=== PATIENT | male | born 1955 | race Caucasian/White ===

== ENCOUNTER 2025-04-03 13:41 | Inpatient (IN) | payer MEDICAID, SELFPAY ==
[2025-04-03] VITALS (60 sets, daily range): BP systolic 70–167; BP diastolic 45–121; PULSE 74–109; RESP 13–25; TEMP 34.4–36.5; O2SAT 88–100; BMI 35.4
--- NOTE | 2025-04-03 13:54 | XR_ITS ---
Examination: CT brain head without contrast. 2-D sagittal coronal reconstructions Date and time of exam:April 03, 2025 7001 hours Comparison April 07, 2022 INDICATIONS: Cardiopulmonary arrest followed by altered mental status today CTDI: vol (mGy):56.5 DLP: (mGycm):1170 Technique: Multiple CT axial sections of the brain have been obtained, 5 mm slice thickness. Contrast has not been administered. 2-D sagittal, coronal reconstructions have been obtained Low dose protocols were performed. One or more of the following dose reduction techniques were used; automated exposure control, adjustment of the mA and/or KV according to patient size, use of iterative reconstruction technique. Findings: No significant ventricular enlargement. Intra-axial or extra-axial hemorrhage density is not seen. No mass effect or midline shift Basal cisterns are not remarkable. Fourth ventricle is midline. Cranial vault intact. 8 mm bony exostosis off the right frontal bone Impression: Negative for acute hemorrhage, mass effect or midline shift No acute infarct No generalized cerebral edema As clinically warranted, brain MRI follow-up would best assess for acute ischemic change/anoxia
--- NOTE | 2025-04-03 13:54 | PD.EDCPR ---
ED CPR RME/HPI General Chief Complaint: Cardiac Arrest/CPR Stated Complaint: CARDIAC ARREST Arrival date/time: 04/03/25 13:41 RME / HPI RME / HPI narrative: 70 year old male [facility] the ED [facility] as a code [facility]. Per medics, the initial call was for choking incident. When they arrived, staff stated patient began choking after eating an apple and fire department was able to remove some of the food. When they arrived noted patient to have agonal respirations, with a domingo pulse, placed an NPA in the right nostril, and bagged via BVM. Medics reported en route to ED patient lost pulses and CPR was initiated. Patient was given 1 epinephrine at 13:36. On arrival to ED at 13:37 CPR is in progress. Related Data Home Medications ?Medication ?Instructions ?Recorded ?Confirmed amlodipine 10 mg tablet 10 mg PO QDAY 10/02/20 01/24/24 lorazepam 0.5 mg tablet 0.5 mg PO TID PRN Anxiety 10/02/20 01/24/24 lurasidone 40 mg tablet 40 mg PO QDAY 10/02/20 01/24/24 melatonin 5 mg tablet 5 mg PO HS 10/02/20 01/24/24 paroxetine HCl 20 mg tablet 20 mg PO QDAY 10/02/20 01/24/24 quetiapine 100 mg tablet 200 mg PO HS 10/02/20 01/24/24 cyanocobalamin (vitamin B-12) 1,000 mcg PO QDAY 10/03/20 01/24/24 1,000 mcg tablet (Vitamin B-12) docusate sodium 50 mg/5 mL oral 25 ml PO BID 10/03/20 01/24/24 liquid folic acid 1 mg tablet 1 mg PO QDAY 10/03/20 01/24/24 insulin glargine 100 unit/mL (3 26 unit subcut HS 10/03/20 01/24/24 mL) subcutaneous pen (Basaglar KwikPen U-100 Insulin) polyethylene glycol 3350 17 gram 17 g PO QDAY 10/03/20 01/24/24 oral powder packet (Miralax) omeprazole 20 mg tablet,delayed 20 mg PO BID 05/16/21 01/24/24 release quetiapine 100 mg tablet 100 mg PO QDAY 05/16/21 01/24/24 trazodone 50 mg tablet 200 mg PO QDAY 05/16/21 01/24/24 insulin lispro 100 unit/mL See Protocol subcut USEASDIRECTD 03/08/22 01/24/24 subcutaneous solution (Humalog PRN Hyperglycemia U-100 Insulin) finasteride 5 mg tablet 5 mg PO QDAY 07/19/22 01/24/24 tamsulosin 0.4 mg capsule 0.8 mg PO QHS 07/19/22 01/24/24 Previous Rx's ?Medication ?Instructions ?Recorded allopurinol 100 mg tablet 100 mg PO BID #1 tab 10/05/20 carvedilol 3.125 mg tablet 3.125 mg PO BID #1 tab 10/05/20 Allergies Allergy/AdvReac Type Severity Reaction Status Date / Time No Known Allergies Allergy Verified 04/03/25 13:52 Review of Systems Review of Systems ROS Unobtainable: other (Unobtainable due to acuity ) Past Medical History Past Medical History CARDIAC: Positive Cardiac Disorders, Congestive Heart Failure and Hypertension MUSCULOSKELETAL: Positive Musculoskeletal Disorders and Gout ENDOCRINE: Positive Endocrine Disorders and Diabetes Mellitus Type 2 PSYCHO/SOCIAL: Positive Psychiatric Problems, Bipolar Disorder, Anxiety and Behavior Problems Surgical History SURGICAL: Positive Amputation Social History SMOKING STATUS: Smoker, status unknown SUBSTANCE USE: unknown ED Exam Narrative Physical exam: GEN. APPEARANCE: Patient arrived with CPR in progress, bagged via BVM with NPA in right nostril. VITALS: Unobtainable. HEENT: Normocephalic, atraumatic, equal pupils, patient had food material in airway NECK: Supple, no JVD, no mass, no lymphadenopathy. RESPIRATORY: Agonal respirations CARDIOVASCULAR: No spontaneous cardiac activity, CPR in progress. ABDOMEN: Soft, mildly distended, obese EXTREMITIES: Left AKA, abnormally dark skin of the right lower extremity. No edema. No signs of trauma. SKIN: Cool and dry, no rashes noted. No signs of trauma. NEURO: GCS is 3. Unable to evaluate secondary to unresponsive. Course Quality Measures none Orders Category Date Time Status Cadd Operator NOW Care 04/03/25 13:55 Active Continuous Pulse Oximetry NOW Care 04/03/25 13:54 Completed EKG (ED ONLY) *Do not use* NOW Care 04/03/25 13:53 Completed Nunez [Urinary Catheter] X1 Care 04/03/25 14:10 Completed Insert IV NOW Care 04/03/25 13:55 Active Insert NG / OG tube NOW Care 04/03/25 14:42 Active NPO NOW Care 04/03/25 13:55 Active Urinary Catheter NOW Care 04/03/25 13:[address] head/brain wo con Stat Exams 04/03/25 13:54 Completed EKG (ED Only) Stat Exams 04/03/25 13:53 Ordered XR chest 1V portable Stat Exams 04/03/25 13:54 Completed Acetaminophen Stat Lab 04/03/25 13:47 Completed Alcohol, Blood Medical Stat Lab 04/03/25 13:47 Completed Arterial Blood Gas Stat Lab 04/03/25 16:35 Ordered CBC Stat Lab 04/03/25 13:47 Completed Comprehensive Metabolic Panel Stat Lab 04/03/25 13:47 Completed Drug Screen,Urine Stat Lab 04/03/25 13:55 Completed Prothrombin Time with INR Stat Lab 04/03/25 13:47 Completed Sputum Culture and Gram Stain Stat Lab 04/03/25 15:27 Received Midazolam/Ns 100 mg Ivpb [Versed Pf Inj in Ns Premix] Med 04/03/25 14:18 Discontinued 100 mg in 100 ml IV 2 mg/hr Piper/Tazo 3.375 gm Premix [Zosyn] Med 04/03/25 13:57 Discontinued 3.375 gm in 50 ml IV X1 Rocuronium Inj [Zemuron Inj] Med 04/03/25 14:17 Discontinued 100 mg .ROUTE .STK-MED ONE Rocuronium Inj [Zemuron Inj] Med 04/03/25 14:18 Discontinued 100 mg IVP X1 ONE Sodium Chloride 0.9% 1000 ml [Ns] 1,000 ml Med 04/03/25 13:54 Discontinued IV 1,000 mls/hr Sodium Chloride Rt Jessica 10% [NS Rt Jessica 10%] Med 04/03/25 14:04 Discontinued 5 ml INH X1 ONE Vancomycin Pharmacy to Dose Med 04/03/25 14:00 Active 1 each IV QDAY PRN Vancomycin/Ns 1 gm Ivpb 200 ml Med 04/03/25 14:00 Discontinued IV X1 Mechanical [Volume Ventilator] Stat RT 04/03/25 Active Sputum Induction PRN RT 04/03/25 14:15 Ordered Vital Signs Vital signs: Vital Signs Pulse Rate 85 04/03/25 13:49 Respiratory Rate 16 04/03/25 13:49 Blood Pressure 140/97 H 04/03/25 13:49 Pulse Oximetry (%) 100 04/03/25 13:49 Procedures -ED Intubation Time out performed: No (Performed emergently ) sedative: none Laryngoscope: fiber optic video scope Assist Device Used: fiber optic device ET Tube Size: 7.5 ET Tube Uncuffed: No Tube Secured Depth (cm): 23 Tube Secured Location: other (gum) Tube Placement Confirmation: visualized tube passing through cords, equal breath sounds bilaterally, no breath sounds over epigastrium and confirmation by capnometry Patient Tolerated Procedure: well and no complications Intubation Complications: none Cardiac Arrest / CPR MDM Narrative MDM Narrative:: Patria Tabares am scribing for and in the presence of Dr. Angel. Patient data External records reviewed:: [facility] previous records (I reviewed ED visit on 06/18/2022 for urinary retention ) and EMS form Clinical information provided by:: EMS Social determinants that could affect healthcare access:: housing (care home resident ) Patient has the following chronic illnesses:: insulin-dependant diabetes, right big toe amputation, left AKA How is presenting disease/condition affected by chronic disease/condition?: exacerbated by Evaluation data The following diagnostics were reviewed and interpreted by me:: lab results, radiology exam(s) and EKG tracing(s) Lab and/or radiology exams considered but not ordered:: None Interpretation Summary: Ordering Physician: Davion Angel MD Date of Service: 04/03/25 Procedure(s): XR chest 1V portable Accession Number(s): [id number] cc: Davion Angel MD; Drake Brown MD; NO PRIMARY/FAMILY,PHYSICIAN~ Examination: AP chest single view TECHNIQUE: AP portable upright chest single view Exam date and time: April 03, 2025, 1419 hours Comparison March 08, 2022. INDICATIONS: Acute respiratory failure, postintubation FINDINGS: Mild enlargement cardiac contour Bibasilar pneumonia, significant right base consider aspiration pneumonia Endotracheal tube tip 6.8 cm above Andree Orogastric tube tip projects in the upper esophagus Moderate vascular congestion IMPRESSION: Significant bibasilar pneumonia, consider aspiration pneumonia Advance the orogastric tube 15 cm Dictated By: Drake Brown MD Signed By: <Electronically signed by Drake Brown MD in OV> 04/03/25 5418 Medications / Prescriptions Medications or Prescriptions considered but not ordered:: None Medication administrations:: Medication Administration History Acetaminophen (Acetaminophen 325 Mg Tablet) 650 mg PO Q6H PRN PRN Reason: Fever >100.4 Stop: 05/03/25 16:21 Dextrose (Dextrose 50%-Water Inj 50 Ml Syringe) 25 ml IV Q15MIN PRN PRN Reason: BG 50-70 responsive npo pt Stop: 05/03/25 16:32 Dextrose (Dextrose 50%-Water Inj 50 Ml Syringe) 50 ml IV Q15MIN PRN PRN Reason: BG <50 OR BG <70 & pt unresponsive Stop: 05/03/25 16:32 Famotidine (Famotidine Inj 10 Mg/Ml Vial 2 Ml) 20 mg IVP Q12HR MANUEL Stop: 05/03/25 20:59 Glucagon (Glucagon Inj 1 Mg Vial) 1 mg IM Q15MIN PRN PRN Reason: BG <70, and no IV access Heparin Sodium (Porcine) (Heparin Sod Inj 5000 Unit/Ml Vial) 5,000 unit SC Q8HR MANUEL Stop: 04/17/25 21:59 Norepinephrine/Dextrose (Levophed In D5w 8mg/250ml) 8 mg in 250 mls @ 10.206 mls/hr IV .Q24H PRN; Protocol PRN Reason: PER PROTOCOL Stop: 05/03/25 16:30 Last Titration: 04/03/25 17:20 Dose: 0 mcg/kg/min, 0 mls/hr Documented By: Admin: 04/03/25 16:42 Dose: 0.05 mcg/kg/min, 10.206 mls/hr Documented By: JESUS Piperacillin/Tazobactam/Dextrose (Zosyn) 3.375 gm in 50 mls @ 12.5 mls/hr IV Q8HR MANUEL Stop: 04/10/25 21:59 Vancomycin/Sodium Chloride (Vancomycin/Ns 1 Gm Ivpb) 200 mls @ 120 mls/hr IV X1 ONE Stop: 04/03/25 19:09 Propofol (Diprivan Ivpb) 1,000 mg in 100 mls @ 3.266 mls/hr IV .Q24H PRN; Protocol PRN Reason: PER PROTOCOL Stop: 05/03/25 17:22 Last Admin: 04/03/25 17:46 Dose: 5 mcg/kg/min, 3.266 mls/hr Documented By: LETY Co-signed By: BENITA Fentanyl Citrate (Sublimaze Inj 2,500 Mcg/250 Ml Bag) 2,500 mcg in 250 mls @ 2.5 mls/hr IV .Q24H PRN; Protocol PRN Reason: PER PROTOCOL Stop: 04/08/25 17:22 Last Admin: 04/03/25 17:46 Dose: 25 mcg/hr, 2.5 mls/hr Documented By: LETY Co-signed By: BENITA Insulin Human Regular (Insulin Hum Regular 1 Unit/0.01 Ml (Per Unit)) 0 unit SC Q6HR MANUEL; Protocol Stop: 05/03/25 17:59 Pharmacy Consult (Vancomycin Pharmacy To Dose 1 Each Each) 1 each IV QDAY PRN PRN Reason: CONSULT Stop: 05/03/25 13:59 Discontinued Medications Sodium Chloride (Ns) 1,000 mls @ 1,000 mls/hr IV .Q1H ONE Stop: 04/03/25 14:53 Last Infusion: 04/03/25 17:47 Dose: Infused Documented By: Admin: 04/03/25 14:52 Dose: 1,000 mls/hr Documented By: SHERWIN Piperacillin/Tazobactam/Dextrose (Zosyn) 3.375 gm in 50 mls @ 100 mls/hr IV X1 ONE Stop: 04/03/25 14:26 Last Infusion: 04/03/25 17:46 Dose: Infused Documented By: Admin: 04/03/25 15:57 Dose: 100 mls/hr Documented By: JESUS Vancomycin/Sodium Chloride (Vancomycin/Ns 1 Gm Ivpb) 200 mls @ 120 mls/hr IV X1 ONE Stop: 04/03/25 15:39 Last Admin: 04/03/25 15:57 Dose: 120 mls/hr Documented By: JESUS Midazolam HCl (Versed Pf Inj In Ns Premix) 100 mg in 100 mls @ 2 mls/hr IV .Q24H PRN; Protocol PRN Reason: PER PROTOCOL Stop: 04/08/25 14:17 Last Titration: 04/03/25 17:42 Dose: 0 mg/hr, 0 mls/hr Documented By: Titration: 04/03/25 17:14 Dose: 3 mg/hr, 3 mls/hr Documented By: Admin: 04/03/25 14:30 Dose: 2 mg/hr, 2 mls/hr Documented By: SHERWIN Co-signed By: PETAR Norepinephrine Bitartrate (Levophed In Ns 16mg/250ml) 16 mg in 250 mls @ 5.103 mls/hr IV .Q24H PRN; Protocol PRN Reason: PER protocol Stop: 05/03/25 16:25 Norepinephrine/Dextrose (Levophed In D5w 8mg/250ml) Confirm Administered Dose 8 mg in 250 mls @ ud IV .STK-MED ONE Stop: 04/03/25 16:26 Last Admin: 04/03/25 16:43 Dose: Not Given Documented By: JESUS Non-Admin Reason: Duplicate Medication on eMAR Calcium Gluconate/Sodium Chloride (Calcium Gluc/Ns 1000mg Ivpb) 1,000 mg in 50 mls @ 50 mls/hr IV X1 ONE Stop: 04/03/25 17:32 Rocuronium [place] (Rocuronium Inj 10 Mg/Ml Vial 10 Ml) 100 mg IVP X1 ONE Stop: 04/03/25 14:19 Last Admin: 04/03/25 14:22 Dose: 100 mg Documented By: SHERWIN Co-signed By: MARINA Rocuronium [place] (Rocuronium Inj 10 Mg/Ml Vial 10 Ml) Confirm Administered Dose 100 mg .ROUTE .STK-MED ONE Stop: 04/03/25 14:18 Last Admin: 04/03/25 14:25 Dose: Not Given Documented By: SHERWIN Non-Admin Reason: Duplicate Medication on eMAR Sodium Chloride (Sodium Chloride Rt 10% 15 Ml Nebu) 5 ml INH X1 ONE Stop: 04/03/25 14:05 See above Consultations Consultation(s) initiated? (list below): Yes Consultation #1 (Physician, Specialty, Details): I spoke with supervisor powder and primer canning Dr. Mathews. Discussed patients PMHx, HPI, ED course, exam findings, labs, and radiology results. Aircraft Engine Specialist accepts the patient for admission. Diagnosis Cardiac arrest differential diagnosis: acute respiratory failure, cardiac arrest and other (Complete airway obstruction, aspiration pneumonia, acute respiratory failure) Most likely diagnosis given after review of the tests above:: Aspiration pneumonia Acute respiratory arrest Hypernatremia Admission Indicated Admission indicated?: indicated Admission Request Was there a request for admission?: Yes Admission Attestation Admission request attestation: Discussed case with [] from Hospitalist service regarding admission. Discussed patients ED course, exam findings, labs, and radiology results. The Hospitalist [agrees,declines] to accept the patient for admission. Disposition Plan Disposition Plan: Admit Critical Care Time Critical Care Time Critical Care Time: Yes Total Critical Care Time (min.): 35 Attestation: The high probability of sudden, clinically significant deterioration in the patient's condition required the highest level of my preparedness to intervene urgently. The services I provided to this patient were to treat and/or prevent clinically significant deterioration. Services included the following: chart data review, reviewing nursing notes and/or old charts, documentation time, executive talent acquisition consultant collaboration regarding findings and treatment options, medication orders and management, direct patient care, vital sign assessments and ordering, interpreting and reviewing diagnostic studies and lab tests. Aggregate critical care time includes only time during which I was engaged in work directly related to the patient's care, as described above, whether at bedside or elsewhere in the Emergency Department. It did not include time spent performing other reported procedures or the services of residents, students, nurses or physician assistants. Discharge Plan Plan Patient Disposition: Admit Acute Care w/in Hospital Problem List Clinical Impression: Aspiration pneumonia, Acute respiratory failure, Hypernatremia
--- NOTE | 2025-04-03 14:01 | PC.CC ---
Carton Counter Feeder contacted [facility] longtermhome economist consumer service- Shruthi Brooks [phone] in efforts to receive family/next of kin information. Shruthi informed check writer salesperson Pt is conserve and does not have family/next of kin but has rifle case repairer through [facility] Marilia Lee [phone]. Carton Counter Feeder attempted to call rifle case repairer and was not able to reach her. Carton Counter Feeder contacted construction operations manager after hours [facility] hotline and was able to reach Tito [facility] facility maintenance supervisor [phone] and informed her of Pt status. Carton Counter Feeder informed attending doctor of [facility] status and shared contact information.
[2025-04-03 14:15] LABS: Basophils # (Auto) 0.1 Thou/mm3 (0.0-0.2); Basophils % (Auto) 1 % (0-2.5); Eosinophils # (Auto) 0.5 Thou/mm3 (0.0-0.5); Eosinophils % (Auto) 5 % (0-10); Hematocrit 26.6 % (41.0-53.0); Immature Granulocytes % (Auto) 3 % (0-0); Immature Granulocytes Auto 0.28 Thou/mm3 (0.00-0.00); Lymphocytes # (Auto) 3.7 Thou/mm3 (1.0-4.8); Lymphocytes % (Auto) 41 % (10-50); Mean Corpuscular HGB Conc 33.8 g/dl (31.0-37.0); Mean Corpuscular Volume 92 fL (80-100); Monocytes # (Auto) 0.5 Thou/mm3 (0.0-0.8); Monocytes % (Auto) 6 % (0-12); Neutrophils % (Auto) 45 % (37-80); Nucleated Red Blood Cell # 0.11 Thou/mm3 (0.00-0.00); Nucleated Red Blood Cell % 1 /100 WBC (0); Platelet Count 105 Thou/mm3 (140-440); RDW Standard Deviation 49.8 fL (35.1-43.9)
[2025-04-03 14:19] LABS: INR 1.3 (0.9-1.3); Prothrombin Time 13.8 Seconds (9.0-12.2)
[2025-04-03] MEDS: ROCURONIUM INJ 10 MG/ML VIAL 10 ML 100 MG IVP (14:22)
[2025-04-03 14:25] LABS: Acetaminophen < 2.0 mcg/mL (10.0-20.0); Alanine Aminotransferase 18 U/L (10-49); Albumin, Serum 2.2 gm/dL (3.4-4.8); Albumin/Globulin Ratio 0.8 (1.2-2.2); Alcohol, Blood Medical < 3.0 mg/dL (0-10.0); Alkaline Phosphatase 64 U/L (46-116); Anion Gap 34 (7-16); Aspartate Amino Transferase 36 U/L (0-34); BUN/Creatinine Ratio 31 Ratio (12-20); Bilirubin,Total < 0.2 mg/dL (0.3-1.2); Blood Urea Nitrogen 37 mg/dL (9-23); Calcium (Corrected) 7.9 mg/dL (8.5-10.1); Carbon Dioxide > 40.0 mMol/L (20.0-31.0); Chloride 105 mMol/L (98-107); Creatinine (Component) 1.2 mg/dL (0.6-1.3); Estimated Creatinine Clearance 69.6 mL/min (>60); Globulin 2.8 gm/dL (2.3-3.5); Glucose 163 mg/dL (74-106); Osmolality,Calculated 364 (275-295); Potassium 4.7 mMol/L (3.4-5.1); eGFR > 60 See Note
[2025-04-03 14:26] LABS: Calcium 6.5 mg/dL (8.3-10.6); Sodium 179 mMol/L (136-145)
[2025-04-03 14:27] LABS: Amphetamine/Methamp Scrn,U Negative (Negative); Barbiturate Screen,Urine Negative (Negative); Benzodiazepines Screen,Urine Negative (Negative); Benzoylecgonine Screen, Ur Negative (Negative); Fentanyl Screen,Urine Negative (Negative); Opiate Screen,Urine Negative (Negative); THC Screen,Urine Negative (Negative)
[2025-04-03] MEDS: MIDAZOLAM/NS 100 MG IVPB 100 MG/100 ML BAG IV (14:30)
[2025-04-03] MEDS: SODIUM CHLORIDE 0.9% 1000 ML 1,000 ML IV (14:52)
[2025-04-03] MEDS: PIPER/TAZO 3.375 GM PREMIX 3.375 GM/50 ML BAG IV ×2 (15:57→21:20)
[2025-04-03] MEDS: VANCOMYCIN/NS 1 GM IVPB 200 ML IV ×2 (15:57→18:22)
--- NOTE | 2025-04-03 16:35 | PD.RESHP ---
Documentation for date of: 04/03/25 [facility] History of Present Illness Chief complaint: respiratory arrest History of present illness: Patient is a 70 year old male with PMH of developmental delay, bipolar disorder, DM2, L AKA admitted to the ICU for choking-induced pulmonary arrest s/p ROSC. Per caregivers and EMS report, patient was eating an apple when he choked and became unresponsive. When EMS arrived, patient was noted to be agonal, hypoxic at 55% and bradycardic. They were able to clear some food from his mouth. Patient was bagged via NPA. En route, patient lost pulses and CPR was initiated. He was given 1 of epinephrine. ROSC was achieved. Patient was intubated. Per caregivers, patient is wheelchair bound. He is verbal at baseline. He has been itchy and multiple excoriations were noted on physical exam. In the ER, labs significant for severe hypernatremia at 179 with an anion gap acidosis. He was given 1L of NS and empiric antibiotics. He was started on versed and became hypotensive, so levophed was started. CXR shows significant bibasilar pneumonia. EKG showed sinus tachycardia. UTOX negative. Head CT pending. UA, lactic acid, troponin pending. Patient admitted to the ICU for respiratory arrest s/p ROSC and severe hypernatremia. Patient is is conserved with CRVC. Exam Vital Signs Temp Pulse Resp BP Pulse Ox O2 Del Method FiO2 97.7 F 77 18 90/56 L 97 Mechanical Ventilation 100 04/03/25 16:13 04/03/25 16:13 04/03/25 16:13 04/03/25 16:13 04/03/25 16:13 04/03/25 16:13 04/03/25 16:13 Narrative Exam Constitutional: Elderly male, intubated/sedated; obese HEENT: NCAT. Mucous membranes dry. Pupils sluggish Respiratory: Bilateral ronchi. Intubated Cardiac: RRR. Abdomen: Soft, non-distended. : Nunez draining concentrated urine MSK: L BKA. No peripheral edema Skin: Multiple excoriations throughout body. Stasis dermatitis discoloration R schrader. Results: Labs 04/05/25 05:08 04/05/25 05:08 Labs: Short CBC 04/03/25 Range/Units 13:47 WBC 9.0 (3.8-10.6) Thou/mm3 Hgb 9.0 L (13.5-16.0) g/dL Hct 26.6 L (41.0-53.0) % Plt Count 105 L (140-440) Thou/mm3 BMP 04/03/25 13:47 Sodium 179 H* Potassium 4.7 Chloride 105 Carbon Dioxide > 40.0 H BUN 37 H Creatinine 1.2 Glucose 163 H Calcium 6.5 L* Liver Function 04/03/25 Range/Units 13:47 Total Bilirubin < 0.2 L (0.3-1.2) mg/dL AST 36 H (0-34) U/L ALT 18 (10-49) U/L Alkaline Phosphatase 64 (46-116) U/L Albumin 2.2 L (3.4-4.8) gm/dL Quality Measures Quality Measures none Advance care planning discussed with:: other (conserved; attempted to reach CRVC. Spoke with caregivers.) Medications Home Medications and Allergies Home Medications ?Medication ?Instructions ?Recorded ?Confirmed ?Type amlodipine 10 mg tablet 10 mg PO QDAY 10/02/20 01/24/24 History lorazepam 0.5 mg tablet 0.5 mg PO TID PRN Anxiety 10/02/20 01/24/24 History lurasidone 40 mg tablet 40 mg PO QDAY 10/02/20 01/24/24 History melatonin 5 mg tablet 5 mg PO HS 10/02/20 01/24/24 History paroxetine HCl 20 mg tablet 20 mg PO QDAY 10/02/20 01/24/24 History quetiapine 100 mg tablet 200 mg PO HS 10/02/20 01/24/24 History cyanocobalamin (vitamin B-12) 1,000 mcg PO QDAY 10/03/20 01/24/24 History 1,000 mcg tablet (Vitamin B-12) docusate sodium 50 mg/5 mL oral 25 ml PO BID 10/03/20 01/24/24 History liquid folic acid 1 mg tablet 1 mg PO QDAY 10/03/20 01/24/24 History insulin glargine 100 unit/mL (3 26 unit subcut HS 10/03/20 01/24/24 History mL) subcutaneous pen (Basaglar ShantalPen U-100 Insulin) polyethylene glycol 3350 17 gram 17 g PO QDAY 10/03/20 01/24/24 History oral powder packet (Miralax) omeprazole 20 mg tablet,delayed 20 mg PO BID 05/16/21 01/24/24 History release quetiapine 100 mg tablet 100 mg PO QDAY 05/16/21 01/24/24 History trazodone 50 mg tablet 200 mg PO QDAY 05/16/21 01/24/24 History insulin lispro 100 unit/mL See Protocol subcut USEASDIRECTD 03/08/22 01/24/24 History subcutaneous solution (Humalog PRN Hyperglycemia U-100 Insulin) finasteride 5 mg tablet 5 mg PO QDAY 07/19/22 01/24/24 History tamsulosin 0.4 mg capsule 0.8 mg PO QHS 07/19/22 01/24/24 History Allergies Allergy/AdvReac Type Severity Reaction Status Date / Time No Known Allergies Allergy Verified 04/03/25 13:52 Visit Medications Acetaminophen (Acetaminophen 325 Mg Tablet) 650 mg PO Q6H PRN PRN Reason: Fever >100.4 Stop: 05/03/25 16:21 Dextrose (Dextrose 50%-Water Inj 50 Ml Syringe) 25 ml IV Q15MIN PRN PRN Reason: BG 50-70 responsive npo pt Stop: 05/03/25 16:32 Dextrose (Dextrose 50%-Water Inj 50 Ml Syringe) 50 ml IV Q15MIN PRN PRN Reason: BG <50 OR BG <70 & pt unresponsive Stop: 05/03/25 16:32 Famotidine (Famotidine Inj 10 Mg/Ml Vial 2 Ml) 20 mg IVP Q12HR MANUEL Stop: 05/03/25 20:59 Glucagon (Glucagon Inj 1 Mg Vial) 1 mg IM Q15MIN PRN PRN Reason: BG <70, and no IV access Heparin Sodium (Porcine) (Heparin Sod Inj 5000 Unit/Ml Vial) 5,000 unit SC Q8HR MANUEL Stop: 04/17/25 21:59 Midazolam HCl (Versed Pf Inj In Ns Premix) 100 mg in 100 mls @ 2 mls/hr IV .Q24H PRN; Protocol PRN Reason: PER PROTOCOL Stop: 04/08/25 14:17 Last Admin: 04/03/25 14:30 Dose: 2 mg/hr, 2 mls/hr Norepinephrine/Dextrose (Levophed In D5w 8mg/250ml) 8 mg in 250 mls @ 10.206 mls/hr IV .Q24H PRN; Protocol PRN Reason: PER PROTOCOL Stop: 05/03/25 16:30 Piperacillin/Tazobactam/Dextrose (Zosyn) 3.375 gm in 50 mls @ 12.5 mls/hr IV Q8HR MANUEL Stop: 04/10/25 21:59 Calcium Gluconate/Sodium Chloride (Calcium Gluc/Ns 1000mg Ivpb) 1,000 mg in 50 mls @ 50 mls/hr IV X1 ONE Stop: 04/03/25 17:32 Insulin Human Regular (Insulin Hum Regular 1 Unit/0.01 Ml (Per Unit)) 0 unit SC Q6HR MANUEL; Protocol Stop: 05/03/25 17:59 Pharmacy Consult (Vancomycin Pharmacy To Dose 1 Each Each) 1 each IV QDAY PRN PRN Reason: CONSULT Stop: 05/03/25 13:59 Discontinued Medications Sodium Chloride (Ns) 1,000 mls @ 1,000 mls/hr IV .Q1H ONE Stop: 04/03/25 14:53 Last Admin: 04/03/25 14:52 Dose: 1,000 mls/hr Piperacillin/Tazobactam/Dextrose (Zosyn) 3.375 gm in 50 mls @ 100 mls/hr IV X1 ONE Stop: 04/03/25 14:26 Last Admin: 04/03/25 15:57 Dose: 100 mls/hr Vancomycin/Sodium Chloride (Vancomycin/Ns 1 Gm Ivpb) 200 mls @ 120 mls/hr IV X1 ONE Stop: 04/03/25 15:39 Last Admin: 04/03/25 15:57 Dose: 120 mls/hr Norepinephrine Bitartrate (Levophed In Ns 16mg/250ml) 16 mg in 250 mls @ 5.103 mls/hr IV .Q24H PRN; Protocol PRN Reason: PER protocol Stop: 05/03/25 16:25 Rocuronium [place] (Rocuronium Inj 10 Mg/Ml Vial 10 Ml) 100 mg IVP X1 ONE Stop: 04/03/25 14:19 Last Admin: 04/03/25 14:22 Dose: 100 mg Sodium Chloride (Sodium Chloride Rt 10% 15 Ml Nebu) 5 ml INH X1 ONE Stop: 04/03/25 14:05 Assessment & Plan Plan Patient is a 70 year old male with PMH of developmental delay, bipolar disorder, DM2, L AKA admitted to the ICU for choking-induced pulmonary arrest 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 Intubated 04/02 - Follow up ABG - Continue ventilator to maintain lung-protective volumes - SBT in AM if tolerates - Daily CXR RENAL #Hyperosmolar Hypernatremia Sodium on admission 179. Goal sodium 169 Free water deficit 3.7L - Free water flushes 200cc/hr - Sodium checks Q2H - Nephrology Dr. Cantrell following - Strict I&O - Urine Osm, UA pending - IVF #Hypocalcemia - Repleted GI No acute problems ENDO #History of DM2 - ISS Q6H HEME #Thrombocytopenia ID #Aspiration pneumonia versus pneumonitis - Empiric antibiotics - UA pending Health Maintenance Disposition: Admit to ICU for cardiac arrest s/p ROSC, hypernatremia Diet and fluids: NPO, free water flushses DVT prophylaxis: heparin GI prophylaxis: pepcid Lines: OG, ET, 2 PIV, Nunez CODE STATUS: FULL - patient is conserved with CRVC I have reviewed and discussed the patient's care with my attending, Dr. Bisi Su MD PGY-3 Attending Provider Attestation/Addendum Patient not seen on this date of service. Above resident did contact me to review the case. Agree with the plan of care as documented. No role in therapeutic hypothermia. Recheck serial sodiums given severe hypernatremia. Respiratory arrest likely secondary to aspiration as preceding event. I remain available overnight for any issues. I will see the patient formally tomorrow during rounds.
[2025-04-03] MEDS: Norepinephrine/D5W 8mg/250ml 8 MG/250 ML BAG 10.206 MG IV (16:42)
[2025-04-03] MEDS: PROPOFOL 1,000 MG IVPB 1,000 MG/100 ML VIAL 3.266 MG IV (17:46)
[2025-04-03] MEDS: fentaNYL 2,500 MCG/250 ML BAG 2,500 MCG/250 ML BAG IV (17:46)
--- NOTE | 2025-04-03 18:00 | XR_ITS ---
Examination: AP chest single view TECHNIQUE: AP portable supine chest single view Exam date and time: April 03, 2025, 181 hours Comparison April 03, 2025 1419 hours INDICATIONS: Post orogastric tube placement FINDINGS: Orogastric tube tip remains in the upper esophagus Endotracheal tube tip 4.3 cm above Andree Enlarged cardiac contour with significant lung opacity remains consistent with pneumonia and layered pleural fluid IMPRESSION: The orogastric tube tip again projects at the level of the upper esophagus
[2025-04-03 18:08] LABS: Lactate (Lactic Acid) 5.2 mMol/L (0.4-2.0)
[2025-04-03] MEDS: CALCIUM GLUC/NS 1000MG IVPB 1,000 MG/50 ML BAG 50 MG IV (18:22)
[2025-04-03 18:36] LABS: Sodium 135 mMol/L (136-145)
[2025-04-03 18:40] LABS: Troponin I 0.068 ng/mL (0.0-0.045)
[2025-04-03 19:55] LABS: Sodium 136 mMol/L (136-145)
--- NOTE | 2025-04-03 20:02 | XR_ITS ---
Examination: AP chest single view. TECHNIQUE: AP portable supine chest single view. Examination time: April 03, 2025, 2017 hours Comparison April 03, 2025 1813 hours INDICATIONS: Post orogastric tube reposition. FINDINGS: Orogastric tube tip remains proximal to mid esophagus The chest film is otherwise unchanged IMPRESSION: Orogastric tube tip remains proximal to mid esophagus, consider endoscopy follow-up to assess for esophageal obstruction
[2025-04-03] MEDS: SODIUM CHLORIDE 0.9% 1000 ML 1,000 ML 150 ML IV (20:53)
[2025-04-03 20:55] LABS: Base Excess 2 (-3-3); HCO3 26 mEq/L (20-26); Inspired Oxygen, FIO2 85 %; O2 Saturation 99 % (91-98); PCO2 37 mmHg (32.0-48.0); PO2 181 mmHg (83-108); pH, Arterial 7.46 (7.35-7.45)
[2025-04-03 20:58] LABS: Allen Test Performed/OK; Puncture Site Right Radial
[2025-04-03 21:03] LABS: Reflex Lactate? Y
[2025-04-03] MEDS: FAMOTIDINE INJ 10 MG/ML VIAL 2 ML 20 MG IVP (21:20)
[2025-04-03] MEDS: HEPARIN SOD INJ 5000 UNIT/ML VIAL SC (21:21)
[2025-04-03 21:45] LABS: Lactic Acid, 3 HR 4.6 mMol/L (0.4-2.0)
[2025-04-03] MEDS: PROPOFOL 1,000 MG IVPB 1,000 MG/100 ML VIAL 22.861 MG IV (21:53)
[2025-04-04] VITALS (117 sets, daily range): BP systolic 70–145; BP diastolic 47–92; PULSE 50–88; RESP 7–20; TEMP 36–36.8; O2SAT 76–100; BMI 35.2
[2025-04-04 01:21] LABS: Lactate (Lactic Acid) 2.4 mMol/L (0.4-2.0)
[2025-04-04] MEDS: PROPOFOL 1,000 MG IVPB 1,000 MG/100 ML VIAL 22.861 MG IV (02:50)
[2025-04-04] MEDS: SODIUM CHLORIDE 0.9% 1000 ML 1,000 ML 150 ML IV ×3 (03:34→17:14)
[2025-04-04 04:15] LABS: Reflex Lactate? Y
[2025-04-04 05:08] LABS: Base Excess 3 (-3-3); HCO3 27 mEq/L (20-26); Inspired Oxygen, FIO2 60 %; O2 Saturation 98 % (91-98); PCO2 42 mmHg (32.0-48.0); PO2 111 mmHg (83-108); pH, Arterial 7.42 (7.35-7.45)
[2025-04-04 05:12] LABS: Allen Test Performed/OK; Puncture Site Right Radial
[2025-04-04] MEDS: PIPER/TAZO 3.375 GM PREMIX 3.375 GM/50 ML BAG IV ×3 (05:34→21:00)
[2025-04-04] MEDS: HEPARIN SOD INJ 5000 UNIT/ML VIAL SC ×3 (05:34→21:00)
--- NOTE | 2025-04-04 06:00 | XR_ITS ---
Examination: AP chest single view Technique one AP portable semiupright chest single view Exam date and time: April 04, 2025, 0640 hours Comparison April 03, 2025 INDICATIONS: Acute hypoxic respiratory failure postintubation this history, extensive pneumonia ARDS pattern FINDINGS: Mild enlargement cardiac contour The orogastric tube has been removed Prominent vascular congestion. Extensive bilateral lung opacity primarily bibasilar Endotracheal tube tip 5.87 cm above Andree IMPRESSION: The orogastric tube has been removed Extensive bilateral pneumonia and/or pulmonary edema Endotracheal tube tip 5.7 cm above Andree
[2025-04-04 06:32] LABS: Basophils % (Auto) 0 % (0-2.5); Eosinophils % (Auto) 0 % (0-10); Hematocrit 30.8 % (41.0-53.0); Hemoglobin 9.9 g/dL (13.5-16.0); Immature Granulocytes % (Auto) 0 % (0-0); Immature Granulocytes Auto 0.03 Thou/mm3 (0.00-0.00); Lymphocytes # (Auto) 0.5 Thou/mm3 (1.0-4.8); Lymphocytes % (Auto) 5 % (10-50); Mean Corpuscular HGB Conc 32.1 g/dl (31.0-37.0); Mean Corpuscular Volume 97 fL (80-100); Monocytes # (Auto) 0.4 Thou/mm3 (0.0-0.8); Monocytes % (Auto) 4 % (0-12); Neutrophils # (Auto) 8.9 Thou/mm3 (1.8-7.7); Neutrophils % (Auto) 91 % (37-80); Nucleated Red Blood Cell % 0 /100 WBC (0); Platelet Count 96 Thou/mm3 (140-440); RDW Standard Deviation 53.7 fL (35.1-43.9); Red Blood Count 3.19 Miln/mm3 (4.50-5.90); White Blood Count 9.7 Thou/mm3 (3.8-10.6)
[2025-04-04 06:54] LABS: Alanine Aminotransferase 30 U/L (10-49); Albumin, Serum 2.9 gm/dL (3.4-4.8); Albumin/Globulin Ratio 0.8 (1.2-2.2); Alkaline Phosphatase 77 U/L (46-116); Anion Gap 10 (7-16); Aspartate Amino Transferase 35 U/L (0-34); BUN/Creatinine Ratio 26 Ratio (12-20); Bilirubin,Total 0.4 mg/dL (0.3-1.2); Blood Urea Nitrogen 42 mg/dL (9-23); Calcium 7.8 mg/dL (8.3-10.6); Calcium (Corrected) 8.7 mg/dL (8.5-10.1); Chloride 106 mMol/L (98-107); Creatinine (Component) 1.6 mg/dL (0.6-1.3); Estimated Creatinine Clearance 52.1 mL/min (>60); Globulin 3.7 gm/dL (2.3-3.5); Glucose 147 mg/dL (74-106); Magnesium 1.8 mg/dL (1.6-2.6); Osmolality,Calculated 298 (275-295); Potassium 4.1 mMol/L (3.4-5.1); Sodium 143 mMol/L (136-145); Total Protein 6.6 gm/dL (5.7-8.2); eGFR 46 See Note
[2025-04-04] MEDS: PROPOFOL 1,000 MG IVPB 1,000 MG/100 ML VIAL 16.329 MG IV (08:30)
[2025-04-04] MEDS: FAMOTIDINE INJ 10 MG/ML VIAL 2 ML 20 MG IVP ×2 (08:33→20:57)
--- NOTE | 2025-04-04 09:04 | PD.RESPRO ---
Documentation for date of: 04/04/25 Subjective Subjective Interval history: Patient is a 70 year old male with PMH of developmental delay, bipolar disorder, DM2, L AKA admitted to the ICU for choking-induced pulmonary arrest s/p ROSC. Per caregivers and EMS report, patient was eating an apple when he choked and became unresponsive. When EMS arrived, patient was noted to be agonal, hypoxic at 55% and bradycardic. They were able to clear some food from his mouth. Patient was bagged via NPA. En route, patient lost pulses and CPR was initiated. He was given 1 of epinephrine. ROSC was achieved. Patient was intubated. He was found to be severely hypernatremic at 179. 04/04/2025: Overnight, staff was unable to pass an OG tube. Everytime the patient was turned, food chunks would come out of his mouth. He recieved a total of 2L NS and the following sodium was 135, and recheck was 136. Suspect that initial sodium at 179 may have been a lab error. Patient had SAT and SBT today, then was re-sedated and put on ventilator support for bronchoscopy. During bronchoscopy, there was large food material and mucous that were removed from the right intermdiate and lower lung bronchi, and inflammation in the right upper lobe entry. Plan for endoscopy later today to remove suspected food obstructing the esophagus. Exam Vital Signs Temp Pulse Resp BP Pulse Ox O2 Del Method FiO2 96.8 F 74 13 86/62 L 100 Mechanical Ventilation 60 04/04/25 08:00 04/04/25 08:45 04/03/25 18:31 04/04/25 08:45 04/04/25 08:45 04/04/25 04:00 04/04/25 08:00 Narrative Exam Constitutional: Elderly male, intubated/sedated; obese HEENT: NCAT. Mucous membranes dry. Respiratory: Bilateral ronchi. Intubated Cardiac: RRR. Abdomen: Soft, non-distended. : Nunez draining concentrated urine MSK: L BKA. No peripheral edema Skin: Multiple excoriations throughout body. Stasis dermatitis discoloration R schrader. Objective Labs 04/05/25 05:08 04/05/25 05:08 Labs: Laboratory Results - last 24 hr 04/03/25 04/03/25 04/03/25 13:47 13:55 17:58 WBC 9.0 RBC 2.90 L Hgb 9.0 L Hct 26.6 L MCV 92 MCH 31.0 MCHC 33.8 RDW Std Deviation 49.8 H Plt Count 105 L Neut % (Auto) 45 Lymph % (Auto) 41 Island % (Auto) 6 Eos % (Auto) 5 Baso % (Auto) 1 Neut # (Auto) 4.0 Lymph # (Auto) 3.7 Island # (Auto) 0.5 Eos # (Auto) 0.5 Baso # (Auto) 0.1 Immature Gran # (Auto) 0.28 H Absolute Nucleated RBC 0.11 H Immature Gran % 3 H Nucleated RBC % 1 H PT 13.8 H INR 1.3 Puncture Site ABG pH ABG pCO2 ABG pO2 ABG HCO3 ABG O2 Saturation ABG Base Excess FiO2 Sodium 179 H* 135 L D Potassium 4.7 Chloride 105 Carbon Dioxide > 40.0 H Anion Gap 34 H BUN 37 H Creatinine 1.2 Estim Creat Clear Calc 69.6 eGFR > 60 BUN/Creatinine Ratio 31 H Glucose 163 H Calculated Osmolality 364 H Lactic Acid 5.2 H* Calcium 6.5 L* Corrected Calcium 7.9 L Phosphorus Magnesium Total Bilirubin < 0.2 L AST 36 H ALT 18 Alkaline Phosphatase 64 Troponin I 0.068 H* Total Protein 5.0 L Albumin 2.2 L Globulin 2.8 Albumin/Globulin Ratio 0.8 L Urine Opiates Screen Negative Urine Fentanyl Screen Negative Acetaminophen < 2.0 L Ur Barbiturates Screen Negative U Amphetamin/Meth Scrn Negative U Benzodiazepines Scrn Negative U Cocaine Metab Screen Negative U Marijuana (THC) Screen Negative Ethyl Alcohol < 3.0 04/03/25 04/03/25 04/03/25 19:30 20:45 21:20 WBC RBC Hgb Hct MCV MCH MCHC RDW Std Deviation Plt Count Neut % (Auto) Lymph % (Auto) Island % (Auto) Eos % (Auto) Baso % (Auto) Neut # (Auto) Lymph # (Auto) Island # (Auto) Eos # (Auto) Baso # (Auto) Immature Gran # (Auto) Absolute Nucleated RBC Immature Gran % Nucleated RBC % PT INR Puncture Site Right Radial ABG pH 7.46 H ABG pCO2 37 ABG pO2 181 H ABG HCO3 26 ABG O2 Saturation 99 H ABG Base Excess 2 FiO2 85 Sodium 136 Potassium Chloride Carbon Dioxide Anion Gap BUN Creatinine Estim Creat Clear Calc eGFR BUN/Creatinine Ratio Glucose Calculated Osmolality Lactic Acid 4.6 H* Calcium Corrected Calcium Phosphorus Magnesium Total Bilirubin AST ALT Alkaline Phosphatase Troponin I Total Protein Albumin Globulin Albumin/Globulin Ratio Urine Opiates Screen Urine Fentanyl Screen Acetaminophen Ur Barbiturates Screen U Amphetamin/Meth Scrn U Benzodiazepines Scrn U Cocaine Metab Screen U Marijuana (THC) Screen Ethyl Alcohol 04/04/25 04/04/25 04/04/25 00:58 04:55 05:55 WBC 9.7 RBC 3.19 L Hgb 9.9 L Hct 30.8 L MCV 97 MCH 31.0 MCHC 32.1 RDW Std Deviation 53.7 H Plt Count 96 L Neut % (Auto) 91 H Lymph % (Auto) 5 L Island % (Auto) 4 Eos % (Auto) 0 Baso % (Auto) 0 Neut # (Auto) 8.9 H Lymph # (Auto) 0.5 L Island # (Auto) 0.4 Eos # (Auto) 0.0 Baso # (Auto) 0.0 Immature Gran # (Auto) 0.03 H Absolute Nucleated RBC 0.00 Immature Gran % 0 Nucleated RBC % 0 PT INR Puncture Site Right Radial ABG pH 7.42 ABG pCO2 42 ABG pO2 111 H D ABG HCO3 27 H ABG O2 Saturation 98 ABG Base Excess 3 FiO2 60 Sodium 143 Potassium 4.1 D Chloride 106 Carbon Dioxide 27.0 Anion Gap 10 BUN 42 H Creatinine 1.6 H Estim Creat Clear Calc 52.1 L eGFR 46 L BUN/Creatinine Ratio 26 H Glucose 147 H Calculated Osmolality 298 H Lactic Acid 2.4 H 2.0 Calcium 7.8 L Corrected Calcium 8.7 Phosphorus 4.0 Magnesium 1.8 Total Bilirubin 0.4 AST 35 H ALT 30 Alkaline Phosphatase 77 D Troponin I 0.100 H* Total Protein 6.6 Albumin 2.9 L D Globulin 3.7 H Albumin/Globulin Ratio 0.8 L Urine Opiates Screen Urine Fentanyl Screen Acetaminophen Ur Barbiturates Screen U Amphetamin/Meth Scrn U Benzodiazepines Scrn U Cocaine Metab Screen U Marijuana (THC) Screen Ethyl Alcohol ABG Interpretation ABG results: 04/03/25 04/04/25 20:45 04:55 ABG pH 7.46 H 7.42 ABG pCO2 37 42 ABG pO2 181 H 111 H D ABG HCO3 26 27 H ABG O2 Saturation 99 H 98 ABG Base Excess 2 3 Quality Measures Quality Measures none Advance care planning discussed with:: legal surragate Assessment & Plan Assessment Current Active Medications: Generic Name Dose Route Start Last Admin Trade Name Freq PRN Reason Stop Dose Admin Acetaminophen 650 mg 04/03/25 16:22 Acetaminophen 325 Mg Tablet PO 05/03/25 16:21 Q6H PRN Fever >100.4 Dextrose 25 ml 04/03/25 16:33 Dextrose 50%-Water Inj 50 Ml Syringe IV 05/03/25 16:32 Q15MIN PRN BG 50-70 responsive npo pt Dextrose 50 ml 04/03/25 16:33 Dextrose 50%-Water Inj 50 Ml Syringe IV 05/03/25 16:32 Q15MIN PRN BG <50 OR BG <70 & pt unresponsive Famotidine 20 mg 04/03/25 21:00 04/04/25 08:33 Famotidine Inj 10 Mg/Ml Vial 2 Ml IVP 05/03/25 20:59 20 mg Q12HR MANUEL Administration Glucagon 1 mg 04/03/25 16:33 Glucagon Inj 1 Mg Vial IM Q15MIN PRN BG <70, and no IV access Heparin Sodium (Porcine) 5,000 unit 04/03/25 22:00 04/04/25 05:34 Heparin Sod Inj 5000 Unit/Ml Vial SC 04/17/25 21:59 5,000 unit Q8HR MANUEL Administration Norepinephrine/Dextrose 8 mg in 250 mls @ 10.206 mls/hr 04/03/25 16:31 04/04/25 08:47 Levophed In D5w 8mg/250ml IV 05/03/25 16:30 0.03 mcg/kg/min .Q24H PRN 6.123 mls/hr PER PROTOCOL Titration Protocol 0.05 MCG/KG/MIN Piperacillin/Tazobactam/Dextrose 3.375 gm in 50 mls @ 12.5 mls/hr 04/03/25 22:00 04/04/25 05:34 Zosyn IV 04/10/25 21:59 12.5 mls/hr Q8HR MANUEL Administration Propofol 1,000 mg in 100 mls @ 3.266 mls/hr 04/03/25 17:23 04/04/25 08:30 Diprivan Ivpb IV 05/03/25 17:22 25 mcg/kg/min .Q24H PRN 16.329 mls/hr PER PROTOCOL Administration Protocol 5 MCG/KG/MIN Fentanyl Citrate 2,500 mcg in 250 mls @ 2.5 mls/hr 04/03/25 17:23 04/04/25 08:00 Sublimaze Inj 2,500 Mcg/250 Ml Bag IV 04/08/25 17:22 75 mcg/hr .Q24H PRN 7.5 mls/hr PER PROTOCOL Titration Protocol 25 MCG/HR Sodium Chloride 1,000 mls @ 150 mls/hr 04/03/25 20:34 04/04/25 03:34 Ns IV 05/03/25 20:33 150 mls/hr .Q6H40M MANUEL Administration Vancomycin HCl 1,500 mg/ 500 mls @ 120 mls/hr 04/04/25 14:00 Sodium Chloride IV 04/11/25 13:59 QDAY@1400 MANUEL Insulin Human Regular 0 unit 04/03/25 18:00 04/04/25 07:08 Insulin Hum Regular 1 Unit/0.01 Ml (Per Unit) SC 05/03/25 17:59 Not Given Q6HR MANUEL Protocol Pharmacy Consult 1 each 04/03/25 14:00 Vancomycin Pharmacy To Dose 1 Each Each IV 05/03/25 13:59 QDAY PRN CONSULT Plan Patient is a 70 year old male with PMH of developmental delay, bipolar disorder, DM2, L AKA admitted to the ICU for choking-induced pulmonary arrest s/p ROSC. 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 #Acute on chronic encephalopathy #History of bipolar disorder, developmental delay Due to hypoxia, cardiac arrest Sedated for ventilator synchrony - Propofol and fentanyl, RAAS -2 - SAT in AM #History of bipolar disorder, developmental delay - Hold home meds CARDIOVASCULAR #Cardiopulmonary arrest s/p resuscitation Choking-induced respiratory and cardiac arrest Troponinemia likely Type II in the setting of cardiopulmonary arrest - Echo ordered #Hypotension Likely secondary to sedation - Levophed for goal MAP > 65 RESPIRATORY #Acute hypoxic respiratory failure #Foreign body aspiration pneumonitis versus pneumonia Due to choking-induced cardiac arrest. Intubated 04/02 Bronchoscopy 04/04 revealed food and mucous obstructing the right lower and intermediate lung, removed. - Continue ventilator to maintain lung-protective volumes - SBT in AM - Daily CXR RENAL #Hyperosmolar Hypernatremia, resolved Likely lab error. - Nephrology Dr. Cantrell following #Hypocalcemia - Repleted #Lactic acidosis, resolved GI #Esophageal obstruction OG tube unable to pass mid-esophagus. - GI Consult for endoscopy later tonight ENDO #History of DM2 - ISS Q6H HEME #Thrombocytopenia ID #Aspiration pneumonia versus pneumonitis - MRSA pending - Sputum culture pending - Empiric antibiotics with vanc, zosyn - UA pending Health Maintenance Disposition: Admit to ICU for cardiac arrest s/p ROSC, endoscopy tonight Diet and fluids: NPO DVT prophylaxis: heparin GI prophylaxis: pepcid Lines: ET, PIV, Nunez CODE STATUS: FULL - patient is conserved with CRVC I have reviewed and discussed the patient's care with my attending, Dr. Bisi Su MD PGY-3 Attending Provider Attestation/Addendum Patient seen and examined with above resident, Jane Su MD. I agree with the findings, assessment, and plan of care as documented except for any differences below. Patient intubated in the emergency department after [id number] respiratory arrest. Patient likely had PEA arrest as per description by resident staff though there is not a recorded rhythm on EMS worksheet. Patient underwent spontaneous awake trial with intact mentation he was able to track and follow some basic commands. He does have cognitive impairment at baseline from a developmental delay though remains independent with ADLs per report. Patient underwent bronchoscopy with extensive removal of foreign object likely pieces of chicken that he had aspirated and involved the right upper lobe right mainstem and right bronchus intermedius. The underlying mucosa is very erythematous and cobblestoning in appearance secondary to high inflammatory state. Mucosa very friable leading to bleeding. Will continue on albuterol and Pulmicort nebs to help with airway inflammation and bronchospastic effect of blood. Patient also with significant inability for placing OG tube likely due to esophageal obstruction from food bolus. EGD to be done by gastroenterology later this evening. Total critical care time: I personally spent 40 minutes for review of physiologic parameters, directing plan of care throughout the day, and coordination of care with other subspecialists. This is exclusive of time spent teaching housestaff performing any separate billable procedures. Patient continues to require critical care services for acute encephalopathy secondary to [id number] respiratory arrest and aspiration pneumonitis/pneumonia secondary to food/vomit. Patient remains at significant risk for further morbidity and mortality warranting close monitoring and care only available in the ICU.
[2025-04-04] MEDS: fentaNYL 2,500 MCG/250 ML BAG 2,500 MCG/250 ML BAG 7.5 MCG IV (09:38)
[2025-04-04 10:56] LABS: Vancomycin,Trough 15.1 mcg/mL (5.0-10.0)
[2025-04-04 10:59] LABS: Troponin I 0.062 ng/mL (0.0-0.045)
--- NOTE | 2025-04-04 11:23 | XR_ITS ---
Examination: AP chest single view Technique one AP supine portable chest single view Exam date and time: April 04, 2025 1206 hrs. Comparison April 04, 2025 0640 hrs. Indications: Acute hypoxic respiratory failure, pneumonia TR DS underneath chest imaging Findings: Enlarged cardiac contour again noted with extensive bilateral lung opacity, edema and/or pneumonia Tracheal tube tip 4.7 cm above kaur Suspicious for significant right pleural fluid Prominent osteopenia Impression: Extensive bilateral pneumonia and/or pulmonary edema, clinical correlation advised Suspicious for significant right pleural fluid Endotracheal tube tip 4.7 cm above kaur No orogastric tube is visualized
--- NOTE | 2025-04-04 12:11 | PD.NEPHCONS ---
Documented by User: Long Cantrell MD 04/05/25 17:09 History of Present Illness Data of Consult Requesting Physician: Kumar Mathews MD Primary Care Provider: Physician No Primary/Family Consult Narrative cc:: cc: Kumar Mathews MD Meds Home Medications and Allergies Home Medications ?Medication ?Instructions ?Recorded ?Confirmed ?Type amlodipine 10 mg tablet 10 mg PO QDAY 10/02/20 01/24/24 History lorazepam 0.5 mg tablet 0.5 mg PO TID PRN Anxiety 10/02/20 01/24/24 History lurasidone 40 mg tablet 40 mg PO QDAY 10/02/20 01/24/24 History melatonin 5 mg tablet 5 mg PO HS 10/02/20 01/24/24 History paroxetine HCl 20 mg tablet 20 mg PO QDAY 10/02/20 01/24/24 History quetiapine 100 mg tablet 200 mg PO HS 10/02/20 01/24/24 History cyanocobalamin (vitamin B-12) 1,000 mcg PO QDAY 10/03/20 01/24/24 History 1,000 mcg tablet (Vitamin B-12) docusate sodium 50 mg/5 mL oral 25 ml PO BID 10/03/20 01/24/24 History liquid folic acid 1 mg tablet 1 mg PO QDAY 10/03/20 01/24/24 History insulin glargine 100 unit/mL (3 26 unit subcut HS 10/03/20 01/24/24 History mL) subcutaneous pen (Basaglar KwikPen U-100 Insulin) polyethylene glycol 3350 17 gram 17 g PO QDAY 10/03/20 01/24/24 History oral powder packet (Miralax) omeprazole 20 mg tablet,delayed 20 mg PO BID 05/16/21 01/24/24 History release quetiapine 100 mg tablet 100 mg PO QDAY 05/16/21 01/24/24 History trazodone 50 mg tablet 200 mg PO QDAY 05/16/21 01/24/24 History insulin lispro 100 unit/mL See Protocol subcut USEASDIRECTD 03/08/22 01/24/24 History subcutaneous solution (Humalog PRN Hyperglycemia U-100 Insulin) finasteride 5 mg tablet 5 mg PO QDAY 07/19/22 01/24/24 History tamsulosin 0.4 mg capsule 0.8 mg PO QHS 07/19/22 01/24/24 History Allergies Allergy/AdvReac Type Severity Reaction Status Date / Time No Known Allergies Allergy Verified 04/03/25 13:52 Exam Vital Signs Temp Pulse Resp BP Pulse Ox O2 Del Method FiO2 36.0 C 65 13 103/84 100 Mechanical Ventilation 60 04/04/25 08:00 04/04/25 10:41 04/03/25 18:31 04/04/25 10:41 04/04/25 10:41 04/04/25 04:00 04/04/25 10:41 Results Labs 04/05/25 05:08 04/05/25 05:08 Labs: Short CBC 04/03/25 04/04/25 Range/Units 13:47 05:55 WBC 9.0 9.7 (3.8-10.6) Thou/mm3 Hgb 9.0 L 9.9 L (13.5-16.0) g/dL Hct 26.6 L 30.8 L (41.0-53.0) % Plt Count 105 L 96 L (140-440) Thou/mm3 BMP 04/03/25 04/03/25 04/03/25 13:47 17:58 19:30 Sodium 179 H* 135 L D 136 Potassium 4.7 Chloride 105 Carbon Dioxide > 40.0 H BUN 37 H Creatinine 1.2 Glucose 163 H Calcium 6.5 L* 04/04/25 05:55 Sodium 143 Potassium 4.1 D Chloride 106 Carbon Dioxide 27.0 BUN 42 H Creatinine 1.6 H Glucose 147 H Calcium 7.8 L Cardiac Enzymes 04/03/25 04/04/25 04/04/25 Range/Units 17:58 00:58 09:22 Troponin I 0.068 H* 0.100 H* 0.062 H* (0.0-0.045) ng/mL Liver Function 04/03/25 04/04/25 Range/Units 13:47 05:55 Total Bilirubin < 0.2 L 0.4 (0.3-1.2) mg/dL AST 36 H 35 H (0-34) U/L ALT 18 30 (10-49) U/L Alkaline Phosphatase 64 77 D (46-116) U/L Albumin 2.2 L 2.9 L D (3.4-4.8) gm/dL ABG Interpretation ABG results: 04/03/25 04/04/25 20:45 04:55 ABG pH 7.46 H 7.42 ABG pCO2 37 42 ABG pO2 181 H 111 H D ABG HCO3 26 27 H ABG O2 Saturation 99 H 98 ABG Base Excess 2 3 Assessment & Plan Assessment and plan (1) Hypernatremia: Status: Acute (2) Acute renal failure: Status: Acute (3) Metabolic acidosis: Status: Acute Assessment and plan: Patient presented with significant metabolic acidosis, bicarb greater than 40, lactic acid 5.2, anion gap 34. Improved significantly with IV fluids, 2 L normal saline. Likely due to global hypoperfusion in the setting of cardiovascular arrest. normal after - Maintain MAP goal greater than 65 - Monitor daily labs Additional Assessment & Plan Additional Plan: Thank you for allowing us to participate in the care of this patient. Plan of care discussed with attending Dr. Cantrell. Elías Albert MD PGY?1 Patient seen and examined with resident physician Dr. Pacheco. Note reviewed, agree with findings and recommendations. Patient was consulted with a sodium of 179. Within 2 hours of repeat labs showed normal sodium consistent with a lab error. Subsequent labs showed normal serum sodium. Spoke to ICU team. That renal will standby and continue with free water flushes. Thank you Bisi for allowing me to participate in the care of Mr. Douglass (2) Acute renal failure Qualifiers: Acute renal failure type: unspecified Qualified Code(s): N17.9 - Acute kidney failure, unspecified Documented by User: Elías Albert MD 04/05/25 15:39 History of Present Illness Data of Consult Consult date: 04/04/25 Consult Narrative Reason for consult: Hypernatremia History of present illness: 70 y/o M with PMHx significant for developmental delay, bipolar disorder, DM2, L AKA admitted to the ICU for choking-induced pulmonary arrest s/p ROSC. Per caregivers and EMS report, patient was eating an apple when he choked and became unresponsive. When EMS arrived, patient was noted to be agonal, hypoxic at 55% and bradycardic. They were able to clear some food from his mouth. Patient was bagged via NPA. En route, patient lost pulses and CPR was initiated. He was given 1 of epinephrine. ROSC was achieved. Patient was intubated. Per caregivers, patient is wheelchair bound. He is verbal at baseline. He has been itchy and multiple excoriations were noted on physical exam. Patient is is conserved with CRVC. In the ER, labs significant for severe hypernatremia at 179 with an anion gap acidosis. He was given 1L of NS and empiric antibiotics. He was started on versed and became hypotensive, so levophed was started. CXR shows significant bibasilar pneumonia. EKG showed sinus tachycardia. UTOX negative. Nephrology consulted for management of severe hyponatremia. Patient received 2 L of normal saline, repeat hemoglobin 135, confirmed with recheck. Patient seen and examined at bedside, intubated. Hemoglobin 9.9. Sodium 143, potassium 41, BUN 42, creatinine 1.6, EGFR 46. Suspect initial sodium reading was lab error based on subsequent results. Continue to monitor for now. Review of Systems Review of Systems ROS Unobtainable: due to endotracheal tube Meds Home Medications and Allergies Home Medications ?Medication ?Instructions ?Recorded ?Confirmed ?Type amlodipine 10 mg tablet 10 mg PO QDAY 10/02/20 01/24/24 History lorazepam 0.5 mg tablet 0.5 mg PO TID PRN Anxiety 10/02/20 01/24/24 History lurasidone 40 mg tablet 40 mg PO QDAY 10/02/20 01/24/24 History melatonin 5 mg tablet 5 mg PO HS 10/02/20 01/24/24 History paroxetine HCl 20 mg tablet 20 mg PO QDAY 10/02/20 01/24/24 History quetiapine 100 mg tablet 200 mg PO HS 10/02/20 01/24/24 History cyanocobalamin (vitamin B-12) 1,000 mcg PO QDAY 10/03/20 01/24/24 History 1,000 mcg tablet (Vitamin B-12) docusate sodium 50 mg/5 mL oral 25 ml PO BID 10/03/20 01/24/24 History liquid folic acid 1 mg tablet 1 mg PO QDAY 10/03/20 01/24/24 History insulin glargine 100 unit/mL (3 26 unit subcut HS 10/03/20 01/24/24 History mL) subcutaneous pen (Basaglar KwikPen U-100 Insulin) polyethylene glycol 3350 17 gram 17 g PO QDAY 10/03/20 01/24/24 History oral powder packet (Miralax) omeprazole 20 mg tablet,delayed 20 mg PO BID 05/16/21 01/24/24 History release quetiapine 100 mg tablet 100 mg PO QDAY 05/16/21 01/24/24 History trazodone 50 mg tablet 200 mg PO QDAY 05/16/21 01/24/24 History insulin lispro 100 unit/mL See Protocol subcut USEASDIRECTD 03/08/22 01/24/24 History subcutaneous solution (Humalog PRN Hyperglycemia U-100 Insulin) finasteride 5 mg tablet 5 mg PO QDAY 07/19/22 01/24/24 History tamsulosin 0.4 mg capsule 0.8 mg PO QHS 07/19/22 01/24/24 History Allergies Allergy/AdvReac Type Severity Reaction Status Date / Time No Known Allergies Allergy Verified 04/03/25 13:52 Exam Narrative Exam Constitutional: Elderly male, intubated/sedated; obese HEENT: NCAT. Mucous membranes dry. Respiratory: Bilateral ronchi. Intubated Cardiac: RRR. Abdomen: Soft, non-distended. : Nunez draining concentrated urine MSK: L BKA. No peripheral edema Skin: Multiple excoriations throughout body. Stasis dermatitis discoloration R schrader. Results Labs 04/05/25 05:08 04/05/25 05:08 Assessment & Plan Assessment and plan (1) Hypernatremia: Status: Acute Assessment and plan: Initial lab draw showed hyponatremia 179 with an anion gap acidosis. Patient received 2 L normal saline, nephrology consulted for further management. Repeat check showed sodium level within normal limits, initial results likely lab error. - Strict I's and O's - Urinalysis including osmolarity - Monitor daily sodium (2) Acute renal failure: Status: Acute Assessment and plan: Patient kidney function worsened from yesterday. BUN 42, creatinine 1.6, EGFR 46. Possible due to renal ischemia in the setting of cardiovascular arrest. Patient on pressors for hypotension. - Maintain MAP goal greater than 65 - Avoid nephrotoxins - Monitor daily labs - Strict I's and O's - Renally dose meds (3) Metabolic acidosis: Status: Acute Assessment and plan: Patient presented with significant metabolic acidosis, bicarb greater than 40, lactic acid 5.2, anion gap 34. Improved significantly with IV fluids, 2 L normal saline. Likely due to global hypoperfusion in the setting of cardiovascular arrest. - Maintain MAP goal greater than 65 - Monitor daily labs Additional Assessment & Plan Additional Plan: Thank you for allowing us to participate in the care of this patient. Plan of care discussed with attending Dr. Cantrell. Elías Albert MD PGY?1 (2) Acute renal failure Qualifiers: Acute renal failure type: unspecified Qualified Code(s): N17.9 - Acute kidney failure, unspecified(2) Acute renal failure Qualifiers: Acute renal failure type: unspecified Qualified Code(s): N17.9 - Acute kidney failure, unspecified
[2025-04-04] MEDS: MIDAZOLAM INJ 1 MG/ML VIAL 2 ML 4 MG IV (13:47)
--- NOTE | 2025-04-04 13:52 | PD.IMCONS ---
HPI Data of Consult Requesting Physician: Kumar Mathews MD Primary Care Provider: Physician No Primary/Family Consult Narrative Reason for consult: Foreign body esophagus History of present illness: 70 years old male evaluated in the ICU mechanically ventilated via endotracheal intubation EMS saw him at home on the 0.911 call choking on his own food with the apple pieces removed by the EMS then back to the emergency room With subsequent cardiopulmonary arrest and ROSC No history obtainable from the patient. History from chart review Patient has a history of developmentally delayed condition with bipolar disorder diabetes mellitus type 2 and left AKA cc:: cc: Kumar Mathews MD Review of Systems Review of Systems ROS Unobtainable: unobtainable due to medical condition Past Medical History Surgical History OTHER SURGICAL HX: As in the history of present illness Meds Home Medications and Allergies Home Medications ?Medication ?Instructions ?Recorded ?Confirmed ?Type amlodipine 10 mg tablet 10 mg PO QDAY 10/02/20 01/24/24 History lorazepam 0.5 mg tablet 0.5 mg PO TID PRN Anxiety 10/02/20 01/24/24 History lurasidone 40 mg tablet 40 mg PO QDAY 10/02/20 01/24/24 History melatonin 5 mg tablet 5 mg PO HS 10/02/20 01/24/24 History paroxetine HCl 20 mg tablet 20 mg PO QDAY 10/02/20 01/24/24 History quetiapine 100 mg tablet 200 mg PO HS 10/02/20 01/24/24 History cyanocobalamin (vitamin B-12) 1,000 mcg PO QDAY 10/03/20 01/24/24 History 1,000 mcg tablet (Vitamin B-12) docusate sodium 50 mg/5 mL oral 25 ml PO BID 10/03/20 01/24/24 History liquid folic acid 1 mg tablet 1 mg PO QDAY 10/03/20 01/24/24 History insulin glargine 100 unit/mL (3 26 unit subcut HS 10/03/20 01/24/24 History mL) subcutaneous pen (Basaglar KwikPen U-100 Insulin) polyethylene glycol 3350 17 gram 17 g PO QDAY 10/03/20 01/24/24 History oral powder packet (Miralax) omeprazole 20 mg tablet,delayed 20 mg PO BID 05/16/21 01/24/24 History release quetiapine 100 mg tablet 100 mg PO QDAY 05/16/21 01/24/24 History trazodone 50 mg tablet 200 mg PO QDAY 05/16/21 01/24/24 History insulin lispro 100 unit/mL See Protocol subcut USEASDIRECTD 03/08/22 01/24/24 History subcutaneous solution (Humalog PRN Hyperglycemia U-100 Insulin) finasteride 5 mg tablet 5 mg PO QDAY 07/19/22 01/24/24 History tamsulosin 0.4 mg capsule 0.8 mg PO QHS 07/19/22 01/24/24 History Allergies Allergy/AdvReac Type Severity Reaction Status Date / Time No Known Allergies Allergy Verified 04/03/25 13:52 Exam Vital Signs Temp Pulse Resp BP Pulse Ox O2 Del Method FiO2 96.9 F 87 13 129/84 99 Mechanical Ventilation 60 04/04/25 12:00 04/04/25 12:45 04/03/25 18:31 04/04/25 12:45 04/04/25 12:45 04/04/25 04:00 04/04/25 12:00 Routine Respiratory Exam Comments: Mechanically ventilated Results Labs 04/04/25 05:55 04/04/25 05:55 Labs: Short CBC 04/03/25 04/04/25 Range/Units 13:47 05:55 WBC 9.0 9.7 (3.8-10.6) Thou/mm3 Hgb 9.0 L 9.9 L (13.5-16.0) g/dL Hct 26.6 L 30.8 L (41.0-53.0) % Plt Count 105 L 96 L (140-440) Thou/mm3 BMP 04/03/25 04/03/25 04/03/25 13:47 17:58 19:30 Sodium 179 H* 135 L D 136 Potassium 4.7 Chloride 105 Carbon Dioxide > 40.0 H BUN 37 H Creatinine 1.2 Glucose 163 H Calcium 6.5 L* 04/04/25 05:55 Sodium 143 Potassium 4.1 D Chloride 106 Carbon Dioxide 27.0 BUN 42 H Creatinine 1.6 H Glucose 147 H Calcium 7.8 L Cardiac Enzymes 04/03/25 04/04/25 04/04/25 Range/Units 17:58 00:58 09:22 Troponin I 0.068 H* 0.100 H* 0.062 H* (0.0-0.045) ng/mL Liver Function 04/03/25 04/04/25 Range/Units 13:47 05:55 Total Bilirubin < 0.2 L 0.4 (0.3-1.2) mg/dL AST 36 H 35 H (0-34) U/L ALT 18 30 (10-49) U/L Alkaline Phosphatase 64 77 D (46-116) U/L Albumin 2.2 L 2.9 L D (3.4-4.8) gm/dL ABG Interpretation ABG results: 04/03/25 04/04/25 20:45 04:55 ABG pH 7.46 H 7.42 ABG pCO2 37 42 ABG pO2 181 H 111 H D ABG HCO3 26 27 H ABG O2 Saturation 99 H 98 ABG Base Excess 2 3 Assessment and Plan Additional Assessment & Plan Additional Plan: # Foreign body obstruction esophagus # Status post cardiopulmonary arrest ROSC # Developmentally delayed # Diabetes mellitus type 2 # Status post AKA left Plan Consent obtained for fiberoptic esophagogastro duodenoscopy with therapeutic intervention under intravenous moderate sedation we will proceed with the procedure thank you very much for the opportunity to participate in care of this patient
[2025-04-04] MEDS: fentaNYL CIT INJ 50 mCg/ML AMP 2ML 100 MCG IVP (13:59)
[2025-04-04] MEDS: MIDAZOLAM INJ 1 MG/ML VIAL 2 ML 2 MG IV ×2 (13:59→14:19)
[2025-04-04] MEDS: fentaNYL CIT INJ 50 mCg/ML AMP 2ML IVP (14:27)
--- NOTE | 2025-04-04 14:55 | PD.RESPROC ---
Procedures Procedure Date / Time 04/04/25 6525 Procedure Narrative Procedure Narrative: Attending attestation: I was present for the entire procedure. All airways adequately cleared to for generation of airway. Underlying mucosa was extremely friable with noted bleeding with minimal suction. Continue on albuterol and Pulmicort nebs for optimization along with empiric antibiotics for aspiration. Patient will be left on mechanical ventilation today despite passing SAT/SBT in anticipation for endoscopy later this evening. Bronchoscopy Bronscopy indication(s): removal of secretions Informed consent obtained from: surrogate (conservator Dr. Salmeron ) Time out done and the following verified: correct patient, side and site, procedure, patient position and implants and/or equipment Oxygen delivery: via mechanical vent. Vocal cords: other (patient intubated.) RUL & subsegmental branches: inflammation RML & subsegmental branches: mucus plugging RLL & subsegmental branches: mucus plugging ORTEGA & subsegmental branches: mucosa appears normal LLL & subsegmental branches: mucosa appears normal EBL: 0 Patient tolerated procedure: well Complications: No Procedure comment: Patient was sedated with a total of 8mg of versed and 150mg of fentanyl in addition to being on propofol and fentanyl drip. Obstruction of the right mainstem bronchus and entry at the right intermediate lung with food material and mucous plugging, and inflammation at the upper lobe takeoff. Food material removed. Procedure done under the direct supervision of my attending, Dr. Bisi Su MD PGY-3
[2025-04-04] MEDS: Vancomycin Inj 1,500 MG in SODIUM CHLORIDE 0.9% 500 ML 500 ML 120 MG IV (15:19)
[2025-04-04] MEDS: PROPOFOL 1,000 MG IVPB 1,000 MG/100 ML VIAL 19.595 MG IV ×2 (15:34→21:53)
[2025-04-04] MEDS: BUDESONIDE RT 0.5 MG/2 ML NEBU INH (18:21)
[2025-04-04] MEDS: ALBUTEROL/IPRATROPIUM (Duoneb) RT SOL 3 ML NEBU INH (18:21)
[2025-04-05] VITALS (127 sets, daily range): BP systolic 48–142; BP diastolic 36–104; PULSE 52–117; RESP 9–99; TEMP 35.8–36.2; O2SAT 49–100; BMI 35.2
[2025-04-05] MEDS: ALBUTEROL/IPRATROPIUM (Duoneb) RT SOL 3 ML NEBU INH ×4 (00:39→19:19)
[2025-04-05] MEDS: SODIUM CHLORIDE 0.9% 1000 ML 1,000 ML 150 ML IV (01:00)
[2025-04-05] MEDS: fentaNYL 2,500 MCG/250 ML BAG 2,500 MCG/250 ML BAG 17.5 MCG IV (03:29)
[2025-04-05] MEDS: PROPOFOL 1,000 MG IVPB 1,000 MG/100 ML VIAL 13.063 MG IV (03:31)
[2025-04-05 04:35] LABS: Base Excess 0 (-3-3); HCO3 26 mEq/L (20-26); Inspired Oxygen, FIO2 60 %; O2 Saturation 66 % (91-98); PCO2 47 mmHg (32.0-48.0); pH, Arterial 7.35 (7.35-7.45)
[2025-04-05 04:40] LABS: Allen Test Performed/OK; PO2 37 mmHg (83-108); Puncture Site Right Radial
--- NOTE | 2025-04-05 05:00 | XR_ITS ---
Examination: AP chest single view Technique one AP portable semiupright chest single view Exam date and time: April 05, 2025 at 0519 hours Comparison April 04, 2025 INDICATIONS: Acute hypoxic respiratory failure, postintubation, pneumonia or heart failure on earlier chest imaging this week. FINDINGS: Mild enlargement cardiac contour Prominent vascular congestion including central vascular engorgement Extensive bilateral lung opacity with layering right pleural fluid Orogastric tube coiled in the stomach. Endotracheal tube tip 6.2 cm above Andree IMPRESSION: Extensive bilateral pneumonia/ARDS pattern with associated heart failure
[2025-04-05 05:04] LABS: Base Excess 0 (-3-3); HCO3 25 mEq/L (20-26); Inspired Oxygen, FIO2 60 %; O2 Saturation 99 % (91-98); PCO2 40 mmHg (32.0-48.0); PO2 136 mmHg (83-108)
[2025-04-05 05:08] LABS: Allen Test Performed/OK; Puncture Site Left Radial
[2025-04-05] MEDS: HEPARIN SOD INJ 5000 UNIT/ML VIAL SC ×3 (05:38→21:09)
[2025-04-05] MEDS: PIPER/TAZO 3.375 GM PREMIX 3.375 GM/50 ML BAG IV ×3 (05:38→21:09)
[2025-04-05 06:08] LABS: Basophils % (Auto) 0 % (0-2.5); Eosinophils # (Auto) 0.2 Thou/mm3 (0.0-0.5); Eosinophils % (Auto) 5 % (0-10); Hematocrit 25.1 % (41.0-53.0); Immature Granulocytes % (Auto) 0 % (0-0); Immature Granulocytes Auto 0.01 Thou/mm3 (0.00-0.00); Lymphocytes # (Auto) 0.4 Thou/mm3 (1.0-4.8); Lymphocytes % (Auto) 8 % (10-50); Mean Corpuscular HGB Conc 32.7 g/dl (31.0-37.0); Mean Corpuscular Hemoglobin 31.1 pg (25.0-35.0); Mean Corpuscular Volume 95 fL (80-100); Monocytes # (Auto) 0.2 Thou/mm3 (0.0-0.8); Monocytes % (Auto) 5 % (0-12); Neutrophils # (Auto) 3.6 Thou/mm3 (1.8-7.7); Neutrophils % (Auto) 81 % (37-80); Nucleated Red Blood Cell % 0 /100 WBC (0); RDW Standard Deviation 53.8 fL (35.1-43.9); Red Blood Count 2.64 Miln/mm3 (4.50-5.90); White Blood Count 4.5 Thou/mm3 (3.8-10.6)
[2025-04-05 06:11] LABS: Hemoglobin 8.2 g/dL (13.5-16.0); Platelet Count 74 Thou/mm3 (140-440)
[2025-04-05] MEDS: BUDESONIDE RT 0.5 MG/2 ML NEBU INH ×2 (06:28→19:19)
[2025-04-05 06:30] LABS: Alanine Aminotransferase 20 U/L (10-49); Albumin, Serum 2.6 gm/dL (3.4-4.8); Albumin/Globulin Ratio 0.8 (1.2-2.2); Alkaline Phosphatase 62 U/L (46-116); Anion Gap 9 (7-16); Aspartate Amino Transferase 21 U/L (0-34); BUN/Creatinine Ratio 24 Ratio (12-20); Bilirubin,Total 0.4 mg/dL (0.3-1.2); Blood Urea Nitrogen 34 mg/dL (9-23); Calcium 7.4 mg/dL (8.3-10.6); Calcium (Corrected) 8.5 mg/dL (8.5-10.1); Carbon Dioxide 24.4 mMol/L (20.0-31.0); Chloride 113 mMol/L (98-107); Creatinine (Component) 1.4 mg/dL (0.6-1.3); Estimated Creatinine Clearance 59.5 mL/min (>60); Globulin 3.4 gm/dL (2.3-3.5); Glucose 121 mg/dL (74-106); Magnesium 1.7 mg/dL (1.6-2.6); Osmolality,Calculated 299 (275-295); Phosphorous 2.8 mg/dL (2.4-5.1); Potassium 3.5 mMol/L (3.4-5.1); Sodium 146 mMol/L (136-145); eGFR 54 See Note
[2025-04-05 07:01] LABS: Slide Review Platelets confirmed
[2025-04-05] MEDS: FAMOTIDINE INJ 10 MG/ML VIAL 2 ML 20 MG IVP ×2 (08:00→21:08)
--- NOTE | 2025-04-05 09:16 | ESPR_ITS ---
Documentation for date of: 04/05/25 Subjective Subjective Interval history: Patient is a 70 year old male with PMH of developmental delay, bipolar disorder, DM2, L AKA admitted to the ICU for choking-induced pulmonary arrest s/p ROSC. Per caregivers and EMS report, patient was eating an apple when he choked and became unresponsive. When EMS arrived, patient was noted to be agonal, hypoxic at 55% and bradycardic. They were able to clear some food from his mouth. Patient was bagged via NPA. En route, patient lost pulses and CPR was initiated. He was given 1 of epinephrine. ROSC was achieved. Patient was intubated. He was found to be severely hypernatremic at 179. 04/04/2025: Overnight, staff was unable to pass an OG tube. Everytime the patient was turned, food chunks would come out of his mouth. He recieved a total of 2L NS and the following sodium was 135, and recheck was 136. Suspect that initial sodium at 179 may have been a lab error. Patient had SAT and SBT today, then was re-sedated and put on ventilator support for bronchoscopy. During bronchoscopy, there was large food material and mucous that were removed from the right intermdiate and lower lung bronchi, and inflammation in the right upper lobe entry. Plan for endoscopy later today to remove suspected food obstructing the esophagus. 04/05/2025: Endoscopy yesterday showed food material throughout the entire esophagus. An NG tube was placed for decompression with 200cc output overnight. No acute problems overnight. This morning, patient passed SBT and SAT and was extubated. He is awake, agitated but redirectable. He is developmentally delayed and can talk at baseline. Antibiotics discontinued. Remains on low dose levophed, will wean off. CXR shows significant bilateral infiltrate and patient is net positive fluid balance so will give Lasix. After extubation, patient did pull out his NG tube. His abdomen is quite distended and tympanic. KUB shows air throughout the colon. NG tube as reinserted with continuous suction for decompressions. Exam Vital Signs Temp Pulse Resp BP Pulse Ox O2 Del Method FiO2 96.5 F L 60 18 131/76 H 100 Mechanical Ventilation 40 04/05/25 07:00 04/05/25 07:00 04/05/25 06:35 04/05/25 07:00 04/05/25 07:00 04/05/25 04:00 04/05/25 06:35 Narrative Exam Constitutional: Elderly male, obese. HEENT: NCAT. Hard small cyst on right temporal. Mucous membranes dry. NG tube Respiratory: Bilateral ronchi. Cardiac: RRR. Abdomen: Soft, distended, tympanic. MSK: L BKA. No peripheral edema. 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 Stasis dermatitis discoloration R schrader. Objective Labs 04/07/25 05:03 04/07/25 05:03 Labs: Laboratory Results - last 24 hr 04/04/25 04/05/25 04/05/25 09:22 04:00 04:55 WBC RBC Hgb Hct MCV MCH MCHC RDW Std Deviation Plt Count Neut % (Auto) Lymph % (Auto) [place] % (Auto) Eos % (Auto) Baso % (Auto) Neut # (Auto) Lymph # (Auto) [place] # (Auto) Eos # (Auto) Baso # (Auto) Immature Gran # (Auto) Absolute Nucleated RBC Immature Gran % Nucleated RBC % Puncture Site Right Radial Left Radial ABG pH 7.35 7.40 ABG pCO2 47 40 ABG pO2 37 L* D 136 H D ABG HCO3 26 25 ABG O2 Saturation 66 L 99 H ABG Base Excess 0 0 FiO2 60 60 Sodium Potassium Chloride Carbon Dioxide Anion Gap BUN Creatinine Estim Creat Clear Calc eGFR BUN/Creatinine Ratio Glucose Calculated Osmolality Calcium Corrected Calcium Phosphorus Magnesium Total Bilirubin AST ALT Alkaline Phosphatase Troponin I 0.062 H* Total Protein Albumin Globulin Albumin/Globulin Ratio Vancomycin Trough 15.1 H Misc Test Result 04/05/25 05:08 WBC 4.5 D RBC 2.64 L Hgb 8.2 L Hct 25.1 L MCV 95 MCH 31.1 MCHC 32.7 RDW Std Deviation 53.8 H Plt Count 74 L D Neut % (Auto) 81 H Lymph % (Auto) 8 L [place] % (Auto) 5 Eos % (Auto) 5 Baso % (Auto) 0 Neut # (Auto) 3.6 Lymph # (Auto) 0.4 L [place] # (Auto) 0.2 Eos # (Auto) 0.2 Baso # (Auto) 0.0 Immature Gran # (Auto) 0.01 H Absolute Nucleated RBC 0.00 Immature Gran % 0 Nucleated RBC % 0 Puncture Site ABG pH ABG pCO2 ABG pO2 ABG HCO3 ABG O2 Saturation ABG Base Excess FiO2 Sodium 146 H Potassium 3.5 D Chloride 113 H Carbon Dioxide 24.4 Anion Gap 9 BUN 34 H Creatinine 1.4 H Estim Creat Clear Calc 59.5 L eGFR 54 L BUN/Creatinine Ratio 24 H Glucose 121 H Calculated Osmolality 299 H Calcium 7.4 L Corrected Calcium 8.5 Phosphorus 2.8 Magnesium 1.7 Total Bilirubin 0.4 AST 21 ALT 20 Alkaline Phosphatase 62 Troponin I Total Protein 6.0 Albumin 2.6 L Globulin 3.4 Albumin/Globulin Ratio 0.8 L Vancomycin Trough Misc Test Result Platelets confirmed ABG Interpretation ABG results: 04/03/25 04/04/25 04/05/25 20:45 04:55 04:00 ABG pH 7.46 H 7.42 7.35 ABG pCO2 37 42 47 ABG pO2 181 H 111 H D 37 L* D ABG HCO3 26 27 H 26 ABG O2 Saturation 99 H 98 66 L ABG Base Excess 2 3 0 04/05/25 04:55 ABG pH 7.40 ABG pCO2 40 ABG pO2 136 H D ABG HCO3 25 ABG O2 Saturation 99 H ABG Base Excess 0 Quality Measures Quality Measures none Advance care planning discussed with:: legal surragate Assessment & Plan Assessment Current Active Medications: Generic Name Dose Route Start Last Admin Trade Name Freq PRN Reason Stop Dose Admin Acetaminophen 650 mg 04/03/25 16:22 Acetaminophen 325 Mg Tablet PO 05/03/25 16:21 Q6H PRN Fever >100.4 Albuterol/Ipratropium 3 ml 04/04/25 19:00 04/05/25 06:28 Albuterol/Ipratropium (Duoneb) Rt Jessica 3 Ml Nebu INH 05/04/25 18:59 3 ml Q6HRRT MANUEL Administration Budesonide 0.5 mg 04/04/25 19:00 04/05/25 06:28 Budesonide Rt 0.5 Mg/2 Ml Nebu INH 05/04/25 18:59 0.5 mg BIDRT MANUEL Administration Dextrose 25 ml 04/03/25 16:33 Dextrose 50%-Water Inj 50 Ml Syringe IV 05/03/25 16:32 Q15MIN PRN BG 50-70 responsive npo pt Dextrose 50 ml 04/03/25 16:33 Dextrose 50%-Water Inj 50 Ml Syringe IV 05/03/25 16:32 Q15MIN PRN BG <50 OR BG <70 & pt unresponsive Famotidine 20 mg 04/03/25 21:00 04/05/25 08:00 Famotidine Inj 10 Mg/Ml Vial 2 Ml IVP 05/03/25 20:59 20 mg Q12HR MANUEL Administration Glucagon 1 mg 04/03/25 16:33 Glucagon Inj 1 Mg Vial IM Q15MIN PRN BG <70, and no IV access Heparin Sodium (Porcine) 5,000 unit 04/03/25 22:00 04/05/25 05:38 Heparin Sod Inj 5000 Unit/Ml Vial SC 04/17/25 21:59 5,000 unit Q8HR MANUEL Administration Norepinephrine/Dextrose 8 mg in 250 mls @ 10.206 mls/hr 04/03/25 16:31 04/05/25 06:00 Levophed In D5w 8mg/250ml IV 05/03/25 16:30 0.01 mcg/kg/min .Q24H PRN 2.041 mls/hr PER PROTOCOL Titration Protocol 0.05 MCG/KG/MIN Piperacillin/Tazobactam/Dextrose 3.375 gm in 50 mls @ 12.5 mls/hr 04/03/25 22:00 04/05/25 05:38 Zosyn IV 04/10/25 21:59 12.5 mls/hr Q8HR MANUEL Administration Propofol 1,000 mg in 100 mls @ 3.266 mls/hr 04/03/25 17:23 04/05/25 06:00 Diprivan Ivpb IV 05/03/25 17:22 20 mcg/kg/min .Q24H PRN 13.063 mls/hr PER PROTOCOL Titration Protocol 5 MCG/KG/MIN Fentanyl Citrate 2,500 mcg in 250 mls @ 2.5 mls/hr 04/03/25 17:23 04/05/25 06:32 Sublimaze Inj 2,500 Mcg/250 Ml Bag IV 04/08/25 17:22 125 mcg/hr .Q24H PRN 12.5 mls/hr PER PROTOCOL Titration Protocol 25 MCG/HR Vancomycin HCl 1,500 mg/ 500 mls @ 120 mls/hr 04/04/25 14:00 04/04/25 15:19 Sodium Chloride IV 04/11/25 13:59 120 mls/hr QDAY@1400 MANUEL Administration Insulin Human Regular 0 unit 04/03/25 18:00 04/05/25 06:05 Insulin Hum Regular 1 Unit/0.01 Ml (Per Unit) SC 05/03/25 17:59 Not Given Q6HR MANUEL Protocol Pharmacy Consult 1 each 04/03/25 14:00 Vancomycin Pharmacy To Dose 1 Each Each IV 05/03/25 13:59 QDAY PRN CONSULT Sodium Chloride 3 ml 04/04/25 15:24 Sodium Chloride Rt Jessica 0.9% 3 Ml Nebu INH 05/04/25 15:23 PRN PRN SOLN Plan Patient is a 70 year old male with PMH of developmental delay, bipolar disorder, DM2, L AKA admitted to the ICU for choking-induced pulmonary arrest s/p ROSC. [employer] #Acute on chronic encephalopathy, improving #History of bipolar disorder, developmental delay At baseline, patient able to talk #History of bipolar disorder, developmental delay - Restart home meds pending med recc and swallow screen CARDIOVASCULAR #Cardiopulmonary arrest s/p resuscitation Choking-induced respiratory and cardiac arrest Troponinemia likely Type II in the setting of cardiopulmonary arrest #Hypotension Likely secondary to sedation - Levophed for goal MAP > 65, wean as tolerated RESPIRATORY #Acute hypoxic respiratory failure #Foreign body aspiration pneumonitis Due to choking-induced cardiac arrest. Intubated 04/02 Bronchoscopy 04/04 revealed food and mucous obstructing the right lower and intermediate lung, removed. Extubated 04/05. - Wean O2 as tolerated - If patient becomes hypoxic, avoid CPAP or BIPAP. Use HFNC - Duoneb, pulmicort RENAL #Hypocalcemia, resolved #Lactic acidosis, resolved GI #Abdominal distention #Esophageal obstruction, resolved EGD 04/05 showed food throughout esophagus, flushed KUB 04/06 showed air throughout colon - NPO - NG tube for decompression ENDO #History of DM2 - ISS Q6H HEME #Thrombocytopenia ID #Aspiration pneumonia versus pneumonitis Sputum culture mixed rafita. MRSA positive. - Empiric antibiotics with vanc, zosyn - UA pending Health Maintenance Disposition: Admit to ICU for cardiac arrest s/p ROSC Diet and fluids: NPO DVT prophylaxis: heparin GI prophylaxis: pepcid Lines: PIV, NG tube CODE STATUS: FULL - patient is conserved with CRVC I have reviewed and discussed the patient's care with my attending, Dr. Bisi Su MD PGY-3 Attending Provider Attestation/Addendum Patient seen and examined with above resident, Jane Su MD. I agree with the findings, assessment, and plan of care as documented except for any differences below. Patient with large food bolus impaction of the esophagus successfully removed by EGD yesterday evening. Airway was adequately cleared yesterday with significant bronchitis and mucosal edema leading to friable and bleeding mucosa now being treated on Pulmicort and albuterol nebs. Albuterol will be continued and Pulmicort can likely be discontinued now that he has been successfully weaned from mechanical ventilation. Mentation continues to be slow to improve but progressing in the right direction. Does have significant apnea requiring use of a OxyMask to maintain saturations and despite this does desaturate into the low 60s at times intermittently. Will continue to monitor closely as this would likely resolve over the next 24 hours with clearance of sedating medications which were discontinued at the time of extubation. Patient will remain NPO. Abdominal film was done as the patient had significant distention showing distended colon but no perforation. NG tube was successfully placed with use of continuous suction initially with about 200 to 300 cc removed with subsequent low intermittent wall suction to help decompress and prevent any aspiration from repeated vomiting. Patient will need speech and swallow evaluation prior to resumption of diet but will leave NG in place for the next 24 hours to ensure adequate decompression. Total critical care time: I personally spent 40 minutes for review of physiologic parameters, directing plan of care throughout the day, coordination of care with other subspecialists, and counseling patient at bedside. This is exclusive of time spent teaching housestaff or performing any separate billable procedures. Patient remains at significant risk for further morbidity and mortality warranting close monitoring and care only available in the ICU. Patient continues to require critical care services for acute hypoxic respiratory failure secondary to aspiration of fluid/vomit and [id number] respiratory arrest.
[2025-04-05] MEDS: FUROSEMIDE INJ 10 MG/ML 4ML VIAL 20 MG IVP (09:28)
--- NOTE | 2025-04-05 10:22 | XR_ITS ---
Examination: Abdomen AP single view Technique: AP portable supine abdomen, single view Exam date and time: April 05, 2025 1037 hours INDICATIONS: Abdominal distention this week post orogastric tube placement FINDINGS: Orogastric tube in the stomach, however moderately air distended stomach Significantly air distended colon No free air Opacity at the right lung base pleural-parenchymal disease IMPRESSION: Significantly air distended colon
[2025-04-05] MEDS: Vancomycin Inj 1,500 MG in SODIUM CHLORIDE 0.9% 500 ML 500 ML 120 MG IV (14:30)
--- NOTE | 2025-04-05 15:40 | PD.RESPRO ---
Documentation for date of: 04/05/25 Subjective Subjective Interval history: 70 y/o M with PMHx significant for developmental delay, bipolar disorder, DM2, L AKA admitted to the ICU for choking-induced pulmonary arrest s/p ROSC. Per caregivers and EMS report, patient was eating an apple when he choked and became unresponsive. When EMS arrived, patient was noted to be agonal, hypoxic at 55% and bradycardic. They were able to clear some food from his mouth. Patient was bagged via NPA. En route, patient lost pulses and CPR was initiated. He was given 1 of epinephrine. ROSC was achieved. Patient was intubated. Per caregivers, patient is wheelchair bound. He is verbal at baseline. He has been itchy and multiple excoriations were noted on physical exam. Patient is is conserved with CRVC. In the ER, labs significant for severe hypernatremia at 179 with an anion gap acidosis. He was given 1L of NS and empiric antibiotics. He was started on versed and became hypotensive, so levophed was started. CXR shows significant bibasilar pneumonia. EKG showed sinus tachycardia. UTOX negative. Nephrology consulted for management of severe hyponatremia. Patient received 2 L of normal saline, repeat hemoglobin 135, confirmed with recheck. Patient seen and examined at bedside, intubated. Hemoglobin 9.9. Sodium 143, potassium 41, BUN 42, creatinine 1.6, EGFR 46. Suspect initial sodium reading was lab error based on subsequent results. Continue to monitor for now. 04/05/2025: Patient seen and examined at bedside, remains intubated. Hemoglobin 8.2, sodium 146, potassium 3.5, bicarb 24.4, BUN 34, creatinine 1.4, EGFR 59. Patient is now require further management from ICU team considering initial hypernatremia was most likely lab error, will sign off on this patient. Exam Vital Signs Temp Pulse Resp BP Pulse Ox O2 Del Method O2 Flow Rate 96.5 F L 108 H 21 H 131/92 H 97 Mechanical Ventilation 15 04/05/25 07:00 04/05/25 13:00 04/05/25 13:00 04/05/25 13:00 04/05/25 13:00 04/05/25 04:00 04/05/25 09:54 FiO2 60 04/05/25 08:00 Narrative Exam Constitutional: Elderly male, intubated/sedated; obese HEENT: NCAT. Mucous membranes dry. Respiratory: Bilateral ronchi. Intubated Cardiac: RRR. Abdomen: Soft, non-distended. : Nunez draining concentrated urine MSK: L BKA. 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 No peripheral edema Skin: Multiple excoriations throughout body. Stasis dermatitis discoloration R schrader. Objective Labs 04/05/25 05:08 04/05/25 05:08 Labs: Laboratory Results - last 24 hr 04/05/25 04/05/25 04/05/25 04:00 04:55 05:08 WBC 4.5 D RBC 2.64 L Hgb 8.2 L Hct 25.1 L MCV 95 MCH 31.1 MCHC 32.7 RDW Std Deviation 53.8 H Plt Count 74 L D Neut % (Auto) 81 H Lymph % (Auto) 8 L [place] % (Auto) 5 Eos % (Auto) 5 Baso % (Auto) 0 Neut # (Auto) 3.6 Lymph # (Auto) 0.4 L [place] # (Auto) 0.2 Eos # (Auto) 0.2 Baso # (Auto) 0.0 Immature Gran # (Auto) 0.01 H Absolute Nucleated RBC 0.00 Immature Gran % 0 Nucleated RBC % 0 Puncture Site Right Radial Left Radial ABG pH 7.35 7.40 ABG pCO2 47 40 ABG pO2 37 L* D 136 H D ABG HCO3 26 25 ABG O2 Saturation 66 L 99 H ABG Base Excess 0 0 FiO2 60 60 Sodium 146 H Potassium 3.5 D Chloride 113 H Carbon Dioxide 24.4 Anion Gap 9 BUN 34 H Creatinine 1.4 H Estim Creat Clear Calc 59.5 L eGFR 54 L BUN/Creatinine Ratio 24 H Glucose 121 H Calculated Osmolality 299 H Calcium 7.4 L Corrected Calcium 8.5 Phosphorus 2.8 Magnesium 1.7 Total Bilirubin 0.4 AST 21 ALT 20 Alkaline Phosphatase 62 Total Protein 6.0 Albumin 2.6 L Globulin 3.4 Albumin/Globulin Ratio 0.8 L Misc Test Result Platelets confirmed ABG Interpretation ABG results: 04/03/25 04/04/25 04/05/25 20:45 04:55 04:00 ABG pH 7.46 H 7.42 7.35 ABG pCO2 37 42 47 ABG pO2 181 H 111 H D 37 L* D ABG HCO3 26 27 H 26 ABG O2 Saturation 99 H 98 66 L ABG Base Excess 2 3 0 04/05/25 04:55 ABG pH 7.40 ABG pCO2 40 ABG pO2 136 H D ABG HCO3 25 ABG O2 Saturation 99 H ABG Base Excess 0 Quality Measures Quality Measures VTE prophylaxis Advance care planning discussed with:: patient Assessment & Plan Assessment Current Active Medications: Generic Name Dose Route Start Last Admin Trade Name Freq PRN Reason Stop Dose Admin Acetaminophen 650 mg 04/03/25 16:22 Acetaminophen 325 Mg Tablet PO 05/03/25 16:21 Q6H PRN Fever >100.4 Albuterol/Ipratropium 3 ml 04/04/25 19:00 04/05/25 06:28 Albuterol/Ipratropium (Duoneb) Rt Jessica 3 Ml Nebu INH 05/04/25 18:59 3 ml Q6HRRT MANULE Administration Budesonide 0.5 mg 04/04/25 19:00 04/05/25 06:28 Budesonide Rt 0.5 Mg/2 Ml Nebu INH 05/04/25 18:59 0.5 mg BIDRT MANUEL Administration Dextrose 25 ml 04/03/25 16:33 Dextrose 50%-Water Inj 50 Ml Syringe IV 05/03/25 16:32 Q15MIN PRN BG 50-70 responsive npo pt Dextrose 50 ml 04/03/25 16:33 Dextrose 50%-Water Inj 50 Ml Syringe IV 05/03/25 16:32 Q15MIN PRN BG <50 OR BG <70 & pt unresponsive Famotidine 20 mg 04/03/25 21:00 04/05/25 08:00 Famotidine Inj 10 Mg/Ml Vial 2 Ml IVP 05/03/25 20:59 20 mg Q12HR MANUEL Administration Glucagon 1 mg 04/03/25 16:33 Glucagon Inj 1 Mg Vial IM Q15MIN PRN BG <70, and no IV access Heparin Sodium (Porcine) 5,000 unit 04/03/25 22:00 04/05/25 14:30 Heparin Sod Inj 5000 Unit/Ml Vial SC 04/17/25 21:59 5,000 unit Q8HR MANUEL Administration Norepinephrine/Dextrose 8 mg in 250 mls @ 10.206 mls/hr 04/03/25 16:31 04/05/25 15:30 Levophed In D5w 8mg/250ml IV 05/03/25 16:30 0 mcg/kg/min .Q24H PRN 0 mls/hr PER PROTOCOL Titration Protocol 0.05 MCG/KG/MIN Piperacillin/Tazobactam/Dextrose 3.375 gm in 50 mls @ 12.5 mls/hr 04/03/25 22:00 04/05/25 14:30 Zosyn IV 04/10/25 21:59 12.5 mls/hr Q8HR MANUEL Administration Propofol 1,000 mg in 100 mls @ 3.266 mls/hr 04/03/25 17:23 04/05/25 08:00 Diprivan Ivpb IV 05/03/25 17:22 0 mcg/kg/min .Q24H PRN 0 mls/hr PER PROTOCOL Titration Protocol 5 MCG/KG/MIN Fentanyl Citrate 2,500 mcg in 250 mls @ 2.5 mls/hr 04/03/25 17:23 04/05/25 08:00 Sublimaze Inj 2,500 Mcg/250 Ml Bag IV 04/08/25 17:22 0 mcg/hr .Q24H PRN 0 mls/hr PER PROTOCOL Titration Protocol 25 MCG/HR Vancomycin HCl 1,500 mg/ 500 mls @ 120 mls/hr 04/04/25 14:00 04/05/25 14:30 Sodium Chloride IV 04/11/25 13:59 120 mls/hr QDAY@1400 MANUEL Administration Insulin Human Regular 0 unit 04/03/25 18:00 04/05/25 12:35 Insulin Hum Regular 1 Unit/0.01 Ml (Per Unit) SC 05/03/25 17:59 Not Given Q6HR MANUEL Protocol Pharmacy Consult 1 each 04/03/25 14:00 Vancomycin Pharmacy To Dose 1 Each Each IV 05/03/25 13:59 QDAY PRN CONSULT Sodium Chloride 3 ml 04/04/25 15:24 Sodium Chloride Rt Jessica 0.9% 3 Ml Nebu INH 05/04/25 15:23 PRN PRN SOLN Plan Patient is a 70 year old male with PMH of developmental delay, bipolar disorder, DM2, L AKA admitted to the ICU for choking-induced pulmonary arrest s/p ROSC. Nephrology consulted for management of hyponatremia. #Hypernatremia Initial lab draw showed hyponatremia 179 with an anion gap acidosis. Patient received 2 L normal saline, nephrology consulted for further management. Repeat check showed sodium level within normal limits, initial results likely lab error. - Strict I's and O's - Urinalysis including osmolarity - Monitor daily sodium - Nephrology will sign off on this patient #Acute renal failure Patient kidney function worsened from yesterday. BUN 42, creatinine 1.6, EGFR 46. Possible due to renal ischemia in the setting of cardiovascular arrest. Patient on pressors for hypotension. Kidney function showed improvement the following day. - Maintain MAP goal greater than 65 - Avoid nephrotoxins - Monitor daily labs - Strict I's and O's - Renally dose meds #Metabolic acidosis, resolved Patient presented with significant metabolic acidosis, bicarb greater than 40, lactic acid 5.2, anion gap 34. Improved significantly with IV fluids, 2 L normal saline. Likely due to global hypoperfusion in the setting of cardiovascular arrest. - Maintain MAP goal greater than 65 - Monitor daily labs #Acute on chronic encephalopathy #History of bipolar disorder, developmental delay #History of bipolar disorder, developmental delay #Cardiopulmonary arrest s/p resuscitation #Hypotension #Acute hypoxic respiratory failure #Foreign body aspiration pneumonitis #Esophageal obstruction, resolved #History of DM2 #Thrombocytopenia #Aspiration pneumonia versus pneumonitis Management as per primary team Diet and fluids: pending swallow screen, then can remove NG tube and start diet DVT prophylaxis: heparin GI prophylaxis: pepcid Lines: PIV, NG tube CODE STATUS: FULL - patient is conserved with CRVC Thank you for allowing us to participate in the care of this patient. Plan of care discussed with attending Dr. Cantrell. Elías Albert MD PGY?1 Attending Provider Attestation/Addendum Patient seen and examined with resident physician Dr. Pacheco. Note reviewed, agree with findings and recommendations. Patient was consulted with a sodium of 179. Within 2 hours of repeat labs showed normal sodium consistent with a lab error. Subsequent labs showed normal serum sodium. Spoke to ICU team. That renal will standby and continue with free water flushes.
--- NOTE | 2025-04-05 21:05 | PD.IMPROG ---
Documentation for date of: 04/05/25 Subjective Subjective Interval history: Patient extubated Still has a distended stomach NGT for decompression Exam Vital Signs Temp Pulse Resp BP Pulse Ox O2 Del Method O2 Flow Rate 96.9 F 101 H 17 113/73 96 Oxy Mask 6 04/05/25 20:00 04/05/25 20:00 04/05/25 20:00 04/05/25 20:00 04/05/25 20:00 04/05/25 20:00 04/05/25 20:00 FiO2 60 04/05/25 08:00 Objective Labs 04/05/25 05:08 04/05/25 05:08 Labs: Laboratory Results - last 24 hr 04/05/25 04/05/25 04/05/25 04:00 04:55 05:08 WBC 4.5 D RBC 2.64 L Hgb 8.2 L Hct 25.1 L MCV 95 MCH 31.1 MCHC 32.7 RDW Std Deviation 53.8 H Plt Count 74 L D Neut % (Auto) 81 H Lymph % (Auto) 8 L [place] % (Auto) 5 Eos % (Auto) 5 Baso % (Auto) 0 Neut # (Auto) 3.6 Lymph # (Auto) 0.4 L [place] # (Auto) 0.2 Eos # (Auto) 0.2 Baso # (Auto) 0.0 Immature Gran # (Auto) 0.01 H Absolute Nucleated RBC 0.00 Immature Gran % 0 Nucleated RBC % 0 Puncture Site Right Radial Left Radial ABG pH 7.35 7.40 ABG pCO2 47 40 ABG pO2 37 L* D 136 H D ABG HCO3 26 25 ABG O2 Saturation 66 L 99 H ABG Base Excess 0 0 FiO2 60 60 Sodium 146 H Potassium 3.5 D Chloride 113 H Carbon Dioxide 24.4 Anion Gap 9 BUN 34 H Creatinine 1.4 H Estim Creat Clear Calc 59.5 L eGFR 54 L BUN/Creatinine Ratio 24 H Glucose 121 H Calculated Osmolality 299 H Calcium 7.4 L Corrected Calcium 8.5 Phosphorus 2.8 Magnesium 1.7 Total Bilirubin 0.4 AST 21 ALT 20 Alkaline Phosphatase 62 Total Protein 6.0 Albumin 2.6 L Globulin 3.4 Albumin/Globulin Ratio 0.8 L Misc Test Result Platelets confirmed Impressions Impression: Foreign body obstruction esophagus The entire esophagus was full of food Endoscopically cleared NGT was placed in for decompression ABG Interpretation ABG results: 04/03/25 04/04/25 04/05/25 20:45 04:55 04:00 ABG pH 7.46 H 7.42 7.35 ABG pCO2 37 42 47 ABG pO2 181 H 111 H D 37 L* D ABG HCO3 26 27 H 26 ABG O2 Saturation 99 H 98 66 L ABG Base Excess 2 3 0 04/05/25 04:55 ABG pH 7.40 ABG pCO2 40 ABG pO2 136 H D ABG HCO3 25 ABG O2 Saturation 99 H ABG Base Excess 0 Assessment & Plan A&P Narrative # Foreign body obstruction esophagus # Status post cardiopulmonary arrest ROSC # Developmentally delayed # Diabetes mellitus type 2 # Status post AKA left Plan Consent obtained for fiberoptic esophagogastro duodenoscopy with therapeutic intervention under intravenous moderate sedation we will proceed with the procedure thank you very much for the opportunity to participate in care of this patient Time Spent With Patient Time: Total time spent is greater than 50% in coordination of care (as documented) at patient's floor/unit and/or counseling patient:
[2025-04-06] VITALS (22 sets, daily range): BP systolic 103–159; BP diastolic 62–93; PULSE 86–101; RESP 13–32; TEMP 36.1–36.8; O2SAT 91–100; BMI 35.2
[2025-04-06] MEDS: ALBUTEROL/IPRATROPIUM (Duoneb) RT SOL 3 ML NEBU INH ×2 (00:24→06:44)
[2025-04-06] MEDS: PIPER/TAZO 3.375 GM PREMIX 3.375 GM/50 ML BAG IV ×3 (05:47→21:57)
[2025-04-06] MEDS: HEPARIN SOD INJ 5000 UNIT/ML VIAL SC ×2 (05:51→14:20)
[2025-04-06 06:18] LABS: Basophils % (Auto) 0 % (0-2.5); Eosinophils % (Auto) 1 % (0-10); Hematocrit 26.2 % (41.0-53.0); Immature Granulocytes % (Auto) 0 % (0-0); Immature Granulocytes Auto 0.02 Thou/mm3 (0.00-0.00); Lymphocytes # (Auto) 0.3 Thou/mm3 (1.0-4.8); Lymphocytes % (Auto) 6 % (10-50); Mean Corpuscular HGB Conc 31.7 g/dl (31.0-37.0); Mean Corpuscular Hemoglobin 31.4 pg (25.0-35.0); Mean Corpuscular Volume 99 fL (80-100); Monocytes # (Auto) 0.3 Thou/mm3 (0.0-0.8); Monocytes % (Auto) 5 % (0-12); Neutrophils # (Auto) 4.4 Thou/mm3 (1.8-7.7); Neutrophils % (Auto) 88 % (37-80); Nucleated Red Blood Cell % 0 /100 WBC (0); Platelet Count 82 Thou/mm3 (140-440); RDW Standard Deviation 56.4 fL (35.1-43.9); Red Blood Count 2.64 Miln/mm3 (4.50-5.90)
[2025-04-06 06:21] LABS: Hemoglobin 8.3 g/dL (13.5-16.0)
[2025-04-06 06:44] LABS: Alanine Aminotransferase 18 U/L (10-49); Albumin/Globulin Ratio 0.8 (1.2-2.2); Alkaline Phosphatase 68 U/L (46-116); Anion Gap 9 (7-16); Aspartate Amino Transferase 21 U/L (0-34); BUN/Creatinine Ratio 20 Ratio (12-20); Bilirubin,Total 0.7 mg/dL (0.3-1.2); Blood Urea Nitrogen 30 mg/dL (9-23); Calcium 7.8 mg/dL (8.3-10.6); Calcium (Corrected) 8.6 mg/dL (8.5-10.1); Carbon Dioxide 22.4 mMol/L (20.0-31.0); Chloride 115 mMol/L (98-107); Creatinine (Component) 1.5 mg/dL (0.6-1.3); Estimated Creatinine Clearance 55.5 mL/min (>60); Globulin 3.9 gm/dL (2.3-3.5); Glucose 116 mg/dL (74-106); Magnesium 1.7 mg/dL (1.6-2.6); Osmolality,Calculated 297 (275-295); Potassium 3.8 mMol/L (3.4-5.1); Sodium 146 mMol/L (136-145); Total Protein 6.9 gm/dL (5.7-8.2); eGFR 50 See Note
[2025-04-06] MEDS: BUDESONIDE RT 0.5 MG/2 ML NEBU INH (06:44)
--- NOTE | 2025-04-06 08:41 | XR_ITS ---
Examination: Abdomen AP single view Technique: AP portable supine abdomen, single view Exam date and time: April 06, 2025 0852 hours INDICATIONS: Abdominal distention today. FINDINGS: Prominent colonic ileus Orogastric tube tip in the stomach No free air IMPRESSION: Prominent colonic ileus
--- NOTE | 2025-04-06 09:39 | PD.RESPRO ---
Documentation for date of: 04/06/25 Subjective Subjective Interval history: Patient is a 70 year old male with PMH of developmental delay, bipolar disorder, DM2, L AKA admitted to the ICU for choking-induced pulmonary arrest s/p ROSC. Per caregivers and EMS report, patient was eating an apple when he choked and became unresponsive. When EMS arrived, patient was noted to be agonal, hypoxic at 55% and bradycardic. They were able to clear some food from his mouth. Patient was bagged via NPA. En route, patient lost pulses and CPR was initiated. He was given 1 of epinephrine. ROSC was achieved. Patient was intubated. He was found to be severely hypernatremic at 179. 04/04/2025: Overnight, staff was unable to pass an OG tube. Everytime the patient was turned, food chunks would come out of his mouth. He recieved a total of 2L NS and the following sodium was 135, and recheck was 136. Suspect that initial sodium at 179 may have been a lab error. Patient had SAT and SBT today, then was re-sedated and put on ventilator support for bronchoscopy. During bronchoscopy, there was large food material and mucous that were removed from the right intermdiate and lower lung bronchi, and inflammation in the right upper lobe entry. Plan for endoscopy later today to remove suspected food obstructing the esophagus. 04/05/2025: Endoscopy yesterday showed food material throughout the entire esophagus. An NG tube was placed for decompression with 200cc output overnight. No acute problems overnight. This morning, patient passed SBT and SAT and was extubated. He is awake, agitated but redirectable. He is developmentally delayed and can talk at baseline. Antibiotics discontinued. Remains on low dose levophed, will wean off. CXR shows significant bilateral infiltrate and patient is net positive fluid balance so will give Lasix. After intubation, patient did pull out his NG tube. His abdomen is quite distended and tympanic. KUB shows air throughout the colon. NG tube as reinserted with continuous suction for decompressions. 04/06/2025: Patient remains on 3L NC saturating well without respiratory distress. Will continue antibiotics to complete course for aspiration pneumonia. Patient stomach remains distended, improved. NG tube 200. Had 1 BM. Repeat KUB this morning still shows colonic ileus. Will continue NG tube. Patient to be downgraded today. Exam Vital Signs Temp Pulse Resp BP Pulse Ox O2 Del Method O2 Flow Rate 96.9 F 93 19 132/73 H 100 Oxy Mask 3 04/06/25 08:00 04/06/25 08:00 04/06/25 08:00 04/06/25 08:00 04/06/25 08:00 04/06/25 04:00 04/06/25 06:46 FiO2 60 04/05/25 08:00 Narrative Exam Constitutional: Elderly male, intubated/sedated; obese HEENT: NCAT. Mucous membranes dry. Respiratory: Bilateral ronchi, improved Cardiac: RRR. Abdomen: Soft, distended and tympanic but improved. MSK: L BKA. 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 No peripheral edema Skin: Multiple excoriations throughout body. Stasis dermatitis discoloration R schrader. Objective Labs 04/07/25 05:03 04/07/25 05:03 Labs: Laboratory Results - last 24 hr 04/06/25 05:21 WBC 5.0 RBC 2.64 L Hgb 8.3 L Hct 26.2 L MCV 99 MCH 31.4 MCHC 31.7 RDW Std Deviation 56.4 H Plt Count 82 L Neut % (Auto) 88 H Lymph % (Auto) 6 L [place] % (Auto) 5 Eos % (Auto) 1 Baso % (Auto) 0 Neut # (Auto) 4.4 Lymph # (Auto) 0.3 L [place] # (Auto) 0.3 Eos # (Auto) 0.0 Baso # (Auto) 0.0 Immature Gran # (Auto) 0.02 H Absolute Nucleated RBC 0.00 Immature Gran % 0 Nucleated RBC % 0 Sodium 146 H Potassium 3.8 Chloride 115 H Carbon Dioxide 22.4 Anion Gap 9 BUN 30 H Creatinine 1.5 H Estim Creat Clear Calc 55.5 L eGFR 50 L BUN/Creatinine Ratio 20 Glucose 116 H Calculated Osmolality 297 H Calcium 7.8 L Corrected Calcium 8.6 Phosphorus 3.0 Magnesium 1.7 Total Bilirubin 0.7 AST 21 ALT 18 Alkaline Phosphatase 68 Total Protein 6.9 Albumin 3.0 L Globulin 3.9 H Albumin/Globulin Ratio 0.8 L ABG Interpretation ABG results: 04/03/25 04/04/25 04/05/25 20:45 04:55 04:00 ABG pH 7.46 H 7.42 7.35 ABG pCO2 37 42 47 ABG pO2 181 H 111 H D 37 L* D ABG HCO3 26 27 H 26 ABG O2 Saturation 99 H 98 66 L ABG Base Excess 2 3 0 04/05/25 04:55 ABG pH 7.40 ABG pCO2 40 ABG pO2 136 H D ABG HCO3 25 ABG O2 Saturation 99 H ABG Base Excess 0 Quality Measures Quality Measures VTE prophylaxis Advance care planning discussed with:: legal surragate Assessment & Plan Assessment Current Active Medications: Generic Name Dose Route Start Last Admin Trade Name Freq PRN Reason Stop Dose Admin Acetaminophen 650 mg 04/03/25 16:22 Acetaminophen 325 Mg Tablet PO 05/03/25 16:21 Q6H PRN Fever >100.4 Albuterol/Ipratropium 3 ml 04/06/25 08:45 Albuterol/Ipratropium (Duoneb) Rt Jessica 3 Ml Nebu INH 05/04/25 18:59 Q6HRRT PRN wheezing, sob Dextrose 25 ml 04/03/25 16:33 Dextrose 50%-Water Inj 50 Ml Syringe IV 05/03/25 16:32 Q15MIN PRN BG 50-70 responsive npo pt Dextrose 50 ml 04/03/25 16:33 Dextrose 50%-Water Inj 50 Ml Syringe IV 05/03/25 16:32 Q15MIN PRN BG <50 OR BG <70 & pt unresponsive Glucagon 1 mg 04/03/25 16:33 Glucagon Inj 1 Mg Vial IM Q15MIN PRN BG <70, and no IV access Heparin Sodium (Porcine) 5,000 unit 04/03/25 22:00 04/06/25 05:51 Heparin Sod Inj 5000 Unit/Ml Vial SC 04/17/25 21:59 5,000 unit Q8HR MANUEL Administration Piperacillin/Tazobactam/Dextrose 3.375 gm in 50 mls @ 12.5 mls/hr 04/03/25 22:00 04/06/25 05:47 Zosyn IV 04/10/25 21:59 12.5 mls/hr Q8HR MANUEL Administration Vancomycin HCl 1,500 mg/ 500 mls @ 120 mls/hr 04/04/25 14:00 04/05/25 14:30 Sodium Chloride IV 04/11/25 13:59 120 mls/hr QDAY@1400 [facility] Administration Protocol Insulin Human Regular 0 unit 04/03/25 18:00 04/06/25 05:24 Insulin Hum Regular 1 Unit/0.01 Ml (Per Unit) SC 05/03/25 17:59 Not Given Q6HR [facility] Protocol Pharmacy Consult 1 each 04/03/25 14:00 Vancomycin Pharmacy To Dose 1 Each Each IV 05/03/25 13:59 QDAY PRN CONSULT Simethicone 80 mg 04/06/25 09:37 Simethicone 80 Mg Chew PO 05/06/25 09:36 QID PRN GAS Sodium Chloride 3 ml 04/04/25 15:24 Sodium Chloride Rt Jessica 0.9% 3 Ml Nebu INH 05/04/25 15:23 PRN PRN SOLN Plan Patient is a 70 year old male with PMH of developmental delay, bipolar disorder, DM2, L AKA admitted to the ICU for choking-induced pulmonary arrest s/p ROSC. 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 #History of bipolar disorder, developmental delay - Restart home meds pending med recc and swallow screen CARDIOVASCULAR #Cardiopulmonary arrest s/p resuscitation Choking-induced respiratory and cardiac arrest Troponinemia likely Type II in the setting of cardiopulmonary arrest #Hypotension, resolved RESPIRATORY #Acute hypoxic respiratory failure #Foreign body aspiration pneumonitis Due to choking-induced cardiac arrest. Intubated 04/03. Bronchoscopy 04/04 revealed food and mucous obstructing the right lower and intermediate lung, removed. Extubated 04/05. - If patient becomes hypoxic, avoid CPAP or BIPAP. Use HFNC - Discontinue pulmicort; duonebs prn RENAL #Hypocalcemia, resolved #Lactic acidosis, resolved GI #Abdominal distention #Esophageal obstruction, resolved EGD 04/05 showed food throughout esophagus, flushed KUB 04/06 and 04/06 showed air throughout colon - NPO - NG tube for decompression ENDO #History of DM2 - ISS Q6H HEME #Thrombocytopenia ID #Aspiration pneumonia versus pneumonitis Sputum culture mixed rafita. MRSA positive. - Empiric antibiotics with vanc, zosyn x 5 days Health Maintenance Disposition: Admit to ICU for cardiac arrest s/p ROSC; stable for downgrade Diet and fluids: NPO DVT prophylaxis: heparin GI prophylaxis: pepcid Lines: PIV, NG tube CODE STATUS: FULL - patient is conserved with CRVC I have reviewed and discussed the patient's care with my attending, Dr. Bisi Su MD PGY-3 Attending Provider Attestation/Addendum Patient seen and examined with above resident, Jane Ball MD. I agree with the findings, assessment, and plan of care as documented except for any differences below. Patient continues to show ongoing improvement with adequate coverage for aspiration pneumonia. Foreign object?food/chicken/apples-successfully removed from both this obstructed esophagus as well as right lung. Pneumonitis and bronchitis being adequately controlled with antibiotic and inhaled albuterol, will stop inhaled corticosteroids at this point. Patient successfully weaned from mechanical ventilation yesterday and placed on oxime mask with ability to wean down to less than 5 L. He continues to have normal saturation with normalization of his respiratory variation. Notably having apnea likely from central source. Patient also had significant abdominal distention postextubation yesterday warranting placement of NG tube for decompression. KUB follow-up today continues to show significant distention of the lower GI tract. To avoid risk of vomiting and aspiration, will continue NG tube and withhold feeding at this point. Patient otherwise remained stable for transfer to medicine sapp for ongoing management prior to discharge to his facility. Patient continues to be relatively somnolent though he does awaken and verbalizes appropriately compared to his baseline per report. Total critical care time: I personally spent 35 minutes for review of physiologic parameters, direct the plan of care, coordination of care with other specialist, and counseling patient at bedside. This is exclusive of time spent teaching housestaff performing separate billable procedures. Patient remains at risk for further morbidity and mortality warranting close monitoring. Received in the intensive care unit. Patient received critical care services for acute hypoxic respiratory failure secondary to pneumonitis from aspiration of food/vomit. Along with esophageal obstruction secondary to food impaction.
--- NOTE | 2025-04-06 13:33 | ESPR_ITS ---
Documentation for date of: 04/06/25 Subjective Subjective Interval history: Downgraded by ICU team. 70-year-old male with past medical history of developmental delay, bipolar disorder, diabetes, left [id number] amputation who was admitted to the ICU after choking induced pulmonary arrest status post ROSC. In the ICU patient had bronchoscopy and EGD done to remove fluid from stomach and trachea. Currently with NG tube to low intermittent suction, as patient's abdomen continues to be distended however having bowel movements. Will resume home medications once NG tube is discontinued. Exam Vital Signs Temp Pulse Resp BP Pulse Ox O2 Del Method O2 Flow Rate 96.9 F 93 19 132/73 H 100 Oxy Mask 3 04/06/25 08:00 04/06/25 08:00 04/06/25 08:00 04/06/25 08:00 04/06/25 08:00 04/06/25 04:00 04/06/25 06:46 FiO2 60 04/05/25 08:00 Narrative Exam Physical Exam GENERAL: NAD, on oxymask HEENT: Moist mucosa. Eyes open, symmetrical, & clear CARDIO: Heart RRR, no obvious murmurs PULM: No noted coughing/dyspnea CTA B/L, no R/W/R GI: Abdomen soft, distended, no pain on palpation. BS+ SKIN/MSK/EXT: Lt AKA, no pain on palpation Objective Labs 04/08/25 04:45 04/08/25 04:45 Labs: Laboratory Results - last 24 hr 04/06/25 05:21 WBC 5.0 RBC 2.64 L Hgb 8.3 L Hct 26.2 L MCV 99 MCH 31.4 MCHC 31.7 RDW Std Deviation 56.4 H Plt Count 82 L Neut % (Auto) 88 H Lymph % (Auto) 6 L [place] % (Auto) 5 Eos % (Auto) 1 Baso % (Auto) 0 Neut # (Auto) 4.4 Lymph # (Auto) 0.3 L [place] # (Auto) 0.3 Eos # (Auto) 0.0 Baso # (Auto) 0.0 Immature Gran # (Auto) 0.02 H Absolute Nucleated RBC 0.00 Immature Gran % 0 Nucleated RBC % 0 Sodium 146 H Potassium 3.8 Chloride 115 H Carbon Dioxide 22.4 Anion Gap 9 BUN 30 H Creatinine 1.5 H Estim Creat Clear Calc 55.5 L eGFR 50 L BUN/Creatinine Ratio 20 Glucose 116 H Calculated Osmolality 297 H Calcium 7.8 L Corrected Calcium 8.6 Phosphorus 3.0 Magnesium 1.7 Total Bilirubin 0.7 AST 21 ALT 18 Alkaline Phosphatase 68 Total Protein 6.9 Albumin 3.0 L Globulin 3.9 H Albumin/Globulin Ratio 0.8 L ABG Interpretation ABG results: 04/03/25 04/04/25 04/05/25 20:45 04:55 04:00 ABG pH 7.46 H 7.42 7.35 ABG pCO2 37 42 47 ABG pO2 181 H 111 H D 37 L* D ABG HCO3 26 27 H 26 ABG O2 Saturation 99 H 98 66 L ABG Base Excess 2 3 0 04/05/25 04:55 ABG pH 7.40 ABG pCO2 40 ABG pO2 136 H D ABG HCO3 25 ABG O2 Saturation 99 H ABG Base Excess 0 Quality Measures Quality Measures VTE prophylaxis Advance care planning discussed with:: patient Assessment & Plan Assessment Current Active Medications: Generic Name Dose Route Start Last Admin Trade Name Freq PRN Reason Stop Dose Admin Acetaminophen 650 mg 04/03/25 16:22 Acetaminophen 325 Mg Tablet PO 05/03/25 16:21 Q6H PRN Fever >100.4 Albuterol/Ipratropium 3 ml 04/06/25 08:45 Albuterol/Ipratropium (Duoneb) Rt Jessica 3 Ml Nebu INH 05/04/25 18:59 Q6HRRT PRN wheezing, sob Dextrose 25 ml 04/03/25 16:33 Dextrose 50%-Water Inj 50 Ml Syringe IV 05/03/25 16:32 Q15MIN PRN BG 50-70 responsive npo pt Dextrose 50 ml 04/03/25 16:33 Dextrose 50%-Water Inj 50 Ml Syringe IV 05/03/25 16:32 Q15MIN PRN BG <50 OR BG <70 & pt unresponsive Glucagon 1 mg 04/03/25 16:33 Glucagon Inj 1 Mg Vial IM Q15MIN PRN BG <70, and no IV access Heparin Sodium (Porcine) 5,000 unit 04/03/25 22:00 04/06/25 05:51 Heparin Sod Inj 5000 Unit/Ml Vial SC 04/17/25 21:59 5,000 unit Q8HR MANUEL Administration Piperacillin/Tazobactam/Dextrose 3.375 gm in 50 mls @ 12.5 mls/hr 04/03/25 22:00 04/06/25 05:47 Zosyn IV 04/10/25 21:59 12.5 mls/hr Q8HR MANUEL Administration Vancomycin HCl 1,500 mg/ 500 mls @ 120 mls/hr 04/04/25 14:00 04/05/25 14:30 Sodium Chloride IV 04/11/25 13:59 120 mls/hr QDAY@1400 [facility] Administration Protocol Insulin Human Regular 0 unit 04/03/25 18:00 04/06/25 12:41 Insulin Hum Regular 1 Unit/0.01 Ml (Per Unit) SC 05/03/25 17:59 Not Given Q6HR [facility]UEL Protocol Pharmacy Consult 1 each 04/03/25 14:00 Vancomycin Pharmacy To Dose 1 Each Each IV 05/03/25 13:59 QDAY PRN CONSULT Simethicone 80 mg 04/06/25 09:37 Simethicone 80 Mg Chew PO 05/06/25 09:36 QID PRN GAS Sodium Chloride 3 ml 04/04/25 15:24 Sodium Chloride Rt Jessica 0.9% 3 Ml Nebu INH 05/04/25 15:23 PRN PRN SOLN Plan 70 year old male with PMH of developmental delay, bipolar disorder, DM2, L AKA admitted to the ICU for choking-induced pulmonary arrest s/p ROSC. #Acute hypoxic respiratory failure #Foreign body aspiration pneumonitis #Aspiration pneumonia versus pneumonitis Due to choking-induced cardiac arrest. Intubated 04/03. Bronchoscopy 04/04 revealed food and mucous obstructing the right lower and intermediate lung, removed. Extubated 04/05. Sputum culture mixed rafita. MRSA positive. - on vanc x5 days(04/04-) - on zosyn x 5 days (04/04-) - avoid CPAP/BiPAP - if hypoxia occurs please putpatient on HFNC - on duonebs prn #Abdominal distention #Esophageal obstruction, resolved EGD 04/05 showed food throughout esophagus, flushed KUB 04/06 and 04/06 showed air throughout colon - NPO - NG tube for decompression LIS #Acute on chronic encephalopathy, improving #History of bipolar disorder, developmental delay At baseline, patient able to talk, when seeing patient in ICU patient was able to talk #Cardiopulmonary arrest s/p resuscitation Choking-induced respiratory and cardiac arrest Troponinemia likely Type II in the setting of cardiopulmonary arrest #History of bipolar disorder, developmental delay - Restart home meds pending med recc and swallow screen #History of Diabetes mellitus - SSI - hypoglycemia protocol in place #Thrombocytopenia -monitor at this time #Hypocalcemia, resolved #Lactic acidosis, resolved Health Maintenance Disposition: Admit to ICU for cardiac arrest s/p ROSC; stable for downgrade Diet and fluids: NPO DVT prophylaxis: heparin GI prophylaxis: pepcid Lines: PIV, NG tube CODE STATUS: FULL - patient is conserved with CRVC Case discussed with my senior Dr. Mabry and my attending Dr. Shaina Hughes MD PGY-1 LPatient examined and case discussed with the team including attending physician. Note reviewed, I agree with the care plan as documented by Dr. Victor Hugo Hughes. Patient to be downgraded from ICU to telemetry under hospitalist team care on 04/07/2025. - Aris Mabry MD, PGY 2 Disclaimer: The document may contain phonetic/typographic errors due to voice recognition software. These errors are purely due to imperfections in the software program and should not be misconstrued in any way to compromise the substance of the patient's medical care during this visit. 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 During ICU stay, patient underwent bronchoscopy and EGD to remove aspiration content and subsequently extubated and downgraded to MedSurg. Of note, patient oxygen requirements trending down and continues to be on IV antibiotic therapy. In addition, patient mentation appears to be improving currently holding conversation. Continue to monitor closely.I reviewed above note and agree with findings and plans. I have also personally examined the patient with medicine team and went over assessment and plan with medical team including automotive internet sales manager and resident physician.
[2025-04-06 16:12] LABS: Vancomycin,Trough 24.6 mcg/mL (5.0-10.0)
--- NOTE | 2025-04-06 20:19 | PD.IMPROG ---
Documentation for date of: 04/06/25 Subjective Subjective Interval history: NGT to intermittent suction because of abdominal distention Patient having bowel movements Patient status post clearance of the foreign body in the entire esophagus Exam Vital Signs Temp Pulse Resp BP Pulse Ox O2 Del Method O2 Flow Rate 98.2 F 91 24 H 152/88 H 100 Oxy Mask 3 04/06/25 20:00 04/06/25 20:00 04/06/25 20:00 04/06/25 20:00 04/06/25 20:00 04/06/25 04:00 04/06/25 06:46 FiO2 60 04/05/25 08:00 Objective Labs 04/06/25 05:21 04/06/25 05:21 Labs: Laboratory Results - last 24 hr 04/06/25 04/06/25 05:21 13:04 WBC 5.0 RBC 2.64 L Hgb 8.3 L Hct 26.2 L MCV 99 MCH 31.4 MCHC 31.7 RDW Std Deviation 56.4 H Plt Count 82 L Neut % (Auto) 88 H Lymph % (Auto) 6 L [place] % (Auto) 5 Eos % (Auto) 1 Baso % (Auto) 0 Neut # (Auto) 4.4 Lymph # (Auto) 0.3 L [place] # (Auto) 0.3 Eos # (Auto) 0.0 Baso # (Auto) 0.0 Immature Gran # (Auto) 0.02 H Absolute Nucleated RBC 0.00 Immature Gran % 0 Nucleated RBC % 0 Sodium 146 H Potassium 3.8 Chloride 115 H Carbon Dioxide 22.4 Anion Gap 9 BUN 30 H Creatinine 1.5 H Estim Creat Clear Calc 55.5 L eGFR 50 L BUN/Creatinine Ratio 20 Glucose 116 H Calculated Osmolality 297 H Calcium 7.8 L Corrected Calcium 8.6 Phosphorus 3.0 Magnesium 1.7 Total Bilirubin 0.7 AST 21 ALT 18 Alkaline Phosphatase 68 Total Protein 6.9 Albumin 3.0 L Globulin 3.9 H Albumin/Globulin Ratio 0.8 L Vancomycin Trough 24.6 H* Impressions Impression: # Foreign body obstruction due to food the entire esophagus endoscopically cleared # Abdominal distention NGT to intermittent suction ABG Interpretation ABG results: 04/03/25 04/04/25 04/05/25 20:45 04:55 04:00 ABG pH 7.46 H 7.42 7.35 ABG pCO2 37 42 47 ABG pO2 181 H 111 H D 37 L* D ABG HCO3 26 27 H 26 ABG O2 Saturation 99 H 98 66 L ABG Base Excess 2 3 0 04/05/25 04:55 ABG pH 7.40 ABG pCO2 40 ABG pO2 136 H D ABG HCO3 25 ABG O2 Saturation 99 H ABG Base Excess 0 Assessment & Plan A&P Narrative # Foreign body obstruction esophagus # Status post cardiopulmonary arrest ROSC # Developmentally delayed # Diabetes mellitus type 2 # Status post AKA left Plan Consent obtained for fiberoptic esophagogastro duodenoscopy with therapeutic intervention under intravenous moderate sedation we will proceed with the procedure thank you very much for the opportunity to participate in care of this patient Time Spent With Patient Time: Total time spent is greater than 50% in coordination of care (as documented) at patient's floor/unit and/or counseling patient:
[2025-04-07] VITALS (28 sets, daily range): BP systolic 118–163; BP diastolic 74–106; PULSE 44–125; RESP 16–28; TEMP 36.1–36.8; O2SAT 92–100; BMI 36.5
[2025-04-07] MEDS: PIPER/TAZO 3.375 GM PREMIX 3.375 GM/50 ML BAG IV ×3 (05:14→21:06)
[2025-04-07 05:53] LABS: Basophils % (Auto) 0 % (0-2.5); Eosinophils % (Auto) 0 % (0-10); Hematocrit 28.3 % (41.0-53.0); Hemoglobin 8.9 g/dL (13.5-16.0); Immature Granulocytes % (Auto) 1 % (0-0); Immature Granulocytes Auto 0.03 Thou/mm3 (0.00-0.00); Lymphocytes # (Auto) 0.3 Thou/mm3 (1.0-4.8); Lymphocytes % (Auto) 6 % (10-50); Mean Corpuscular HGB Conc 31.4 g/dl (31.0-37.0); Mean Corpuscular Volume 99 fL (80-100); Monocytes # (Auto) 0.3 Thou/mm3 (0.0-0.8); Monocytes % (Auto) 6 % (0-12); Neutrophils # (Auto) 4.4 Thou/mm3 (1.8-7.7); Neutrophils % (Auto) 87 % (37-80); Nucleated Red Blood Cell % 0 /100 WBC (0); Platelet Count 89 Thou/mm3 (140-440); RDW Standard Deviation 54.7 fL (35.1-43.9); Red Blood Count 2.87 Miln/mm3 (4.50-5.90)
[2025-04-07 06:22] LABS: Alanine Aminotransferase 20 U/L (10-49); Albumin, Serum 3.3 gm/dL (3.4-4.8); Albumin/Globulin Ratio 0.8 (1.2-2.2); Alkaline Phosphatase 74 U/L (46-116); Anion Gap 9 (7-16); Aspartate Amino Transferase 23 U/L (0-34); BUN/Creatinine Ratio 20 Ratio (12-20); Bilirubin,Total 1.2 mg/dL (0.3-1.2); Blood Urea Nitrogen 28 mg/dL (9-23); Calcium 8.7 mg/dL (8.3-10.6); Calcium (Corrected) 9.3 mg/dL (8.5-10.1); Carbon Dioxide 27.5 mMol/L (20.0-31.0); Chloride 114 mMol/L (98-107); Creatinine (Component) 1.4 mg/dL (0.6-1.3); Estimated Creatinine Clearance 58.5 mL/min (>60); Globulin 4.2 gm/dL (2.3-3.5); Glucose 145 mg/dL (74-106); Magnesium 1.8 mg/dL (1.6-2.6); Osmolality,Calculated 306 (275-295); Phosphorous 2.3 mg/dL (2.4-5.1); Potassium 4.3 mMol/L (3.4-5.1); Sodium 150 mMol/L (136-145); Total Protein 7.5 gm/dL (5.7-8.2); eGFR 54 See Note
--- NOTE | 2025-04-07 07:34 | PC.NURSE ---
patient domingo to [address] Dr. Gay made aware.
--- NOTE | 2025-04-07 08:05 | PC.NURSE ---
/Dr. Gay made aware pts BP right upper arm 169/102 HR: 88 MAP 120, left upper arm BP 162/89 HR 90, MAP 113, no new orders given.
--- NOTE | 2025-04-07 08:17 | PC.NURSE ---
reassess vitals at 0810 BP 143/83 HR 91
--- NOTE | 2025-04-07 09:43 | PC.SS ---
Initial assessment: this is 70 year old male who resides at residential skilled nursing: [facility]. Confirmed address on facesheet. Information received by retirement staff, Ambreen. Per Ambreen the patient's alternate medical decision maker is [facility] shelter case manager Navya Vasques . Per Ambreen, the patient is not conserved. Ambreen reports the patient is non-ambulatory. Patient followed by provider: Deja. Pharmacy for medication is [facility]. Patient is also followed by nephrology. The discharge plan is for the patient to return to retirement and will need transportation to be arranged for him to return to retirement. D/c plan: long term Next of kin: [facility]-Navya Vasques
[2025-04-07] MEDS: VANCOMYCIN/NS 1 GM IVPB 200 ML IV (10:24)
--- NOTE | 2025-04-07 11:57 | PC.NURSE ---
soft wrist restrains removed, pt alert to self. Speech therapist at bedside.
--- NOTE | 2025-04-07 12:01 | PCS.ST ---
Swallow Evaluation completed. See report for details. Recommend PO meds only: crushed in puree and/or dissolved in water sips. Hold PO diet for now. ST in AM for po trials for diet readiness.
[2025-04-07] MEDS: NAPH,KPH MBDB 1 PACKET (1.5 GM) PO (12:03)
[2025-04-07] MEDS: DEXTROSE 5%-WATER 1,000 ML 100 ML IV (12:04)
[2025-04-07] MEDS: hydrALAZINE INJ 20 MG/ML VIAL 10 MG IV (12:30)
--- NOTE | 2025-04-07 12:34 | PC.NURSE ---
hold heparin per Dr. Gay, order received, read back, and carried out.
[2025-04-07 13:41] LABS: Albumin, Serum 3.3 gm/dL (3.4-4.8); Anion Gap 11 (7-16); BUN/Creatinine Ratio 19 Ratio (12-20); Blood Urea Nitrogen 25 mg/dL (9-23); Calcium 8.6 mg/dL (8.3-10.6); Calcium (Corrected) 9.2 mg/dL (8.5-10.1); Carbon Dioxide 25.7 mMol/L (20.0-31.0); Chloride 113 mMol/L (98-107); Creatinine (Component) 1.3 mg/dL (0.6-1.3); Estimated Creatinine Clearance 64.1 mL/min (>60); Glucose 169 mg/dL (74-106); Osmolality,Calculated 306 (275-295); Potassium 3.8 mMol/L (3.4-5.1); Sodium 150 mMol/L (136-145); eGFR 59 See Note
--- NOTE | 2025-04-07 14:41 | PC.SS ---
Rounding note: ICU downgrade, pending speech evaluation.
--- NOTE | 2025-04-07 15:10 | ESPR_ITS ---
Documentation for date of: 04/07/25 Subjective Subjective Interval history: Patient seen today at the bedside. Vitals and labs reviewed. NG tube this a.m. with only 50 cc output patient self removed NG tube despite being on physical restraints. Patient with hypernatremia, started patient on D5W for 1 bag and repeated renal panel which showed no improvement in sodium started patient on D5 half NS will repeat renal panel in the evening. Was evaluated by speech therapy patient did not pass swallow eval recommend PO meds only: crushed in puree and/or dissolved in water sips Exam Vital Signs Temp Pulse Resp BP Pulse Ox O2 Del Method O2 Flow Rate 97.4 F 93 22 H 126/74 100 Nasal Cannula 3 04/07/25 12:00 04/07/25 13:00 04/07/25 12:00 04/07/25 13:00 04/07/25 12:00 04/07/25 12:00 04/07/25 12:00 FiO2 60 04/05/25 08:00 Narrative Exam Physical Exam GENERAL: NAD HEENT: Moist mucosa. Eyes open, symmetrical, & clear CARDIO: Heart RRR, no obvious murmurs PULM: No noted coughing/dyspnea CTA B/L, no R/W/R GI: Abdomen soft, distended-improving, no pain on palpation. BS+ SKIN/MSK/EXT: Lt AKA, no pain on palpation Objective Labs 04/08/25 04:45 04/08/25 04:45 Labs: Laboratory Results - last 24 hr 04/06/25 04/07/25 04/07/25 13:04 05:03 13:05 WBC 5.0 RBC 2.87 L Hgb 8.9 L Hct 28.3 L MCV 99 MCH 31.0 MCHC 31.4 RDW Std Deviation 54.7 H Plt Count 89 L Neut % (Auto) 87 H Lymph % (Auto) 6 L Morehouse % (Auto) 6 Eos % (Auto) 0 Baso % (Auto) 0 Neut # (Auto) 4.4 Lymph # (Auto) 0.3 L [place]house # (Auto) 0.3 Eos # (Auto) 0.0 Baso # (Auto) 0.0 Immature Gran # (Auto) 0.03 H Absolute Nucleated RBC 0.00 Immature Gran % 1 H Nucleated RBC % 0 Sodium 150 H 150 H Potassium 4.3 D 3.8 D Chloride 114 H 113 H Carbon Dioxide 27.5 25.7 Anion Gap 9 11 BUN 28 H 25 H Creatinine 1.4 H 1.3 Estim Creat Clear Calc 58.5 L 64.1 eGFR 54 L 59 L BUN/Creatinine Ratio 20 19 Glucose 145 H 169 H Calculated Osmolality 306 H 306 H Calcium 8.7 8.6 Corrected Calcium 9.3 9.2 Phosphorus 2.3 L 2.0 L Magnesium 1.8 Total Bilirubin 1.2 D AST 23 ALT 20 Alkaline Phosphatase 74 Total Protein 7.5 Albumin 3.3 L 3.3 L Globulin 4.2 H Albumin/Globulin Ratio 0.8 L Vancomycin Trough 24.6 H* Random Vancomycin 19.0 ABG Interpretation ABG results: 04/03/25 04/04/25 04/05/25 20:45 04:55 04:00 ABG pH 7.46 H 7.42 7.35 ABG pCO2 37 42 47 ABG pO2 181 H 111 H D 37 L* D ABG HCO3 26 27 H 26 ABG O2 Saturation 99 H 98 66 L ABG Base Excess 2 3 0 04/05/25 04:55 ABG pH 7.40 ABG pCO2 40 ABG pO2 136 H D ABG HCO3 25 ABG O2 Saturation 99 H ABG Base Excess 0 Quality Measures Quality Measures VTE prophylaxis Advance care planning discussed with:: patient Assessment & Plan Assessment Current Active Medications: Generic Name Dose Route Start Last Admin Trade Name Freq PRN Reason Stop Dose Admin Acetaminophen 650 mg 04/03/25 16:22 Acetaminophen 325 Mg Tablet PO 05/03/25 16:21 Q6H PRN Fever >100.4 Albuterol/Ipratropium 3 ml 04/06/25 08:45 Albuterol/Ipratropium (Duoneb) Rt Jessica 3 Ml Nebu INH 05/04/25 18:59 Q6HRRT PRN wheezing, sob Dextrose 25 ml 04/03/25 16:33 Dextrose 50%-Water Inj 50 Ml Syringe IV 05/03/25 16:32 Q15MIN PRN BG 50-70 responsive npo pt Dextrose 50 ml 04/03/25 16:33 Dextrose 50%-Water Inj 50 Ml Syringe IV 05/03/25 16:32 Q15MIN PRN BG <50 OR BG <70 & pt unresponsive Glucagon 1 mg 04/03/25 16:33 Glucagon Inj 1 Mg Vial IM Q15MIN PRN BG <70, and no IV access Heparin Sodium (Porcine) 5,000 unit 04/03/25 22:00 04/07/25 13:41 Heparin Sod Inj 5000 Unit/Ml Vial SC 04/17/25 21:59 Not Given Q8HR MANUEL Piperacillin/Tazobactam/Dextrose 3.375 gm in 50 mls @ 12.5 mls/hr 04/03/25 22:00 04/07/25 14:14 Zosyn IV 04/10/25 21:59 12.5 mls/hr Q8HR MANUEL Administration Vancomycin/Sodium Chloride 200 mls @ 120 mls/hr 04/07/25 10:00 04/07/25 10:24 Vancomycin/Ns 1 Gm Ivpb IV 04/14/25 09:59 120 mls/hr QDAY@1000 MANUEL Administration Protocol Dextrose 1,000 mls @ 100 mls/hr 04/07/25 11:00 04/07/25 12:04 D5w IV 04/07/25 20:59 100 mls/hr .Q10H MANUEL Administration Insulin Human Regular 0 unit 04/03/25 18:00 04/07/25 11:33 Insulin Hum Regular 1 Unit/0.01 Ml (Per Unit) SC 05/03/25 17:59 Not Given Q6HR MANUEL Protocol Ondansetron HCl 4 mg 04/07/25 14:29 Ondansetron Inj 2 Mg/Ml Inj 2 Ml IV 05/07/25 14:28 Q6H PRN NAUSEA OR VOMITING Protocol Pantoprazole Sodium 40 mg 04/07/25 14:30 Pantoprazole Inj 40 Mg Vial IVP 05/07/25 14:29 QDAY MANUEL Pharmacy Consult 1 each 04/03/25 14:00 Vancomycin Pharmacy To Dose 1 Each Each IV 05/03/25 13:59 QDAY PRN CONSULT Simethicone 80 mg 04/06/25 09:37 Simethicone 80 Mg Chew PO 05/06/25 09:36 QID PRN GAS Sodium Chloride 3 ml 04/04/25 15:24 Sodium Chloride Rt Jessica 0.9% 3 Ml Nebu INH 05/04/25 15:23 PRN PRN SOLN Plan 70 year old male with PMH of developmental delay, bipolar disorder, DM2, L AKA admitted to the ICU for choking-induced pulmonary arrest s/p ROSC. #Hypernatremia likely in the setting of acute dehydration as patient has been NPO current Na 150, was given 1xbag D5W and repeat renal panel shows no improvement in Na lvls Free H20 deficit: 4L - started on D5W1/2NS @75 ccs per hour - monitor renal panel #Acute hypoxic respiratory failure #Foreign body aspiration pneumonitis #Aspiration pneumonia versus pneumonitis Due to choking-induced cardiac arrest. Intubated 04/03. Bronchoscopy 04/04 revealed food and mucous obstructing the right lower and intermediate lung, removed. Extubated 04/05. Sputum culture mixed rafita. MRSA positive. - on vanc x5 days(04/04-) - on zosyn x 5 days (04/04-) - avoid CPAP/BiPAP - if hypoxia occurs please putpatient on HFNC - on duonebs prn #Abdominal distention-improving #Esophageal obstruction, resolved EGD 04/05 showed food throughout esophagus, flushed KUB 04/06 and 04/06 showed air throughout colon patient self removed NGT; only 50ccs in last 24 hours - NPO; Recommend PO meds only: crushed in puree and/or dissolved in water sips #Acute on chronic encephalopathy, improving #History of bipolar disorder, developmental delay At baseline, patient able to talk, when seeing patient in ICU patient was able to talk #Cardiopulmonary arrest s/p resuscitation Choking-induced respiratory and cardiac arrest Troponinemia likely Type II in the setting of cardiopulmonary arrest #History of bipolar disorder, developmental delay - Restart home meds pending med recc and swallow screen #History of Diabetes mellitus - SSI - hypoglycemia protocol in place #Thrombocytopenia -monitor at this time #Hypocalcemia, resolved #Lactic acidosis, resolved Health Maintenance Disposition: telemetry Diet and fluids: NPO DVT prophylaxis: heparin GI prophylaxis: pepcid Lines: PIV, NG tube CODE STATUS: FULL - patient is conserved with CRVC Case discussed with my senior Dr. Mabry and my attending Dr. Shaina Hughes MD PGY-1 LPatient examined and case discussed with the team including attending physician Dr Janett Kemp reviewed, I agree with the care plan as documented. Patient was improving on IV Vanc + IV Zosyn (04/04- ). Downgraded from ICU on 04/05 after Bronchoscopy 04/04 revealed food and mucous obstructing the right lower and intermediate lung, removed. Extubated 04/05. 04/07 : RR at 4:40PM --> upgraded to ICU after intubation. Likely aspiration post seizure. Please refer to the note above and separate event note for further details. - Aris Mabry MD, PGY 2 Disclaimer: The document may contain phonetic/typographic errors due to voice recognition software. These errors are purely due to imperfections in the software program and should not be misconstrued in any way to compromise the substance of the patient's medical care during this visit. 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 During ICU stay, patient underwent bronchoscopy and EGD to remove aspiration content and subsequently extubated and downgraded to MedSur. Of note, patient oxygen requirements trending down and continues to be on IV antibiotic therapy. In addition, patient mentation appears to be improving currently holding conversation. Continue to monitor closely. Furthermore, patient continues to have abdominal distention patient removed NG tube however was only draining about 50 cc in the past 24 hours thus will not replace. Patient is currently n.p.o and plan to obtain a swallow eval and monitor for bowel movements. Oxygenation improving..I reviewed above note and agree with findings and plans. I have also personally examined the patient with medicine team and went over assessment and plan with medical team including financial intern and resident physician.
[2025-04-07] MEDS: DEXTROSE 5%-0.45% NS 1,000 ML 75 ML IV ×2 (16:14→21:06)
[2025-04-07] MEDS: ROCURONIUM INJ 10 MG/ML VIAL 10 ML 100 MG IVP (17:53)
[2025-04-07] MEDS: ETOMIDATE INJ 2 MG/ML VIAL 10 ML 40 MG IVP (17:53)
--- NOTE | 2025-04-07 18:15 | EVENTNT_ITS ---
Documentation for date of: 04/07/25 Event Note Event Note: 70 year old male with PMHx of developmental delay, bipolar disorder, DM2, L AKA. Nursing staff noted patient had a seizure and likely aspirated patient subsequently went into cardiorespiratory arrest. Silvana staton was called at 1741. On my arrival, patient was without a pulse with rhythm showing PEA ACLS performed with 2 rounds of CPR, Epinephrine, later rhythm changed to ventricular fibrillation without pulse and patient was shocked with 200J and ROSC was obtained. Patient was intubated and upgraded to ICU for higher level of care. Breakdown of silvana staton as follows: 174: Silvana staton called 1742: Chest compressions were initiated 1745: first dose of Epinephrine given 1746: pulse check, CPR continued 174: sodium bicarbonate 1748: second dose of epinephrine 174: second dose of sodium bicarbonate was given and rhythm check was done which showed Ventricular fibrillation with no pulse 1750: Calcium gluconate was given 175: pulse check and Shock with 200J, after which ROSC was obtained. 175:Patient was intubated and upgraded to ICU for higher level of care Case discussed with my attending Dr. 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 During ICU stay, patient underwent bronchoscopy and EGD to remove aspiration content and subsequently extubated and downgraded to MedSur. Of note, patient oxygen requirements trending down and continues to be on IV antibiotic therapy. In addition, patient mentation appears to be improving currently holding conversation. Continue to monitor closely. Furthermore, patient continues to have abdominal distention patient removed NG tube however was only draining about 50 cc in the past 24 hours thus will not replace. Patient is currently n.p.o and plan to obtain a swallow eval and monitor for bowel movements. At about 1741, per nursing staff patient was noted to have a seizure-like activity and episodes of hypoxia with PEA cardiac arrest. Multiple sessions of CPR and subsequent cardioversion with achievement of ROSC. Patient was subsequently extubated afterwards. As of now, likely patient had seizure activity causing hypoxia with aspiration although patient was kept n.p.o. and has not received any diet in the past couple days. Transferred to ICU.I reviewed above note and agree with findings and plans. I have also personally examined the patient with medicine team and went over assessment and plan with medical team including process engineering intern and resident physician.
--- NOTE | 2025-04-07 18:15 | PD.RESCONSUL ---
HPI Data of Consult Requesting Physician: Tamy Merritt MD Admitting Provider: Kumar Mathews MD Attending Provider: Tamy Merritt MD Primary Care Provider: Physician No Primary/Family Consult Narrative Reason for consult: Cardiopulmonary arrest History of present illness: Patient is a 70 year old male with PMH of developmental delay, bipolar disorder, DM2, L AKA admitted to the ICU for choking-induced pulmonary arrest s/p ROSC. Per caregivers and EMS report, patient was eating an apple when he choked and became unresponsive. When EMS arrived, patient was noted to be agonal, hypoxic at 55% and bradycardic. They were able to clear some food from his mouth. Patient was bagged via NPA. En route, patient lost pulses and CPR was initiated. He was given 1 of epinephrine. ROSC was achieved. Patient was intubated. He was found to be severely hypernatremic at 179. 04/04/2025: Overnight, staff was unable to pass an OG tube. Everytime the patient was turned, food chunks would come out of his mouth. He recieved a total of 2L NS and the following sodium was 135, and recheck was 136. Suspect that initial sodium at 179 may have been a lab error. Patient had SAT and SBT today, then was re-sedated and put on ventilator support for bronchoscopy. During bronchoscopy, there was large food material and mucous that were removed from the right intermdiate and lower lung bronchi, and inflammation in the right upper lobe entry. Plan for endoscopy later today to remove suspected food obstructing the esophagus. 04/05/2025: Endoscopy yesterday showed food material throughout the entire esophagus. An NG tube was placed for decompression with 200cc output overnight. No acute problems overnight. This morning, patient passed SBT and SAT and was extubated. He is awake, agitated but redirectable. He is developmentally delayed and can talk at baseline. Antibiotics discontinued. Remains on low dose levophed, will wean off. CXR shows significant bilateral infiltrate and patient is net positive fluid balance so will give Lasix. After intubation, patient did pull out his NG tube. His abdomen is quite distended and tympanic. KUB shows air throughout the colon. NG tube as reinserted with continuous suction for decompressions. 04/06/2025: Patient remains on 3L NC saturating well without respiratory distress. Will continue antibiotics to complete course for aspiration pneumonia. Patient stomach remains distended, improved. NG tube 200. Had 1 BM. Repeat KUB this morning still shows colonic ileus. Will continue NG tube. Patient to be downgraded today. 04/07/2025: CAN FILLER was called at 17: 43 soon after which a CODE BLUE was initiated as patient was found with his eyes rolled back shaking and without a pulse. ACLS was initiated with chest compressions and patient underwent 2 rounds of epi, a dose of calcium gluconate and 2 doses of bicarb. Patient had 2 rounds of PEA and he was found to be in V-fib for which she received 200 J of unsynchronized cardioversion and ROSC was achieved. Dr. Llanos intubated the patient and he was moved to the unit. Unclear as for the reason for the arrest at this time. Will work up. cc:: cc: Tamy Merritt MD Review of Systems Review of Systems ROS Unobtainable: unobtainable due to mental status Exam Vital Signs Temp Pulse Resp BP Pulse Ox O2 Del Method O2 Flow Rate 97.4 F 93 22 H 126/74 100 Nasal Cannula 3 04/07/25 12:00 04/07/25 13:00 04/07/25 12:00 04/07/25 13:00 04/07/25 12:00 04/07/25 12:00 04/07/25 12:00 FiO2 60 04/05/25 08:00 Narrative Exam Constitutional: Obese male intubated and sedated CVS: RRR, S1 and S2 present, no murmurs, rubs or gallops . RESP: CTAB, no SOB, no rales, rhonchi or wheezing. No respiratory Distress GI: Normal BS, Nontender/Nondistended. MSK: L BKA. 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 Full range of motion, No trauma or deformities or masses. Skin: Warm to touch, Dry. multiple excoriations throughout body. Neuro/psych: Deferred Results Labs 04/08/25 04:45 04/08/25 04:45 Labs: Short CBC 04/07/25 Range/Units 05:03 WBC 5.0 (3.8-10.6) Thou/mm3 Hgb 8.9 L (13.5-16.0) g/dL Hct 28.3 L (41.0-53.0) % Plt Count 89 L (140-440) Thou/mm3 BMP 04/07/25 04/07/25 05:03 13:05 Sodium 150 H 150 H Potassium 4.3 D 3.8 D Chloride 114 H 113 H Carbon Dioxide 27.5 25.7 BUN 28 H 25 H Creatinine 1.4 H 1.3 Glucose 145 H 169 H Calcium 8.7 8.6 Liver Function 04/07/25 04/07/25 Range/Units 05:03 13:05 Total Bilirubin 1.2 D (0.3-1.2) mg/dL AST 23 (0-34) U/L ALT 20 (10-49) U/L Alkaline Phosphatase 74 (46-116) U/L Albumin 3.3 L 3.3 L (3.4-4.8) gm/dL ABG Interpretation ABG results: 04/03/25 04/04/25 04/05/25 20:45 04:55 04:00 ABG pH 7.46 H 7.42 7.35 ABG pCO2 37 42 47 ABG pO2 181 H 111 H D 37 L* D ABG HCO3 26 27 H 26 ABG O2 Saturation 99 H 98 66 L ABG Base Excess 2 3 0 04/05/25 04:55 ABG pH 7.40 ABG pCO2 40 ABG pO2 136 H D ABG HCO3 25 ABG O2 Saturation 99 H ABG Base Excess 0 Quality Measures Quality Measures VTE prophylaxis Advance care planning discussed with:: other Medications Home Medications and Allergies Home Medications ?Medication ?Instructions ?Recorded ?Confirmed ?Type amlodipine 10 mg tablet 10 mg PO QDAY 10/02/20 01/24/24 History lorazepam 0.5 mg tablet 0.5 mg PO TID PRN Anxiety 10/02/20 01/24/24 History lurasidone 40 mg tablet 40 mg PO QDAY 10/02/20 01/24/24 History melatonin 5 mg tablet 5 mg PO HS 10/02/20 01/24/24 History paroxetine HCl 20 mg tablet 20 mg PO QDAY 10/02/20 01/24/24 History quetiapine 100 mg tablet 200 mg PO HS 10/02/20 01/24/24 History cyanocobalamin (vitamin B-12) 1,000 mcg PO QDAY 10/03/20 01/24/24 History 1,000 mcg tablet (Vitamin B-12) docusate sodium 50 mg/5 mL oral 25 ml PO BID 10/03/20 01/24/24 History liquid folic acid 1 mg tablet 1 mg PO QDAY 10/03/20 01/24/24 History insulin glargine 100 unit/mL (3 26 unit subcut HS 10/03/20 01/24/24 History mL) subcutaneous pen (Basaglar KwikPen U-100 Insulin) polyethylene glycol 3350 17 gram 17 g PO QDAY 10/03/20 01/24/24 History oral powder packet (Miralax) omeprazole 20 mg tablet,delayed 20 mg PO BID 05/16/21 01/24/24 History release quetiapine 100 mg tablet 100 mg PO QDAY 05/16/21 01/24/24 History trazodone 50 mg tablet 200 mg PO QDAY 05/16/21 01/24/24 History insulin lispro 100 unit/mL See Protocol subcut USEASDIRECTD 03/08/22 01/24/24 History subcutaneous solution (Humalog PRN Hyperglycemia U-100 Insulin) finasteride 5 mg tablet 5 mg PO QDAY 07/19/22 01/24/24 History tamsulosin 0.4 mg capsule 0.8 mg PO QHS 07/19/22 01/24/24 History Allergies Allergy/AdvReac Type Severity Reaction Status Date / Time No Known Allergies Allergy Verified 04/03/25 13:52 Visit Medications Acetaminophen (Acetaminophen 325 Mg Tablet) 650 mg PO Q6H PRN PRN Reason: Fever >99.5 Stop: 05/03/25 16:21 Albuterol/Ipratropium (Albuterol/Ipratropium (Duoneb) Rt Jessica 3 Ml Nebu) 3 ml INH Q6HRRT PRN PRN Reason: wheezing, sob Stop: 05/04/25 18:59 Dextrose (Dextrose 50%-Water Inj 50 Ml Syringe) 25 ml IV Q15MIN PRN PRN Reason: BG 50-70 responsive npo pt Stop: 05/03/25 16:32 Dextrose (Dextrose 50%-Water Inj 50 Ml Syringe) 50 ml IV Q15MIN PRN PRN Reason: BG <50 OR BG <70 & pt unresponsive Stop: 05/03/25 16:32 Glucagon (Glucagon Inj 1 Mg Vial) 1 mg IM Q15MIN PRN PRN Reason: BG <70, and no IV access Heparin Sodium (Porcine) (Heparin Sod Inj 5000 Unit/Ml Vial) 5,000 unit SC Q8HR [facility] Stop: 04/17/25 21:59 Last Admin: 04/07/25 13:41 Dose: Not Given Piperacillin/Tazobactam/Dextrose (Zosyn) 3.375 gm in 50 mls @ 12.5 mls/hr IV Q8HR [facility] Stop: 04/10/25 21:59 Last Admin: 04/07/25 14:14 Dose: 12.5 mls/hr Vancomycin/Sodium Chloride (Vancomycin/Ns 1 Gm Ivpb) 200 mls @ 120 mls/hr IV QDAY@1000 [facility]; Protocol Stop: 04/14/25 09:59 Last Admin: 04/07/25 10:24 Dose: 120 mls/hr Dextrose/Sodium Chloride (D5-1/2ns) 1,000 mls @ 75 mls/hr IV .[id number] [facility] Stop: 05/07/25 15:14 Last Admin: 04/07/25 16:14 Dose: 75 mls/hr Propofol (Diprivan Ivpb) 1,000 mg in 100 mls @ 3.353 mls/hr IV .Q24H PRN; Protocol PRN Reason: PER PROTOCOL Stop: 05/07/25 18:05 Fentanyl Citrate (Sublimaze Inj 2,500 Mcg/250 Ml Bag) 2,500 mcg in 250 mls @ 2.5 mls/hr IV .Q24H PRN; Protocol PRN Reason: PER PROTOCOL Stop: 04/12/25 18:05 Insulin Human Regular (Insulin Hum Regular 1 Unit/0.01 Ml (Per Unit)) 0 unit SC Q6HR [facility]; Protocol Stop: 05/03/25 17:59 Last Admin: 04/07/25 11:33 Dose: Not Given Ondansetron HCl (Ondansetron Inj 2 Mg/Ml Inj 2 Ml) 4 mg IV Q6H PRN; Protocol PRN Reason: NAUSEA OR VOMITING Stop: 05/07/25 14:28 Pantoprazole Sodium (Pantoprazole Inj 40 Mg Vial) 40 mg IVP QDAY [facility] Stop: 05/07/25 14:29 Pharmacy Consult (Vancomycin Pharmacy To Dose 1 Each Each) 1 each IV QDAY PRN PRN Reason: CONSULT Stop: 05/03/25 13:59 Simethicone (Simethicone 80 Mg Chew) 80 mg PO QID PRN PRN Reason: GAS Stop: 05/06/25 09:36 Sodium Chloride (Sodium Chloride Rt Jessica 0.9% 3 Ml Nebu) 3 ml INH PRN PRN PRN Reason: SOLN Stop: 05/04/25 15:23 Discontinued Medications Acetaminophen (Acetaminophen 325 Mg Tablet) 650 mg PO Q6H PRN PRN Reason: Fever >100.4 Stop: 05/03/25 16:21 Albuterol (Albuterol Rt 2.5 Mg/0.5 Ml Nebu) 2.5 mg INH Q6HRRT [facility] Stop: 05/04/25 18:59 Albuterol/Ipratropium (Albuterol/Ipratropium (Duoneb) Rt Jessica 3 Ml Nebu) 3 ml INH Q6HRRT [facility] Stop: 05/04/25 18:59 Last Admin: 04/06/25 06:44 Dose: 3 ml Budesonide (Budesonide Rt 0.5 Mg/2 Ml Nebu) 0.5 mg INH BIDRT [facility] Stop: 05/04/25 18:59 Last Admin: 04/06/25 06:44 Dose: 0.5 mg Dextrose (Dextrose 50%-Water Inj 50 Ml Syringe) 50 ml IV X1 ONE Stop: 04/06/25 09:44 Famotidine (Famotidine Inj 10 Mg/Ml Vial 2 Ml) 20 mg IVP Q12HR [facility] Stop: 05/03/25 20:59 Last Admin: 04/05/25 21:08 Dose: 20 mg Fentanyl Citrate (Fentanyl Cit Inj 50 Mcg/Ml Amp 2ml) 100 mcg IVP X1 ONE Stop: 04/04/25 14:00 Last Admin: 04/04/25 13:59 Dose: 100 mcg Fentanyl Citrate (Fentanyl Cit Inj 50 Mcg/Ml Amp 2ml) 50 mcg IVP X1 ONE Stop: 04/04/25 14:28 Last Admin: 04/04/25 14:27 Dose: 50 mcg Furosemide (Furosemide Inj 10 Mg/Ml 4ml Vial) 20 mg IVP X1 ONE Stop: 04/05/25 08:29 Last Admin: 04/05/25 09:28 Dose: 20 mg Hydralazine HCl (Hydralazine Inj 20 Mg/Ml Vial) 10 mg IV X1 ONE Stop: 04/07/25 12:18 Last Admin: 04/07/25 12:30 Dose: 10 mg Sodium Chloride (Ns) 1,000 mls @ 1,000 mls/hr IV .Q1H ONE Stop: 04/03/25 14:53 Last Infusion: 04/03/25 17:47 Dose: Infused Piperacillin/Tazobactam/Dextrose (Zosyn) 3.375 gm in 50 mls @ 100 mls/hr IV X1 ONE Stop: 04/03/25 14:26 Last Infusion: 04/03/25 17:46 Dose: Infused Vancomycin/Sodium Chloride (Vancomycin/Ns 1 Gm Ivpb) 200 mls @ 120 mls/hr IV X1 ONE Stop: 04/03/25 15:39 Last Admin: 04/03/25 15:57 Dose: 120 mls/hr Midazolam HCl (Versed Pf Inj In Ns Premix) 100 mg in 100 mls @ 2 mls/hr IV .Q24H PRN; Protocol PRN Reason: PER PROTOCOL Stop: 04/08/25 14:17 Last Titration: 04/03/25 17:42 Dose: 0 mg/hr, 0 mls/hr Norepinephrine Bitartrate (Levophed In Ns 16mg/250ml) 16 mg in 250 mls @ 5.103 mls/hr IV .Q24H PRN; Protocol PRN Reason: PER protocol Stop: 05/03/25 16:25 Norepinephrine/Dextrose (Levophed In D5w 8mg/250ml) 8 mg in 250 mls @ 10.206 mls/hr IV .Q24H PRN; Protocol PRN Reason: PER PROTOCOL Stop: 05/03/25 16:30 Last Titration: 04/05/25 15:30 Dose: 0 mcg/kg/min, 0 mls/hr Calcium Gluconate/Sodium Chloride (Calcium Gluc/Ns 1000mg Ivpb) 1,000 mg in 50 mls @ 50 mls/hr IV X1 ONE Stop: 04/03/25 17:32 Last Admin: 04/03/25 18:22 Dose: 50 mls/hr Vancomycin/Sodium Chloride (Vancomycin/Ns 1 Gm Ivpb) 200 mls @ 120 mls/hr IV X1 ONE Stop: 04/03/25 19:09 Last Admin: 04/03/25 18:22 Dose: 120 mls/hr Propofol (Diprivan Ivpb) 1,000 mg in 100 mls @ 3.266 mls/hr IV .Q24H PRN; Protocol PRN Reason: PER PROTOCOL Stop: 05/03/25 17:22 Last Titration: 04/05/25 08:00 Dose: 0 mcg/kg/min, 0 mls/hr Fentanyl Citrate (Sublimaze Inj 2,500 Mcg/250 Ml Bag) 2,500 mcg in 250 mls @ 2.5 mls/hr IV .Q24H PRN; Protocol PRN Reason: PER PROTOCOL Stop: 04/08/25 17:22 Last Titration: 04/05/25 08:00 Dose: 0 mcg/hr, 0 mls/hr Sodium Chloride (Ns) 1,000 mls @ 999 mls/hr IV .Q1H1M ONE Stop: 04/03/25 19:16 Last Admin: 04/03/25 21:21 Dose: Not Given Dextrose (D5w) 500 mls @ 150 mls/hr IV .Q3H20M [facility] Stop: 05/03/25 18:59 Last Admin: 04/03/25 21:28 Dose: Not Given Sodium Chloride (Ns) 1,000 mls @ 150 mls/hr IV .Q6H40M [facility] Stop: 05/03/25 20:33 Last Admin: 04/05/25 07:55 Dose: Not Given Vancomycin HCl 1,500 mg/ (Sodium Chloride) 500 mls @ 120 mls/hr IV QDAY@1400 [facility]; Protocol Stop: 04/11/25 13:59 Last Admin: 04/05/25 14:30 Dose: 120 mls/hr Sodium Chloride (Ns) 500 mls @ 999 mls/hr IV .Q31M ONE Stop: 04/06/25 10:14 Dextrose (D5w) 1,000 mls @ 100 mls/hr IV .Q10H [facility] Stop: 04/07/25 20:59 Last Admin: 04/07/25 12:04 Dose: 100 mls/hr Insulin Human Regular (Insulin Hum Regular 1 Unit/0.01 Ml (Per Unit)) 10 unit IV X1 ONE Stop: 04/06/25 09:44 Midazolam HCl (Midazolam Inj 1 Mg/Ml Vial 2 Ml) 4 mg IV X1 ONE Stop: 04/04/25 13:44 Last Admin: 04/04/25 13:47 Dose: 4 mg Midazolam HCl (Midazolam Inj 1 Mg/Ml Vial 2 Ml) 2 mg IV X1 ONE Stop: 04/04/25 14:00 Last Admin: 04/04/25 13:59 Dose: 2 mg Midazolam HCl (Midazolam Inj 1 Mg/Ml Vial 2 Ml) 2 mg IV X1 ONE Stop: 04/04/25 14:20 Last Admin: 04/04/25 14:19 Dose: 2 mg Potassium Phos/Sodium Phos ([facility] 1 Packet (1.5 Gm)) 1 packet PO X1 ONE Stop: 04/07/25 10:59 Last Admin: 04/07/25 12:03 Dose: 1 packet Rocuronium [place] (Rocuronium Inj 10 Mg/Ml Vial 10 Ml) 100 mg IVP X1 ONE Stop: 04/03/25 14:19 Last Admin: 04/03/25 14:22 Dose: 100 mg Sodium Chloride (Sodium Chloride Rt 10% 15 Ml Nebu) 5 ml INH X1 ONE Stop: 04/03/25 14:05 Last Admin: 04/03/25 18:09 Dose: Not Given Assessment & Plan Plan Patient is a 70 year old male with PMH of developmental delay, bipolar disorder, DM2, L AKA admitted to the ICU for choking-induced pulmonary arrest s/p ROSC. 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 He was extubated on 04/05/25 04/07/25 he was reintubated, unsure the cause of cardiopulmunary arrest, possible aspiration vs PR - Troponin ordered - Lactic acid - Echo ordered RESPIRATORY #Acute hypoxic respiratory failure Due to choking-induced cardiac arrest. Intubated 04/02 - 04/05/25 04/07/25 he was reintubated, unsure the cause of cardiopulmunary arrest, possible aspiration vs PR - Follow up ABG - Continue ventilator to maintain lung-protective volumes - SBT in AM if tolerates - Daily CXR RENAL #Hyperosmolar Hypernatremia Sodium 150 - Will give fluid bolus - Will follow daily CMP GI No acute problems ENDO #History of DM2 - ISS Q6H HEME #Thrombocytopenia ID #Aspiration pneumonia versus pneumonitis - Empiric antibiotics Health Maintenance Disposition: Admit to ICU for cardiac arrest s/p ROSC, hypernatremia Diet and fluids: NPO, free water flushses DVT prophylaxis: heparin GI prophylaxis: pepcid Lines: OG, ET, 2 PIV, Nunez CODE STATUS: FULL - patient is conserved with CRVC I have reviewed and discussed the patient's care with my attending, Dr. Bisi Bender MD PGY-3 Attending Provider Attestation/Addendum Patient not seen on this stated date of service. I was contacted by the resident in regards to the patient having cardiac arrest secondary to likely aspiration and respiratory arrest. Patient will be monitored off of sedation with potential seizure activity reported. Loaded with Keppra and continue on twice daily dosing for now. Presents will try to obtain continuous EEG monitoring overnight. Will hold off on sedation to serially assess neurologic recovery from arrest phase. Duration of downtime seems to be very limited with initial rhythm reported to be PEA. Patient had been n.p.o. with no recent intake reported by housestaff. Patient was to be further evaluated for this after recent extubation over last 48 hours. Patient remains on NG tube for decompression making vomiting and aspiration also likely though chest film suggest significant atelectasis likely due to mucous plugging versus new aspiration event. I remain available overnight for any needs and will reassess the patient formally tomorrow during rounds.
--- NOTE | 2025-04-07 18:47 | XR_ITS ---
Examination: AP chest single view TECHNIQUE: AP portable supine chest single view Exam date and time: April 07, 2025 1859 hours Comparison April 05, 2025 INDICATIONS: Hypoxic respiratory failure postintubation FINDINGS: Interval total opacification right hemithorax with volume loss and shift of the trachea to the right Prominent vascular congestion edema and or pneumonia in the left lung Orogastric tube in the stomach Endotracheal tube 4.9 cm above kaur IMPRESSION: Interval prominent right lung atelectasis, consider mucous plug in the right mainstem bronchus
--- NOTE | 2025-04-07 19:05 | PC.NURSE ---
SET UP OPERATOR called at 1743, Silvana Floyd called at 1743. Upon arrival in the room chest compressions are started, RN stated patient looked like they had a seizure during medication administration of protonix and insuin that his eyes rolled back and she felt for a pulse. No pulse so she started chest compressions. Patient was intubated and transferred to ICU room 257. See code sheet for further information
--- NOTE | 2025-04-07 19:07 | PC.NURSE ---
@ 1320 x1 emesis, mucus like, on right side of shoulder, Dr. Gay aware.
--- NOTE | 2025-04-07 19:09 | PC.NURSE ---
1740: patient received 1 unit of regular insulin for BS 180 and protonix IV. Juan HANNA verified.
--- NOTE | 2025-04-07 19:13 | PD.EDADDENDU ---
ED Procedures Intubation Time out performed: Yes sedative: Etomidate Mg Given: 40 paralytic: Rocuronium Mg Given: 100 Laryngoscope: Mahsa Assist Device Used: fiber optic device ET Tube Size: 7.5 ET Tube Uncuffed: No Tube Secured Depth (cm): 23 Tube Secured Location: other (gum) Tube Placement Confirmation: visualized tube passing through cords, equal breath sounds bilaterally, no breath sounds over epigastrium and confirmation by capnometry Patient Tolerated Procedure: well and no complications Intubation Complications: none Additional Comments: ICU team will follow up on the post intubation chest xray
--- NOTE | 2025-04-07 19:28 | PC.NURSE ---
Report given to Judd HANNA @ [id number].
[2025-04-07 19:42] LABS: Base Excess 2 (-3-3); HCO3 27 mEq/L (20-26); Inspired Oxygen, FIO2 100 %; O2 Saturation 99 % (91-98); PCO2 47 mmHg (32.0-48.0); PO2 141 mmHg (83-108); pH, Arterial 7.38 (7.35-7.45)
[2025-04-07 19:43] LABS: Allen Test Not Performed; Puncture Site Right Femoral
[2025-04-07 20:32] LABS: Troponin I 0.035 ng/mL (0.0-0.045)
[2025-04-07] MEDS: levETIRAcetam INJ 100 MG/ML VIAL 5ML 1000 MG IV (20:41)
[2025-04-07 20:45] LABS: Creatine Kinase 106 U/L (34-171)
[2025-04-07 20:50] LABS: Lactate (Lactic Acid) 5.4 mMol/L (0.4-2.0)
[2025-04-07] MEDS: HEPARIN SOD INJ 5000 UNIT/ML VIAL SC (21:06)
[2025-04-07 22:54] LABS: Reflex Lactate? Y
[2025-04-07 23:22] LABS: Lactic Acid, 3 HR 2.4 mMol/L (0.4-2.0)
[2025-04-07 23:50] LABS: Albumin, Serum 2.9 gm/dL (3.4-4.8); Anion Gap 10 (7-16); BUN/Creatinine Ratio 24 Ratio (12-20); Blood Urea Nitrogen 31 mg/dL (9-23); Calcium 8.6 mg/dL (8.3-10.6); Calcium (Corrected) 9.5 mg/dL (8.5-10.1); Carbon Dioxide 27.9 mMol/L (20.0-31.0); Chloride 115 mMol/L (98-107); Creatinine (Component) 1.3 mg/dL (0.6-1.3); Estimated Creatinine Clearance 64.1 mL/min (>60); Glucose 188 mg/dL (74-106); Osmolality,Calculated 315 (275-295); Phosphorous 2.1 mg/dL (2.4-5.1); Potassium 3.7 mMol/L (3.4-5.1); Sodium 153 mMol/L (136-145); eGFR 59 See Note
[2025-04-08] VITALS (31 sets, daily range): BP systolic 116–154; BP diastolic 68–111; PULSE 75–109; RESP 20–27; TEMP 36–36.5; O2SAT 92–100
[2025-04-08] MEDS: INSULIN HUM REGULAR 1 UNIT/0.01 ML (PER UNIT) SC ×2 (00:31→12:16)
[2025-04-08 05:02] LABS: Base Excess 7 (-3-3); HCO3 32 mEq/L (20-26); Inspired Oxygen, FIO2 80 %; O2 Saturation 98 % (91-98); PCO2 45 mmHg (32.0-48.0); PO2 108 mmHg (83-108); pH, Arterial 7.46 (7.35-7.45)
[2025-04-08 05:05] LABS: Allen Test Performed/OK; Puncture Site Right Radial
[2025-04-08] MEDS: PIPER/TAZO 3.375 GM PREMIX 3.375 GM/50 ML BAG IV ×3 (06:15→21:16)
[2025-04-08] MEDS: HEPARIN SOD INJ 5000 UNIT/ML VIAL SC ×3 (06:15→21:16)
[2025-04-08 06:41] LABS: Basophils % (Auto) 0 % (0-2.5); Eosinophils # (Auto) 0.1 Thou/mm3 (0.0-0.5); Eosinophils % (Auto) 1 % (0-10); Hemoglobin 9.9 g/dL (13.5-16.0); Immature Granulocytes % (Auto) 1 % (0-0); Immature Granulocytes Auto 0.06 Thou/mm3 (0.00-0.00); Lymphocytes # (Auto) 0.4 Thou/mm3 (1.0-4.8); Lymphocytes % (Auto) 6 % (10-50); Mean Corpuscular HGB Conc 31.9 g/dl (31.0-37.0); Mean Corpuscular Hemoglobin 31.4 pg (25.0-35.0); Mean Corpuscular Volume 98 fL (80-100); Monocytes # (Auto) 0.6 Thou/mm3 (0.0-0.8); Monocytes % (Auto) 8 % (0-12); Neutrophils # (Auto) 6.8 Thou/mm3 (1.8-7.7); Neutrophils % (Auto) 85 % (37-80); Nucleated Red Blood Cell % 0 /100 WBC (0); Platelet Count 98 Thou/mm3 (140-440); RDW Standard Deviation 55.3 fL (35.1-43.9); Red Blood Count 3.15 Miln/mm3 (4.50-5.90)
[2025-04-08 07:12] LABS: Alanine Aminotransferase 35 U/L (10-49); Albumin, Serum 2.9 gm/dL (3.4-4.8); Albumin/Globulin Ratio 0.7 (1.2-2.2); Alkaline Phosphatase 76 U/L (46-116); Anion Gap 10 (7-16); Aspartate Amino Transferase 37 U/L (0-34); BUN/Creatinine Ratio 25 Ratio (12-20); Bilirubin,Total 1.6 mg/dL (0.3-1.2); Blood Urea Nitrogen 32 mg/dL (9-23); Calcium 8.8 mg/dL (8.3-10.6); Calcium (Corrected) 9.7 mg/dL (8.5-10.1); Carbon Dioxide 28.8 mMol/L (20.0-31.0); Chloride 114 mMol/L (98-107); Creatinine (Component) 1.3 mg/dL (0.6-1.3); Estimated Creatinine Clearance 63.5 mL/min (>60); Globulin 3.9 gm/dL (2.3-3.5); Glucose 176 mg/dL (74-106); Magnesium 1.7 mg/dL (1.6-2.6); Osmolality,Calculated 314 (275-295); Phosphorous 1.7 mg/dL (2.4-5.1); Potassium 3.3 mMol/L (3.4-5.1); Sodium 153 mMol/L (136-145); Total Protein 6.8 gm/dL (5.7-8.2); eGFR 59 See Note
[2025-04-08] MEDS: POTASSIUM CHLORIDE 10% 20 MEQ/15 ML UDC 40 MEQ GT (08:03)
[2025-04-08] MEDS: PANTOPRAZOLE INJ 40 MG VIAL IVP (08:04)
[2025-04-08] MEDS: Magnesium Sulfate 4 GM Ivpb 4 GM/50 ML BAG IV (08:05)
[2025-04-08] MEDS: NAPH,KPH MBDB 1 PACKET (1.5 GM) PO ×2 (08:05→20:21)
--- NOTE | 2025-04-08 08:20 | XR_ITS ---
Examination: AP chest single view TECHNIQUE: AP portable sitting chest single view Exam date and time: April 08, 2025 0840 hours Comparison April 07, 2025 INDICATIONS: Difficulty breathing this week, atelectasis right lung hypoxic respiratory failure IMPRESSION: Mildly improved aeration right lung, extensive pneumonia and volume loss remaining Endotracheal tube tip 4.4 cm above karu Orogastric tube is in the stomach the tip is below the level film Prominent vascular congestion Stable cardiac contour IMPRESSION: Mildly improved aeration right lung with extensive pneumonia and volume loss remaining in the right lung
--- NOTE | 2025-04-08 10:56 | ESPR_ITS ---
Documentation for date of: 04/08/25 Subjective Subjective Interval history: Patient is a 70 year old male with PMH of developmental delay, bipolar disorder, DM2, L AKA admitted to the ICU for choking-induced pulmonary arrest s/p ROSC. Per caregivers and EMS report, patient was eating an apple when he choked and became unresponsive. When EMS arrived, patient was noted to be agonal, hypoxic at 55% and bradycardic. They were able to clear some food from his mouth. Patient was bagged via NPA. En route, patient lost pulses and CPR was initiated. He was given 1 of epinephrine. ROSC was achieved. Patient was intubated. He was found to be severely hypernatremic at 179. 04/04/2025: Overnight, staff was unable to pass an OG tube. Everytime the patient was turned, food chunks would come out of his mouth. He recieved a total of 2L NS and the following sodium was 135, and recheck was 136. Suspect that initial sodium at 179 may have been a lab error. Patient had SAT and SBT today, then was re-sedated and put on ventilator support for bronchoscopy. During bronchoscopy, there was large food material and mucous that were removed from the right intermdiate and lower lung bronchi, and inflammation in the right upper lobe entry. Plan for endoscopy later today to remove suspected food obstructing the esophagus. 04/05/2025: Endoscopy yesterday showed food material throughout the entire esophagus. An NG tube was placed for decompression with 200cc output overnight. No acute problems overnight. This morning, patient passed SBT and SAT and was extubated. He is awake, agitated but redirectable. He is developmentally delayed and can talk at baseline. Antibiotics discontinued. Remains on low dose levophed, will wean off. CXR shows significant bilateral infiltrate and patient is net positive fluid balance so will give Lasix. After intubation, patient did pull out his NG tube. His abdomen is quite distended and tympanic. KUB shows air throughout the colon. NG tube as reinserted with continuous suction for decompressions. 04/06/2025: Patient remains on 3L NC saturating well without respiratory distress. Will continue antibiotics to complete course for aspiration pneumonia. Patient stomach remains distended, improved. NG tube 200. Had 1 BM. Repeat KUB this morning still shows colonic ileus. Will continue NG tube. Patient to be downgraded today. 04/07/2025: STYLIST ASSISTANT was called at 17: 43 soon after which a CODE BLUE was initiated as patient was found with his eyes rolled back shaking and without a pulse. ACLS was initiated with chest compressions and patient underwent 2 rounds of epi, a dose of calcium gluconate and 2 doses of bicarb. Patient had 2 rounds of PEA and he was found to be in V-fib for which she received 200 J of unsynchronized cardioversion and ROSC was achieved. Dr. Llanos intubated the patient and he was moved to the unit. Unclear as for the reason for the arrest at this time. Will work up. 04/08/2025: Patient had witnessed shaking event last night, was given Keppra. EEG was taken. He remains off sedation. This morning, patient opens eyes, tracks, localizes to pain. Failed SBT. CXR taken last night suggests aspiration throughout the right lung. CXR this morning shows improved right upper lung. Will turn patient on his left lung, duonebs, and antibiotics. Point of contact updated. Exam Vital Signs Temp Pulse Resp BP Pulse Ox O2 Del Method O2 Flow Rate 97.0 F 81 21 H 138/87 H 100 Mechanical Ventilation 2 04/08/25 08:00 04/08/25 10:40 04/08/25 07:01 04/08/25 10:00 04/08/25 10:40 04/08/25 04:00 04/07/25 16:00 FiO2 45 04/08/25 10:40 Narrative Exam Constitutional: Obese male intubated CVS: RRR RESP: Decreased breath sounds R lung GI: Abdomen soft, tympanic, non- MSK: L AKA. 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 Skin: Warm to touch, Dry. multiple excoriations throughout body. Neuro: GCS [id number] Objective Labs 04/09/25 07:00 04/09/25 07:20 Labs: Laboratory Results - last 24 hr 04/07/25 04/07/25 04/07/25 13:05 18:23 19:20 WBC RBC Hgb Hct MCV MCH MCHC RDW Std Deviation Plt Count Neut % (Auto) Lymph % (Auto) [place] % (Auto) Eos % (Auto) Baso % (Auto) Neut # (Auto) Lymph # (Auto) [place] # (Auto) Eos # (Auto) Baso # (Auto) Immature Gran # (Auto) Absolute Nucleated RBC Immature Gran % Nucleated RBC % Puncture Site Right Femoral ABG pH 7.38 ABG pCO2 47 ABG pO2 141 H ABG HCO3 27 H ABG O2 Saturation 99 H ABG Base Excess 2 FiO2 100 Sodium 150 H Potassium 3.8 D Chloride 113 H Carbon Dioxide 25.7 Anion Gap 11 BUN 25 H Creatinine 1.3 Estim Creat Clear Calc 64.1 eGFR 59 L BUN/Creatinine Ratio 19 Glucose 169 H Calculated Osmolality 306 H Lactic Acid 5.4 H* Calcium 8.6 Corrected Calcium 9.2 Phosphorus 2.0 L Magnesium Total Bilirubin AST ALT Alkaline Phosphatase Total Creatine Kinase 106 Troponin I 0.035 Total Protein Albumin 3.3 L Globulin Albumin/Globulin Ratio 04/07/25 04/08/25 04/08/25 23:05 04:20 04:45 WBC 8.0 D RBC 3.15 L Hgb 9.9 L Hct 31.0 L MCV 98 MCH 31.4 MCHC 31.9 RDW Std Deviation 55.3 H Plt Count 98 L Neut % (Auto) 85 H Lymph % (Auto) 6 L [place] % (Auto) 8 Eos % (Auto) 1 Baso % (Auto) 0 Neut # (Auto) 6.8 Lymph # (Auto) 0.4 L [place] # (Auto) 0.6 Eos # (Auto) 0.1 Baso # (Auto) 0.0 Immature Gran # (Auto) 0.06 H Absolute Nucleated RBC 0.00 Immature Gran % 1 H Nucleated RBC % 0 Puncture Site Right Radial ABG pH 7.46 H ABG pCO2 45 ABG pO2 108 D ABG HCO3 32 H ABG O2 Saturation 98 ABG Base Excess 7 H FiO2 80 Sodium 153 H 153 H Potassium 3.7 3.3 L Chloride 115 H 114 H Carbon Dioxide 27.9 28.8 Anion Gap 10 10 BUN 31 H 32 H Creatinine 1.3 1.3 Estim Creat Clear Calc 64.1 63.5 eGFR 59 L 59 L BUN/Creatinine Ratio 24 H 25 H Glucose 188 H 176 H Calculated Osmolality 315 H 314 H Lactic Acid 2.4 H Calcium 8.6 8.8 Corrected Calcium 9.5 9.7 Phosphorus 2.1 L 1.7 L Magnesium 1.7 Total Bilirubin 1.6 H AST 37 H ALT 35 Alkaline Phosphatase 76 Total Creatine Kinase Troponin I Total Protein 6.8 Albumin 2.9 L 2.9 L Globulin 3.9 H Albumin/Globulin Ratio 0.7 L ABG Interpretation ABG results: 04/03/25 04/04/25 04/05/25 20:45 04:55 04:00 ABG pH 7.46 H 7.42 7.35 ABG pCO2 37 42 47 ABG pO2 181 H 111 H D 37 L* D ABG HCO3 26 27 H 26 ABG O2 Saturation 99 H 98 66 L ABG Base Excess 2 3 0 04/05/25 04/07/25 04/08/25 04:55 19:20 04:20 ABG pH 7.40 7.38 7.46 H ABG pCO2 40 47 45 ABG pO2 136 H D 141 H 108 D ABG HCO3 25 27 H 32 H ABG O2 Saturation 99 H 99 H 98 ABG Base Excess 0 2 7 H Quality Measures Quality Measures VTE prophylaxis Advance care planning discussed with:: legal surragate Assessment & Plan Assessment Current Active Medications: Generic Name Dose Route Start Last Admin Trade Name Freq PRN Reason Stop Dose Admin Acetaminophen 650 mg 04/07/25 15:23 Acetaminophen 325 Mg Tablet PO 05/03/25 16:21 Q6H PRN Fever >99.5 Albuterol/Ipratropium 3 ml 04/06/25 08:45 Albuterol/Ipratropium (Duoneb) Rt Jessica 3 Ml Nebu INH 05/04/25 18:59 Q6HRRT PRN wheezing, sob Dextrose 25 ml 04/03/25 16:33 Dextrose 50%-Water Inj 50 Ml Syringe IV 05/03/25 16:32 Q15MIN PRN BG 50-70 responsive npo pt Dextrose 50 ml 04/03/25 16:33 Dextrose 50%-Water Inj 50 Ml Syringe IV 05/03/25 16:32 Q15MIN PRN BG <50 OR BG <70 & pt unresponsive Glucagon 1 mg 04/03/25 16:33 Glucagon Inj 1 Mg Vial IM Q15MIN PRN BG <70, and no IV access Heparin Sodium (Porcine) 5,000 unit 04/03/25 22:00 04/08/25 06:15 Heparin Sod Inj 5000 Unit/Ml Vial SC 04/17/25 21:59 5,000 unit Q8HR MANUEL Administration Piperacillin/Tazobactam/Dextrose 3.375 gm in 50 mls @ 12.5 mls/hr 04/03/25 22:00 04/08/25 06:15 Zosyn IV 04/10/25 21:59 12.5 mls/hr Q8HR MANUEL Administration Vancomycin/Sodium Chloride 200 mls @ 120 mls/hr 04/07/25 10:00 04/07/25 10:24 Vancomycin/Ns 1 Gm Ivpb IV 04/14/25 09:59 120 mls/hr QDAY@1000 MANUEL Administration Protocol Propofol 1,000 mg in 100 mls @ 3.353 mls/hr 04/07/25 18:06 Diprivan Ivpb IV 05/07/25 18:05 .Q24H PRN PER PROTOCOL Protocol 5 MCG/KG/MIN Fentanyl Citrate 2,500 mcg in 250 mls @ 2.5 mls/hr 04/07/25 18:06 Sublimaze Inj 2,500 Mcg/250 Ml Bag IV 04/12/25 18:05 .Q24H PRN PER PROTOCOL Protocol 25 MCG/HR Magnesium Sulfate 4 gm in 50 mls @ 12.5 mls/hr 04/08/25 07:16 04/08/25 08:05 Magnesium Sulfate Ivpb IV 04/08/25 11:15 12.5 mls/hr X1 ONE Administration Insulin Human Regular 0 unit 04/03/25 18:00 04/08/25 05:53 Insulin Hum Regular 1 Unit/0.01 Ml (Per Unit) SC 05/03/25 17:59 Not Given Q6HR [facility] Protocol Ondansetron HCl 4 mg 04/07/25 14:29 Ondansetron Inj 2 Mg/Ml Inj 2 Ml IV 05/07/25 14:28 Q6H PRN NAUSEA OR VOMITING Protocol Pantoprazole Sodium 40 mg 04/07/25 14:30 04/08/25 08:04 Pantoprazole Inj 40 Mg Vial IVP 05/07/25 14:29 40 mg QDAY [facility] Administration Pharmacy Consult 1 each 04/03/25 14:00 Vancomycin Pharmacy To Dose 1 Each Each IV 05/03/25 13:59 QDAY PRN CONSULT Simethicone 80 mg 04/06/25 09:37 Simethicone 80 Mg Chew PO 05/06/25 09:36 QID PRN GAS Sodium Chloride 3 ml 04/04/25 15:24 Sodium Chloride Rt Jessica 0.9% 3 Ml Nebu INH 05/04/25 15:23 PRN PRN SOLN Plan Patient is a 70 year old male with PMH of developmental delay, bipolar disorder, DM2, L AKA admitted to the ICU for choking-induced pulmonary arrest s/p ROSC. 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 - Follow up EEG #History of bipolar disorder, developmental delay - Hold home meds CARDIOVASCULAR #Cardiopulmonary arrest s/p resuscitation 04/02/25 Patient had initially been admitted to ICU after an episode of aspiration of large amounts of chicken. He was extubated on 04/05/25 04/07/25 Patient arrested again, likely respiratory arrest from aspiration, see respiratory section RESPIRATORY #Acute hypoxic respiratory failure Due to choking-induced cardiac arrest. Intubated 04/02 - 04/05/25 04/07/25 he was reintubated, unsure the cause of cardiopulmunary arrest, possible aspiration CXR improved Patient at high risk of aspiration due to repeated events leading to respiratory arrest. - Continue ventilator to maintain lung-protective volumes with PEEP support - SBT in AM if tolerates - Daily CXR - Duoneb - Try turning patient to left side for 4 hours RENAL #Hyperosmolar Hypernatremia Free water deficit 0.9L to goal Na from 153 to 145 - Free water flushes - Recheck renal panel #Electrolyte Imbalances - Replete, follow up renal panel 13:00 #Lactic acidosis, improving GI No acute problems ENDO #History of DM2 - ISS Q6H HEME #Thrombocytopenia - Unclear etiology. Chronic - Heparin for DVT prophylaxis ID #Aspiration pneumonia versus pneumonitis - Vancomycin and Zosyn, patient completed 5 days but due to aspiration event will continue (04/03- Health Maintenance Disposition: Admit to ICU for cardiac arrest s/p ROSC Diet and fluids: NPO, free water flushes DVT prophylaxis: heparin GI prophylaxis: pepcid Lines: OG, ET, PIV CODE STATUS: FULL - patient is conserved with CRVC I have reviewed and discussed the patient's care with my attending, Dr. Bisi Su MD PGY-3 Attending Provider Attestation/Addendum Patient seen and examined with above resident, Jane Su MD. I agree with the findings, assessment, and plan of care as documented except for any differences below. Patient with continued improvement in neurologic status. Though he opens his eyes spontaneously and is able to track he is not following command as he was previously doing. Patient placed on empiric antibiotics and continues to improve from a respiratory standpoint with ongoing improvement is not invasive mechanical ventilation. Patient was attempted on SBT this morning but failed due to tachypnea. Output from ET tube seems to be improving. Will continue to be aggressive with albuterol to ensure adequate airway clearance. Will reattempt spontaneous breathing trial tomorrow at which point we hopefully will be able to extubate. Should the patient fail extubation the second attempt may need to consider long-term placement of tracheostomy. Patient will remain strict NPO. Will hold off on tube feeds at this point, he does have an OG tube in place. Remains hemodynamically stable off of vasopressors as of this morning and we will await input from neurology about results of EEG overnight. At this point I do not suspect that he had true seizure activity, and will discontinue Keppra while we continue to monitor him closely in the intensive care unit. Total critical care time: I personally spent 40 minutes for review of physiologic parameters, directing plan of care throughout the day, and coordination of care with other subspecialist. This is exclusive of time spent teaching housestaff performing separate billable procedures. Patient remains at significant risk for further morbidity and mortality warranting close monitoring of care only available in the intensive care unit. Patient requiring critical care services for respiratory arrest and right lung atelectasis secondary to aspiration pneumonia.
[2025-04-08] MEDS: VANCOMYCIN/NS 1 GM IVPB 200 ML IV (11:19)
[2025-04-08 13:13] LABS: Lactate (Lactic Acid) 1.8 mMol/L (0.4-2.0)
[2025-04-08 13:46] LABS: Albumin, Serum 2.9 gm/dL (3.4-4.8); Anion Gap 8 (7-16); BUN/Creatinine Ratio 21 Ratio (12-20); Blood Urea Nitrogen 29 mg/dL (9-23); Calcium 8.5 mg/dL (8.3-10.6); Calcium (Corrected) 9.4 mg/dL (8.5-10.1); Carbon Dioxide 28.6 mMol/L (20.0-31.0); Chloride 115 mMol/L (98-107); Creatinine (Component) 1.4 mg/dL (0.6-1.3); Estimated Creatinine Clearance 58.9 mL/min (>60); Glucose 197 mg/dL (74-106); Osmolality,Calculated 312 (275-295); Phosphorous 1.6 mg/dL (2.4-5.1); Potassium 3.9 mMol/L (3.4-5.1); Sodium 152 mMol/L (136-145); eGFR 54 See Note
[2025-04-08] MEDS: ALBUTEROL/IPRATROPIUM (Duoneb) RT SOL 3 ML NEBU INH ×3 (14:55→22:30)
--- NOTE | 2025-04-08 17:11 | PC.SS ---
Update: Patient is intubated. No sedation. Patient is not receiving pressor support. Patient is NPO. Plan for extubation tomorrow. Patient is a client of [facility].
[2025-04-08] MEDS: FAMOTIDINE INJ 10 MG/ML VIAL 2 ML 20 MG IVP (20:20)
--- NOTE | 2025-04-08 20:58 | ESPR_ITS ---
Documentation for date of: 04/08/25 Subjective Subjective Interval history: Patient evaluated Remains mechanically ventilated NGT in place Exam Vital Signs Temp Pulse Resp BP Pulse Ox O2 Del Method O2 Flow Rate 97.7 F 91 23 H 154/90 H 99 Mechanical Ventilation 2 04/08/25 20:00 04/08/25 20:00 04/08/25 14:56 04/08/25 20:00 04/08/25 20:00 04/08/25 04:00 04/07/25 16:00 FiO2 35 04/08/25 20:00 Objective Labs 04/08/25 04:45 04/08/25 12:50 Labs: Laboratory Results - last 24 hr 04/07/25 04/08/25 04/08/25 23:05 04:20 04:45 WBC 8.0 D RBC 3.15 L Hgb 9.9 L Hct 31.0 L MCV 98 MCH 31.4 MCHC 31.9 RDW Std Deviation 55.3 H Plt Count 98 L Neut % (Auto) 85 H Lymph % (Auto) 6 L [place] % (Auto) 8 Eos % (Auto) 1 Baso % (Auto) 0 Neut # (Auto) 6.8 Lymph # (Auto) 0.4 L [place] # (Auto) 0.6 Eos # (Auto) 0.1 Baso # (Auto) 0.0 Immature Gran # (Auto) 0.06 H Absolute Nucleated RBC 0.00 Immature Gran % 1 H Nucleated RBC % 0 Puncture Site Right Radial ABG pH 7.46 H ABG pCO2 45 ABG pO2 108 D ABG HCO3 32 H ABG O2 Saturation 98 ABG Base Excess 7 H FiO2 80 Sodium 153 H 153 H Potassium 3.7 3.3 L Chloride 115 H 114 H Carbon Dioxide 27.9 28.8 Anion Gap 10 10 BUN 31 H 32 H Creatinine 1.3 1.3 Estim Creat Clear Calc 64.1 63.5 eGFR 59 L 59 L BUN/Creatinine Ratio 24 H 25 H Glucose 188 H 176 H Calculated Osmolality 315 H 314 H Lactic Acid 2.4 H Calcium 8.6 8.8 Corrected Calcium 9.5 9.7 Phosphorus 2.1 L 1.7 L Magnesium 1.7 Total Bilirubin 1.6 H AST 37 H ALT 35 Alkaline Phosphatase 76 Total Protein 6.8 Albumin 2.9 L 2.9 L Globulin 3.9 H Albumin/Globulin Ratio 0.7 L 04/08/25 12:50 WBC RBC Hgb Hct MCV MCH MCHC RDW Std Deviation Plt Count Neut % (Auto) Lymph % (Auto) [place] % (Auto) Eos % (Auto) Baso % (Auto) Neut # (Auto) Lymph # (Auto) [place] # (Auto) Eos # (Auto) Baso # (Auto) Immature Gran # (Auto) Absolute Nucleated RBC Immature Gran % Nucleated RBC % Puncture Site ABG pH ABG pCO2 ABG pO2 ABG HCO3 ABG O2 Saturation ABG Base Excess FiO2 Sodium 152 H Potassium 3.9 D Chloride 115 H Carbon Dioxide 28.6 Anion Gap 8 BUN 29 H Creatinine 1.4 H Estim Creat Clear Calc 58.9 L eGFR 54 L BUN/Creatinine Ratio 21 H Glucose 197 H Calculated Osmolality 312 H Lactic Acid 1.8 Calcium 8.5 Corrected Calcium 9.4 Phosphorus 1.6 L Magnesium Total Bilirubin AST ALT Alkaline Phosphatase Total Protein Albumin 2.9 L Globulin Albumin/Globulin Ratio Impressions Impression: Status post removal of esophageal foreign body endoscopically Plan Continue to monitor ABG Interpretation ABG results: 04/03/25 04/04/25 04/05/25 20:45 04:55 04:00 ABG pH 7.46 H 7.42 7.35 ABG pCO2 37 42 47 ABG pO2 181 H 111 H D 37 L* D ABG HCO3 26 27 H 26 ABG O2 Saturation 99 H 98 66 L ABG Base Excess 2 3 0 04/05/25 04/07/25 04/08/25 04:55 19:20 04:20 ABG pH 7.40 7.38 7.46 H ABG pCO2 40 47 45 ABG pO2 136 H D 141 H 108 D ABG HCO3 25 27 H 32 H ABG O2 Saturation 99 H 99 H 98 ABG Base Excess 0 2 7 H Assessment & Plan A&P Narrative # Foreign body obstruction esophagus # Status post cardiopulmonary arrest ROSC # Developmentally delayed # Diabetes mellitus type 2 # Status post AKA left Plan Consent obtained for fiberoptic esophagogastro duodenoscopy with therapeutic intervention under intravenous moderate sedation we will proceed with the procedure thank you very much for the opportunity to participate in care of this patient Time Spent With Patient Time: Total time spent is greater than 50% in coordination of care (as documented) at patient's floor/unit and/or counseling patient:
[2025-04-09] VITALS (52 sets, daily range): BP systolic 125–161; BP diastolic 67–97; PULSE 77–125; RESP 12–41; TEMP 36.4–36.9; O2SAT 81–100; BMI 35.2
[2025-04-09] MEDS: ALBUTEROL/IPRATROPIUM (Duoneb) RT SOL 3 ML NEBU INH ×2 (03:00→06:42)
[2025-04-09] MEDS: HEPARIN SOD INJ 5000 UNIT/ML VIAL SC ×3 (05:07→21:24)
[2025-04-09] MEDS: PIPER/TAZO 3.375 GM PREMIX 3.375 GM/50 ML BAG IV ×3 (05:07→21:23)
[2025-04-09 05:32] LABS: Base Excess 6 (-3-3); HCO3 30 mEq/L (20-26); Inspired Oxygen, FIO2 35 %; O2 Saturation 98 % (91-98); PCO2 40 mmHg (32.0-48.0); PO2 84 mmHg (83-108); pH, Arterial 7.48 (7.35-7.45)
--- NOTE | 2025-04-09 06:00 | XR_ITS ---
Examination: AP chest single view TECHNIQUE: AP portable semiupright chest single view Exam date and time: April 09, 2025, 0504 hours Comparison April 08, 2025 INDICATIONS: Diagnosis acute hypoxic respiratory failure, post intubation, pneumonia and volume loss in the right lung on chest films this week FINDINGS: There remains pneumonia and volume loss right lung Mild retrocardiac contour with prominent vascular congestion. Endotracheal tube tip 3.8 cm above Andree The orogastric tube is in the stomach, the tip is below the level of the film IMPRESSION: There remains pneumonia and volume loss right lung Mild heart failure
[2025-04-09 06:15] LABS: Allen Test Performed/OK; Puncture Site Left Radial
[2025-04-09 08:00] LABS: Basophils % (Auto) 0 % (0-2.5); Eosinophils # (Auto) 0.1 Thou/mm3 (0.0-0.5); Eosinophils % (Auto) 2 % (0-10); Hematocrit 24.7 % (41.0-53.0); Immature Granulocytes % (Auto) 1 % (0-0); Immature Granulocytes Auto 0.03 Thou/mm3 (0.00-0.00); Lymphocytes # (Auto) 0.4 Thou/mm3 (1.0-4.8); Lymphocytes % (Auto) 9 % (10-50); Mean Corpuscular HGB Conc 32.8 g/dl (31.0-37.0); Mean Corpuscular Hemoglobin 31.4 pg (25.0-35.0); Mean Corpuscular Volume 96 fL (80-100); Monocytes # (Auto) 0.3 Thou/mm3 (0.0-0.8); Monocytes % (Auto) 6 % (0-12); Neutrophils # (Auto) 3.7 Thou/mm3 (1.8-7.7); Neutrophils % (Auto) 82 % (37-80); Nucleated Red Blood Cell % 0 /100 WBC (0); RDW Standard Deviation 52.8 fL (35.1-43.9); Red Blood Count 2.58 Miln/mm3 (4.50-5.90); White Blood Count 4.5 Thou/mm3 (3.8-10.6)
[2025-04-09 08:11] LABS: Hemoglobin 8.1 g/dL (13.5-16.0); Platelet Count 77 Thou/mm3 (140-440)
[2025-04-09 08:21] LABS: Alanine Aminotransferase 22 U/L (10-49); Albumin, Serum 2.9 gm/dL (3.4-4.8); Albumin/Globulin Ratio 0.8 (1.2-2.2); Alkaline Phosphatase 64 U/L (46-116); Anion Gap 7 (7-16); Aspartate Amino Transferase 16 U/L (0-34); BUN/Creatinine Ratio 22 Ratio (12-20); Bilirubin,Total 1.9 mg/dL (0.3-1.2); Blood Urea Nitrogen 28 mg/dL (9-23); Calcium 8.4 mg/dL (8.3-10.6); Calcium (Corrected) 9.3 mg/dL (8.5-10.1); Carbon Dioxide 28.6 mMol/L (20.0-31.0); Chloride 114 mMol/L (98-107); Creatinine (Component) 1.3 mg/dL (0.6-1.3); Estimated Creatinine Clearance 62.9 mL/min (>60); Globulin 3.7 gm/dL (2.3-3.5); Glucose 162 mg/dL (74-106); Magnesium 1.8 mg/dL (1.6-2.6); Osmolality,Calculated 307 (275-295); Phosphorous 2.4 mg/dL (2.4-5.1); Potassium 3.5 mMol/L (3.4-5.1); Sodium 150 mMol/L (136-145); Total Protein 6.6 gm/dL (5.7-8.2); eGFR 59 See Note
[2025-04-09 08:41] LABS: Slide Review Platelets confirmed
[2025-04-09 09:21] LABS: Vancomycin,Trough 17.9 mcg/mL (5.0-10.0)
[2025-04-09] MEDS: Magnesium Sulfate 2 GM Ivpb 2 GM/50 ML BAG IV (09:24)
[2025-04-09] MEDS: ALBUTEROL RT 2.5 MG/0.5 ML NEBU INH (10:21)
[2025-04-09] MEDS: SODIUM CHLORIDE RT SOL 0.9% 3 ML NEBU INH (10:22)
[2025-04-09] MEDS: VANCOMYCIN/NS 1 GM IVPB 200 ML IV (10:48)
[2025-04-09] MEDS: INSULIN HUM REGULAR 1 UNIT/0.01 ML (PER UNIT) SC (12:52)
--- NOTE | 2025-04-09 16:09 | PD.INTPROG ---
Documentation for date of: 04/09/25 Subjective Subjective Interval history: Patient is a 70 year old male with PMH of developmental delay, bipolar disorder, DM2, L AKA admitted to the ICU for choking-induced pulmonary arrest s/p ROSC. Per caregivers and EMS report, patient was eating an apple when he choked and became unresponsive. When EMS arrived, patient was noted to be agonal, hypoxic at 55% and bradycardic. They were able to clear some food from his mouth. Patient was bagged via NPA. En route, patient lost pulses and CPR was initiated. He was given 1 of epinephrine. ROSC was achieved. Patient was intubated. He was found to be severely hypernatremic at 179. 04/04/2025: Overnight, staff was unable to pass an OG tube. Everytime the patient was turned, food chunks would come out of his mouth. He recieved a total of 2L NS and the following sodium was 135, and recheck was 136. Suspect that initial sodium at 179 may have been a lab error. Patient had SAT and SBT today, then was re-sedated and put on ventilator support for bronchoscopy. During bronchoscopy, there was large food material and mucous that were removed from the right intermdiate and lower lung bronchi, and inflammation in the right upper lobe entry. Plan for endoscopy later today to remove suspected food obstructing the esophagus. 04/05/2025: Endoscopy yesterday showed food material throughout the entire esophagus. An NG tube was placed for decompression with 200cc output overnight. No acute problems overnight. This morning, patient passed SBT and SAT and was extubated. He is awake, agitated but redirectable. He is developmentally delayed and can talk at baseline. Antibiotics discontinued. Remains on low dose levophed, will wean off. CXR shows significant bilateral infiltrate and patient is net positive fluid balance so will give Lasix. After intubation, patient did pull out his NG tube. His abdomen is quite distended and tympanic. KUB shows air throughout the colon. NG tube as reinserted with continuous suction for decompressions. 04/06/2025: Patient remains on 3L NC saturating well without respiratory distress. Will continue antibiotics to complete course for aspiration pneumonia. Patient stomach remains distended, improved. NG tube 200. Had 1 BM. Repeat KUB this morning still shows colonic ileus. Will continue NG tube. Patient to be downgraded today. 04/07/2025: OUT [employer] COLLECTION CLERK was called at 17: 43 soon after which a CODE BLUE was initiated as patient was found with his eyes rolled back shaking and without a pulse. ACLS was initiated with chest compressions and patient underwent 2 rounds of epi, a dose of calcium gluconate and 2 doses of bicarb. Patient had 2 rounds of PEA and he was found to be in V-fib for which she received 200 J of unsynchronized cardioversion and ROSC was achieved. Dr. Llanos intubated the patient and he was moved to the unit. Unclear as for the reason for the arrest at this time. Will work up. 04/08/2025: Patient had witnessed shaking event last night, was given Keppra. EEG was taken. He remains off sedation. This morning, patient opens eyes, tracks, localizes to pain. Failed SBT. CXR taken last night suggests aspiration throughout the right lung. CXR this morning shows improved right upper lung. Will turn patient on his left lung, duonebs, and antibiotics. Point of contact updated. 04/09/2025: Patient doing well this morning. Able to follow commands consistently. Adequate cough and gag reflex intact. Patient underwent spontaneous breathing trial and was successfully weaned to nasal cannula. Requesting this afternoon to be able to drink. However pending formal swallow evaluation at bedside. Patient undergoing chest physiotherapy with percussion and albuterol/saline nebs. Critical Care Note Critical care time (min.): 40 Exam Vital Signs Temp Pulse Resp BP Pulse Ox O2 Del Method O2 Flow Rate 97.9 F 84 31 H 140/88 H 95 Mechanical Ventilation 2 04/09/25 12:02 04/09/25 14:00 04/09/25 14:00 04/09/25 14:00 04/09/25 14:00 04/08/25 04:00 04/09/25 10:26 FiO2 35 04/09/25 08:00 Narrative Exam Constitutional: Obese male, postextubation able to speak appropriately-asking for water CVS: RRR, S1/S2 present RESP: Decreased breath sounds R lung, clear breath sounds to the left GI: Abdomen soft, tympanic, non-tender/distended MSK: L AKA. 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 Skin: Warm to touch, Dry. multiple excoriations throughout body. Neuro: Alert and oriented to self only, nonfocal on gross neurologic exam Physical Exam Completion Physical Exam Complete?: Yes Objective - Community Outreach Director Labs 04/09/25 07:00 04/09/25 07:20 Labs: Laboratory Results - last 24 hr 04/09/25 04/09/25 04/09/25 04:52 07:00 07:20 WBC 4.5 D RBC 2.58 L Hgb 8.1 L Hct 24.7 L MCV 96 MCH 31.4 MCHC 32.8 RDW Std Deviation 52.8 H Plt Count 77 L D Neut % (Auto) 82 H Lymph % (Auto) 9 L [place] % (Auto) 6 Eos % (Auto) 2 Baso % (Auto) 0 Neut # (Auto) 3.7 Lymph # (Auto) 0.4 L [place] # (Auto) 0.3 Eos # (Auto) 0.1 Baso # (Auto) 0.0 Immature Gran # (Auto) 0.03 H Absolute Nucleated RBC 0.00 Immature Gran % 1 H Nucleated RBC % 0 Puncture Site Left Radial ABG pH 7.48 H ABG pCO2 40 ABG pO2 84 D ABG HCO3 30 H ABG O2 Saturation 98 ABG Base Excess 6 H FiO2 35 Sodium 150 H Potassium 3.5 Chloride 114 H Carbon Dioxide 28.6 Anion Gap 7 BUN 28 H Creatinine 1.3 Estim Creat Clear Calc 62.9 eGFR 59 L BUN/Creatinine Ratio 22 H Glucose 162 H Calculated Osmolality 307 H Calcium 8.4 Corrected Calcium 9.3 Phosphorus 2.4 Magnesium 1.8 Total Bilirubin 1.9 H AST 16 ALT 22 Alkaline Phosphatase 64 Total Protein 6.6 Albumin 2.9 L Globulin 3.7 H Albumin/Globulin Ratio 0.8 L Vancomycin Trough Misc Test Result Platelets confirmed 04/09/25 08:35 WBC RBC Hgb Hct MCV MCH MCHC RDW Std Deviation Plt Count Neut % (Auto) Lymph % (Auto) [place] % (Auto) Eos % (Auto) Baso % (Auto) Neut # (Auto) Lymph # (Auto) [place] # (Auto) Eos # (Auto) Baso # (Auto) Immature Gran # (Auto) Absolute Nucleated RBC Immature Gran % Nucleated RBC % Puncture Site ABG pH ABG pCO2 ABG pO2 ABG HCO3 ABG O2 Saturation ABG Base Excess FiO2 Sodium Potassium Chloride Carbon Dioxide Anion Gap BUN Creatinine Estim Creat Clear Calc eGFR BUN/Creatinine Ratio Glucose Calculated Osmolality Calcium Corrected Calcium Phosphorus Magnesium Total Bilirubin AST ALT Alkaline Phosphatase Total Protein Albumin Globulin Albumin/Globulin Ratio Vancomycin Trough 17.9 H Misc Test Result Assessment & Plan Problem List (1) Hypernatremia: Status: Acute (2) Acute renal failure: Status: Acute (3) Metabolic acidosis: Status: Acute Additional Plan Additional Plan: Patient is a 70 year old male with PMH of developmental delay, bipolar disorder, DM2, L AKA admitted to the ICU for choking-induced pulmonary arrest s/p ROSC. DRONE PILOT #Acute encephalopathy-return to baseline #History of bipolar disorder, developmental delay Due to hypoxia, respiratory arrest Suspect patient aspirated, less suspicion for seizure but will follow up with EEG result #History of bipolar disorder, developmental delay - Hold home meds CARDIOVASCULAR #Cardiopulmonary arrest s/p resuscitation 04/02/25 Patient had initially been admitted to ICU after an episode of aspiration of large amounts of chicken. He was extubated on 04/05/25 04/07/25 Patient arrested again, likely respiratory arrest from aspiration, see respiratory section RESPIRATORY #Acute hypoxic respiratory failure Due to choking-induced cardiac arrest. Intubated 04/02 - 04/05/25 04/07/25 he was reintubated, unsure the cause of cardiopulmunary arrest, possible aspiration CXR improved Patient at high risk of aspiration due to repeated events leading to respiratory arrest. - SBT in AM well-tolerated and extubated to nasal cannula - Albuterol and normal saline nebs for airway clearance - Plan for chest physiotherapy at least twice daily to the right chest RENAL #Hyperosmolar Hypernatremia - Improving now 150 - Promote p.o. fluid intake unable to swallow safely -1 L 1/2 NS only - K replaced #Lactic acidosis, cleared GI No acute problems ENDO #History of DM2 - ISS Q6H HEME #Thrombocytopenia - Unclear etiology. Chronic - Heparin for DVT prophylaxis ID #Aspiration pneumonia versus pneumonitis - Vancomycin and Zosyn, patient completed 6 days but due to aspiration event will continue (04/03- Health Maintenance Disposition: Continue monitor closely in ICU postextubation Diet and fluids: NPO DVT prophylaxis: heparin GI prophylaxis: pepcid Lines: PIV CODE STATUS: FULL - patient is conserved with [facility] Provider Notation Provider Notation: Although this document has been carefully reviewed, there may still be some phonetic and other typographical errors. These errors are purely grammatical due to imperfections in the software program and should not be construed in any way to compromise the substance of the patient's medical care during this visit. Thank you for the opportunity and privilege in assisting you with this patient's care and management. (2) Acute renal failure Qualifiers: Acute renal failure type: unspecified Qualified Code(s): N17.9 - Acute kidney failure, unspecified
--- NOTE | 2025-04-09 16:54 | PC.SS ---
Update: Patient extubated today. On nasal cannula 2L. P.O. feedings, pureed. IV antibiotics. Swallow evaluation conducted today.
--- NOTE | 2025-04-09 17:23 | PD.IMPROG ---
Documentation for date of: 04/09/25 Subjective Subjective Interval history: Patient more alert and responsive NGT resolved Swallowing evaluation pending Exam Vital Signs Temp Pulse Resp BP Pulse Ox O2 Del Method O2 Flow Rate 98 F 82 24 H 161/88 H 94 L Mechanical Ventilation 2 04/09/25 16:00 04/09/25 16:00 04/09/25 16:00 04/09/25 16:00 04/09/25 16:00 04/08/25 04:00 04/09/25 10:26 FiO2 35 04/09/25 08:00 Objective Labs 04/09/25 07:00 04/09/25 07:20 Labs: Laboratory Results - last 24 hr 04/09/25 04/09/25 04/09/25 04:52 07:00 07:20 WBC 4.5 D RBC 2.58 L Hgb 8.1 L Hct 24.7 L MCV 96 MCH 31.4 MCHC 32.8 RDW Std Deviation 52.8 H Plt Count 77 L D Neut % (Auto) 82 H Lymph % (Auto) 9 L [place] % (Auto) 6 Eos % (Auto) 2 Baso % (Auto) 0 Neut # (Auto) 3.7 Lymph # (Auto) 0.4 L [place] # (Auto) 0.3 Eos # (Auto) 0.1 Baso # (Auto) 0.0 Immature Gran # (Auto) 0.03 H Absolute Nucleated RBC 0.00 Immature Gran % 1 H Nucleated RBC % 0 Puncture Site Left Radial ABG pH 7.48 H ABG pCO2 40 ABG pO2 84 D ABG HCO3 30 H ABG O2 Saturation 98 ABG Base Excess 6 H FiO2 35 Sodium 150 H Potassium 3.5 Chloride 114 H Carbon Dioxide 28.6 Anion Gap 7 BUN 28 H Creatinine 1.3 Estim Creat Clear Calc 62.9 eGFR 59 L BUN/Creatinine Ratio 22 H Glucose 162 H Calculated Osmolality 307 H Calcium 8.4 Corrected Calcium 9.3 Phosphorus 2.4 Magnesium 1.8 Total Bilirubin 1.9 H AST 16 ALT 22 Alkaline Phosphatase 64 Total Protein 6.6 Albumin 2.9 L Globulin 3.7 H Albumin/Globulin Ratio 0.8 L Vancomycin Trough Misc Test Result Platelets confirmed 04/09/25 08:35 WBC RBC Hgb Hct MCV MCH MCHC RDW Std Deviation Plt Count Neut % (Auto) Lymph % (Auto) [place] % (Auto) Eos % (Auto) Baso % (Auto) Neut # (Auto) Lymph # (Auto) [place] # (Auto) Eos # (Auto) Baso # (Auto) Immature Gran # (Auto) Absolute Nucleated RBC Immature Gran % Nucleated RBC % Puncture Site ABG pH ABG pCO2 ABG pO2 ABG HCO3 ABG O2 Saturation ABG Base Excess FiO2 Sodium Potassium Chloride Carbon Dioxide Anion Gap BUN Creatinine Estim Creat Clear Calc eGFR BUN/Creatinine Ratio Glucose Calculated Osmolality Calcium Corrected Calcium Phosphorus Magnesium Total Bilirubin AST ALT Alkaline Phosphatase Total Protein Albumin Globulin Albumin/Globulin Ratio Vancomycin Trough 17.9 H Misc Test Result Impressions Impression: # Status post removal of the esophageal foreign body endoscopically Continue current management ABG Interpretation ABG results: 04/03/25 04/04/25 04/05/25 20:45 04:55 04:00 ABG pH 7.46 H 7.42 7.35 ABG pCO2 37 42 47 ABG pO2 181 H 111 H D 37 L* D ABG HCO3 26 27 H 26 ABG O2 Saturation 99 H 98 66 L ABG Base Excess 2 3 0 04/05/25 04/07/25 04/08/25 04:55 19:20 04:20 ABG pH 7.40 7.38 7.46 H ABG pCO2 40 47 45 ABG pO2 136 H D 141 H 108 D ABG HCO3 25 27 H 32 H ABG O2 Saturation 99 H 99 H 98 ABG Base Excess 0 2 7 H 04/09/25 04:52 ABG pH 7.48 H ABG pCO2 40 ABG pO2 84 D ABG HCO3 30 H ABG O2 Saturation 98 ABG Base Excess 6 H Assessment & Plan A&P Narrative # Foreign body obstruction esophagus # Status post cardiopulmonary arrest ROSC # Developmentally delayed # Diabetes mellitus type 2 # Status post AKA left Plan Consent obtained for fiberoptic esophagogastro duodenoscopy with therapeutic intervention under intravenous moderate sedation we will proceed with the procedure thank you very much for the opportunity to participate in care of this patient Time Spent With Patient Time: Total time spent is greater than 50% in coordination of care (as documented) at patient's floor/unit and/or counseling patient:
[2025-04-09] MEDS: SODIUM CHLORIDE 0.45 % 1,000 ML 100 ML IV (17:44)
[2025-04-09] MEDS: POTASSIUM CHL 10 mEq IVPB 10 MEQ/100 ML BAG 100 MEQ IV ×4 (17:44→21:22)
[2025-04-09] MEDS: NAPH,KPH MBDB 1 PACKET (1.5 GM) PO (20:00)
--- NOTE | 2025-04-09 22:06 | XR_ITS ---
Examination: AP chest single view TECHNIQUE: AP portable semiupright chest single view Standing time: April 09, 2025 10:11 PM Comparison April 09, 2025 1740 hours INDICATIONS: Shortness of breath today FINDINGS: Significant opacity both lungs consistent with pneumonia Mild enlargement in cardiac contour with prominent vascular congestion Layering right pleural fluid IMPRESSION: Significant bilateral pneumonia Mild associated heart failure Significant layering right pleural fluid
--- NOTE | 2025-04-09 22:42 | PD.EVENT ---
Documentation for date of: 04/09/25 Event Note Event Note: I was informed by the nurse that the patient is desaturating. Patient was seen at the bedside, exhibiting labored breathing. Status post extubation today. Chest X-ray reviewed?no significant changes compared to this morning. Will initiate BiPAP now. Hold downgrade tonight.
[2025-04-09] MEDS: DEXMEDETOMIDINE 400 MCG IVPB 400 MCG/100 ML BAG 5.39 MCG IV (22:50)
[2025-04-10] VITALS (35 sets, daily range): BP systolic 111–168; BP diastolic 68–113; PULSE 70–102; RESP 12–49; TEMP 35.9–36.8; O2SAT 89–100; BMI 36.4
[2025-04-10 00:38] LABS: Base Excess 6 (-3-3); HCO3 29 mEq/L (20-26); Inspired Oxygen, FIO2 60 %; O2 Saturation 99 % (91-98); PCO2 40 mmHg (32.0-48.0); PO2 197 mmHg (83-108); pH, Arterial 7.48 (7.35-7.45)
[2025-04-10 00:39] LABS: Allen Test Performed/OK; Puncture Site Right Radial
[2025-04-10] MEDS: levETIRAcetam INJ 100 MG/ML VIAL 5ML 1000 MG IVP ×2 (01:20→20:42)
[2025-04-10] MEDS: INSULIN HUM REGULAR 1 UNIT/0.01 ML (PER UNIT) SC ×2 (01:26→06:20)
[2025-04-10] MEDS: SODIUM CHLORIDE 0.45 % 1,000 ML 100 ML IV ×3 (03:53→23:41)
[2025-04-10] MEDS: PIPER/TAZO 3.375 GM PREMIX 3.375 GM/50 ML BAG IV ×2 (05:44→14:06)
[2025-04-10] MEDS: HEPARIN SOD INJ 5000 UNIT/ML VIAL SC ×3 (05:45→21:34)
[2025-04-10 06:09] LABS: Basophils % (Auto) 0 % (0-2.5); Eosinophils # (Auto) 0.1 Thou/mm3 (0.0-0.5); Eosinophils % (Auto) 1 % (0-10); Hematocrit 24.7 % (41.0-53.0); Hemoglobin 7.7 g/dL (13.5-16.0); Immature Granulocytes % (Auto) 1 % (0-0); Immature Granulocytes Auto 0.04 Thou/mm3 (0.00-0.00); Lymphocytes # (Auto) 0.4 Thou/mm3 (1.0-4.8); Lymphocytes % (Auto) 8 % (10-50); Mean Corpuscular HGB Conc 31.2 g/dl (31.0-37.0); Mean Corpuscular Hemoglobin 31.2 pg (25.0-35.0); Mean Corpuscular Volume 100 fL (80-100); Monocytes # (Auto) 0.3 Thou/mm3 (0.0-0.8); Monocytes % (Auto) 6 % (0-12); Neutrophils # (Auto) 4.3 Thou/mm3 (1.8-7.7); Neutrophils % (Auto) 84 % (37-80); Nucleated Red Blood Cell # 0.03 Thou/mm3 (0.00-0.00); Nucleated Red Blood Cell % 1 /100 WBC (0); Platelet Count 63 Thou/mm3 (140-440); RDW Standard Deviation 55.4 fL (35.1-43.9); Red Blood Count 2.47 Miln/mm3 (4.50-5.90); White Blood Count 5.1 Thou/mm3 (3.8-10.6)
[2025-04-10 06:10] LABS: Slide Review Platelets confirmed
[2025-04-10 06:43] LABS: Alanine Aminotransferase 24 U/L (10-49); Albumin, Serum 2.7 gm/dL (3.4-4.8); Albumin/Globulin Ratio 0.7 (1.2-2.2); Alkaline Phosphatase 68 U/L (46-116); Anion Gap 9 (7-16); Aspartate Amino Transferase 23 U/L (0-34); BUN/Creatinine Ratio 21 Ratio (12-20); Bilirubin,Total 1.7 mg/dL (0.3-1.2); Blood Urea Nitrogen 32 mg/dL (9-23); Calcium 7.9 mg/dL (8.3-10.6); Calcium (Corrected) 8.9 mg/dL (8.5-10.1); Carbon Dioxide 26.4 mMol/L (20.0-31.0); Chloride 111 mMol/L (98-107); Creatinine (Component) 1.5 mg/dL (0.6-1.3); Estimated Creatinine Clearance 55.6 mL/min (>60); Globulin 3.7 gm/dL (2.3-3.5); Glucose 185 mg/dL (74-106); Magnesium 2.1 mg/dL (1.6-2.6); Osmolality,Calculated 302 (275-295); Phosphorous 2.3 mg/dL (2.4-5.1); Sodium 146 mMol/L (136-145); Total Protein 6.4 gm/dL (5.7-8.2); eGFR 50 See Note
[2025-04-10] MEDS: DEXMEDETOMIDINE 400 MCG IVPB 400 MCG/100 ML BAG 5.39 MCG IV (06:45)
--- NOTE | 2025-04-10 09:20 | PD.RESPRO ---
Documentation for date of: 04/10/25 Subjective Subjective Interval history: Patient is a 70 year old male with PMH of developmental delay, bipolar disorder, DM2, L AKA admitted to the ICU for choking-induced pulmonary arrest s/p ROSC. Per caregivers and EMS report, patient was eating an apple when he choked and became unresponsive. When EMS arrived, patient was noted to be agonal, hypoxic at 55% and bradycardic. They were able to clear some food from his mouth. Patient was bagged via NPA. En route, patient lost pulses and CPR was initiated. He was given 1 of epinephrine. ROSC was achieved. Patient was intubated. He was found to be severely hypernatremic at 179. 04/04/2025: Overnight, staff was unable to pass an OG tube. Everytime the patient was turned, food chunks would come out of his mouth. He recieved a total of 2L NS and the following sodium was 135, and recheck was 136. Suspect that initial sodium at 179 may have been a lab error. Patient had SAT and SBT today, then was re-sedated and put on ventilator support for bronchoscopy. During bronchoscopy, there was large food material and mucous that were removed from the right intermdiate and lower lung bronchi, and inflammation in the right upper lobe entry. Plan for endoscopy later today to remove suspected food obstructing the esophagus. 04/05/2025: Endoscopy yesterday showed food material throughout the entire esophagus. An NG tube was placed for decompression with 200cc output overnight. No acute problems overnight. This morning, patient passed SBT and SAT and was extubated. He is awake, agitated but redirectable. He is developmentally delayed and can talk at baseline. Antibiotics discontinued. Remains on low dose levophed, will wean off. CXR shows significant bilateral infiltrate and patient is net positive fluid balance so will give Lasix. After intubation, patient did pull out his NG tube. His abdomen is quite distended and tympanic. KUB shows air throughout the colon. NG tube as reinserted with continuous suction for decompressions. 04/06/2025: Patient remains on 3L NC saturating well without respiratory distress. Will continue antibiotics to complete course for aspiration pneumonia. Patient stomach remains distended, improved. NG tube 200. Had 1 BM. Repeat KUB this morning still shows colonic ileus. Will continue NG tube. Patient to be downgraded today. 04/07/2025: [employer] was called at 17: 43 soon after which a CODE BLUE was initiated as patient was found with his eyes rolled back shaking and without a pulse. ACLS was initiated with chest compressions and patient underwent 2 rounds of epi, a dose of calcium gluconate and 2 doses of bicarb. Patient had 2 rounds of PEA and he was found to be in V-fib for which she received 200 J of unsynchronized cardioversion and ROSC was achieved. Dr. Llanos intubated the patient and he was moved to the unit. Unclear as for the reason for the arrest at this time. Will work up. 04/08/2025: Patient had witnessed shaking event last night, was given Keppra. EEG was taken. He remains off sedation. This morning, patient opens eyes, tracks, localizes to pain. Failed SBT. CXR taken last night suggests aspiration throughout the right lung. CXR this morning shows improved right upper lung. Will turn patient on his left lung, duonebs, and antibiotics. Point of contact updated. 04/09/2025: Patient doing well this morning. Able to follow commands consistently. Adequate cough and gag reflex intact. Patient underwent spontaneous breathing trial and was successfully weaned to nasal cannula. Requesting this afternoon to be able to drink. However pending formal swallow evaluation at bedside. Patient undergoing chest physiotherapy with percussion and albuterol/saline nebs. 04/10/2025: Patient passed swallow yesterday and was started on purreed diet. Around 11pm patient had episode of hypoxia in the 70s and shaking. He was started on BIPAP with precedex, and keppra. This morning, patient taken off BIPAP and precedex without issue. He is awake, answering simple questions, calm. Sodium improved. Will follow up EEG results and continue Keppra for possible seizures, and recommend BIPAP at night for suspected central sleep apnea. Exam Vital Signs Temp Pulse Resp BP Pulse Ox O2 Del Method O2 Flow Rate 96.7 F L 86 22 H 121/72 96 BiPAP 6 04/10/25 04:00 04/10/25 07:49 04/10/25 07:49 04/10/25 06:00 04/10/25 07:49 04/09/25 23:00 04/10/25 07:49 FiO2 40 04/10/25 02:47 Narrative Exam Constitutional: NAD, awake, answering simple questions. HEENT: NCAT. Vision grossly intact. Respiratory: decreased breath sounds right lower lung, good airway entry otherwise Cardiac: RRR. Abdomen: Soft, non-distended, non-tender. 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 Multiple excortations throughout body in different healing stages. Neuro: Motor and sensation grossly intact. GS 13 [id number] Objective Labs 04/10/25 04:53 04/10/25 04:53 Labs: Laboratory Results - last 24 hr 04/09/25 04/10/25 04/10/25 08:35 00:24 04:53 WBC 5.1 RBC 2.47 L Hgb 7.7 L Hct 24.7 L MCV 100 MCH 31.2 MCHC 31.2 RDW Std Deviation 55.4 H Plt Count 63 L Neut % (Auto) 84 H Lymph % (Auto) 8 L [place] % (Auto) 6 Eos % (Auto) 1 Baso % (Auto) 0 Neut # (Auto) 4.3 Lymph # (Auto) 0.4 L [place] # (Auto) 0.3 Eos # (Auto) 0.1 Baso # (Auto) 0.0 Immature Gran # (Auto) 0.04 H Absolute Nucleated RBC 0.03 H Immature Gran % 1 H Nucleated RBC % 1 H Puncture Site Right Radial ABG pH 7.48 H ABG pCO2 40 ABG pO2 197 H D ABG HCO3 29 H ABG O2 Saturation 99 H ABG Base Excess 6 H FiO2 60 Sodium 146 H Potassium 4.0 D Chloride 111 H Carbon Dioxide 26.4 Anion Gap 9 BUN 32 H Creatinine 1.5 H Estim Creat Clear Calc 55.6 L eGFR 50 L BUN/Creatinine Ratio 21 H Glucose 185 H Calculated Osmolality 302 H Calcium 7.9 L Corrected Calcium 8.9 Phosphorus 2.3 L Magnesium 2.1 Total Bilirubin 1.7 H AST 23 ALT 24 Alkaline Phosphatase 68 Total Protein 6.4 Albumin 2.7 L Globulin 3.7 H Albumin/Globulin Ratio 0.7 L Vancomycin Trough 17.9 H Misc Test Result Platelets confirmed ABG Interpretation ABG results: 04/03/25 04/04/25 04/05/25 20:45 04:55 04:00 ABG pH 7.46 H 7.42 7.35 ABG pCO2 37 42 47 ABG pO2 181 H 111 H D 37 L* D ABG HCO3 26 27 H 26 ABG O2 Saturation 99 H 98 66 L ABG Base Excess 2 3 0 04/05/25 04/07/25 04/08/25 04:55 19:20 04:20 ABG pH 7.40 7.38 7.46 H ABG pCO2 40 47 45 ABG pO2 136 H D 141 H 108 D ABG HCO3 25 27 H 32 H ABG O2 Saturation 99 H 99 H 98 ABG Base Excess 0 2 7 H 04/09/25 04/10/25 04:52 00:24 ABG pH 7.48 H 7.48 H ABG pCO2 40 40 ABG pO2 84 D 197 H D ABG HCO3 30 H 29 H ABG O2 Saturation 98 99 H ABG Base Excess 6 H 6 H Quality Measures Quality Measures VTE prophylaxis Advance care planning discussed with:: legal surragate Assessment & Plan Assessment Current Active Medications: Generic Name Dose Route Start Last Admin Trade Name Freq PRN Reason Stop Dose Admin Acetaminophen 650 mg 04/07/25 15:23 Acetaminophen 325 Mg Tablet PO 05/03/25 16:21 Q6H PRN Fever >99.5 Dextrose 25 ml 04/03/25 16:33 Dextrose 50%-Water Inj 50 Ml Syringe IV 05/03/25 16:32 Q15MIN PRN BG 50-70 responsive npo pt Dextrose 50 ml 04/03/25 16:33 Dextrose 50%-Water Inj 50 Ml Syringe IV 05/03/25 16:32 Q15MIN PRN BG <50 OR BG <70 & pt unresponsive Glucagon 1 mg 04/03/25 16:33 Glucagon Inj 1 Mg Vial IM Q15MIN PRN BG <70, and no IV access Heparin Sodium (Porcine) 5,000 unit 04/03/25 22:00 04/10/25 05:45 Heparin Sod Inj 5000 Unit/Ml Vial SC 04/17/25 21:59 5,000 unit Q8HR MANUEL Administration Piperacillin/Tazobactam/Dextrose 3.375 gm in 50 mls @ 12.5 mls/hr 04/03/25 22:00 04/10/25 05:44 Zosyn IV 04/10/25 21:59 12.5 mls/hr Q8HR MANUEL Administration Vancomycin/Sodium Chloride 200 mls @ 120 mls/hr 04/07/25 10:00 04/09/25 10:48 Vancomycin/Ns 1 Gm Ivpb IV 04/14/25 09:59 120 mls/hr QDAY@1000 MANUEL Administration Protocol Sodium Chloride 1,000 mls @ 100 mls/hr 04/09/25 16:28 04/10/25 03:53 Ns 0.45% IV 05/09/25 16:27 100 mls/hr .Q10H MANUEL Administration Dexmedetomidine/Sodium Chloride 400 mcg in 100 mls @ 5.39 mls/hr 04/09/25 22:27 04/10/25 06:45 Precedex Ivpb IV 05/09/25 22:26 0.2 mcg/kg/hr .[id number] PRN 5.39 mls/hr Per PROTOCOL Administration Protocol 0.2 MCG/KG/HR Insulin Human Regular 0 unit 04/03/25 18:00 04/10/25 06:20 Insulin Hum Regular 1 Unit/0.01 Ml (Per Unit) SC 05/03/25 17:59 1 unit Q6HR MANUEL Administration Protocol Levetiracetam 500 mg 04/10/25 21:00 Levetiracetam Inj 100 Mg/Ml Vial 5ml IVP 05/10/25 20:59 Q12HR MANUEL Ondansetron HCl 4 mg 04/07/25 14:29 Ondansetron Inj 2 Mg/Ml Inj 2 Ml IV 05/07/25 14:28 Q6H PRN NAUSEA OR VOMITING Protocol Pharmacy Consult 1 each 04/03/25 14:00 Vancomycin Pharmacy To Dose 1 Each Each IV 05/03/25 13:59 QDAY PRN CONSULT Potassium Phos/Sodium Phos 1 packet 04/08/25 21:00 04/09/25 20:00 [facility] Mbdb 1 Packet (1.5 Gm) PO 05/08/25 20:59 1 packet BID MANUEL Administration Simethicone 80 mg 04/06/25 09:37 Simethicone 80 Mg Chew PO 05/06/25 09:36 QID PRN GAS Sodium Chloride 3 ml 04/04/25 15:24 04/09/25 10:22 Sodium Chloride Rt Jessica 0.9% 3 Ml Nebu INH 05/04/25 15:23 3 ml PRN PRN Administration SOLN Plan Patient is a 70 year old male with PMH of developmental delay, bipolar disorder, DM2, L AKA admitted to the ICU for choking-induced pulmonary arrest s/p ROSC. [employer] #Acute encephalopathy-return to baseline #History of bipolar disorder, developmental delay Due to hypoxia, respiratory arrest Suspect patient aspirated, less suspicion for seizure but will follow up with EEG result - Keppra BID for possible seizures, follow up EEG #History of bipolar disorder, developmental delay - Hold home meds CARDIOVASCULAR #Cardiopulmonary arrest s/p resuscitation 04/02/25 Patient had initially been admitted to ICU after an episode of aspiration of large amounts of chicken. He was extubated on 04/05/25 04/07/25 Patient arrested again, likely respiratory arrest from aspiration, see respiratory section RESPIRATORY #Acute hypoxic respiratory failure, improving Due to choking-induced cardiac arrest. Intubated 04/02 - 04/05/25, successfully extubated but reintubated 04/07-04/09 due to respiratory arrest. Patient at high risk of aspiration due to repeated events leading to respiratory arrest. - Albuterol and normal saline nebs for airway clearance - Plan for chest physiotherapy at least twice daily to the right chest - BIPAP HS for suspected sleep apnea RENAL #Hyperosmolar Hypernatremia, resolved #Lactic acidosis, cleared #Hypophosphatemia, improving - Neutraphos BID; may discontinue once hypophosphatemia improves GI No acute problems ENDO #History of DM2 Patinet takes Basalgar 26 HS, holding off due to euglycemia - ISS - Once patient tolerates PO diet, may restart glargine HEME #Thrombocytopenia - Unclear etiology. Chronic - Heparin for DVT prophylaxis ID #Aspiration pneumonia versus pneumonitis - Vancomycin and Zosyn continue (04/03-04/13) Health Maintenance Disposition: Continue monitor closely in ICU postextubation, anticipate downgrade today Diet and fluids: dysphagia pureed DVT prophylaxis: heparin GI prophylaxis: none Lines: PIV CODE STATUS: FULL - patient is conserved with CRV I have reviewed and discussed the patient's care with my attending, Dr. Mathews, Jane Su MD PGY-3 Attending Provider Attestation/Addendum Patient seen and examined with the above resident, Jane Sánchez MD. I agree with the findings, assessment, and plan of care as documented except for any differences below. Overnight had episode of desaturation and potential seizure though could be clonus due to hypoxia. Patient responded to Bipap therapy and shelleyra restarted. Pending read on EED and will continue this for now. Patient started on precedex overnight for use of Bipap but will discontinue for now. Patient now on NC. Tolerating PO diet. Monitor closely given risk of aspiration historically. Patient back at baseline neurologic status as well. Patient will need sitter likely upon transfer. Patient to continue on antibiotics, follow up cultures. Also continue on albuterol nebs, chest physiotherapy, and saline to help with airway clearance. Going to go to telemetry. Total critical care time: I personally spent 35 minutes for review of physiologic parameters, directing plan of care, and coordination of care with other specialists. This is exclusive of time spent teaching housestaff or performing any separate billable procedures. Patient continued to require critical care services for acute hypoxic respiratory failure, acute encephalopathy, aspiration/ healthcare associated pneumonia, and possible seizures. He remained at significant risk of further morbidity and mortality warranting close monitoring and care only available in the ICU.
[2025-04-10] MEDS: VANCOMYCIN/NS 1 GM IVPB 200 ML IV (10:35)
[2025-04-10] MEDS: NAPH,KPH MBDB 1 PACKET (1.5 GM) PO ×2 (10:35→20:49)
--- NOTE | 2025-04-10 11:44 | PD.RESPRO ---
Documentation for date of: 04/10/25 Subjective Subjective Interval history: Received ICU downgrade by ICU team. Patient seen today in the ICU found awake, alert. Vital signs and labs reviewed. Patient passed swallow screen was started on pur?ed diet. Apparently patient had episode of hypoxia in the 70s with shaking was placed on BiPAP with Precedex and Keppra and was successfully weaned off in the morning. Pending EEG results. Will continue Keppra for possible seizures and will keep patient with BiPAP at night for suspected central sleep apnea as well as chest physiotherapy. Exam Vital Signs Temp Pulse Resp BP Pulse Ox O2 Del Method O2 Flow Rate 97.0 F 70 40 H 123/77 99 Nasal Cannula 6 04/10/25 08:00 04/10/25 10:35 04/10/25 10:35 04/10/25 10:00 04/10/25 10:35 04/10/25 10:00 04/10/25 10:35 FiO2 40 04/10/25 09:00 Narrative Exam Physical Exam GENERAL: NAD, able to answer simple questions HEENT: Moist mucosa. Eyes open, symmetrical, & clear CARDIO: Heart RRR, no obvious murmurs PULM: No noted coughing/dyspnea, B/L rhonchi GI: Abdomen soft, distended-improving, no pain on palpation. 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; L AKA, Multiple excortations throughout body in different healing stages Objective Labs 04/10/25 04:53 04/10/25 04:53 Labs: Laboratory Results - last 24 hr 04/10/25 04/10/25 00:24 04:53 WBC 5.1 RBC 2.47 L Hgb 7.7 L Hct 24.7 L MCV 100 MCH 31.2 MCHC 31.2 RDW Std Deviation 55.4 H Plt Count 63 L Neut % (Auto) 84 H Lymph % (Auto) 8 L [place] % (Auto) 6 Eos % (Auto) 1 Baso % (Auto) 0 Neut # (Auto) 4.3 Lymph # (Auto) 0.4 L [place] # (Auto) 0.3 Eos # (Auto) 0.1 Baso # (Auto) 0.0 Immature Gran # (Auto) 0.04 H Absolute Nucleated RBC 0.03 H Immature Gran % 1 H Nucleated RBC % 1 H Puncture Site Right Radial ABG pH 7.48 H ABG pCO2 40 ABG pO2 197 H D ABG HCO3 29 H ABG O2 Saturation 99 H ABG Base Excess 6 H FiO2 60 Sodium 146 H Potassium 4.0 D Chloride 111 H Carbon Dioxide 26.4 Anion Gap 9 BUN 32 H Creatinine 1.5 H Estim Creat Clear Calc 55.6 L eGFR 50 L BUN/Creatinine Ratio 21 H Glucose 185 H Calculated Osmolality 302 H Calcium 7.9 L Corrected Calcium 8.9 Phosphorus 2.3 L Magnesium 2.1 Total Bilirubin 1.7 H AST 23 ALT 24 Alkaline Phosphatase 68 Total Protein 6.4 Albumin 2.7 L Globulin 3.7 H Albumin/Globulin Ratio 0.7 L Misc Test Result Platelets confirmed ABG Interpretation ABG results: 04/03/25 04/04/25 04/05/25 20:45 04:55 04:00 ABG pH 7.46 H 7.42 7.35 ABG pCO2 37 42 47 ABG pO2 181 H 111 H D 37 L* D ABG HCO3 26 27 H 26 ABG O2 Saturation 99 H 98 66 L ABG Base Excess 2 3 0 04/05/25 04/07/25 04/08/25 04:55 19:20 04:20 ABG pH 7.40 7.38 7.46 H ABG pCO2 40 47 45 ABG pO2 136 H D 141 H 108 D ABG HCO3 25 27 H 32 H ABG O2 Saturation 99 H 99 H 98 ABG Base Excess 0 2 7 H 04/09/25 04/10/25 04:52 00:24 ABG pH 7.48 H 7.48 H ABG pCO2 40 40 ABG pO2 84 D 197 H D ABG HCO3 30 H 29 H ABG O2 Saturation 98 99 H ABG Base Excess 6 H 6 H Quality Measures Quality Measures VTE prophylaxis Advance care planning discussed with:: patient Assessment & Plan Assessment Current Active Medications: Generic Name Dose Route Start Last Admin Trade Name Freq PRN Reason Stop Dose Admin Acetaminophen 650 mg 04/07/25 15:23 Acetaminophen 325 Mg Tablet PO 05/03/25 16:21 Q6H PRN Fever >99.5 Dextrose 25 ml 04/03/25 16:33 Dextrose 50%-Water Inj 50 Ml Syringe IV 05/03/25 16:32 Q15MIN PRN BG 50-70 responsive npo pt Dextrose 50 ml 04/03/25 16:33 Dextrose 50%-Water Inj 50 Ml Syringe IV 05/03/25 16:32 Q15MIN PRN BG <50 OR BG <70 & pt unresponsive Glucagon 1 mg 04/03/25 16:33 Glucagon Inj 1 Mg Vial IM Q15MIN PRN BG <70, and no IV access Heparin Sodium (Porcine) 5,000 unit 04/03/25 22:00 04/10/25 05:45 Heparin Sod Inj 5000 Unit/Ml Vial SC 04/17/25 21:59 5,000 unit Q8HR MANUEL Administration Piperacillin/Tazobactam/Dextrose 3.375 gm in 50 mls @ 12.5 mls/hr 04/03/25 22:00 04/10/25 05:44 Zosyn IV 04/10/25 21:59 12.5 mls/hr Q8HR MANUEL Administration Vancomycin/Sodium Chloride 200 mls @ 120 mls/hr 04/07/25 10:00 04/10/25 10:35 Vancomycin/Ns 1 Gm Ivpb IV 04/14/25 09:59 120 mls/hr QDAY@1000 MANUEL Administration Protocol Sodium Chloride 1,000 mls @ 100 mls/hr 04/09/25 16:28 04/10/25 03:53 Ns 0.45% IV 05/09/25 16:27 100 mls/hr .Q10H MANUEL Administration Insulin Human Regular 0 unit 04/10/25 11:30 Insulin Hum Regular 1 Unit/0.01 Ml (Per Unit) SC 05/10/25 11:29 AC MANUEL Protocol Levetiracetam 1,000 mg 04/10/25 21:00 Levetiracetam Inj 100 Mg/Ml Vial 5ml IVP 05/10/25 20:59 Q12HR MANUEL Ondansetron HCl 4 mg 04/07/25 14:29 Ondansetron Inj 2 Mg/Ml Inj 2 Ml IV 05/07/25 14:28 Q6H PRN NAUSEA OR VOMITING Protocol Pharmacy Consult 1 each 04/03/25 14:00 Vancomycin Pharmacy To Dose 1 Each Each IV 05/03/25 13:59 QDAY PRN CONSULT Potassium Phos/Sodium Phos 1 packet 04/08/25 21:00 04/10/25 10:35 [facility]db 1 Packet (1.5 Gm) PO 05/08/25 20:59 1 packet BID MANUEL Administration Simethicone 80 mg 04/06/25 09:37 Simethicone 80 Mg Chew PO 05/06/25 09:36 QID PRN GAS Sodium Chloride 3 ml 04/04/25 15:24 04/09/25 10:22 Sodium Chloride Rt Jessica 0.9% 3 Ml Nebu INH 05/04/25 15:23 3 ml PRN PRN Administration SOLN Plan 70 year old male with PMH of developmental delay, bipolar disorder, DM2, L AKA admitted to the ICU for choking-induced pulmonary arrest s/p ROSC. #Acute hypoxic respiratory failure, improving #Aspiration pneumonia versus pneumonitis Due to choking-induced cardiac arrest. Intubated 04/02 - 04/05/25, successfully extubated but reintubated 04/07-04/09 due to respiratory arrest. Patient is at high risk of aspiration due to repeated events leading to respiratory arrest. passed swallow evaluation and was started on pureed diet by ICU team, will monitor for toleration - Vancomycin and Zosyn continue (04/03-04/13) - Albuterol and normal saline nebs for airway clearance - Plan for chest physiotherapy at least twice daily to the right chest - BIPAP HS for suspected sleep apnea #Acute encephalopathy-return to baseline #History of bipolar disorder, developmental delay #?Seizures Due to hypoxia, respiratory arrest Suspect patient aspirated, less suspicion for seizure but will follow up with EEG result - Keppra BID for possible seizures - follow up EEG - holding home meds #Cardiopulmonary arrest s/p resuscitation 04/02/25 Patient had initially been admitted to ICU after an episode of aspiration of large amounts of chicken. He was extubated on 04/05/25 04/07/25 Patient arrested again, likely respiratory arrest from aspiration #Hypophosphatemia, improving - Neutraphos BID; may discontinue once hypophosphatemia improves #Diabetes mellitus Patient takes Basalgar 26 HS, holding off due to euglycemia - SSI - hypoglycemia protocol in place - Once patient tolerates PO diet, may restart glargine #Thrombocytopenia Unclear etiology. Chronic - Heparin for DVT prophylaxis #Hyperosmolar Hypernatremia, resolved #Lactic acidosis-resolved Health Maintenance Disposition: telemetry Diet and fluids: dysphagia pureed DVT prophylaxis: heparin GI prophylaxis: none Lines: PIV CODE STATUS: FULL - patient is conserved with CRV Case discussed with my attending Dr. Nabil Hughes MD PGY-1 Attending Provider Attestation/Addendum I, Renetta Ferrer DO, attest that I was physically present for the bruce portions of the service and evaluated the patient with the resident and I reviewed and discussed the case with the resident and agree with the resident's findings and plans of care as documented above Patient seen and eval this a.m. patient has been downgraded from the ICU and was extubated yesterday.He was transferred to ICU due to respiratory arrest secondary to aspiration. Patient is currently on 4 L nasal cannula. He has no active complaints. However needs prompting. He has noted to have scattered rhonchi on exam and take shallow breaths. Per nursing, patient had passed his speech evaluation and was advanced to pur?ed diet. However, patient does seem to eat very fast which may lead him to higher risk of aspiration. Chest x-ray shows bilateral pneumonia. Will continue with chest PT and breathing treatments. Patient needs to be closely supervised once consuming diet or fluids. Continue with IV Zosyn and vancomycin until 04/13.
--- NOTE | 2025-04-10 15:06 | PD.IMPROG ---
Documentation for date of: 04/10/25 Subjective Subjective Interval history: Patient evaluated Has passed a swallowing evaluation On pur?ed diet Exam Vital Signs Temp Pulse Resp BP Pulse Ox O2 Del Method O2 Flow Rate 98.3 F 75 15 155/79 H 98 Nasal Cannula 4 04/10/25 12:00 04/10/25 14:44 04/10/25 14:44 04/10/25 12:00 04/10/25 14:44 04/10/25 12:00 04/10/25 14:44 FiO2 40 04/10/25 09:00 Objective Labs 04/10/25 04:53 04/10/25 04:53 Labs: Laboratory Results - last 24 hr 04/10/25 04/10/25 00:24 04:53 WBC 5.1 RBC 2.47 L Hgb 7.7 L Hct 24.7 L MCV 100 MCH 31.2 MCHC 31.2 RDW Std Deviation 55.4 H Plt Count 63 L Neut % (Auto) 84 H Lymph % (Auto) 8 L [place] % (Auto) 6 Eos % (Auto) 1 Baso % (Auto) 0 Neut # (Auto) 4.3 Lymph # (Auto) 0.4 L [place] # (Auto) 0.3 Eos # (Auto) 0.1 Baso # (Auto) 0.0 Immature Gran # (Auto) 0.04 H Absolute Nucleated RBC 0.03 H Immature Gran % 1 H Nucleated RBC % 1 H Puncture Site Right Radial ABG pH 7.48 H ABG pCO2 40 ABG pO2 197 H D ABG HCO3 29 H ABG O2 Saturation 99 H ABG Base Excess 6 H FiO2 60 Sodium 146 H Potassium 4.0 D Chloride 111 H Carbon Dioxide 26.4 Anion Gap 9 BUN 32 H Creatinine 1.5 H Estim Creat Clear Calc 55.6 L eGFR 50 L BUN/Creatinine Ratio 21 H Glucose 185 H Calculated Osmolality 302 H Calcium 7.9 L Corrected Calcium 8.9 Phosphorus 2.3 L Magnesium 2.1 Total Bilirubin 1.7 H AST 23 ALT 24 Alkaline Phosphatase 68 Total Protein 6.4 Albumin 2.7 L Globulin 3.7 H Albumin/Globulin Ratio 0.7 L Misc Test Result Platelets confirmed Impressions Impression: Status post removal of the esophageal foreign body Patient doing well Advance diet as necessary ABG Interpretation ABG results: 04/03/25 04/04/25 04/05/25 20:45 04:55 04:00 ABG pH 7.46 H 7.42 7.35 ABG pCO2 37 42 47 ABG pO2 181 H 111 H D 37 L* D ABG HCO3 26 27 H 26 ABG O2 Saturation 99 H 98 66 L ABG Base Excess 2 3 0 04/05/25 04/07/25 04/08/25 04:55 19:20 04:20 ABG pH 7.40 7.38 7.46 H ABG pCO2 40 47 45 ABG pO2 136 H D 141 H 108 D ABG HCO3 25 27 H 32 H ABG O2 Saturation 99 H 99 H 98 ABG Base Excess 0 2 7 H 04/09/25 04/10/25 04:52 00:24 ABG pH 7.48 H 7.48 H ABG pCO2 40 40 ABG pO2 84 D 197 H D ABG HCO3 30 H 29 H ABG O2 Saturation 98 99 H ABG Base Excess 6 H 6 H Assessment & Plan A&P Narrative # Foreign body obstruction esophagus # Status post cardiopulmonary arrest ROSC # Developmentally delayed # Diabetes mellitus type 2 # Status post AKA left Plan Consent obtained for fiberoptic esophagogastro duodenoscopy with therapeutic intervention under intravenous moderate sedation we will proceed with the procedure thank you very much for the opportunity to participate in care of this patient Time Spent With Patient Time: Total time spent is greater than 50% in coordination of care (as documented) at patient's floor/unit and/or counseling patient:
--- NOTE | 2025-04-10 23:13 | EKG_ITS ---
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
[2025-04-10] MEDS: DiphenhydrAMINE INJ 50 MG/ML VIAL 12.5 MG IVP (23:43)
[2025-04-10 23:50] LABS: Base Excess, Venous 3 (-3-3); O2 Saturation, Venous 99 % (96-97); PCO2, Venous 36 mmHg (36-56); PO2, Venous 105 mmHg (15-58); pH, Venous 7.48 (7.33-7.66)
[2025-04-11] VITALS (44 sets, daily range): BP systolic 110–178; BP diastolic 73–122; PULSE 70–122; RESP 12–43; TEMP 35.9–36.5; O2SAT 78–100
[2025-04-11] MEDS: OLANZapine INJ 5 MG, Sterile Water 2.1 ML IV (00:20)
--- NOTE | 2025-04-11 03:00 | PC.NURSE ---
Patient became more restless, removing his BIPAP, PIV, gown/linen. Noted multiple episodes of seizures. MD Jansen/Dany aware and came at bedside.Unable to give seizure/anxiety medications as there is no IV access at this time, MD Moses at bedside for emergency CVC insertion. During insertion of central line, multiple episodes of seizures noted. MD Moses and audrey residents still at bedside and decided to intubate for airway protection.
[2025-04-11 03:22] LABS: Base Excess -1 (-3-3); HCO3 24 mEq/L (20-26); Inspired Oxygen, FIO2 21 %; O2 Saturation 99 % (91-98); PCO2 38 mmHg (32.0-48.0); PO2 124 mmHg (83-108); pH, Arterial 7.41 (7.35-7.45)
[2025-04-11 03:26] LABS: Allen Test Not Performed; Puncture Site Right Radial
[2025-04-11] MEDS: MIDAZOLAM INJ 1 MG/ML VIAL 2 ML 2 MG IV (03:44)
--- NOTE | 2025-04-11 04:01 | XR_ITS ---
Examination: AP chest single view TECHNIQUE: AP portable supine chest single view Date and time: April 11, 2025 0420 hours Comparison April 09, 2025 INDICATIONS: Status post cardiac arrest FINDINGS: Total opacification right hemithorax with volume loss Endotracheal tube tip 18 mm above kaur. The orogastric tube is in the stomach, the tip is below the level of the film Right internal jugular central line tip region of SVC Prominent vascular congestion with edema and pneumonia in the left lung IMPRESSION: Significant atelectasis right lung, consider mucous plug in right mainstem bronchus Edema and pneumonia left lung Endotracheal tube tip 18 mm above kaur
[2025-04-11] MEDS: ETOMIDATE INJ 2 MG/ML VIAL 10 ML 30 MG IVP (04:12)
[2025-04-11] MEDS: ROCURONIUM INJ 10 MG/ML VIAL 10 ML 100 MG IV (04:13)
[2025-04-11] MEDS: PROPOFOL 1,000 MG IVPB 1,000 MG/100 ML VIAL 3.351 MG IV (04:29)
--- NOTE | 2025-04-11 04:29 | PD.RESPRO ---
Documentation for date of: 04/11/25 Subjective Subjective Interval history: Patient is a 70 year old male with PMH of developmental delay, bipolar disorder, DM2, L AKA admitted to the ICU for choking-induced pulmonary arrest s/p ROSC. Per caregivers and EMS report, patient was eating an apple when he choked and became unresponsive. When EMS arrived, patient was noted to be agonal, hypoxic at 55% and bradycardic. They were able to clear some food from his mouth. Patient was bagged via NPA. En route, patient lost pulses and CPR was initiated. He was given 1 of epinephrine. ROSC was achieved. Patient was intubated. He was found to be severely hypernatremic at 179. 04/04/2025: Overnight, staff was unable to pass an OG tube. Everytime the patient was turned, food chunks would come out of his mouth. He recieved a total of 2L NS and the following sodium was 135, and recheck was 136. Suspect that initial sodium at 179 may have been a lab error. Patient had SAT and SBT today, then was re-sedated and put on ventilator support for bronchoscopy. During bronchoscopy, there was large food material and mucous that were removed from the right intermdiate and lower lung bronchi, and inflammation in the right upper lobe entry. Plan for endoscopy later today to remove suspected food obstructing the esophagus. 04/05/2025: Endoscopy yesterday showed food material throughout the entire esophagus. An NG tube was placed for decompression with 200cc output overnight. No acute problems overnight. This morning, patient passed SBT and SAT and was extubated. He is awake, agitated but redirectable. He is developmentally delayed and can talk at baseline. Antibiotics discontinued. Remains on low dose levophed, will wean off. CXR shows significant bilateral infiltrate and patient is net positive fluid balance so will give Lasix. After intubation, patient did pull out his NG tube. His abdomen is quite distended and tympanic. KUB shows air throughout the colon. NG tube as reinserted with continuous suction for decompressions. 04/06/2025: Patient remains on 3L NC saturating well without respiratory distress. Will continue antibiotics to complete course for aspiration pneumonia. Patient stomach remains distended, improved. NG tube 200. Had 1 BM. Repeat KUB this morning still shows colonic ileus. Will continue NG tube. Patient to be downgraded today. 04/07/2025: RESIDENTIAL SUBSTANCE ABUSE COUNSELOR was called at 17: 43 soon after which a CODE BLUE was initiated as patient was found with his eyes rolled back shaking and without a pulse. ACLS was initiated with chest compressions and patient underwent 2 rounds of epi, a dose of calcium gluconate and 2 doses of bicarb. Patient had 2 rounds of PEA and he was found to be in V-fib for which she received 200 J of unsynchronized cardioversion and ROSC was achieved. Dr. Llanos intubated the patient and he was moved to the unit. Unclear as for the reason for the arrest at this time. Will work up. 04/08/2025: Patient had witnessed shaking event last night, was given Keppra. EEG was taken. He remains off sedation. This morning, patient opens eyes, tracks, localizes to pain. Failed SBT. CXR taken last night suggests aspiration throughout the right lung. CXR this morning shows improved right upper lung. Will turn patient on his left lung, duonebs, and antibiotics. Point of contact updated. 04/09/2025: Patient doing well this morning. Able to follow commands consistently. Adequate cough and gag reflex intact. Patient underwent spontaneous breathing trial and was successfully weaned to nasal cannula. Requesting this afternoon to be able to drink. However pending formal swallow evaluation at bedside. Patient undergoing chest physiotherapy with percussion and albuterol/saline nebs. 04/10/2025: Patient passed swallow yesterday and was started on purreed diet. Around 11pm patient had episode of hypoxia in the 70s and shaking. He was started on BIPAP with precedex, and keppra. This morning, patient taken off BIPAP and precedex without issue. He is awake, answering simple questions, calm. Sodium improved. Will follow up EEG results and continue Keppra for possible seizures, and recommend BIPAP at night for suspected central sleep apnea. 04/11/2025: Was called in regards to patient having 3 seizure-like episodes and did not have any peripheral access so central line was placed emergently. During central line placement patient had 2 more seizure-like episodes. Seizure-like episodes were full body convulsions lasting close to 30 seconds each time. During the episodes patient became very tachycardic into the 140s and desatted down to the 70s. Due to the frequent episodes of seizures decision was made to reintubate the patient for status epilepticus and to initiate propofol and Versed. Postprocedure x-ray shows right-sided complete whiteout likely secondary to a mucous plug. Patient will benefit from a bronchoscopy in the a.m. ABG pending. Exam Vital Signs Temp Pulse Resp BP Pulse Ox O2 Del Method O2 Flow Rate 97.6 F 87 42 H 121/74 100 BiPAP 40 04/11/25 00:23 04/11/25 04:18 04/11/25 03:10 04/11/25 04:18 04/11/25 04:18 04/11/25 00:23 04/10/25 19:03 FiO2 40 04/11/25 04:18 Narrative Exam Constitutional: Patient is morbidly obese. Was unresponsive prior to central line placement and intubation. Gurgling sounds could be heard. HEENT: NCAT. Unable to assess vision the pupils are equal and reactive Respiratory: decreased breath sounds right lung and coarse breath sounds on the left side. good airway entry otherwise Cardiac: RRR. Abdomen: Soft, non-distended, non-tender. 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 Multiple excortations throughout body in different healing stages. Neuro: Motor and sensation grossly intact. GS 5 RASS -2 Objective Labs 04/11/25 05:48 04/11/25 05:48 Labs: Laboratory Results - last 24 hr 04/10/25 04/10/25 04/11/25 04:53 23:42 03:15 WBC 5.1 RBC 2.47 L Hgb 7.7 L Hct 24.7 L MCV 100 MCH 31.2 MCHC 31.2 RDW Std Deviation 55.4 H Plt Count 63 L Neut % (Auto) 84 H Lymph % (Auto) 8 L [place] % (Auto) 6 Eos % (Auto) 1 Baso % (Auto) 0 Neut # (Auto) 4.3 Lymph # (Auto) 0.4 L [place] # (Auto) 0.3 Eos # (Auto) 0.1 Baso # (Auto) 0.0 Immature Gran # (Auto) 0.04 H Absolute Nucleated RBC 0.03 H Immature Gran % 1 H Nucleated RBC % 1 H Puncture Site Right Radial ABG pH 7.41 ABG pCO2 38 ABG pO2 124 H D ABG HCO3 24 ABG O2 Saturation 99 H ABG Base Excess -1 VBG pH 7.48 VBG pCO2 36 VBG pO2 105 H VBG O2 Sat (Erendira) 99 H VBG Base Excess 3 FiO2 21 Sodium 146 H Potassium 4.0 D Chloride 111 H Carbon Dioxide 26.4 Anion Gap 9 BUN 32 H Creatinine 1.5 H Estim Creat Clear Calc 55.6 L eGFR 50 L BUN/Creatinine Ratio 21 H Glucose 185 H Calculated Osmolality 302 H Calcium 7.9 L Corrected Calcium 8.9 Phosphorus 2.3 L Magnesium 2.1 Total Bilirubin 1.7 H AST 23 ALT 24 Alkaline Phosphatase 68 Total Protein 6.4 Albumin 2.7 L Globulin 3.7 H Albumin/Globulin Ratio 0.7 L Misc Test Result Platelets confirmed ABG Interpretation ABG results: 04/03/25 04/04/25 04/05/25 20:45 04:55 04:00 ABG pH 7.46 H 7.42 7.35 ABG pCO2 37 42 47 ABG pO2 181 H 111 H D 37 L* D ABG HCO3 26 27 H 26 ABG O2 Saturation 99 H 98 66 L ABG Base Excess 2 3 0 VBG pH VBG pCO2 VBG pO2 VBG Base Excess 04/05/25 04/07/25 04/08/25 04:55 19:20 04:20 ABG pH 7.40 7.38 7.46 H ABG pCO2 40 47 45 ABG pO2 136 H D 141 H 108 D ABG HCO3 25 27 H 32 H ABG O2 Saturation 99 H 99 H 98 ABG Base Excess 0 2 7 H VBG pH VBG pCO2 VBG pO2 VBG Base Excess 04/09/25 04/10/25 04/10/25 04:52 00:24 23:42 ABG pH 7.48 H 7.48 H ABG pCO2 40 40 ABG pO2 84 D 197 H D ABG HCO3 30 H 29 H ABG O2 Saturation 98 99 H ABG Base Excess 6 H 6 H VBG pH 7.48 VBG pCO2 36 VBG pO2 105 H VBG Base Excess 3 04/11/25 03:15 ABG pH 7.41 ABG pCO2 38 ABG pO2 124 H D ABG HCO3 24 ABG O2 Saturation 99 H ABG Base Excess -1 VBG pH VBG pCO2 VBG pO2 VBG Base Excess Quality Measures Quality Measures VTE prophylaxis Advance care planning discussed with:: legal surragate Assessment & Plan Assessment Current Active Medications: Generic Name Dose Route Start Last Admin Trade Name Billy PRN Reason Stop Dose Admin Acetaminophen 650 mg 04/07/25 15:23 Acetaminophen 325 Mg Tablet PO 05/03/25 16:21 Q6H PRN Fever >99.5 Dextrose 25 ml 04/03/25 16:33 Dextrose 50%-Water Inj 50 Ml Syringe IV 05/03/25 16:32 Q15MIN PRN BG 50-70 responsive npo pt Dextrose 50 ml 04/03/25 16:33 Dextrose 50%-Water Inj 50 Ml Syringe IV 05/03/25 16:32 Q15MIN PRN BG <50 OR BG <70 & pt unresponsive Etomidate 30 mg 04/11/25 04:11 Etomidate Inj 2 Mg/Ml Vial 10 Ml IVP 04/11/25 04:12 X1 ONE Glucagon 1 mg 04/03/25 16:33 Glucagon Inj 1 Mg Vial IM Q15MIN PRN BG <70, and no IV access Heparin Sodium (Porcine) 5,000 unit 04/03/25 22:00 04/10/25 21:34 Heparin Sod Inj 5000 Unit/Ml Vial SC 04/17/25 21:59 5,000 unit Q8HR MANUEL Administration Vancomycin/Sodium Chloride 200 mls @ 120 mls/hr 04/07/25 10:00 04/10/25 10:35 Vancomycin/Ns 1 Gm Ivpb IV 04/14/25 09:59 120 mls/hr QDAY@1000 MANUEL Administration Protocol Sodium Chloride 1,000 mls @ 100 mls/hr 04/09/25 16:28 04/10/25 23:41 Ns 0.45% IV 05/09/25 16:27 100 mls/hr .Q10H MANUEL Administration Midazolam HCl 100 mg in 100 mls @ 1 mls/hr 04/11/25 04:11 Versed Pf Inj In Ns Premix IV 04/16/25 04:10 .Q24H PRN PER PROTOCOL Protocol 1 MG/HR Propofol 1,000 mg in 100 mls @ 3.351 mls/hr 04/11/25 04:12 Diprivan Ivpb IV 05/11/25 04:11 .Q24H PRN PER PROTOCOL Protocol 5 MCG/KG/MIN Insulin Human Regular 0 unit 04/10/25 11:30 04/10/25 16:52 Insulin Hum Regular 1 Unit/0.01 Ml (Per Unit) SC 05/10/25 11:29 Not Given AC MANUEL Protocol Levetiracetam 1,000 mg 04/10/25 21:00 04/10/25 20:42 Levetiracetam Inj 100 Mg/Ml Vial 5ml IVP 05/10/25 20:59 1,000 mg Q12HR MANUEL Administration Ondansetron HCl 4 mg 04/07/25 14:29 Ondansetron Inj 2 Mg/Ml Inj 2 Ml IV 05/07/25 14:28 Q6H PRN NAUSEA OR VOMITING Protocol Pharmacy Consult 1 each 04/03/25 14:00 Vancomycin Pharmacy To Dose 1 Each Each IV 05/03/25 13:59 QDAY PRN CONSULT Potassium Phos/Sodium Phos 1 packet 04/08/25 21:00 04/10/25 20:49 [facility] 1 Packet (1.5 Gm) PO 05/08/25 20:59 1 packet BID MANUEL Administration Simethicone 80 mg 04/06/25 09:37 Simethicone 80 Mg Chew PO 05/06/25 09:36 QID PRN GAS Sodium Chloride 3 ml 04/04/25 15:24 04/09/25 10:22 Sodium Chloride Rt Jessica 0.9% 3 Ml Nebu INH 05/04/25 15:23 3 ml PRN PRN Administration SOLN Plan Patient is a 70 year old male with PMH of developmental delay, bipolar disorder, DM2, L AKA admitted to the ICU for choking-induced pulmonary arrest 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 RASS score -2 #History of bipolar disorder, developmental delay - Hold home meds CARDIOVASCULAR #Cardiopulmonary arrest s/p resuscitation 04/02/25 Patient had initially been admitted to ICU after an episode of aspiration of large amounts of chicken. He was extubated on 04/05/25 04/07/25 Patient arrested again, likely respiratory arrest from aspiration, see respiratory section 5/11/25: Stable hemodynamically RESPIRATORY #Acute hypoxic respiratory failure and status epilepticus requiring mechanical intubation and ventilation for airway protection Due to choking-induced cardiac arrest. Intubated 04/02 - 04/05/25, successfully extubated but reintubated 04/07-04/09 due to respiratory arrest. Patient at high risk of aspiration due to repeated events leading to respiratory arrest. - Albuterol and normal saline nebs for airway clearance - Plan for chest physiotherapy at least twice daily to the right chest TV 400, RR 22, PEEP 5.0, FiO2 100% with O2 sat at 100 - ABG pending RENAL #Hyperosmolar Hypernatremia, resolved #Lactic acidosis, cleared #Hypophosphatemia, improving - Neutraphos BID; may discontinue once hypophosphatemia improves GI No acute problems OG tube placed ENDO #History of DM2 Patinet takes Basalgar 26 HS, holding off due to euglycemia - ISS - Once patient tolerates PO diet, may restart glargine HEME #Thrombocytopenia - Unclear etiology. Chronic - Heparin for DVT prophylaxis ID #Aspiration pneumonia versus pneumonitis - Vancomycin and Zosyn continue (04/03-04/13) Health Maintenance Disposition: Patient upgraded to ICU level of care mechanical intubation and sedation requirements for status epilepticus Diet and fluids: Will initiate feeds in the a.m. DVT prophylaxis: heparin GI prophylaxis: Protonix 40 IV daily Lines: Right IJ central line CODE STATUS: FULL - patient is conserved with CRV. Recommend goals of care with [facility] Plan of care discussed with supervising attending Dr. Angus Moses M.D. PGY-3 Attending Provider Attestation/Addendum Pt was evaluated and plan formulated together with the housestaff team. I have reviewed the residents note above and agree with most of its content. Please refer to the residents note for additional details.
[2025-04-11] MEDS: MIDAZOLAM/NS 100 MG IVPB 100 MG/100 ML BAG IV (04:30)
--- NOTE | 2025-04-11 04:31 | PD.EDADDENDU ---
Emergency Room Addendum Addendum Narrative: I was called to supervise an intubation procedure for room 257 at 0402. Procedure began at 0412 and was successfully completed by resident at 0415. Refer to resident's procedure note for full details.
--- NOTE | 2025-04-11 04:44 | PD.RESPROC ---
Procedures Procedure Date / Time 04/11/25 0444 Procedural Time Out Time out performed: Yes Intubation Indication(s): acute Resp Failure and inability to protect airway Informed consent obtained: procedure done urgently Time out done, and the following verified: correct patient, side and site, procedure, patient position and implants and/or equipment Sedative: etomidate Mg given: 30 Sedative #2: none Paralytic: rocuronium Mg given: 100 Laryngoscope: fiber optic video scope Assist device used: fiber optic device ET tube size: 7.5 ET tube uncuffed: Yes Tube secured depth (cm): 23 Tube secured location: lips Tube placement confirmation: visualized tube passing through cords, no breath sounds over epigastrium and confirmation by capnometry Patient tolerated procedure: well EBL(ml): 0 Intubation complications: none Additional comments: Procedure done under the direct supervision of my attending, Dr. Horner. Sierra Jansen PGY1
[2025-04-11] MEDS: PANTOPRAZOLE INJ 40 MG VIAL IV ×2 (04:45→08:49)
--- NOTE | 2025-04-11 04:51 | PD.RESPROC ---
Procedures Procedure Date / Time 04/11/25 0451 Procedure Narrative Procedure Narrative: Attending Attestation: I was not present at the time of procedure but agree with plan of care as documented. Follow up chest xray shows adequate placement with no post procedure PTX. Central Line Placement Right IJ: Indication(s): poor, or inadequate peripheral venous access Informed consent obtained: procedure done urgently Time out done, and the following verified: correct patient, side and site, procedure, patient position and implants and/or equipment Patient placed on monitor/pulse ox: Yes Hand Hygiene: scrub and alcohol-based hand rub Max Sterile Barrier Techniques used: cap, mask, sterile gown, sterile gloves and sterile full body drape Central line prep: Povidone-Iodine 1% and sterile drapes applied Local anesthesia used: lidocaine 1% Amount of anesthesia used (mL): 5 Ultrasound used for placement: Yes Sterile Technique if Ultrasound used, including sterile gel: yes Central line lumen inserted: triple Post procedure: sutured in place, good blood return, all ports aspirated, flushed, capped and sterile dressing applied Post procedure x-ray: tip of catheter in good position and no pneumothorax seen Patient tolerated procedure: well and no complications EBL(ml): 10 Complications: none
[2025-04-11 05:13] LABS: Base Excess 1 (-3-3); HCO3 26 mEq/L (20-26); Inspired Oxygen, FIO2 100 %; O2 Saturation 98 % (91-98); PCO2 41 mmHg (32.0-48.0); PO2 91 mmHg (83-108); pH, Arterial 7.41 (7.35-7.45)
[2025-04-11 05:24] LABS: Allen Test Not Performed; Puncture Site Left Radial
[2025-04-11 06:08] LABS: Lactate (Lactic Acid) 1.6 mMol/L (0.4-2.0)
[2025-04-11 06:19] LABS: Basophils % (Auto) 0 % (0-2.5); Eosinophils # (Auto) 0.2 Thou/mm3 (0.0-0.5); Eosinophils % (Auto) 3 % (0-10); Hematocrit 25.4 % (41.0-53.0); Immature Granulocytes % (Auto) 1 % (0-0); Immature Granulocytes Auto 0.08 Thou/mm3 (0.00-0.00); Lymphocytes # (Auto) 0.4 Thou/mm3 (1.0-4.8); Lymphocytes % (Auto) 6 % (10-50); Mean Corpuscular HGB Conc 31.9 g/dl (31.0-37.0); Mean Corpuscular Hemoglobin 31.3 pg (25.0-35.0); Mean Corpuscular Volume 98 fL (80-100); Monocytes # (Auto) 0.3 Thou/mm3 (0.0-0.8); Monocytes % (Auto) 4 % (0-12); Neutrophils # (Auto) 6.1 Thou/mm3 (1.8-7.7); Neutrophils % (Auto) 86 % (37-80); Nucleated Red Blood Cell % 0 /100 WBC (0); Platelet Count 81 Thou/mm3 (140-440); RDW Standard Deviation 54.1 fL (35.1-43.9); Red Blood Count 2.59 Miln/mm3 (4.50-5.90); White Blood Count 7.1 Thou/mm3 (3.8-10.6)
[2025-04-11 06:22] LABS: Hemoglobin 8.1 g/dL (13.5-16.0)
[2025-04-11] MEDS: HEPARIN SOD INJ 5000 UNIT/ML VIAL SC ×3 (06:24→21:39)
[2025-04-11 06:42] LABS: Alanine Aminotransferase 23 U/L (10-49); Albumin, Serum 2.9 gm/dL (3.4-4.8); Albumin/Globulin Ratio 0.8 (1.2-2.2); Alkaline Phosphatase 65 U/L (46-116); Anion Gap 8 (7-16); Aspartate Amino Transferase 20 U/L (0-34); BUN/Creatinine Ratio 19 Ratio (12-20); Bilirubin,Total 2.1 mg/dL (0.3-1.2); Blood Urea Nitrogen 25 mg/dL (9-23); Calcium (Corrected) 8.9 mg/dL (8.5-10.1); Carbon Dioxide 26.5 mMol/L (20.0-31.0); Chloride 110 mMol/L (98-107); Creatinine (Component) 1.3 mg/dL (0.6-1.3); Estimated Creatinine Clearance 64.1 mL/min (>60); Globulin 3.8 gm/dL (2.3-3.5); Glucose 153 mg/dL (74-106); Magnesium 1.7 mg/dL (1.6-2.6); Osmolality,Calculated 294 (275-295); Phosphorous 2.7 mg/dL (2.4-5.1); Potassium 3.6 mMol/L (3.4-5.1); Sodium 144 mMol/L (136-145); Total Protein 6.7 gm/dL (5.7-8.2); eGFR 59 See Note
[2025-04-11] MEDS: levETIRAcetam INJ 100 MG/ML VIAL 5ML 1000 MG IVP ×2 (08:49→21:39)
[2025-04-11] MEDS: NAPH,KPH MBDB 1 PACKET (1.5 GM) PO ×2 (08:50→21:39)
[2025-04-11 09:53] LABS: Vancomycin,Trough 16.2 mcg/mL (5.0-10.0)
[2025-04-11] MEDS: LIDOCAINE HCL 1% 20 ML VIAL 8 ML INFL (10:40)
--- NOTE | 2025-04-11 10:54 | ESOP_ITS ---
<Statement entered by Heather Martínez MD - 04/12/25 10:50> I was present for the critical and bruce portions of the procedure and was immediately available to provide assistance. Procedures Procedure Date / Time 04/11/25 1054 Bronchoscopy Bronscopy indication(s): removal of secretions and diagnostic BAL Informed consent obtained from: surrogate Time out done and the following verified: correct patient and procedure Oxygen delivery: via mechanical vent. Andree: other (mucupurulent secretions at right mainstem entry) RUL & subsegmental branches: purulent secretions and inflammation RML & subsegmental branches: purulent secretions and inflammation RLL & subsegmental branches: purulent secretions, inflammation and other (abnormal mucosa in the right lower lub superior subsegment, encroaching the lumen.) ORTEGA & subsegmental branches: mucosa appears normal LLL & subsegmental branches: mucosa appears normal Bronchoalveolar lavage: 60cc of NS used to obtain BAL from the R lower lobe. EBL: 0 Patient tolerated procedure: well Complications: No Procedure comment: A total of 8cc of Lidocaine was injected in the ETT tube. Mucopurulent secretions noted at the R mainstem entry, the right upper, middle, and lower lobe. In the right intermedius superior submental entry, there was abnormal mucosa encroaching the lumen. The bronchoscope was wedged in the RLL and a BAL was obtained. It was varela-colored and mucopurulent fluid. The sample was sent for cytology. Procedure done by attending Dr. Martínez, and Dr. Su PGY-3 Jane Su MD PGY-3
--- NOTE | 2025-04-11 11:18 | ESPR_ITS ---
<Statement entered by Heather Martínez MD - 04/12/25 10:52> TOTAL CC TIME: 45 MIN I saw and evaluated the patient. I reviewed the resident?s note and agree with findings and plan as documented in the resident?s note. Upon my evaluation, this patient had a high probability of imminent or life- threatening deterioration due to acute hypoxic respiratory failure, recurring seizures which required my direct attention, intervention, and personal management. This time is exclusive of time spent on procedures, which are documented separately if performed. Full lung collapse. Thick purulent secretions suctioned on bronchoscopy. Await bronchoalveolar lavage and continue antibiotics. Patient is not in condition for a spontaneous breathing trial. Seizures are being managed with Versed and Keppra. If continued seizures are identified we may have to add a second agent. Neurology was consulted. Renal function improving Documentation for date of: 04/11/25 Subjective Subjective Interval history: Patient is a 70 year old male with PMH of developmental delay, bipolar disorder, DM2, L AKA admitted to the ICU for choking-induced pulmonary arrest s/p ROSC. Per caregivers and EMS report, patient was eating an apple when he choked and became unresponsive. When EMS arrived, patient was noted to be agonal, hypoxic at 55% and bradycardic. They were able to clear some food from his mouth. Patient was bagged via NPA. En route, patient lost pulses and CPR was initiated. He was given 1 of epinephrine. ROSC was achieved. Patient was intubated. He was found to be severely hypernatremic at 179. 04/04/2025: Overnight, staff was unable to pass an OG tube. Everytime the patient was turned, food chunks would come out of his mouth. He recieved a total of 2L NS and the following sodium was 135, and recheck was 136. Suspect that initial sodium at 179 may have been a lab error. Patient had SAT and SBT today, then was re-sedated and put on ventilator support for bronchoscopy. During bronchoscopy, there was large food material and mucous that were removed from the right intermdiate and lower lung bronchi, and inflammation in the right upper lobe entry. Plan for endoscopy later today to remove suspected food obstructing the esophagus. 04/05/2025: Endoscopy yesterday showed food material throughout the entire esophagus. An NG tube was placed for decompression with 200cc output overnight. No acute problems overnight. This morning, patient passed SBT and SAT and was extubated. He is awake, agitated but redirectable. He is developmentally delayed and can talk at baseline. Antibiotics discontinued. Remains on low dose levophed, will wean off. CXR shows significant bilateral infiltrate and patient is net positive fluid balance so will give Lasix. After intubation, patient did pull out his NG tube. His abdomen is quite distended and tympanic. KUB shows air throughout the colon. NG tube as reinserted with continuous suction for decompressions. 04/06/2025: Patient remains on 3L NC saturating well without respiratory distress. Will continue antibiotics to complete course for aspiration pneumonia. Patient stomach remains distended, improved. NG tube 200. Had 1 BM. Repeat KUB this morning still shows colonic ileus. Will continue NG tube. Patient to be downgraded today. 04/07/2025: [employer] was called at 17: 43 soon after which a CODE BLUE was initiated as patient was found with his eyes rolled back shaking and without a pulse. ACLS was initiated with chest compressions and patient underwent 2 rounds of epi, a dose of calcium gluconate and 2 doses of bicarb. Patient had 2 rounds of PEA and he was found to be in V-fib for which she received 200 J of unsynchronized cardioversion and ROSC was achieved. Dr. Llanos intubated the patient and he was moved to the unit. Unclear as for the reason for the arrest at this time. Will work up. 04/08/2025: Patient had witnessed shaking event last night, was given Keppra. EEG was taken. He remains off sedation. This morning, patient opens eyes, tracks, localizes to pain. Failed SBT. CXR taken last night suggests aspiration throughout the right lung. CXR this morning shows improved right upper lung. Will turn patient on his left lung, duonebs, and antibiotics. Point of contact updated. 04/09/2025: Patient doing well this morning. Able to follow commands consistently. Adequate cough and gag reflex intact. Patient underwent spontaneous breathing trial and was successfully weaned to nasal cannula. Requesting this afternoon to be able to drink. However pending formal swallow evaluation at bedside. Patient undergoing chest physiotherapy with percussion and albuterol/saline nebs. 04/10/2025: Patient passed swallow yesterday and was started on purreed diet. Around 11pm patient had episode of hypoxia in the 70s and shaking. He was started on BIPAP with precedex, and keppra. This morning, patient taken off BIPAP and precedex without issue. He is awake, answering simple questions, calm. Sodium improved. Will follow up EEG results and continue Keppra for possible seizures, and recommend BIPAP at night for suspected central sleep apnea. 04/11/2025: Was called in regards to patient having 3 seizure-like episodes and did not have any peripheral access so central line was placed emergently. During central line placement patient had 2 more seizure-like episodes. Seizure-like episodes were full body convulsions lasting close to 30 seconds each time. During the episodes patient became very tachycardic into the 140s and desatted down to the 70s. Due to the frequent episodes of seizures decision was made to reintubate the patient for status epilepticus and to initiate propofol and Versed. Postprocedure x-ray shows right-sided complete whiteout likely secondary to a mucous plug. Patient will benefit from a bronchoscopy in the a.m. ABG pending. 04/12/2025: No further witnessed seizures noted. Patient had bronchoscopy today to clear mucus secretions. There was significant mucopurulent secretions throughout the right upper, middle, and lower lobe entry and subsegmental takeoffs. A BAL was obtained. Abnormal mucosa was noted in the R intermedius superior subsegmental takeoff - biopsy was not obtained due to limited resources. Patient tolerated the procedure well. Due to recurrent aspirations, patient may benefit from tracheostomy. Regarding patient's seizures, will continue Keppra, get EEG, and reach out to neurology. Exam Vital Signs Temp Pulse Resp BP Pulse Ox O2 Del Method O2 Flow Rate 97.7 F 83 8 L 112/78 100 Mechanical Ventilation 15 04/11/25 08:00 04/11/25 09:00 04/11/25 04:15 04/11/25 09:00 04/11/25 09:00 04/11/25 08:00 04/11/25 04:11 FiO2 80 04/11/25 08:00 Narrative Exam Constitutional: NAD, sedated. HEENT: NCAT. Intubated. Respiratory: Decreased/minimal breath sounds right lung. Cardiac: RRR. Abdomen: Soft, non-distended, non-tender. No guarding, no rebound. MSK: trace RL edema. 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 Multiple excortations throughout body in different healing stages. Neuro: Arousable. [id number] Objective Labs 04/12/25 05:13 04/12/25 05:13 Labs: Laboratory Results - last 24 hr 04/10/25 04/11/25 04/11/25 23:42 03:15 04:57 WBC RBC Hgb Hct MCV MCH MCHC RDW Std Deviation Plt Count Neut % (Auto) Lymph % (Auto) [place] % (Auto) Eos % (Auto) Baso % (Auto) Neut # (Auto) Lymph # (Auto) [place] # (Auto) Eos # (Auto) Baso # (Auto) Immature Gran # (Auto) Absolute Nucleated RBC Immature Gran % Nucleated RBC % Puncture Site Right Radial Left Radial ABG pH 7.41 7.41 ABG pCO2 38 41 ABG pO2 124 H D 91 D ABG HCO3 24 26 ABG O2 Saturation 99 H 98 ABG Base Excess -1 1 VBG pH 7.48 VBG pCO2 36 VBG pO2 105 H VBG O2 Sat (Erendira) 99 H VBG Base Excess 3 FiO2 21 100 Sodium Potassium Chloride Carbon Dioxide Anion Gap BUN Creatinine Estim Creat Clear Calc eGFR BUN/Creatinine Ratio Glucose Estimated Ave Glu mg/dL Hemoglobin A1c Calculated Osmolality Lactic Acid Calcium Corrected Calcium Phosphorus Magnesium Total Bilirubin AST ALT Alkaline Phosphatase Total Protein Albumin Globulin Albumin/Globulin Ratio Vancomycin Trough 04/11/25 04/11/25 05:48 09:00 WBC 7.1 RBC 2.59 L Hgb 8.1 L Hct 25.4 L MCV 98 MCH 31.3 MCHC 31.9 RDW Std Deviation 54.1 H Plt Count 81 L D Neut % (Auto) 86 H Lymph % (Auto) 6 L [place] % (Auto) 4 Eos % (Auto) 3 Baso % (Auto) 0 Neut # (Auto) 6.1 Lymph # (Auto) 0.4 L [place] # (Auto) 0.3 Eos # (Auto) 0.2 Baso # (Auto) 0.0 Immature Gran # (Auto) 0.08 H Absolute Nucleated RBC 0.00 Immature Gran % 1 H Nucleated RBC % 0 Puncture Site ABG pH ABG pCO2 ABG pO2 ABG HCO3 ABG O2 Saturation ABG Base Excess VBG pH VBG pCO2 VBG pO2 VBG O2 Sat (Erendira) VBG Base Excess FiO2 Sodium 144 Potassium 3.6 Chloride 110 H Carbon Dioxide 26.5 Anion Gap 8 BUN 25 H Creatinine 1.3 Estim Creat Clear Calc 64.1 eGFR 59 L BUN/Creatinine Ratio [address] Glu mg/dL Cancelled Hemoglobin A1c Cancelled Calculated Osmolality 294 Lactic Acid 1.6 Calcium 8.0 L Corrected Calcium 8.9 Phosphorus 2.7 Magnesium 1.7 Total Bilirubin 2.1 H AST 20 ALT 23 Alkaline Phosphatase 65 Total Protein 6.7 Albumin 2.9 L Globulin 3.8 H Albumin/Globulin Ratio 0.8 L Vancomycin Trough 16.2 H ABG Interpretation ABG results: 04/03/25 04/04/25 04/05/25 20:45 04:55 04:00 ABG pH 7.46 H 7.42 7.35 ABG pCO2 37 42 47 ABG pO2 181 H 111 H D 37 L* D ABG HCO3 26 27 H 26 ABG O2 Saturation 99 H 98 66 L ABG Base Excess 2 3 0 VBG pH VBG pCO2 VBG pO2 VBG Base Excess 04/05/25 04/07/25 04/08/25 04:55 19:20 04:20 ABG pH 7.40 7.38 7.46 H ABG pCO2 40 47 45 ABG pO2 136 H D 141 H 108 D ABG HCO3 25 27 H 32 H ABG O2 Saturation 99 H 99 H 98 ABG Base Excess 0 2 7 H VBG pH VBG pCO2 VBG pO2 VBG Base Excess 04/09/25 04/10/25 04/10/25 04:52 00:24 23:42 ABG pH 7.48 H 7.48 H ABG pCO2 40 40 ABG pO2 84 D 197 H D ABG HCO3 30 H 29 H ABG O2 Saturation 98 99 H ABG Base Excess 6 H 6 H VBG pH 7.48 VBG pCO2 36 VBG pO2 105 H VBG Base Excess 3 04/11/25 04/11/25 03:15 04:57 ABG pH 7.41 7.41 ABG pCO2 38 41 ABG pO2 124 H D 91 D ABG HCO3 24 26 ABG O2 Saturation 99 H 98 ABG Base Excess -1 1 VBG pH VBG pCO2 VBG pO2 VBG Base Excess Quality Measures Quality Measures VTE prophylaxis Advance care planning discussed with:: legal surragate Assessment & Plan Assessment Current Active Medications: Generic Name Dose Route Start Last Admin Trade Name Frejose angel PRN Reason Stop Dose Admin Acetaminophen 650 mg 04/07/25 15:23 Acetaminophen 325 Mg Tablet PO 05/03/25 16:21 Q6H PRN Fever >99.5 Dextrose 25 ml 04/03/25 16:33 Dextrose 50%-Water Inj 50 Ml Syringe IV 05/03/25 16:32 Q15MIN PRN BG 50-70 responsive npo pt Dextrose 50 ml 04/03/25 16:33 Dextrose 50%-Water Inj 50 Ml Syringe IV 05/03/25 16:32 Q15MIN PRN BG <50 OR BG <70 & pt unresponsive Glucagon 1 mg 04/03/25 16:33 Glucagon Inj 1 Mg Vial IM Q15MIN PRN BG <70, and no IV access Heparin Sodium (Porcine) 5,000 unit 04/03/25 22:00 04/11/25 06:24 Heparin Sod Inj 5000 Unit/Ml Vial SC 04/17/25 21:59 5,000 unit Q8HR MANUEL Administration Vancomycin/Sodium Chloride 200 mls @ 120 mls/hr 04/07/25 10:00 04/10/25 10:35 Vancomycin/Ns 1 Gm Ivpb IV 04/14/25 09:59 120 mls/hr QDAY@1000 MANUEL Administration Protocol Sodium Chloride 1,000 mls @ 100 mls/hr 04/09/25 16:28 04/10/25 23:41 Ns 0.45% IV 05/09/25 16:27 100 mls/hr .Q10H MANUEL Administration Midazolam HCl 100 mg in 100 mls @ 1 mls/hr 04/11/25 04:11 04/11/25 09:00 Versed Pf Inj In Ns Premix IV 04/16/25 04:10 1 mg/hr .Q24H PRN 1 mls/hr PER PROTOCOL Titration Protocol 1 MG/HR Propofol 1,000 mg in 100 mls @ 3.351 mls/hr 04/11/25 04:12 04/11/25 09:00 Diprivan Ivpb IV 05/11/25 04:11 10 mcg/kg/min .Q24H PRN 6.702 mls/hr PER PROTOCOL Titration Protocol 5 MCG/KG/MIN Insulin Human Regular 0 unit 04/11/25 06:00 04/11/25 06:23 Insulin Hum Regular 1 Unit/0.01 Ml (Per Unit) SC 05/11/25 05:59 Not Given Q6HR MANUEL Protocol Levetiracetam 1,000 mg 04/10/25 21:00 04/11/25 08:49 Levetiracetam Inj 100 Mg/Ml Vial 5ml IVP 05/10/25 20:59 1,000 mg Q12HR MANUEL Administration Ondansetron HCl 4 mg 04/07/25 14:29 Ondansetron Inj 2 Mg/Ml Inj 2 Ml IV 05/07/25 14:28 Q6H PRN NAUSEA OR VOMITING Protocol Pantoprazole Sodium 40 mg 04/11/25 04:40 04/11/25 08:49 Pantoprazole Inj 40 Mg Vial IV 05/11/25 04:39 40 mg QDAY MANUEL Administration Pharmacy Consult 1 each 04/03/25 14:00 Vancomycin Pharmacy To Dose 1 Each Each IV 05/03/25 13:59 QDAY PRN CONSULT Potassium Phos/Sodium Phos 1 packet 04/08/25 21:00 04/11/25 08:50 [facility] 1 Packet (1.5 Gm) PO 05/08/25 20:59 1 packet BID MANUEL Administration Simethicone 80 mg 04/06/25 09:37 Simethicone 80 Mg Chew PO 05/06/25 09:36 QID PRN GAS Sodium Chloride 3 ml 04/04/25 15:24 04/09/25 10:22 Sodium Chloride Rt Jessica 0.9% 3 Ml Nebu INH 05/04/25 15:23 3 ml PRN PRN Administration SOLN Plan Patient is a 70 year old male with PMH of developmental delay, bipolar disorder, DM2, L AKA admitted to the ICU for choking-induced pulmonary arrest s/p ROSC. POULTRY SEXER Problem: Acute encephalopathy DDX: seizures, status epilepticus DX: EEG RX: Keppra 1000mg BID, propofol and versed ggt RRX: Currently on Keppra. If patient has breakthrough seizures, will give versed/ativan. Currently on propofol, versed drip. Will follow up with neurologist Dr. Wilson. CARDIOVASCULAR Cardiopulmonary arrest s/p resuscitation, resolved RESPIRATORY Problem: Acute hypoxic respiratory failure DDX: aspiration pneumonitis/pneumonia, mucus plugging, recurrent aspiration due to inability to protect airway during seizures DX: bronchoscopy, VBG RX: Chest PT on R side, IV antibiotics, continue ventilator to maintain lung protective measures, albuterol and normal saline nebulizers for airway clearance RRX: Will follow up with VBG post-bronchoscopy. RENAL Hyperosmolar Hypernatremia, resolved Lactic acidosis, resolved Hypophosphatemia, improving - Neutraphos BID; may discontinue once hypophosphatemia improves GI No acute problems OG tube placed ENDO Problem: History of DM2 DDX: DX: blood sugar checks Q6H RX: ISS Q6H RRX: Patient euglycemic. If hyperglycemic, will start basal insulin. HEME Problem: Thrombocytopenia DDX: medication side effect, acute illness DX: RX: RRX: If continues to drop, will hold heparin for DVT prophylaxis and review medications for potential culprit. ID Problem: Aspiration pneumonia/pneumonitis DDX: GNR, GPC DX: BAL cytology RX: Vancomycin and Zosyn (04/13- RRX: Follow up BAL cytology and narrow antibiotics appropriately. Health Maintenance Disposition: Patient upgraded to ICU level of care mechanical intubation and sedation requirements for status epilepticus Diet and fluids: tube feeds, Glucerna 1.2 DVT prophylaxis: heparin GI prophylaxis: Protonix 40 IV daily Lines: Right IJ central line, PIV, ET, OG CODE STATUS: FULL - patient is conserved with CRV. I have reviewed and discussed the patient's care with my attending, Dr. Martínez, Jane Su MD PGY-3
[2025-04-11] MEDS: VANCOMYCIN/NS 1 GM IVPB 200 ML IV (12:46)
[2025-04-11 12:51] LABS: Base Excess, Venous 3 (-3-3); O2 Saturation, Venous 69 % (96-97); PCO2, Venous 47 mmHg (36-56); PO2, Venous 39 mmHg (15-58); pH, Venous 7.39 (7.33-7.66)
--- NOTE | 2025-04-11 13:30 | ESPR_ITS ---
Documentation for date of: 04/11/25 Subjective Subjective Interval history: Patient reintubated because of seizures As per the internal medicine team bronchoscopy done in April with 80 something in the right lung questionable malignancy Exam Vital Signs Temp Pulse Resp BP Pulse Ox O2 Del Method O2 Flow Rate 97.7 F 77 8 L 126/98 H 100 Mechanical Ventilation 15 04/11/25 08:00 04/11/25 11:01 04/11/25 04:15 04/11/25 11:01 04/11/25 11:01 04/11/25 10:50 04/11/25 04:11 FiO2 80 04/11/25 10:50 Objective Labs 04/11/25 05:48 04/11/25 05:48 Labs: Laboratory Results - last 24 hr 04/10/25 04/11/25 04/11/25 23:42 03:15 04:57 WBC RBC Hgb Hct MCV MCH MCHC RDW Std Deviation Plt Count Neut % (Auto) Lymph % (Auto) [place] % (Auto) Eos % (Auto) Baso % (Auto) Neut # (Auto) Lymph # (Auto) [place] # (Auto) Eos # (Auto) Baso # (Auto) Immature Gran # (Auto) Absolute Nucleated RBC Immature Gran % Nucleated RBC % Puncture Site Right Radial Left Radial ABG pH 7.41 7.41 ABG pCO2 38 41 ABG pO2 124 H D 91 D ABG HCO3 24 26 ABG O2 Saturation 99 H 98 ABG Base Excess -1 1 VBG pH 7.48 VBG pCO2 36 VBG pO2 105 H VBG O2 Sat (Erendira) 99 H VBG Base Excess 3 FiO2 21 100 Sodium Potassium Chloride Carbon Dioxide Anion Gap BUN Creatinine Estim Creat Clear Calc eGFR BUN/Creatinine Ratio Glucose Estimated Ave Glu mg/dL Hemoglobin A1c Calculated Osmolality Lactic Acid Calcium Corrected Calcium Phosphorus Magnesium Total Bilirubin AST ALT Alkaline Phosphatase Total Protein Albumin Globulin Albumin/Globulin Ratio Vancomycin Trough 04/11/25 04/11/25 04/11/25 05:48 09:00 12:32 WBC 7.1 RBC 2.59 L Hgb 8.1 L Hct 25.4 L MCV 98 MCH 31.3 MCHC 31.9 RDW Std Deviation 54.1 H Plt Count 81 L D Neut % (Auto) 86 H Lymph % (Auto) 6 L [place] % (Auto) 4 Eos % (Auto) 3 Baso % (Auto) 0 Neut # (Auto) 6.1 Lymph # (Auto) 0.4 L [place] # (Auto) 0.3 Eos # (Auto) 0.2 Baso # (Auto) 0.0 Immature Gran # (Auto) 0.08 H Absolute Nucleated RBC 0.00 Immature Gran % 1 H Nucleated RBC % 0 Puncture Site ABG pH ABG pCO2 ABG pO2 ABG HCO3 ABG O2 Saturation ABG Base Excess VBG pH 7.39 VBG pCO2 47 D VBG pO2 39 D VBG O2 Sat (Erendira) 69 L D VBG Base Excess 3 FiO2 Sodium 144 Potassium 3.6 Chloride 110 H Carbon Dioxide 26.5 Anion Gap 8 BUN 25 H Creatinine 1.3 Estim Creat Clear Calc 64.1 eGFR 59 L BUN/Creatinine Ratio [address] Glu mg/dL Cancelled Hemoglobin A1c Cancelled Calculated Osmolality 294 Lactic Acid 1.6 Calcium 8.0 L Corrected Calcium 8.9 Phosphorus 2.7 Magnesium 1.7 Total Bilirubin 2.1 H AST 20 ALT 23 Alkaline Phosphatase 65 Total Protein 6.7 Albumin 2.9 L Globulin 3.8 H Albumin/Globulin Ratio 0.8 L Vancomycin Trough 16.2 H Impressions Impression: Seizure disorder patient intubated to protect the airway and possibly also due to underlying respiratory failure Continue current management ABG Interpretation ABG results: 04/03/25 04/04/25 04/05/25 20:45 04:55 04:00 ABG pH 7.46 H 7.42 7.35 ABG pCO2 37 42 47 ABG pO2 181 H 111 H D 37 L* D ABG HCO3 26 27 H 26 ABG O2 Saturation 99 H 98 66 L ABG Base Excess 2 3 0 VBG pH VBG pCO2 VBG pO2 VBG Base Excess 04/05/25 04/07/25 04/08/25 04:55 19:20 04:20 ABG pH 7.40 7.38 7.46 H ABG pCO2 40 47 45 ABG pO2 136 H D 141 H 108 D ABG HCO3 25 27 H 32 H ABG O2 Saturation 99 H 99 H 98 ABG Base Excess 0 2 7 H VBG pH VBG pCO2 VBG pO2 VBG Base Excess 04/09/25 04/10/25 04/10/25 04:52 00:24 23:42 ABG pH 7.48 H 7.48 H ABG pCO2 40 40 ABG pO2 84 D 197 H D ABG HCO3 30 H 29 H ABG O2 Saturation 98 99 H ABG Base Excess 6 H 6 H VBG pH 7.48 VBG pCO2 36 VBG pO2 105 H VBG Base Excess 3 04/11/25 04/11/25 04/11/25 03:15 04:57 12:32 ABG pH 7.41 7.41 ABG pCO2 38 41 ABG pO2 124 H D 91 D ABG HCO3 24 26 ABG O2 Saturation 99 H 98 ABG Base Excess -1 1 VBG pH 7.39 VBG pCO2 47 D VBG pO2 39 D VBG Base Excess 3 Assessment & Plan A&P Narrative # Foreign body obstruction esophagus # Status post cardiopulmonary arrest ROSC # Developmentally delayed # Diabetes mellitus type 2 # Status post AKA left Plan Consent obtained for fiberoptic esophagogastro duodenoscopy with therapeutic intervention under intravenous moderate sedation we will proceed with the procedure thank you very much for the opportunity to participate in care of this patient Time Spent With Patient Time: Total time spent is greater than 50% in coordination of care (as documented) at patient's floor/unit and/or counseling patient:
[2025-04-11] MEDS: PROPOFOL 1,000 MG IVPB 1,000 MG/100 ML VIAL 13.404 MG IV (15:28)
--- NOTE | 2025-04-11 17:25 | RESP.EEG ---
eeg completed and ready to be read
--- NOTE | 2025-04-11 23:54 | PD.NEUROCONS ---
History of Present Illness Data of Consult Requesting Physician: Tamy Merritt MD Primary Care Provider: Physician No Primary/Family Consult Narrative cc:: cc: Tamy Merritt MD Meds Home Medications and Allergies Home Medications ?Medication ?Instructions ?Recorded ?Confirmed ?Type amlodipine 10 mg tablet 10 mg PO QDAY 10/02/20 01/24/24 History lorazepam 0.5 mg tablet 0.5 mg PO TID PRN Anxiety 10/02/20 01/24/24 History lurasidone 40 mg tablet 40 mg PO QDAY 10/02/20 01/24/24 History melatonin 5 mg tablet 5 mg PO HS 10/02/20 01/24/24 History paroxetine HCl 20 mg tablet 20 mg PO QDAY 10/02/20 01/24/24 History quetiapine 100 mg tablet 200 mg PO HS 10/02/20 01/24/24 History cyanocobalamin (vitamin B-12) 1,000 mcg PO QDAY 10/03/20 01/24/24 History 1,000 mcg tablet (Vitamin B-12) docusate sodium 50 mg/5 mL oral 25 ml PO BID 10/03/20 01/24/24 History liquid folic acid 1 mg tablet 1 mg PO QDAY 10/03/20 01/24/24 History insulin glargine 100 unit/mL (3 26 unit subcut HS 10/03/20 01/24/24 History mL) subcutaneous pen (Basaglar KwikPen U-100 Insulin) polyethylene glycol 3350 17 gram 17 g PO QDAY 10/03/20 01/24/24 History oral powder packet (Miralax) omeprazole 20 mg tablet,delayed 20 mg PO BID 05/16/21 01/24/24 History release quetiapine 100 mg tablet 100 mg PO QDAY 05/16/21 01/24/24 History trazodone 50 mg tablet 200 mg PO QDAY 05/16/21 01/24/24 History insulin lispro 100 unit/mL See Protocol subcut USEASDIRECTD 03/08/22 01/24/24 History subcutaneous solution (Humalog PRN Hyperglycemia U-100 Insulin) finasteride 5 mg tablet 5 mg PO QDAY 07/19/22 01/24/24 History tamsulosin 0.4 mg capsule 0.8 mg PO QHS 07/19/22 01/24/24 History Allergies Allergy/AdvReac Type Severity Reaction Status Date / Time No Known Allergies Allergy Verified 04/03/25 13:52 Exam - Neurology Vital Signs Temp Pulse Resp BP Pulse Ox O2 Del Method O2 Flow Rate 97.6 F 81 8 L 119/79 100 Mechanical Ventilation 15 04/11/25 20:00 04/11/25 22:16 04/11/25 04:15 04/11/25 22:16 04/11/25 22:16 04/11/25 20:00 04/11/25 04:11 FiO2 40 04/11/25 22:16 Results Labs 04/11/25 05:48 04/11/25 05:48 Labs: Short CBC 04/11/25 Range/Units 05:48 WBC 7.1 (3.8-10.6) Thou/mm3 Hgb 8.1 L (13.5-16.0) g/dL Hct 25.4 L (41.0-53.0) % Plt Count 81 L D (140-440) Thou/mm3 BMP 04/11/25 05:48 Sodium 144 Potassium 3.6 Chloride 110 H Carbon Dioxide 26.5 BUN 25 H Creatinine 1.3 Glucose 153 H Calcium 8.0 L Liver Function 04/11/25 Range/Units 05:48 Total Bilirubin 2.1 H (0.3-1.2) mg/dL AST 20 (0-34) U/L ALT 23 (10-49) U/L Alkaline Phosphatase 65 (46-116) U/L Albumin 2.9 L (3.4-4.8) gm/dL ABG Interpretation ABG results: 04/03/25 04/04/25 04/05/25 20:45 04:55 04:00 ABG pH 7.46 H 7.42 7.35 ABG pCO2 37 42 47 ABG pO2 181 H 111 H D 37 L* D ABG HCO3 26 27 H 26 ABG O2 Saturation 99 H 98 66 L ABG Base Excess 2 3 0 VBG pH VBG pCO2 VBG pO2 VBG Base Excess 04/05/25 04/07/25 04/08/25 04:55 19:20 04:20 ABG pH 7.40 7.38 7.46 H ABG pCO2 40 47 45 ABG pO2 136 H D 141 H 108 D ABG HCO3 25 27 H 32 H ABG O2 Saturation 99 H 99 H 98 ABG Base Excess 0 2 7 H VBG pH VBG pCO2 VBG pO2 VBG Base Excess 04/09/25 04/10/25 04/10/25 04:52 00:24 23:42 ABG pH 7.48 H 7.48 H ABG pCO2 40 40 ABG pO2 84 D 197 H D ABG HCO3 30 H 29 H ABG O2 Saturation 98 99 H ABG Base Excess 6 H 6 H VBG pH 7.48 VBG pCO2 36 VBG pO2 105 H VBG Base Excess 3 04/11/25 04/11/25 04/11/25 03:15 04:57 12:32 ABG pH 7.41 7.41 ABG pCO2 38 41 ABG pO2 124 H D 91 D ABG HCO3 24 26 ABG O2 Saturation 99 H 98 ABG Base Excess -1 1 VBG pH 7.39 VBG pCO2 47 D VBG pO2 39 D VBG Base Excess 3 Assessment & Plan Assessment and plan (1) Hypernatremia: Status: Acute (2) Acute renal failure: Qualifiers: Acute renal failure type: unspecified Qualified Code(s): N17.9 - Acute kidney failure, unspecified Status: Acute (3) Metabolic acidosis: Status: Acute
[2025-04-12] VITALS (68 sets, daily range): BP systolic 85–127; BP diastolic 52–82; PULSE 59–80; RESP 22–28; TEMP 35.6–36.1; O2SAT 93–100; BMI 36.5
--- NOTE | 2025-04-12 | XR_ITS ---
Examination: MRI of brain without intravenous contrast. MRI brain with intravenous contrast. Date and time of exam:April 12, 2025 1410 hours INDICATIONS: Status post ROSC, unresponsive, hypoxic, bradycardic Technique: Multiple axial and sagittal images of the brain to been obtained. Siemens high-resolution 1.52 Rebeka short bore scanner utilized. Sagittal sections, T1 weighted images, TR 500, TE 14, are performed. Axial sections proton-density and T2-weighted images have been obtained. Inversion recovery axial images, TR 9260, TE 111, TR 2500. Diffusion weighted images, axial sections, TR 4800, TE 128, B value 1000. Axial sections, ADC map, TR 4800, TE 128. Axial and coronal images were also obtained post 20 cc gadolinium administered intravenously. Findings:: Enlargement of the sella turcica is not present. The optic chiasm and infundibular stalk are not remarkable. There is no localized enlargement of the medulla or lila. Fourth ventricle and cerebellar tonsils appear normal in position. No subacute area of hemorrhage density is seen. Fourth ventricle is midline. Mass in the cerebellopontine angle region is not evident. 7th and 8th nerve complexes exhibit symmetry Globes are symmetrical Orbital musculature including medial lateral rectus muscles do not exhibit abnormality Increased white matter signal is prominent Effacement of the cortical sulcal markings is not identified. Mass effect upon the ventricular system is not identified. Diffusion-weighted images demonstrate no focus of restricted diffusion Contrast images demonstrate no abnormal enhancement cerebellar or cerebral Impression: Negative for acute hemorrhage mass effect or midline shift No acute infarct Prominent chronic microvascular white matter change No abnormal enhancing cerebellar or cerebral lesions
[2025-04-12] MEDS: PROPOFOL 1,000 MG IVPB 1,000 MG/100 ML VIAL 10.053 MG IV (00:57)
[2025-04-12] MEDS: HEPARIN SOD INJ 5000 UNIT/ML VIAL SC ×3 (06:00→21:27)
[2025-04-12] MEDS: MIDAZOLAM/NS 100 MG IVPB 100 MG/100 ML BAG IV (06:01)
[2025-04-12 06:07] LABS: Basophils % (Auto) 0 % (0-2.5); Eosinophils # (Auto) 0.4 Thou/mm3 (0.0-0.5); Eosinophils % (Auto) 8 % (0-10); Hematocrit 24.5 % (41.0-53.0); Immature Granulocytes % (Auto) 1 % (0-0); Immature Granulocytes Auto 0.03 Thou/mm3 (0.00-0.00); Lymphocytes # (Auto) 0.5 Thou/mm3 (1.0-4.8); Lymphocytes % (Auto) 9 % (10-50); Mean Corpuscular HGB Conc 32.2 g/dl (31.0-37.0); Mean Corpuscular Hemoglobin 30.7 pg (25.0-35.0); Mean Corpuscular Volume 95 fL (80-100); Monocytes # (Auto) 0.2 Thou/mm3 (0.0-0.8); Monocytes % (Auto) 4 % (0-12); Neutrophils # (Auto) 4.1 Thou/mm3 (1.8-7.7); Neutrophils % (Auto) 79 % (37-80); Nucleated Red Blood Cell # 0.02 Thou/mm3 (0.00-0.00); Nucleated Red Blood Cell % 0 /100 WBC (0); Platelet Count 80 Thou/mm3 (140-440); RDW Standard Deviation 53.4 fL (35.1-43.9); Red Blood Count 2.57 Miln/mm3 (4.50-5.90); White Blood Count 5.2 Thou/mm3 (3.8-10.6)
[2025-04-12 06:24] LABS: Hemoglobin 7.9 g/dL (13.5-16.0)
[2025-04-12 06:27] LABS: Alanine Aminotransferase 19 U/L (10-49); Albumin, Serum 2.8 gm/dL (3.4-4.8); Albumin/Globulin Ratio 0.8 (1.2-2.2); Alkaline Phosphatase 65 U/L (46-116); Anion Gap 8 (7-16); Aspartate Amino Transferase 15 U/L (0-34); BUN/Creatinine Ratio 20 Ratio (12-20); Bilirubin,Total 2.3 mg/dL (0.3-1.2); Blood Urea Nitrogen 24 mg/dL (9-23); Calcium 8.1 mg/dL (8.3-10.6); Calcium (Corrected) 9.1 mg/dL (8.5-10.1); Carbon Dioxide 25.8 mMol/L (20.0-31.0); Chloride 111 mMol/L (98-107); Creatinine (Component) 1.2 mg/dL (0.6-1.3); Estimated Creatinine Clearance 69.5 mL/min (>60); Globulin 3.5 gm/dL (2.3-3.5); Glucose 110 mg/dL (74-106); Magnesium 1.7 mg/dL (1.6-2.6); Osmolality,Calculated 293 (275-295); Phosphorous 2.9 mg/dL (2.4-5.1); Potassium 3.1 mMol/L (3.4-5.1); Sodium 145 mMol/L (136-145); Total Protein 6.3 gm/dL (5.7-8.2); eGFR > 60 See Note
[2025-04-12 07:09] LABS: Prolactin* 59.5 ng/mL (2.0-18.0)
--- NOTE | 2025-04-12 07:42 | XR_ITS ---
Examination: AP chest single view TECHNIQUE: AP portable sitting chest single view Date and time: April 12, 2025 0753 hours Comparison April 11, 2025 INDICATIONS: History hypoxic respiratory failure, atelectasis right lung post bronchoscopy FINDINGS: Improved aeration right lung Bilateral pneumonia with layered right pleural fluid Endotracheal tube tip 6.4 cm above kaur The orogastric tube is in the stomach satisfactory position Right internal jugular central line tip SVC satisfactory position IMPRESSION: Significantly improved aeration right lung
[2025-04-12] MEDS: Magnesium Sulfate 4 GM Ivpb 4 GM/50 ML BAG IV (08:32)
[2025-04-12] MEDS: levETIRAcetam INJ 100 MG/ML VIAL 5ML 1000 MG IVP ×3 (08:32→21:26)
[2025-04-12] MEDS: PANTOPRAZOLE INJ 40 MG VIAL IV (08:32)
[2025-04-12] MEDS: POTASSIUM CHLORIDE 10% 20 MEQ/15 ML UDC 40 MEQ GT (08:33)
[2025-04-12] MEDS: NAPH,KPH MBDB 1 PACKET (1.5 GM) PO ×2 (08:33→21:27)
[2025-04-12 08:47] LABS: Base Excess, Venous 2 (-3-3); O2 Saturation, Venous 71 % (96-97); PCO2, Venous 42 mmHg (36-56); PO2, Venous 39 mmHg (15-58); pH, Venous 7.41 (7.33-7.66)
--- NOTE | 2025-04-12 08:59 | XR_ITS ---
Examination: CT chest with intravenous contrast 2-D sagittal and coronal reconstructions Exam date and time: April 12, 2025 1511 hours INDICATIONS: Hypoxic respiratory failure, history atelectasis right lung CTDI:vol (mGy) 32.5 DLP: (mGycm) 1177 Technique: Multiple axial sections of the thorax have been obtained. Sections have been obtained, 3 mm slice thickness. Mediastinal and lung density settings have been obtained. Intravenous contrast administered, 60 cc Isovue-370. 2-D sagittal, coronal images obtained. Low dose protocols were performed. One or more of the following dose reduction techniques were used; automated exposure control, adjustment of the mA and/or KV according to patient size, use of iterative reconstruction technique. Findings: Endotracheal tube tip 4.5 cm above kaur No thoracic aortic aneurysmal dilatation No pulmonary artery filling defects Extensive pneumonia and atelectasis in both lower lung zones with moderate bilateral pleural effusions Trace pericardial effusion 3 mm Liver mildly irregular in contour Mild fluid subcapsular to the liver measuring up to 5 mm Gallbladder wall appears thickened No pancreatic mass Prominent osteopenia IMPRESSION: Endotracheal tube 4.5 cm above kaur Negative for pulmonary artery emboli Extensive pneumonia and atelectasis in the lower lung zones, consider aspiration pneumonia Moderate bilateral pleural effusions Recommend gallbladder sonography to exclude cholecystitis
[2025-04-12] MEDS: VANCOMYCIN/NS 1 GM IVPB 200 ML IV (10:11)
[2025-04-12] MEDS: PIPER/TAZO 3.375 GM PREMIX 3.375 GM/50 ML BAG IV ×3 (10:11→21:27)
--- NOTE | 2025-04-12 10:13 | ESPR_ITS ---
<Statement entered by Heather Martínez MD - 04/13/25 07:59> TOTAL CC TIME:45 MIN I saw and evaluated the patient. I reviewed the resident?s note and agree with findings and plan as documented in the resident?s note. Upon my evaluation, this patient had a high probability of imminent or life- threatening deterioration due to recurring seizure activity and acute Evoxac respiratory failure, which required my direct attention, intervention, and personal management. This time is exclusive of time spent on procedures, which are documented separately if performed. MRI brain , completed. No etiology to identify source for seizures was noted. Vimpat added. Continue Versed. Attempted to perform bronchoscopy again however due to recurring seizures we decided to withhold the procedure Review of past imaging identifies chronic right lower lobe atelectasis and pleural effusion for at least [address] scan ordered. Documentation for date of: 04/12/25 Subjective Subjective Interval history: Patient is a 70 year old male with PMH of developmental delay, bipolar disorder, DM2, L AKA admitted to the ICU for choking-induced pulmonary arrest s/p ROSC. Per caregivers and EMS report, patient was eating an apple when he choked and became unresponsive. When EMS arrived, patient was noted to be agonal, hypoxic at 55% and bradycardic. They were able to clear some food from his mouth. Patient was bagged via NPA. En route, patient lost pulses and CPR was initiated. He was given 1 of epinephrine. ROSC was achieved. Patient was intubated. He was found to be severely hypernatremic at 179. 04/04/2025: Overnight, staff was unable to pass an OG tube. Everytime the patient was turned, food chunks would come out of his mouth. He recieved a total of 2L NS and the following sodium was 135, and recheck was 136. Suspect that initial sodium at 179 may have been a lab error. Patient had SAT and SBT today, then was re-sedated and put on ventilator support for bronchoscopy. During bronchoscopy, there was large food material and mucous that were removed from the right intermdiate and lower lung bronchi, and inflammation in the right upper lobe entry. Plan for endoscopy later today to remove suspected food obstructing the esophagus. 04/05/2025: Endoscopy yesterday showed food material throughout the entire esophagus. An NG tube was placed for decompression with 200cc output overnight. No acute problems overnight. This morning, patient passed SBT and SAT and was extubated. He is awake, agitated but redirectable. He is developmentally delayed and can talk at baseline. Antibiotics discontinued. Remains on low dose levophed, will wean off. CXR shows significant bilateral infiltrate and patient is net positive fluid balance so will give Lasix. After intubation, patient did pull out his NG tube. His abdomen is quite distended and tympanic. KUB shows air throughout the colon. NG tube as reinserted with continuous suction for decompressions. 04/06/2025: Patient remains on 3L NC saturating well without respiratory distress. Will continue antibiotics to complete course for aspiration pneumonia. Patient stomach remains distended, improved. NG tube 200. Had 1 BM. Repeat KUB this morning still shows colonic ileus. Will continue NG tube. Patient to be downgraded today. 04/07/2025: RENTAL SALESPERSON was called at 17: 43 soon after which a CODE BLUE was initiated as patient was found with his eyes rolled back shaking and without a pulse. ACLS was initiated with chest compressions and patient underwent 2 rounds of epi, a dose of calcium gluconate and 2 doses of bicarb. Patient had 2 rounds of PEA and he was found to be in V-fib for which she received 200 J of unsynchronized cardioversion and ROSC was achieved. Dr. Llanos intubated the patient and he was moved to the unit. Unclear as for the reason for the arrest at this time. Will work up. 04/08/2025: Patient had witnessed shaking event last night, was given Keppra. EEG was taken. He remains off sedation. This morning, patient opens eyes, tracks, localizes to pain. Failed SBT. CXR taken last night suggests aspiration throughout the right lung. CXR this morning shows improved right upper lung. Will turn patient on his left lung, duonebs, and antibiotics. Point of contact updated. 04/09/2025: Patient doing well this morning. Able to follow commands consistently. Adequate cough and gag reflex intact. Patient underwent spontaneous breathing trial and was successfully weaned to nasal cannula. Requesting this afternoon to be able to drink. However pending formal swallow evaluation at bedside. Patient undergoing chest physiotherapy with percussion and albuterol/saline nebs. 04/10/2025: Patient passed swallow yesterday and was started on purreed diet. Around 11pm patient had episode of hypoxia in the 70s and shaking. He was started on BIPAP with precedex, and keppra. This morning, patient taken off BIPAP and precedex without issue. He is awake, answering simple questions, calm. Sodium improved. Will follow up EEG results and continue Keppra for possible seizures, and recommend BIPAP at night for suspected central sleep apnea. 04/11/2025: Was called in regards to patient having 3 seizure-like episodes and did not have any peripheral access so central line was placed emergently. During central line placement patient had 2 more seizure-like episodes. Seizure-like episodes were full body convulsions lasting close to 30 seconds each time. During the episodes patient became very tachycardic into the 140s and desatted down to the 70s. Due to the frequent episodes of seizures decision was made to reintubate the patient for status epilepticus and to initiate propofol and Versed. Postprocedure x-ray shows right-sided complete whiteout likely secondary to a mucous plug. Patient will benefit from a bronchoscopy in the a.m. ABG pending. 04/11/2025: No further witnessed seizures noted. Patient had bronchoscopy today to clear mucus secretions. There was significant mucopurulent secretions throughout the right upper, middle, and lower lobe entry and subsegmental takeoffs. A BAL was obtained. Abnormal mucosa was noted in the R intermedius superior subsegmental takeoff - biopsy was not obtained due to limited resources. Patient tolerated the procedure well. Due to recurrent aspirations, patient may benefit from tracheostomy. Regarding patient's seizures, will continue Keppra, get EEG, and reach out to neurology. 04/12/2025: Patient had witnessed seizure around 06:00 and 08:00 lasting less than 1 minute. Prolactin obtained from 04/07 was elevated at 59. Will get MRI of the brain for new onset seizures and to rule out any intracranial mass or other pathology. On physical exam, patient has significant improved R lung sounds. BAL stain 2+ WBC with occasional budding yeast and occasional GNR. Review of previous XR and CTs show a chronic R lung pleural effusion since 2019. Will repeat bronch today to clear secretions and get CT with contrast of the lungs. Reached out to conservetor Dr. Stewart in anticipation for tracheostomy once seizures are controlled. Exam Vital Signs Temp Pulse Resp BP Pulse Ox O2 Del Method O2 Flow Rate 96.1 F L 74 8 L 87/63 L 99 Mechanical Ventilation 15 04/12/25 04:00 04/12/25 06:17 04/11/25 04:15 04/12/25 06:17 04/12/25 06:17 04/12/25 04:00 04/11/25 04:11 FiO2 35 04/12/25 06:17 Narrative Exam Constitutional: NAD, sedated. HEENT: NCAT. Hard lump noted on R temporal region, unchanged in size. Intubated. Respiratory: Improved breath sounds right lung, decreased at base. Cardiac: RRR. Abdomen: Soft, non-distended, non-tender. No guarding, no rebound. MSK: trace RL edema. 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 Multiple excortations throughout body in different healing stages. Objective Labs 04/12/25 05:13 04/12/25 05:13 Labs: Laboratory Results - last 24 hr 04/07/25 04/11/25 04/12/25 18:23 12:32 05:13 WBC 5.2 RBC 2.57 L Hgb 7.9 L Hct 24.5 L MCV 95 MCH 30.7 MCHC 32.2 RDW Std Deviation 53.4 H Plt Count 80 L Neut % (Auto) 79 Lymph % (Auto) 9 L [place] % (Auto) 4 Eos % (Auto) 8 Baso % (Auto) 0 Neut # (Auto) 4.1 Lymph # (Auto) 0.5 L [place] # (Auto) 0.2 Eos # (Auto) 0.4 Baso # (Auto) 0.0 Immature Gran # (Auto) 0.03 H Absolute Nucleated RBC 0.02 H Immature Gran % 1 H Nucleated RBC % 0 VBG pH 7.39 VBG pCO2 47 D VBG pO2 39 D VBG O2 Sat (Erendira) 69 L D VBG Base Excess 3 Sodium 145 Potassium 3.1 L D Chloride 111 H Carbon Dioxide 25.8 Anion Gap 8 BUN 24 H Creatinine 1.2 Estim Creat Clear Calc 69.5 eGFR > 60 BUN/Creatinine Ratio 20 Glucose 110 H Calculated Osmolality 293 Calcium 8.1 L Corrected Calcium 9.1 Phosphorus 2.9 Magnesium 1.7 Total Bilirubin 2.3 H AST 15 ALT 19 Alkaline Phosphatase 65 Total Protein 6.3 Albumin 2.8 L Globulin 3.5 Albumin/Globulin Ratio 0.8 L Prolactin (Send Out) 59.5 H 04/12/25 08:38 WBC RBC Hgb Hct MCV MCH MCHC RDW Std Deviation Plt Count Neut % (Auto) Lymph % (Auto) [place] % (Auto) Eos % (Auto) Baso % (Auto) Neut # (Auto) Lymph # (Auto) [place] # (Auto) Eos # (Auto) Baso # (Auto) Immature Gran # (Auto) Absolute Nucleated RBC Immature Gran % Nucleated RBC % VBG pH 7.41 VBG pCO2 42 VBG pO2 39 VBG O2 Sat (Erendira) 71 L VBG Base Excess 2 Sodium Potassium Chloride Carbon Dioxide Anion Gap BUN Creatinine Estim Creat Clear Calc eGFR BUN/Creatinine Ratio Glucose Calculated Osmolality Calcium Corrected Calcium Phosphorus Magnesium Total Bilirubin AST ALT Alkaline Phosphatase Total Protein Albumin Globulin Albumin/Globulin Ratio Prolactin (Send Out) ABG Interpretation ABG results: 04/03/25 04/04/25 04/05/25 20:45 04:55 04:00 ABG pH 7.46 H 7.42 7.35 ABG pCO2 37 42 47 ABG pO2 181 H 111 H D 37 L* D ABG HCO3 26 27 H 26 ABG O2 Saturation 99 H 98 66 L ABG Base Excess 2 3 0 VBG pH VBG pCO2 VBG pO2 VBG Base Excess 04/05/25 04/07/25 04/08/25 04:55 19:20 04:20 ABG pH 7.40 7.38 7.46 H ABG pCO2 40 47 45 ABG pO2 136 H D 141 H 108 D ABG HCO3 25 27 H 32 H ABG O2 Saturation 99 H 99 H 98 ABG Base Excess 0 2 7 H VBG pH VBG pCO2 VBG pO2 VBG Base Excess 04/09/25 04/10/25 04/10/25 04:52 00:24 23:42 ABG pH 7.48 H 7.48 H ABG pCO2 40 40 ABG pO2 84 D 197 H D ABG HCO3 30 H 29 H ABG O2 Saturation 98 99 H ABG Base Excess 6 H 6 H VBG pH 7.48 VBG pCO2 36 VBG pO2 105 H VBG Base Excess 3 04/11/25 04/11/25 04/11/25 03:15 04:57 12:32 ABG pH 7.41 7.41 ABG pCO2 38 41 ABG pO2 124 H D 91 D ABG HCO3 24 26 ABG O2 Saturation 99 H 98 ABG Base Excess -1 1 VBG pH 7.39 VBG pCO2 47 D VBG pO2 39 D VBG Base Excess 3 04/12/25 08:38 ABG pH ABG pCO2 ABG pO2 ABG HCO3 ABG O2 Saturation ABG Base Excess VBG pH 7.41 VBG pCO2 42 VBG pO2 39 VBG Base Excess 2 Quality Measures Quality Measures VTE prophylaxis Advance care planning discussed with:: legal surragate Assessment & Plan Assessment Current Active Medications: Generic Name Dose Route Start Last Admin Trade Name Freq PRN Reason Stop Dose Admin Acetaminophen 650 mg 04/07/25 15:23 Acetaminophen 325 Mg Tablet PO 05/03/25 16:21 Q6H PRN Fever >99.5 Dextrose 25 ml 04/03/25 16:33 Dextrose 50%-Water Inj 50 Ml Syringe IV 05/03/25 16:32 Q15MIN PRN BG 50-70 responsive npo pt Dextrose 50 ml 04/03/25 16:33 Dextrose 50%-Water Inj 50 Ml Syringe IV 05/03/25 16:32 Q15MIN PRN BG <50 OR BG <70 & pt unresponsive Glucagon 1 mg 04/03/25 16:33 Glucagon Inj 1 Mg Vial IM Q15MIN PRN BG <70, and no IV access Heparin Sodium (Porcine) 5,000 unit 04/03/25 22:00 04/12/25 06:00 Heparin Sod Inj 5000 Unit/Ml Vial SC 04/17/25 21:59 5,000 unit Q8HR MANUEL Administration Vancomycin/Sodium Chloride 200 mls @ 120 mls/hr 04/07/25 10:00 04/12/25 10:11 Vancomycin/Ns 1 Gm Ivpb IV 04/14/25 09:59 120 mls/hr QDAY@1000 MANUEL Administration Protocol Midazolam HCl 100 mg in 100 mls @ 1 mls/hr 04/11/25 04:11 04/12/25 06:20 Versed Pf Inj In Ns Premix IV 04/16/25 04:10 2 mg/hr .Q24H PRN 2 mls/hr PER PROTOCOL Titration Protocol 1 MG/HR Propofol 1,000 mg in 100 mls @ 3.351 mls/hr 04/11/25 04:12 04/12/25 06:12 Diprivan Ivpb IV 05/11/25 04:11 10 mcg/kg/min .Q24H PRN 6.702 mls/hr PER PROTOCOL Titration Protocol 5 MCG/KG/MIN Magnesium Sulfate 4 gm in 50 mls @ 12.5 mls/hr 04/12/25 07:05 04/12/25 08:32 Magnesium Sulfate Ivpb IV 04/12/25 11:04 12.5 mls/hr X1 ONE Administration Piperacillin/Tazobactam/Dextrose 3.375 gm in 50 mls @ 12.5 mls/hr 04/12/25 14:00 Zosyn IV 04/19/25 08:50 Q8HR [facility] Insulin Human Regular 0 unit 04/11/25 06:00 04/12/25 05:52 Insulin Hum Regular 1 Unit/0.01 Ml (Per Unit) SC 05/11/25 05:59 Not Given Q6HR [facility] Protocol Levetiracetam 1,000 mg 04/10/25 21:00 04/12/25 08:32 Levetiracetam Inj 100 Mg/Ml Vial 5ml IVP 05/10/25 20:59 1,000 mg Q12HR MANUEL Administration Ondansetron HCl 4 mg 04/07/25 14:29 Ondansetron Inj 2 Mg/Ml Inj 2 Ml IV 05/07/25 14:28 Q6H PRN NAUSEA OR VOMITING Protocol Pantoprazole Sodium 40 mg 04/11/25 04:40 04/12/25 08:32 Pantoprazole Inj 40 Mg Vial IV 05/11/25 04:39 40 mg QDAY MANUEL Administration Pharmacy Consult 1 each 04/03/25 14:00 Vancomycin Pharmacy To Dose 1 Each Each IV 05/03/25 13:59 QDAY PRN CONSULT Potassium Phos/Sodium Phos 1 packet 04/08/25 21:00 04/12/25 08:33 Naph,[facility] Mbdb 1 Packet (1.5 Gm) PO 05/08/25 20:59 1 packet BID MANUEL Administration Sodium Chloride 3 ml 04/04/25 15:24 04/09/25 10:22 Sodium Chloride Rt Jessica 0.9% 3 Ml Nebu INH 06/03/25 15:23 3 ml PRN PRN Administration SOLN Plan Patient is a 70 year old male with PMH of developmental delay, bipolar disorder, DM2, L AKA admitted to the ICU for choking-induced pulmonary arrest s/p ROSC. INCIDENT RESPONSE COORDINATOR Problem: Acute encephalopathy DDX: seizures, status epilepticus DX: EEG, MRI RX: Keppra 1000mg BID, propofol and versed ggt RRX: Continues to seize on Keppra. Will increase versed ggt. Reached out to Dr. Wilson for second anti-epileptic. MRI ordered to rule out intracranial pathology causing seizures. CARDIOVASCULAR Cardiopulmonary arrest s/p resuscitation, resolved RESPIRATORY Problem: Acute hypoxic respiratory failure, improving DDX: aspiration pneumonitis/pneumonia, recurrent aspiration due to inability to protect airway during seizures, chronic R pleural effusion DX: bronchoscopy, VBG, CT chest RX: Chest PT on R side, IV antibiotics, continue ventilator to maintain lung protective measures, albuterol and normal saline nebulizers for airway clearance. Bronchoscopy today. RRX: Mucus plug resolved. Will get CT scan of the chest to assess R chronic pleural effusion. Anticipate patient will need tracheostomy due to recurrent aspirations. Reached out to conservator to update and consent. RENAL Hyperosmolar Hypernatremia, resolved Lactic acidosis, resolved Hypophosphatemia, improving - Neutraphos BID; may discontinue once hypophosphatemia improves GI No acute problems OG tube placed ENDO Problem: History of DM2 DDX: DX: blood sugar checks Q6H RX: ISS Q6H RRX: Patient euglycemic. If hyperglycemic, will start basal insulin. HEME Problem: Thrombocytopenia DDX: medication side effect, acute illness DX: RX: RRX: If continues to drop, will hold heparin for DVT prophylaxis and review medications for potential culprit. ID Problem: Aspiration pneumonia/pneumonitis DDX: GNR DX: BAL cytology stain 2+ WBC, occasional GNR and budding yeast RX: Vancomycin and Zosyn (04/13- RRX: Follow up BAL cytology and narrow antibiotics appropriately. Health Maintenance Diet and fluids: tube feeds - Glucerna 1.2 DVT prophylaxis: heparin GI prophylaxis: Protonix 40 IV daily Lines: Right IJ central line, PIV, ET, OG CODE STATUS: FULL - patient is conserved with CRV. I have reviewed and discussed the patient's care with my attending, Dr. Jane Martínez MD PGY-3
[2025-04-12] MEDS: PROPOFOL 1,000 MG IVPB 1,000 MG/100 ML VIAL 6.702 MG IV ×2 (11:22→22:01)
[2025-04-12 11:40] LABS: Misc Send Out* See Sep Rpt
[2025-04-12] MEDS: SODIUM CHLORIDE 0.9% IV (11:48)
[2025-04-12] MEDS: LACOSAMIDE IV (11:48)
--- NOTE | 2025-04-12 13:09 | PC.NURSE ---
SPOKE WITH ABNER FROM [facility] TOLD TO CALL AND REQUEST TO SPEAK TO GRADER OPERATOR IF INFORMATION IS NEEDED AND UNABLE TO REACH DIRECT NUMBER.
--- NOTE | 2025-04-12 13:50 | PC.NURSE ---
PT TO MRI. PT VITALS STABLE AND SEDATION RUNNING ACCORDING TO DOSAGE IN ML/HR.
--- NOTE | 2025-04-12 13:51 | ESPR_ITS ---
Documentation for date of: 04/12/25 Subjective Subjective Interval history: The patient is a 70-year-old male with a previous medical history of developmental delay, bipolar disorder, type 2 diabetes, status post left above- knee amputation, right foot toe amputation who was admitted on 04/03/25 after an episode of aspiration that led to cardiac arrest due to hypoxia. According to the chart review on the baseline patient is wheelchair-bound and verbal. He was also found severe hyponatremia of 179 with anion gap acidosis. On recheck sodium was 135 and 136 and initial sodium number was thought to be a error. He was intubated and and started on mechanical ventilation. He passed SBT on 04/05/2025, endoscopy showed food material throughout the entire and esophagus and NGT tube was placed for decompression. Patient was downgraded to the floors on 04/06/2025. On 04/07/2025 patient was found with his eyes rolled back shaking and without a pulse, resuscitation was started, after 2 rounds of CPR he was found to be in A- fib and was cardioverted, ROSC was achieved. He was intubated and upgraded to the ICU. On 04/08 patient was noted to have shaking and was started on Keppra, EEG was with no anencephalic artifacts and noninformative. On 04/09/2025 patient was able to follow commands. Passed SBT and was extubated. On 04/10/2025 patient was taken off BiPAP, started on diet. On 04/11/2025 patient had multiple seizures episodes, was desaturating and was intubated and started on propofol and midazolam. On 04/12/2020 5 in the AM patient had 2 episodes of seizures and received midazolam. Neurology was consulted for seizure management and workup. Continues to receive antiseizure medications,keppra dose was increased, lacosamide was added, midazolam dose was increased. MRI showed chronic microvascular changes. EEG showed multifocal spikes, encephalographic seizure pattern. Exam Vital Signs Temp Pulse Resp BP Pulse Ox O2 Del Method O2 Flow Rate 96.8 F 70 8 L 97/64 99 Mechanical Ventilation 15 04/12/25 08:00 04/12/25 10:42 04/11/25 04:15 04/12/25 10:42 04/12/25 10:42 04/12/25 08:00 04/11/25 04:11 FiO2 35 04/12/25 10:42 Narrative Exam Gen: Well-developed and well-nourished. Sedated. RASS -5. HEENT: NCAT, pupils equal, miotic, weakly reactive to light, EOMI, MMM, anicteric conjunctivae. CVS: normal S1 and S2. RRR. No M/R/G. Resp: CTA B/L. No rhonchi, rales, crackles or wheezing. Abd: soft, non-tender, non-distended. BS+ in all 4 quadrants. MSK: Right AKA, left tor amputation. Neuro: CN II-XII grossly intact. Does not respond to painful stimulation. Alert and oriented x0. Psych: impossible to assess. Objective Labs 04/16/25 04:35 04/16/25 04:35 Labs: Laboratory Results - last 24 hr 04/07/25 04/12/25 04/12/25 18:23 05:13 08:38 WBC 5.2 RBC 2.57 L Hgb 7.9 L Hct 24.5 L MCV 95 MCH 30.7 MCHC 32.2 RDW Std Deviation 53.4 H Plt Count 80 L Neut % (Auto) 79 Lymph % (Auto) 9 L [place] % (Auto) 4 Eos % (Auto) 8 Baso % (Auto) 0 Neut # (Auto) 4.1 Lymph # (Auto) 0.5 L [place] # (Auto) 0.2 Eos # (Auto) 0.4 Baso # (Auto) 0.0 Immature Gran # (Auto) 0.03 H Absolute Nucleated RBC 0.02 H Immature Gran % 1 H Nucleated RBC % 0 VBG pH 7.41 VBG pCO2 42 VBG pO2 39 VBG O2 Sat (Erendira) 71 L VBG Base Excess 2 Sodium 145 Potassium 3.1 L D Chloride 111 H Carbon Dioxide 25.8 Anion Gap 8 BUN 24 H Creatinine 1.2 Estim Creat Clear Calc 69.5 eGFR > 60 BUN/Creatinine Ratio 20 Glucose 110 H Calculated Osmolality 293 Calcium 8.1 L Corrected Calcium 9.1 Phosphorus 2.9 Magnesium 1.7 Total Bilirubin 2.3 H AST 15 ALT 19 Alkaline Phosphatase 65 Total Protein 6.3 Albumin 2.8 L Globulin 3.5 Albumin/Globulin Ratio 0.8 L Prolactin (Send Out) 59.5 H ABG Interpretation ABG results: 04/03/25 04/04/25 04/05/25 20:45 04:55 04:00 ABG pH 7.46 H 7.42 7.35 ABG pCO2 37 42 47 ABG pO2 181 H 111 H D 37 L* D ABG HCO3 26 27 H 26 ABG O2 Saturation 99 H 98 66 L ABG Base Excess 2 3 0 VBG pH VBG pCO2 VBG pO2 VBG Base Excess 04/05/25 04/07/25 04/08/25 04:55 19:20 04:20 ABG pH 7.40 7.38 7.46 H ABG pCO2 40 47 45 ABG pO2 136 H D 141 H 108 D ABG HCO3 25 27 H 32 H ABG O2 Saturation 99 H 99 H 98 ABG Base Excess 0 2 7 H VBG pH VBG pCO2 VBG pO2 VBG Base Excess 04/09/25 04/10/25 04/10/25 04:52 00:24 23:42 ABG pH 7.48 H 7.48 H ABG pCO2 40 40 ABG pO2 84 D 197 H D ABG HCO3 30 H 29 H ABG O2 Saturation 98 99 H ABG Base Excess 6 H 6 H VBG pH 7.48 VBG pCO2 36 VBG pO2 105 H VBG Base Excess 3 04/11/25 04/11/25 04/11/25 03:15 04:57 12:32 ABG pH 7.41 7.41 ABG pCO2 38 41 ABG pO2 124 H D 91 D ABG HCO3 24 26 ABG O2 Saturation 99 H 98 ABG Base Excess -1 1 VBG pH 7.39 VBG pCO2 47 D VBG pO2 39 D VBG Base Excess 3 04/12/25 08:38 ABG pH ABG pCO2 ABG pO2 ABG HCO3 ABG O2 Saturation ABG Base Excess VBG pH 7.41 VBG pCO2 42 VBG pO2 39 VBG Base Excess 2 Quality Measures Quality Measures VTE prophylaxis Advance care planning discussed with:: other Assessment & Plan Assessment Current Active Medications: Generic Name Dose Route Start Last Admin Trade Name Freq PRN Reason Stop Dose Admin Acetaminophen 650 mg 04/07/25 15:23 Acetaminophen 325 Mg Tablet PO 05/03/25 16:21 Q6H PRN Fever >99.5 Dextrose 25 ml 04/03/25 16:33 Dextrose 50%-Water Inj 50 Ml Syringe IV 05/03/25 16:32 Q15MIN PRN BG 50-70 responsive npo pt Dextrose 50 ml 04/03/25 16:33 Dextrose 50%-Water Inj 50 Ml Syringe IV 05/03/25 16:32 Q15MIN PRN BG <50 OR BG <70 & pt unresponsive Glucagon 1 mg 04/03/25 16:33 Glucagon Inj 1 Mg Vial IM Q15MIN PRN BG <70, and no IV access Heparin Sodium (Porcine) 5,000 unit 04/03/25 22:00 04/12/25 13:12 Heparin Sod Inj 5000 Unit/Ml Vial SC 04/17/25 21:59 5,000 unit Q8HR MANUEL Administration Vancomycin/Sodium Chloride 200 mls @ 120 mls/hr 04/07/25 10:00 04/12/25 10:11 Vancomycin/Ns 1 Gm Ivpb IV 04/14/25 09:59 120 mls/hr QDAY@1000 MANUEL Administration Protocol Midazolam HCl 100 mg in 100 mls @ 1 mls/hr 04/11/25 04:11 04/12/25 13:28 Versed Pf Inj In Ns Premix IV 04/16/25 04:10 4 mg/hr .Q24H PRN 4 mls/hr PER PROTOCOL Titration Protocol 1 MG/HR Propofol 1,000 mg in 100 mls @ 3.351 mls/hr 04/11/25 04:12 04/12/25 13:00 Diprivan Ivpb IV 05/11/25 04:11 10 mcg/kg/min .Q24H PRN 6.702 mls/hr PER PROTOCOL Titration Protocol 5 MCG/KG/MIN Piperacillin/Tazobactam/Dextrose 3.375 gm in 50 mls @ 12.5 mls/hr 04/12/25 14:00 04/12/25 13:12 Zosyn IV 04/19/25 08:50 12.5 mls/hr Q8HR MANUEL Administration Insulin Human Regular 0 unit 04/11/25 06:00 04/12/25 12:15 Insulin Hum Regular 1 Unit/0.01 Ml (Per Unit) SC 05/11/25 05:59 Not Given Q6HR MANUEL Protocol Lacosamide 200 mg 04/12/25 21:00 Lacosamide Inj 200 Mg/20 Ml Vial IVP 05/12/25 20:59 BID MANUEL Levetiracetam 1,000 mg 04/10/25 21:00 04/12/25 08:32 Levetiracetam Inj 100 Mg/Ml Vial 5ml IVP 05/10/25 20:59 1,000 mg Q12HR MANUEL Administration Ondansetron HCl 4 mg 04/07/25 14:29 Ondansetron Inj 2 Mg/Ml Inj 2 Ml IV 05/07/25 14:28 Q6H PRN NAUSEA OR VOMITING Protocol Pantoprazole Sodium 40 mg 04/11/25 04:40 04/12/25 08:32 Pantoprazole Inj 40 Mg Vial IV 05/11/25 04:39 40 mg QDAY MANUEL Administration Pharmacy Consult 1 each 04/03/25 14:00 Vancomycin Pharmacy To Dose 1 Each Each IV 05/03/25 13:59 QDAY PRN CONSULT Potassium Phos/Sodium Phos 1 packet 04/08/25 21:00 04/12/25 08:33 [facility] Mbdb 1 Packet (1.5 Gm) PO 05/08/25 20:59 1 packet BID MANUEL Administration Sodium Chloride 3 ml 04/04/25 15:24 04/09/25 10:22 Sodium Chloride Rt Jessica 0.9% 3 Ml Nebu INH 05/04/25 15:23 3 ml PRN PRN Administration SOLN Plan Patient is a 70 year old male with PMH of developmental delay, bipolar disorder, DM2, L AKA admitted to the ICU for choking-induced pulmonary arrest s/p ROSC. #Status epilepticus requiring reintubation #History of bipolar disorder #History of developmental delay #Cardiopulmonary arrest s/p resuscitation #Hypoxic brain injury Seizures could be provoked due to brain injury in the setting of prolonged hypoxia. ?Repeat EEG ? Lacosamide 400 mg loading x 1 ? Lacosamide 200 mg IV push twice daily ? Keppra 1000 mg twice daily ? Midazolam infusion as needed for breakthrough seizures ? Propofol infusion ? MRI with and without contrast pending - home meds are on hold #Acute hypoxic respiratory failure and status epilepticus requiring mechanical intubation and ventilation for airway protection #Hyperosmolar Hypernatremia, resolved #Lactic acidosis, cleared #Hypophosphatemia, improving #History of DM2 #Thrombocytopenia #Aspiration pneumonia versus pneumonitis - management per primary team Plan of care discussed with attending Dr. Wilson. Sophia Fritz MD, PGY 1. Attending Provider Attestation/Addendum I personally have seen and examined the patient at the bedside and I agree with resident's findings, assessment and plan of care. Condition remains unchanged, will consider weaning him off of sedation and ventilation if possible and continue with Keppra and Vimpat as he has not had any seizures since then.
--- NOTE | 2025-04-12 15:00 | PC.SS ---
SS update: patient had present seizure today. Planned for CT. Dr. Stewart with [facility] was contacted for medical consult.
[2025-04-12] MEDS: RINGERS LACTATED 1000 ML 1,000 ML 999 ML IV (17:00)
--- NOTE | 2025-04-12 17:17 | PD.IMPROG ---
Documentation for date of: 04/12/25 Subjective Subjective Interval history: Patient having seizures Elevated prolactin levels in the process of getting imaging studies Mechanically ventilated Exam Vital Signs Temp Pulse Resp BP Pulse Ox O2 Del Method O2 Flow Rate 97.0 F 69 8 L 98/58 L 100 Mechanical Ventilation 15 04/12/25 12:01 04/12/25 13:40 04/11/25 04:15 04/12/25 13:40 04/12/25 13:40 04/12/25 12:01 04/11/25 04:11 FiO2 35 04/12/25 12:01 Objective Labs 04/12/25 05:13 04/12/25 05:13 Labs: Laboratory Results - last 24 hr 04/07/25 04/12/25 04/12/25 18:23 05:13 08:38 WBC 5.2 RBC 2.57 L Hgb 7.9 L Hct 24.5 L MCV 95 MCH 30.7 MCHC 32.2 RDW Std Deviation 53.4 H Plt Count 80 L Neut % (Auto) 79 Lymph % (Auto) 9 L [place] % (Auto) 4 Eos % (Auto) 8 Baso % (Auto) 0 Neut # (Auto) 4.1 Lymph # (Auto) 0.5 L [place] # (Auto) 0.2 Eos # (Auto) 0.4 Baso # (Auto) 0.0 Immature Gran # (Auto) 0.03 H Absolute Nucleated RBC 0.02 H Immature Gran % 1 H Nucleated RBC % 0 VBG pH 7.41 VBG pCO2 42 VBG pO2 39 VBG O2 Sat (Erendira) 71 L VBG Base Excess 2 Sodium 145 Potassium 3.1 L D Chloride 111 H Carbon Dioxide 25.8 Anion Gap 8 BUN 24 H Creatinine 1.2 Estim Creat Clear Calc 69.5 eGFR > 60 BUN/Creatinine Ratio 20 Glucose 110 H Calculated Osmolality 293 Calcium 8.1 L Corrected Calcium 9.1 Phosphorus 2.9 Magnesium 1.7 Total Bilirubin 2.3 H AST 15 ALT 19 Alkaline Phosphatase 65 Total Protein 6.3 Albumin 2.8 L Globulin 3.5 Albumin/Globulin Ratio 0.8 L Prolactin (Send Out) 59.5 H Impressions Impression: Status post esophageal foreign body removal endoscopically Respiratory failure requiring mechanical ventilation Seizure disorder Continue current management ABG Interpretation ABG results: 04/03/25 04/04/25 04/05/25 20:45 04:55 04:00 ABG pH 7.46 H 7.42 7.35 ABG pCO2 37 42 47 ABG pO2 181 H 111 H D 37 L* D ABG HCO3 26 27 H 26 ABG O2 Saturation 99 H 98 66 L ABG Base Excess 2 3 0 VBG pH VBG pCO2 VBG pO2 VBG Base Excess 04/05/25 04/07/25 04/08/25 04:55 19:20 04:20 ABG pH 7.40 7.38 7.46 H ABG pCO2 40 47 45 ABG pO2 136 H D 141 H 108 D ABG HCO3 25 27 H 32 H ABG O2 Saturation 99 H 99 H 98 ABG Base Excess 0 2 7 H VBG pH VBG pCO2 VBG pO2 VBG Base Excess 04/09/25 04/10/25 04/10/25 04:52 00:24 23:42 ABG pH 7.48 H 7.48 H ABG pCO2 40 40 ABG pO2 84 D 197 H D ABG HCO3 30 H 29 H ABG O2 Saturation 98 99 H ABG Base Excess 6 H 6 H VBG pH 7.48 VBG pCO2 36 VBG pO2 105 H VBG Base Excess 3 04/11/25 04/11/25 04/11/25 03:15 04:57 12:32 ABG pH 7.41 7.41 ABG pCO2 38 41 ABG pO2 124 H D 91 D ABG HCO3 24 26 ABG O2 Saturation 99 H 98 ABG Base Excess -1 1 VBG pH 7.39 VBG pCO2 47 D VBG pO2 39 D VBG Base Excess 3 04/12/25 08:38 ABG pH ABG pCO2 ABG pO2 ABG HCO3 ABG O2 Saturation ABG Base Excess VBG pH 7.41 VBG pCO2 42 VBG pO2 39 VBG Base Excess 2 Assessment & Plan A&P Narrative # Foreign body obstruction esophagus # Status post cardiopulmonary arrest ROSC # Developmentally delayed # Diabetes mellitus type 2 # Status post AKA left Plan Consent obtained for fiberoptic esophagogastro duodenoscopy with therapeutic intervention under intravenous moderate sedation we will proceed with the procedure thank you very much for the opportunity to participate in care of this patient Time Spent With Patient Time: Total time spent is greater than 50% in coordination of care (as documented) at patient's floor/unit and/or counseling patient:
[2025-04-12] MEDS: LACOSAMIDE INJ 200 MG/20 ML VIAL IVP (21:27)
[2025-04-13] VITALS (75 sets, daily range): BP systolic 80–144; BP diastolic 53–87; PULSE 61–85; RESP 20–32; TEMP 35.5–36.8; O2SAT 93–100
[2025-04-13 04:38] LABS: Base Excess 1 (-3-3); HCO3 25 mEq/L (20-26); Inspired Oxygen, FIO2 35 %; O2 Saturation 96 % (91-98); PCO2 38 mmHg (32.0-48.0); PO2 74 mmHg (83-108); pH, Arterial 7.43 (7.35-7.45)
[2025-04-13 04:46] LABS: Allen Test Performed/OK; Puncture Site Right Radial
[2025-04-13] MEDS: HEPARIN SOD INJ 5000 UNIT/ML VIAL SC ×3 (05:28→21:33)
[2025-04-13] MEDS: PIPER/TAZO 3.375 GM PREMIX 3.375 GM/50 ML BAG IV ×3 (05:29→21:33)
[2025-04-13 06:24] LABS: Basophils % (Auto) 0 % (0-2.5); Eosinophils # (Auto) 0.4 Thou/mm3 (0.0-0.5); Eosinophils % (Auto) 7 % (0-10); Hematocrit 24.8 % (41.0-53.0); Immature Granulocytes % (Auto) 1 % (0-0); Immature Granulocytes Auto 0.04 Thou/mm3 (0.00-0.00); Lymphocytes # (Auto) 0.3 Thou/mm3 (1.0-4.8); Lymphocytes % (Auto) 6 % (10-50); Mean Corpuscular HGB Conc 32.3 g/dl (31.0-37.0); Mean Corpuscular Hemoglobin 31.5 pg (25.0-35.0); Mean Corpuscular Volume 98 fL (80-100); Monocytes # (Auto) 0.2 Thou/mm3 (0.0-0.8); Monocytes % (Auto) 3 % (0-12); Neutrophils # (Auto) 4.9 Thou/mm3 (1.8-7.7); Neutrophils % (Auto) 84 % (37-80); Nucleated Red Blood Cell % 0 /100 WBC (0); Platelet Count 84 Thou/mm3 (140-440); RDW Standard Deviation 55.5 fL (35.1-43.9); Red Blood Count 2.54 Miln/mm3 (4.50-5.90); White Blood Count 5.9 Thou/mm3 (3.8-10.6)
[2025-04-13] MEDS: MIDAZOLAM/NS 100 MG IVPB 100 MG/100 ML BAG IV (06:27)
[2025-04-13 06:41] LABS: Alanine Aminotransferase 15 U/L (10-49); Albumin, Serum 2.8 gm/dL (3.4-4.8); Albumin/Globulin Ratio 0.8 (1.2-2.2); Alkaline Phosphatase 67 U/L (46-116); Anion Gap 12 (7-16); Aspartate Amino Transferase 12 U/L (0-34); BUN/Creatinine Ratio 18 Ratio (12-20); Bilirubin,Total 2.2 mg/dL (0.3-1.2); Blood Urea Nitrogen 25 mg/dL (9-23); Carbon Dioxide 25.2 mMol/L (20.0-31.0); Chloride 109 mMol/L (98-107); Creatinine (Component) 1.4 mg/dL (0.6-1.3); Estimated Creatinine Clearance 59.6 mL/min (>60); Globulin 3.5 gm/dL (2.3-3.5); Glucose 130 mg/dL (74-106); Magnesium 2.3 mg/dL (1.6-2.6); Osmolality,Calculated 296 (275-295); Phosphorous 3.1 mg/dL (2.4-5.1); Potassium 3.5 mMol/L (3.4-5.1); Sodium 146 mMol/L (136-145); Total Protein 6.3 gm/dL (5.7-8.2); eGFR 54 See Note
--- NOTE | 2025-04-13 07:00 | XR_ITS ---
Examination: AP chest single view Technique one AP portable semiupright chest single view Date and time: April 13, 2025 0729 hours, comparison April 12, 2025 INDICATIONS: Hypoxic respiratory failure, history right lung atelectasis FINDINGS: Interval more prominent atelectasis right lung Prominent vascular congestion and likely pneumonia in the left lung Endotracheal tube tip is 4.8 cm above Andree The orogastric tube is in the stomach, the tip is below the level of the film Right internal jugular central line tip SVC IMPRESSION: Intervertebral more prominent atelectasis right lung
--- NOTE | 2025-04-13 07:13 | PC.NURSE ---
unable to successfully straight cath pt, MD Moses made aware endorsed to day shift
[2025-04-13] MEDS: POTASSIUM CHLORIDE 10% 20 MEQ/15 ML UDC 40 MEQ NG (08:27)
[2025-04-13] MEDS: LACOSAMIDE INJ 200 MG/20 ML VIAL IVP ×2 (08:27→21:29)
[2025-04-13] MEDS: PANTOPRAZOLE INJ 40 MG VIAL IV (08:28)
[2025-04-13] MEDS: levETIRAcetam INJ 100 MG/ML VIAL 5ML 1000 MG IVP ×2 (08:28→21:29)
[2025-04-13] MEDS: NAPH,KPH MBDB 1 PACKET (1.5 GM) PO ×2 (08:29→21:30)
--- NOTE | 2025-04-13 09:10 | PD.RESPRO ---
Documentation for date of: 04/13/25 Subjective Subjective Interval history: Patient was seen and examined by the bedside. Continues to be on mechanical ventilation, sedated on midazolam and propofol. Continues to receive keppra and vimpat. No overnight seizures. Will try to wean him off propofol/midazolam slowly. ICU team will have a discussion with patient's conservator, Dr. Stewart. Exam Vital Signs Temp Pulse Resp BP Pulse Ox O2 Del Method O2 Flow Rate 96 F L 83 8 L 111/75 95 Mechanical Ventilation 15 04/13/25 04:00 04/13/25 06:30 04/11/25 04:15 04/13/25 06:30 04/13/25 06:30 04/13/25 04:00 04/11/25 04:11 FiO2 35 04/13/25 06:09 Narrative Exam Gen: Well-developed and well-nourished. Sedated. RASS -4. HEENT: NCAT, pupils equal, miotic, weakly reactive to light, absent corneal reflex, intact cough reflex, MMM, anicteric conjunctivae. CVS: normal S1 and S2. RRR. No M/R/G. Resp: CTA B/L. No rhonchi, rales, crackles or wheezing. Abd: soft, non-tender, non-distended. BS+ in all 4 quadrants. MSK: Right AKA, left toe amputation. Neuro:Sedated. Pupils equal, miotic, weakly reactive to light, absent corneal reflex, intact cough reflex. Tendon reflexes 1+. Mild grimacing to the pain stimulation. Psych: impossible to assess. Objective Labs 04/16/25 04:35 04/16/25 04:35 Labs: Laboratory Results - last 24 hr 04/13/25 04/13/25 04:28 05:39 WBC 5.9 RBC 2.54 L Hgb 8.0 L Hct 24.8 L MCV 98 MCH 31.5 MCHC 32.3 RDW Std Deviation 55.5 H Plt Count 84 L Neut % (Auto) 84 H Lymph % (Auto) [address] [facility] % (Auto) 3 Eos % (Auto) 7 Baso % (Auto) 0 Neut # (Auto) 4.9 Lymph # (Auto) 0.[address] [facility] # (Auto) 0.2 Eos # (Auto) 0.4 Baso # (Auto) 0.0 Immature Gran # (Auto) 0.04 H Absolute Nucleated RBC 0.00 Immature Gran % 1 H Nucleated RBC % 0 Puncture Site Right Radial ABG pH 7.43 ABG pCO2 38 ABG pO2 74 L ABG HCO3 25 ABG O2 Saturation 96 ABG Base Excess 1 FiO2 35 Sodium 146 H Potassium 3.5 Chloride 109 H Carbon Dioxide 25.2 Anion Gap 12 BUN 25 H Creatinine 1.4 H Estim Creat Clear Calc 59.6 L eGFR 54 L BUN/Creatinine Ratio 18 Glucose 130 H Calculated Osmolality 296 H Calcium 8.0 L Corrected Calcium 9.0 Phosphorus 3.1 Magnesium 2.3 Total Bilirubin 2.2 H AST 12 ALT 15 Alkaline Phosphatase 67 Total Protein 6.3 Albumin 2.8 L Globulin 3.5 Albumin/Globulin Ratio 0.8 L ABG Interpretation ABG results: 04/03/25 04/04/25 04/05/25 20:45 04:55 04:00 ABG pH 7.46 H 7.42 7.35 ABG pCO2 37 42 47 ABG pO2 181 H 111 H D 37 L* D ABG HCO3 26 27 H 26 ABG O2 Saturation 99 H 98 66 L ABG Base Excess 2 3 0 VBG pH VBG pCO2 VBG pO2 VBG Base Excess 04/05/25 04/07/25 04/08/25 04:55 19:20 04:20 ABG pH 7.40 7.38 7.46 H ABG pCO2 40 47 45 ABG pO2 136 H D 141 H 108 D ABG HCO3 25 27 H 32 H ABG O2 Saturation 99 H 99 H 98 ABG Base Excess 0 2 7 H VBG pH VBG pCO2 VBG pO2 VBG Base Excess 04/09/25 04/10/25 04/10/25 04:52 00:24 23:42 ABG pH 7.48 H 7.48 H ABG pCO2 40 40 ABG pO2 84 D 197 H D ABG HCO3 30 H 29 H ABG O2 Saturation 98 99 H ABG Base Excess 6 H 6 H VBG pH 7.48 VBG pCO2 36 VBG pO2 105 H VBG Base Excess 3 04/11/25 04/11/25 04/11/25 03:15 04:57 12:32 ABG pH 7.41 7.41 ABG pCO2 38 41 ABG pO2 124 H D 91 D ABG HCO3 24 26 ABG O2 Saturation 99 H 98 ABG Base Excess -1 1 VBG pH 7.39 VBG pCO2 47 D VBG pO2 39 D VBG Base Excess 3 04/12/25 04/13/25 08:38 04:28 ABG pH 7.43 ABG pCO2 38 ABG pO2 74 L ABG HCO3 25 ABG O2 Saturation 96 ABG Base Excess 1 VBG pH 7.41 VBG pCO2 42 VBG pO2 39 VBG Base Excess 2 Quality Measures Quality Measures VTE prophylaxis Advance care planning discussed with:: other Assessment & Plan Assessment Current Active Medications: Generic Name Dose Route Start Last Admin Trade Name Freq PRN Reason Stop Dose Admin Acetaminophen 650 mg 04/07/25 15:23 Acetaminophen 325 Mg Tablet PO 05/03/25 16:21 Q6H PRN Fever >99.5 Dextrose 25 ml 04/03/25 16:33 Dextrose 50%-Water Inj 50 Ml Syringe IV 05/03/25 16:32 Q15MIN PRN BG 50-70 responsive npo pt Dextrose 50 ml 04/03/25 16:33 Dextrose 50%-Water Inj 50 Ml Syringe IV 05/03/25 16:32 Q15MIN PRN BG <50 OR BG <70 & pt unresponsive Glucagon 1 mg 04/03/25 16:33 Glucagon Inj 1 Mg Vial IM Q15MIN PRN BG <70, and no IV access Heparin Sodium (Porcine) 5,000 unit 04/03/25 22:00 04/13/25 05:28 Heparin Sod Inj 5000 Unit/Ml Vial SC 04/17/25 21:59 5,000 unit Q8HR MANUEL Administration Vancomycin/Sodium Chloride 200 mls @ 120 mls/hr 04/07/25 10:00 04/12/25 17:19 Vancomycin/Ns 1 Gm Ivpb IV 04/14/25 09:59 Infused QDAY@1000 MANUEL Infusion Protocol Midazolam HCl 100 mg in 100 mls @ 1 mls/hr 04/11/25 04:11 04/13/25 06:27 Versed Pf Inj In Ns Premix IV 04/16/25 04:10 4 mg/hr .Q24H PRN 4 mls/hr PER PROTOCOL Administration Protocol 1 MG/HR Propofol 1,000 mg in 100 mls @ 3.351 mls/hr 04/11/25 04:12 04/13/25 06:00 Diprivan Ivpb IV 05/11/25 04:11 10 mcg/kg/min .Q24H PRN 6.702 mls/hr PER PROTOCOL Titration Protocol 5 MCG/KG/MIN Piperacillin/Tazobactam/Dextrose 3.375 gm in 50 mls @ 12.5 mls/hr 04/12/25 14:00 04/13/25 05:29 Zosyn IV 04/19/25 08:50 12.5 mls/hr Q8HR MANUEL Administration Insulin Human Regular 0 unit 04/11/25 06:00 04/13/25 05:29 Insulin Hum Regular 1 Unit/0.01 Ml (Per Unit) SC 05/11/25 05:59 Not Given Q6HR MANUEL Protocol Lacosamide 200 mg 04/12/25 21:00 04/13/25 08:27 Lacosamide Inj 200 Mg/20 Ml Vial IVP 05/12/25 20:59 200 mg BID MANUEL Administration Levetiracetam 1,000 mg 04/10/25 21:00 04/13/25 08:28 Levetiracetam Inj 100 Mg/Ml Vial 5ml IVP 05/10/25 20:59 1,000 mg Q12HR MANUEL Administration Ondansetron HCl 4 mg 04/07/25 14:29 Ondansetron Inj 2 Mg/Ml Inj 2 Ml IV 05/07/25 14:28 Q6H PRN NAUSEA OR VOMITING Protocol Pantoprazole Sodium 40 mg 04/11/25 04:40 04/13/25 08:28 Pantoprazole Inj 40 Mg Vial IV 05/11/25 04:39 40 mg QDAY MANUEL Administration Pharmacy Consult 1 each 04/03/25 14:00 Vancomycin Pharmacy To Dose 1 Each Each IV 05/03/25 13:59 QDAY PRN CONSULT Potassium Phos/Sodium Phos 1 packet 04/08/25 21:00 04/13/25 08:29 [facility] Mbdb 1 Packet (1.5 Gm) PO 05/08/25 20:59 1 packet BID MANUEL Administration Sodium Chloride 3 ml 04/04/25 15:24 04/09/25 10:22 Sodium Chloride Rt Jessica 0.9% 3 Ml Nebu INH 05/04/25 15:23 3 ml PRN PRN Administration SOLN Plan Patient is a 70 year old male with PMH of developmental delay, bipolar disorder, DM2, L AKA admitted to the ICU for choking-induced pulmonary arrest s/p ROSC. #Status epilepticus requiring reintubation #History of bipolar disorder #History of developmental delay #Cardiopulmonary arrest s/p resuscitation #Hypoxic brain injury Seizures could be provoked due to brain injury in the setting of prolonged hypoxia. MRI showed multiple miscrovascular changes. EEG showed multifocal spike and wave discharges, triphasic waves and severe generalized slowing. Plan: ? Lacosamide 200 mg IV push twice daily ? Keppra 1000 mg twice daily ? Midazolam infusion as needed for breakthrough seizures ? Propofol infusion - home meds are on hold #Acute hypoxic respiratory failure and status epilepticus requiring mechanical intubation and ventilation for airway protection #Hyperosmolar Hypernatremia, resolved #Lactic acidosis, cleared #Hypophosphatemia, improving #History of DM2 #Thrombocytopenia #Aspiration pneumonia versus pneumonitis - management per primary team Plan of care discussed with attending Dr. Wilson. Sophia Fritz MD, PGY 1. Attending Provider Attestation/Addendum We have seen and examined the patient at the bedside and agreed with resident's findings, assessment and plan of care. Condition remains unchanged consider weaning from sedation.
--- NOTE | 2025-04-13 09:59 | ESPR_ITS ---
<Statement entered by Heather Martínez MD - 04/14/25 10:13> TOTAL TIME: 45MINUTES ON DIRECT MEDICAL CARE, MANAGEMENT - COORDINATION AND COUNSELING > 50% OF TOTAL TIME I saw and evaluated the patient. I reviewed the resident?s note and agree with findings and plan as documented in the resident?s note. Remained on the Versed drip due to difficult to control seizures. No further seizures have been identified. Vimpat was added. Bronchoscopy was deferred to reduce stimulus for seizures. Will reevaluate for tomorrow. Continue vancomycin empirically. MRI brain reviewed and discussed with neurology. Anoxic related changes are suspected and may be accounting for the white matter changes on MRI. Discussed with Dr. Stewart. He was informed that extubation would be unlikely and patient would have to be transitioned to a tracheostomy tube unless this plan does not align with overall goals of care Documentation for date of: 04/13/25 Subjective Subjective Interval history: Patient is a 70 year old male with PMH of developmental delay, bipolar disorder, DM2, L AKA admitted to the ICU for choking-induced pulmonary arrest s/p ROSC. Per caregivers and EMS report, patient was eating an apple when he choked and became unresponsive. When EMS arrived, patient was noted to be agonal, hypoxic at 55% and bradycardic. They were able to clear some food from his mouth. Patient was bagged via NPA. En route, patient lost pulses and CPR was initiated. He was given 1 of epinephrine. ROSC was achieved. Patient was intubated. He was found to be severely hypernatremic at 179. 04/04/2025: Overnight, staff was unable to pass an OG tube. Everytime the patient was turned, food chunks would come out of his mouth. He recieved a total of 2L NS and the following sodium was 135, and recheck was 136. Suspect that initial sodium at 179 may have been a lab error. Patient had SAT and SBT today, then was re-sedated and put on ventilator support for bronchoscopy. During bronchoscopy, there was large food material and mucous that were removed from the right intermdiate and lower lung bronchi, and inflammation in the right upper lobe entry. Plan for endoscopy later today to remove suspected food obstructing the esophagus. 04/05/2025: Endoscopy yesterday showed food material throughout the entire esophagus. An NG tube was placed for decompression with 200cc output overnight. No acute problems overnight. This morning, patient passed SBT and SAT and was extubated. He is awake, agitated but redirectable. He is developmentally delayed and can talk at baseline. Antibiotics discontinued. Remains on low dose levophed, will wean off. CXR shows significant bilateral infiltrate and patient is net positive fluid balance so will give Lasix. After intubation, patient did pull out his NG tube. His abdomen is quite distended and tympanic. KUB shows air throughout the colon. NG tube as reinserted with continuous suction for decompressions. 04/06/2025: Patient remains on 3L NC saturating well without respiratory distress. Will continue antibiotics to complete course for aspiration pneumonia. Patient stomach remains distended, improved. NG tube 200. Had 1 BM. Repeat KUB this morning still shows colonic ileus. Will continue NG tube. Patient to be downgraded today. 04/07/2025: LOAN REVIEW ANALYST was called at 17: 43 soon after which a CODE BLUE was initiated as patient was found with his eyes rolled back shaking and without a pulse. ACLS was initiated with chest compressions and patient underwent 2 rounds of epi, a dose of calcium gluconate and 2 doses of bicarb. Patient had 2 rounds of PEA and he was found to be in V-fib for which she received 200 J of unsynchronized cardioversion and ROSC was achieved. Dr. Llanos intubated the patient and he was moved to the unit. Unclear as for the reason for the arrest at this time. Will work up. 04/08/2025: Patient had witnessed shaking event last night, was given Keppra. EEG was taken. He remains off sedation. This morning, patient opens eyes, tracks, localizes to pain. Failed SBT. CXR taken last night suggests aspiration throughout the right lung. CXR this morning shows improved right upper lung. Will turn patient on his left lung, duonebs, and antibiotics. Point of contact updated. 04/09/2025: Patient doing well this morning. Able to follow commands consistently. Adequate cough and gag reflex intact. Patient underwent spontaneous breathing trial and was successfully weaned to nasal cannula. Requesting this afternoon to be able to drink. However pending formal swallow evaluation at bedside. Patient undergoing chest physiotherapy with percussion and albuterol/saline nebs. 04/10/2025: Patient passed swallow yesterday and was started on purreed diet. Around 11pm patient had episode of hypoxia in the 70s and shaking. He was started on BIPAP with precedex, and keppra. This morning, patient taken off BIPAP and precedex without issue. He is awake, answering simple questions, calm. Sodium improved. Will follow up EEG results and continue Keppra for possible seizures, and recommend BIPAP at night for suspected central sleep apnea. 04/11/2025: Was called in regards to patient having 3 seizure-like episodes and did not have any peripheral access so central line was placed emergently. During central line placement patient had 2 more seizure-like episodes. Seizure-like episodes were full body convulsions lasting close to 30 seconds each time. During the episodes patient became very tachycardic into the 140s and desatted down to the 70s. Due to the frequent episodes of seizures decision was made to reintubate the patient for status epilepticus and to initiate propofol and Versed. Postprocedure x-ray shows right-sided complete whiteout likely secondary to a mucous plug. Patient will benefit from a bronchoscopy in the a.m. ABG pending. 04/11/2025: No further witnessed seizures noted. Patient had bronchoscopy today to clear mucus secretions. There was significant mucopurulent secretions throughout the right upper, middle, and lower lobe entry and subsegmental takeoffs. A BAL was obtained. Abnormal mucosa was noted in the R intermedius superior subsegmental takeoff - biopsy was not obtained due to limited resources. Patient tolerated the procedure well. Due to recurrent aspirations, patient may benefit from tracheostomy. Regarding patient's seizures, will continue Keppra, get EEG, and reach out to neurology. 04/12/2025: Patient had witnessed seizure around 06:00 and 08:00 lasting less than 1 minute. Prolactin obtained from 04/07 was elevated at 59. Will get MRI of the brain for new onset seizures and to rule out any intracranial mass or other pathology. On physical exam, patient has significant improved R lung sounds. BAL stain 2+ WBC with occasional budding yeast and occasional GNR. Review of previous XR and CTs show a chronic R lung pleural effusion since 2019. Will repeat bronch today to clear secretions and get CT with contrast of the lungs. Reached out to conservetor Dr. Stewart in anticipation for tracheostomy once seizures are controlled. 04/13/2025: Patient remains afebrile overnight. 1 bowel movement reported overnight. Patient net positive, balance of 2022 ml and a weight of 110.9 kg versus 108 kg on 04/03/2025 upon admission. 400 cc on bladder scan, continue to straight cath. Bilateral pleural effusion on CTA chest with negative for PE and as noted on previous abdomen pelvis CT from 2021 right large pleural effusion which is now chronic. Propofol continued at 10 mcg/kg, Versed 4 mg/h, antibiotics do on board including Zosyn/Vancomycin. Given overall poor prognosis from acute encephalopathy secondary to seizures likely complicated by anoxic brain injury from aspiration pneumonia, will update patient's guardian in shared decision making in regards to goals of care versus pleural drainage. VT 400 RR 20 PEEP 5, and peak plateau 16.8. Sedated and synchronized as noted volume loop and actual respiratory rate. Exam Vital Signs Temp Pulse Resp BP Pulse Ox O2 Del Method O2 Flow Rate 96 F L 83 8 L 111/75 95 Mechanical Ventilation 15 04/13/25 04:00 04/13/25 06:30 04/11/25 04:15 04/13/25 06:30 04/13/25 06:30 04/13/25 04:00 04/11/25 04:11 FiO2 35 04/13/25 06:09 Narrative Exam General Appearance: Alert & Oriented X0, well-nourished male who is lying in bed under sedation and mechanically ventilated/ HEENT: Skull symmetrical and atraumatic. Conjunctivae pale pink and moist. Pupils equal, round, reactive to light and accommodation (PERRL). External ear without lesion or discharge. Straight, nares patient, mucosa pink, no discharge. Cardio: Normal Rate and Rhythm with S1 and S2 heart sounds. No murmurs or extra heart sounds noted, but difficult to fully appreciate given body habitus. No bruits on carotid auscultation. Peripheral edema 1+ Lungs: Symmetric expansion. Breath sounds vesicular with rhonchi noted, no crackles or wheezing noted. Abdomen: Non-tender, Non-distended, soft, hypoactive Reactive Bowel Sounds Neuro: NO Alert (sedated), NO cooperative, NO oriented to person, NO place, and NO time. Unable to access motor strength as patient remains on propofol and versed Objective Labs 04/13/25 05:39 04/13/25 05:39 Labs: Laboratory Results - last 24 hr 04/13/25 04/13/25 04:28 05:39 WBC 5.9 RBC 2.54 L Hgb 8.0 L Hct 24.8 L MCV 98 MCH 31.5 MCHC 32.3 RDW Std Deviation 55.5 H Plt Count 84 L Neut % (Auto) 84 H Lymph % (Auto) 6 L [place] % (Auto) 3 Eos % (Auto) 7 Baso % (Auto) 0 Neut # (Auto) 4.9 Lymph # (Auto) 0.3 L [place] # (Auto) 0.2 Eos # (Auto) 0.4 Baso # (Auto) 0.0 Immature Gran # (Auto) 0.04 H Absolute Nucleated RBC 0.00 Immature Gran % 1 H Nucleated RBC % 0 Puncture Site Right Radial ABG pH 7.43 ABG pCO2 38 ABG pO2 74 L ABG HCO3 25 ABG O2 Saturation 96 ABG Base Excess 1 FiO2 35 Sodium 146 H Potassium 3.5 Chloride 109 H Carbon Dioxide 25.2 Anion Gap 12 BUN 25 H Creatinine 1.4 H Estim Creat Clear Calc 59.6 L eGFR 54 L BUN/Creatinine Ratio 18 Glucose 130 H Calculated Osmolality 296 H Calcium 8.0 L Corrected Calcium 9.0 Phosphorus 3.1 Magnesium 2.3 Total Bilirubin 2.2 H AST 12 ALT 15 Alkaline Phosphatase 67 Total Protein 6.3 Albumin 2.8 L Globulin 3.5 Albumin/Globulin Ratio 0.8 L ABG Interpretation ABG results: 04/03/25 04/04/25 04/05/25 20:45 04:55 04:00 ABG pH 7.46 H 7.42 7.35 ABG pCO2 37 42 47 ABG pO2 181 H 111 H D 37 L* D ABG HCO3 26 27 H 26 ABG O2 Saturation 99 H 98 66 L ABG Base Excess 2 3 0 VBG pH VBG pCO2 VBG pO2 VBG Base Excess 04/05/25 04/07/25 04/08/25 04:55 19:20 04:20 ABG pH 7.40 7.38 7.46 H ABG pCO2 40 47 45 ABG pO2 136 H D 141 H 108 D ABG HCO3 25 27 H 32 H ABG O2 Saturation 99 H 99 H 98 ABG Base Excess 0 2 7 H VBG pH VBG pCO2 VBG pO2 VBG Base Excess 04/09/25 04/10/25 04/10/25 04:52 00:24 23:42 ABG pH 7.48 H 7.48 H ABG pCO2 40 40 ABG pO2 84 D 197 H D ABG HCO3 30 H 29 H ABG O2 Saturation 98 99 H ABG Base Excess 6 H 6 H VBG pH 7.48 VBG pCO2 36 VBG pO2 105 H VBG Base Excess 3 04/11/25 04/11/25 04/11/25 03:15 04:57 12:32 ABG pH 7.41 7.41 ABG pCO2 38 41 ABG pO2 124 H D 91 D ABG HCO3 24 26 ABG O2 Saturation 99 H 98 ABG Base Excess -1 1 VBG pH 7.39 VBG pCO2 47 D VBG pO2 39 D VBG Base Excess 3 04/12/25 04/13/25 08:38 04:28 ABG pH 7.43 ABG pCO2 38 ABG pO2 74 L ABG HCO3 25 ABG O2 Saturation 96 ABG Base Excess 1 VBG pH 7.41 VBG pCO2 42 VBG pO2 39 VBG Base Excess 2 Quality Measures Quality Measures VTE prophylaxis Advance care planning discussed with:: patient Assessment & Plan Assessment Current Active Medications: Generic Name Dose Route Start Last Admin Trade Name Freq PRN Reason Stop Dose Admin Acetaminophen 650 mg 04/07/25 15:23 Acetaminophen 325 Mg Tablet PO 05/03/25 16:21 Q6H PRN Fever >99.5 Dextrose 25 ml 04/03/25 16:33 Dextrose 50%-Water Inj 50 Ml Syringe IV 05/03/25 16:32 Q15MIN PRN BG 50-70 responsive npo pt Dextrose 50 ml 04/03/25 16:33 Dextrose 50%-Water Inj 50 Ml Syringe IV 05/03/25 16:32 Q15MIN PRN BG <50 OR BG <70 & pt unresponsive Glucagon 1 mg 04/03/25 16:33 Glucagon Inj 1 Mg Vial IM Q15MIN PRN BG <70, and no IV access Heparin Sodium (Porcine) 5,000 unit 04/03/25 22:00 04/13/25 05:28 Heparin Sod Inj 5000 Unit/Ml Vial SC 04/17/25 21:59 5,000 unit Q8HR MANUEL Administration Vancomycin/Sodium Chloride 200 mls @ 120 mls/hr 04/07/25 10:00 04/12/25 17:19 Vancomycin/Ns 1 Gm Ivpb IV 04/14/25 09:59 Infused QDAY@1000 MANUEL Infusion Protocol Midazolam HCl 100 mg in 100 mls @ 1 mls/hr 04/11/25 04:11 04/13/25 09:00 Versed Pf Inj In Ns Premix IV 04/16/25 04:10 4 mg/hr .Q24H PRN 4 mls/hr PER PROTOCOL Titration Protocol 1 MG/HR Propofol 1,000 mg in 100 mls @ 3.351 mls/hr 04/11/25 04:12 04/13/25 09:00 Diprivan Ivpb IV 05/11/25 04:11 10 mcg/kg/min .Q24H PRN 6.702 mls/hr PER PROTOCOL Titration Protocol 5 MCG/KG/MIN Piperacillin/Tazobactam/Dextrose 3.375 gm in 50 mls @ 12.5 mls/hr 04/12/25 14:00 04/13/25 05:29 Zosyn IV 04/19/25 08:50 12.5 mls/hr Q8HR MANUEL Administration Insulin Human Regular 0 unit 04/11/25 06:00 04/13/25 05:29 Insulin Hum Regular 1 Unit/0.01 Ml (Per Unit) SC 05/11/25 05:59 Not Given Q6HR [facility] Protocol Lacosamide 200 mg 04/12/25 21:00 04/13/25 08:27 Lacosamide Inj 200 Mg/20 Ml Vial IVP 05/12/25 20:59 200 mg BID MANUEL Administration Levetiracetam 1,000 mg 04/10/25 21:00 04/13/25 08:28 Levetiracetam Inj 100 Mg/Ml Vial 5ml IVP 05/10/25 20:59 1,000 mg Q12HR MANUEL Administration Ondansetron HCl 4 mg 04/07/25 14:29 Ondansetron Inj 2 Mg/Ml Inj 2 Ml IV 05/07/25 14:28 Q6H PRN NAUSEA OR VOMITING Protocol Pantoprazole Sodium 40 mg 04/11/25 04:40 04/13/25 08:28 Pantoprazole Inj 40 Mg Vial IV 05/11/25 04:39 40 mg QDAY MANUEL Administration Pharmacy Consult 1 each 04/03/25 14:00 Vancomycin Pharmacy To Dose 1 Each Each IV 05/03/25 13:59 QDAY PRN CONSULT Potassium Phos/Sodium Phos 1 packet 04/08/25 21:00 04/13/25 08:29 [facility] 1 Packet (1.5 Gm) PO 05/08/25 20:59 1 packet BID MANUEL Administration Sodium Chloride 3 ml 04/04/25 15:24 04/09/25 10:22 Sodium Chloride Rt Jessica 0.9% 3 Ml Nebu INH 05/04/25 15:23 3 ml PRN PRN Administration SOLN Plan Patient is a 70 year old male with PMH of developmental delay, bipolar disorder, DM2, L AKA admitted to the ICU for choking-induced pulmonary arrest s/p ROSC. 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 DX: EEG, MRI, Prolactin 59 (H) RX: Keppra 1000mg BID, Lacosamide 200 mg IVP BID, propofol and versed ggt RRX: Continues to seize on Keppra. Will increase versed ggt. Lacosamide 200 mg IVP BID as per recommendations for neurology. Neurology consulted, Dr. Wilson, appreciate recommendations CARDIOVASCULAR Cardiopulmonary arrest s/p resuscitation, resolved Cardiopulmonary arrest on 04/08/2025 secondary to acute hypoxic respiratory failure form aspiration pneumonia. RESPIRATORY Problem: Acute hypoxic respiratory failure, improving DDX: MRSA pneumonia given positive nasal swab and GPC sputum culture vs aspiration pneumonitis secondary to aspiration due to inability to protect airway during seizures and complicated by bilateral pleural effusion and recurrent mucous plugs. Chest CT (04/13/2025): Moderate bilateral pleural effusion, extensive pneumonia and atelectasis in lower lung zones, and negative for pulmonary artery emboli. Previous 2021 Abdomen/Pelvis noted to have large right pleural effusion, which compared to previous imaging pleural effusion worsened. Chest x-ray this morning noted to have prominent vascular congestion and pneumonia in the left lung and prominent atelectasis in right lung. Overall worsening respiratory function no improvement. Mechanical ventilation VT 400, RR 20, PEEP 5 platue pressure 16.8, and approximately sedated and synchronized to with ventilator. DX: bronchoscopy, VBG, CT chest RX: Chest PT on R side, IV antibiotics, continue ventilator to maintain lung protective measures, albuterol and normal saline nebulizers for airway clearance. Bronchoscopy today. RRX: Mucus plug resolved. Will get CT scan of the chest to assess R chronic pleural effusion. Anticipate patient will need tracheostomy due to recurrent aspirations. Reached out to conservator to update and consent. RENAL Mild, Hyperosmolar Hypernatremia Lactic acidosis, resolved Hypophosphatemia, improving - Neutraphos BID; may discontinue once hypophosphatemia improves -Free water flushes 250 cc Q6HR and free water with NG tube feedings at 35 cc. JOSEFINA on CKD III, improving Patient likely has underlying CKD given past history of GFR in 40s-50s since 2021 from underlying diabetes mellitus. No renal US on file. JOSEFINA, likely pre- renal in nature on admission given BUN/Cr >20, which is improving. -Avoid nephrotoxins -renally dose medication -Free water flushes 250 cc Q6HR GI No acute problems OG tube placed ENDO Problem: History of DM2 DDX: DX: blood sugar checks Q6H RX: ISS Q6H RRX: Patient euglycemic. If hyperglycemic, will start basal insulin. HEME Problem: Thrombocytopenia DDX: medication side effect, acute illness DX: RX: RRX: If continues to drop, will hold heparin for DVT prophylaxis and review medications for potential culprit. Problem: Normocytic, Anemia of Chronic disease Likely secondary to underlying history of diabetes mellitus, history of CKD, and acute illness, but at baseline given hgb 7-8 per chart review. NO yair blood loss noted. Consider Iron panel as outpatient. -Continue to monitor hgb/hct ID Problem: Aspiration pneumonia/pneumonitis and MRSA pneumonia, complicated by bilateral pleural effusion DDX: GNR and Nasal MRSA DX: BAL cytology stain 2+ WBC, occasional GNR and budding yeast RX: Day 6 Vancomycin (04/07/2025) and Day 2 Zosyn (04/13/2025-) RRX: Follow up BAL cytology and narrow antibiotics appropriately. Goals of Care Patient is a conserved patient under the care of Dr. Stewart. Case discussed with Dr. Stewart, assistive technology trainer, and resident in regards to patient overall poor prognosis as patient is unable to protect airway with anoxic brain injury. Will consider comfort measure, Dr. Stewart will reach out to neurology physician. patient continues to be full code. Health Maintenance Diet and fluids: tube feeds - Glucerna 1.2 w/ free water at rate of 35 cc DVT prophylaxis: heparin GI prophylaxis: Protonix 40 IV daily Lines: Right IJ central line, PIV, ET, OG CODE STATUS: FULL - patient is conserved with CRV. - The patient's plan was discussed with attending Dr. Mauricio Lim MD PGY1 Internal Medicine
[2025-04-13] MEDS: VANCOMYCIN/NS 1 GM IVPB 200 ML IV (10:04)
[2025-04-13] MEDS: PROPOFOL 1,000 MG IVPB 1,000 MG/100 ML VIAL 6.702 MG IV (14:00)
--- NOTE | 2025-04-13 21:39 | ESPR_ITS ---
Documentation for date of: 04/13/25 Subjective Subjective Interval history: Patient on a trickle feed due to large gastric residue Exam Vital Signs Temp Pulse Resp BP Pulse Ox O2 Del Method O2 Flow Rate 97.6 F 63 8 L 97/66 100 Mechanical Ventilation 15 04/13/25 20:00 04/13/25 21:00 04/11/25 04:15 04/13/25 21:00 04/13/25 21:00 04/13/25 04:00 04/11/25 04:11 FiO2 35 04/13/25 20:00 Objective Labs 04/13/25 05:39 04/13/25 05:39 Labs: Laboratory Results - last 24 hr 04/09/25 04/13/25 04/13/25 23:33 04:28 05:39 WBC 5.9 RBC 2.54 L Hgb 8.0 L Hct 24.8 L MCV 98 MCH 31.5 MCHC 32.3 RDW Std Deviation 55.5 H Plt Count 84 L Neut % (Auto) 84 H Lymph % (Auto) 6 L [place] % (Auto) 3 Eos % (Auto) 7 Baso % (Auto) 0 Neut # (Auto) 4.9 Lymph # (Auto) 0.3 L [place] # (Auto) 0.2 Eos # (Auto) 0.4 Baso # (Auto) 0.0 Immature Gran # (Auto) 0.04 H Absolute Nucleated RBC 0.00 Immature Gran % 1 H Nucleated RBC % 0 Puncture Site Cancelled Right Radial ABG pH Cancelled 7.43 ABG pCO2 Cancelled 38 ABG pO2 Cancelled 74 L ABG HCO3 Cancelled 25 ABG O2 Saturation Cancelled 96 ABG Base Excess Cancelled 1 Oxygen Liter Flow Cancelled FiO2 Cancelled 35 Sodium 146 H Potassium 3.5 Chloride 109 H Carbon Dioxide 25.2 Anion Gap 12 BUN 25 H Creatinine 1.4 H Estim Creat Clear Calc 59.6 L eGFR 54 L BUN/Creatinine Ratio 18 Glucose 130 H Calculated Osmolality 296 H Calcium 8.0 L Corrected Calcium 9.0 Phosphorus 3.1 Magnesium 2.3 Total Bilirubin 2.2 H AST 12 ALT 15 Alkaline Phosphatase 67 Total Protein 6.3 Albumin 2.8 L Globulin 3.5 Albumin/Globulin Ratio 0.8 L Impressions Impression: Foreign body obstruction status post endoscopic removal Gastroparesis Mechanically ventilated Seizure disorder Plan Add small dose of Reglan and see if it will improve the gastric motility ABG Interpretation ABG results: 04/03/25 04/04/25 04/05/25 20:45 04:55 04:00 ABG pH 7.46 H 7.42 7.35 ABG pCO2 37 42 47 ABG pO2 181 H 111 H D 37 L* D ABG HCO3 26 27 H 26 ABG O2 Saturation 99 H 98 66 L ABG Base Excess 2 3 0 VBG pH VBG pCO2 VBG pO2 VBG Base Excess 04/05/25 04/07/25 04/08/25 04:55 19:20 04:20 ABG pH 7.40 7.38 7.46 H ABG pCO2 40 47 45 ABG pO2 136 H D 141 H 108 D ABG HCO3 25 27 H 32 H ABG O2 Saturation 99 H 99 H 98 ABG Base Excess 0 2 7 H VBG pH VBG pCO2 VBG pO2 VBG Base Excess 04/09/25 04/09/25 04/10/25 04:52 23:33 00:24 ABG pH 7.48 H Cancelled 7.48 H ABG pCO2 40 Cancelled 40 ABG pO2 84 D Cancelled 197 H D ABG HCO3 30 H Cancelled 29 H ABG O2 Saturation 98 Cancelled 99 H ABG Base Excess 6 H Cancelled 6 H VBG pH VBG pCO2 VBG pO2 VBG Base Excess 04/10/25 04/11/25 04/11/25 23:42 03:15 04:57 ABG pH 7.41 7.41 ABG pCO2 38 41 ABG pO2 124 H D 91 D ABG HCO3 24 26 ABG O2 Saturation 99 H 98 ABG Base Excess -1 1 VBG pH 7.48 VBG pCO2 36 VBG pO2 105 H VBG Base Excess 3 04/11/25 04/12/25 04/13/25 12:32 08:38 04:28 ABG pH 7.43 ABG pCO2 38 ABG pO2 74 L ABG HCO3 25 ABG O2 Saturation 96 ABG Base Excess 1 VBG pH 7.39 7.41 VBG pCO2 47 D 42 VBG pO2 39 D 39 VBG Base Excess 3 2 Assessment & Plan A&P Narrative # Foreign body obstruction esophagus # Status post cardiopulmonary arrest ROSC # Developmentally delayed # Diabetes mellitus type 2 # Status post AKA left Plan Consent obtained for fiberoptic esophagogastro duodenoscopy with therapeutic intervention under intravenous moderate sedation we will proceed with the procedure thank you very much for the opportunity to participate in care of this patient Time Spent With Patient Time: Total time spent is greater than 50% in coordination of care (as documented) at patient's floor/unit and/or counseling patient:
[2025-04-13] MEDS: METOCLOPRAMIDE INJ 5 MG/ML VIAL 2 ML IVP (22:21)
[2025-04-14] VITALS (44 sets, daily range): BP systolic 75–127; BP diastolic 52–78; PULSE 58–124; RESP 18–32; TEMP 35.9–37.2; O2SAT 91–100; BMI 36.4
[2025-04-14] MEDS: PROPOFOL 1,000 MG IVPB 1,000 MG/100 ML VIAL 13.404 MG IV (01:38)
[2025-04-14] MEDS: HEPARIN SOD INJ 5000 UNIT/ML VIAL SC ×3 (05:37→21:12)
[2025-04-14] MEDS: PIPER/TAZO 3.375 GM PREMIX 3.375 GM/50 ML BAG IV (05:38)
[2025-04-14 05:47] LABS: Base Excess, Venous 1 (-3-3); O2 Saturation, Venous 59 % (96-97); PCO2, Venous 44 mmHg (36-56); PO2, Venous 34 mmHg (15-58); pH, Venous 7.38 (7.33-7.66)
--- NOTE | 2025-04-14 06:00 | XR_ITS ---
Examination: AP chest single view TECHNIQUE: AP portable semiupright chest single view Date and time: April 14, 2025 0533 hours Comparison April 13, 2025 INDICATIONS: Acute hypoxic respiratory failure, postintubation, history significant right lung atelectasis on chest imaging this week FINDINGS: Again noted significant right lung atelectasis Prominent vascular congestion left lung Stable positioning right internal jugular central line Endotracheal tube tip 5 cm above kaur. The orogastric tube is in the stomach, the tip is below the level of the film IMPRESSION: Again noted significant right lung atelectasis Prominent vascular congestion and possible pneumonia in the left lung
[2025-04-14 06:01] LABS: Basophils % (Auto) 0 % (0-2.5); Eosinophils # (Auto) 0.2 Thou/mm3 (0.0-0.5); Eosinophils % (Auto) 5 % (0-10); Hematocrit 22.5 % (41.0-53.0); Immature Granulocytes % (Auto) 1 % (0-0); Immature Granulocytes Auto 0.02 Thou/mm3 (0.00-0.00); Lymphocytes # (Auto) 0.3 Thou/mm3 (1.0-4.8); Lymphocytes % (Auto) 8 % (10-50); Mean Corpuscular HGB Conc 32.4 g/dl (31.0-37.0); Mean Corpuscular Hemoglobin 31.3 pg (25.0-35.0); Mean Corpuscular Volume 97 fL (80-100); Monocytes # (Auto) 0.2 Thou/mm3 (0.0-0.8); Monocytes % (Auto) 4 % (0-12); Neutrophils # (Auto) 3.4 Thou/mm3 (1.8-7.7); Neutrophils % (Auto) 83 % (37-80); Nucleated Red Blood Cell % 0 /100 WBC (0); Platelet Count 89 Thou/mm3 (140-440); RDW Standard Deviation 55.5 fL (35.1-43.9); Red Blood Count 2.33 Miln/mm3 (4.50-5.90); White Blood Count 4.1 Thou/mm3 (3.8-10.6)
[2025-04-14 06:03] LABS: Hemoglobin 7.3 g/dL (13.5-16.0)
[2025-04-14 06:21] LABS: Alanine Aminotransferase 14 U/L (10-49); Albumin, Serum 2.6 gm/dL (3.4-4.8); Albumin/Globulin Ratio 0.8 (1.2-2.2); Alkaline Phosphatase 70 U/L (46-116); Anion Gap 11 (7-16); Aspartate Amino Transferase 14 U/L (0-34); BUN/Creatinine Ratio 18 Ratio (12-20); Bilirubin,Total 1.7 mg/dL (0.3-1.2); Blood Urea Nitrogen 28 mg/dL (9-23); Calcium 7.7 mg/dL (8.3-10.6); Calcium (Corrected) 8.8 mg/dL (8.5-10.1); Carbon Dioxide 25.7 mMol/L (20.0-31.0); Chloride 109 mMol/L (98-107); Creatinine (Component) 1.6 mg/dL (0.6-1.3); Estimated Creatinine Clearance 51.9 mL/min (>60); Globulin 3.4 gm/dL (2.3-3.5); Glucose 131 mg/dL (74-106); Magnesium 2.3 mg/dL (1.6-2.6); Osmolality,Calculated 298 (275-295); Phosphorous 3.7 mg/dL (2.4-5.1); Potassium 3.9 mMol/L (3.4-5.1); Sodium 146 mMol/L (136-145); eGFR 46 See Note
[2025-04-14] MEDS: NAPH,KPH MBDB 1 PACKET (1.5 GM) PO (08:49)
[2025-04-14] MEDS: METOCLOPRAMIDE INJ 5 MG/ML VIAL 2 ML IVP ×2 (08:49→21:12)
[2025-04-14] MEDS: levETIRAcetam INJ 100 MG/ML VIAL 5ML 1000 MG IVP ×2 (08:50→21:12)
[2025-04-14] MEDS: LACOSAMIDE INJ 200 MG/20 ML VIAL IVP ×2 (08:50→21:11)
[2025-04-14] MEDS: FAMOTIDINE INJ 10 MG/ML VIAL 2 ML 20 MG IVP (09:01)
--- NOTE | 2025-04-14 09:22 | ESPR_ITS ---
<Statement entered by Heather Martínez MD - 04/15/25 12:10> TOTAL TIME: 45MINUTES ON DIRECT MEDICAL CARE, MANAGEMENT - COORDINATION AND COUNSELING > 50% OF TOTAL TIME I saw and evaluated the patient. I reviewed the resident?s note and agree with findings and plan as documented in the resident?s note. Weaning off sedation Continue neuroassessments. The concern that he may have anoxic encephalopathy corresponding to the clinical exam and MRI brain findings Ideally would like him off all sedation completely. Going on 48 hours without any new seizure activity. Intentionally holding off bronchoscopy to reduce likelihood of recurring seizures from the procedure Will reconsider bronchoscopy tomorrow if full atelectasis is reidentified Remains on vancomycin for MRSA pneumonia. Monitor renal function given dropping GFR. This may be related to his antibiotics. Patient does not have evidence of extreme fluid overload or volume depletion. Documentation for date of: 04/14/25 Subjective Subjective Interval history: Patient is a 70 year old male with PMH of developmental delay, bipolar disorder, DM2, L AKA admitted to the ICU for choking-induced pulmonary arrest s/p ROSC. Per caregivers and EMS report, patient was eating an apple when he choked and became unresponsive. When EMS arrived, patient was noted to be agonal, hypoxic at 55% and bradycardic. They were able to clear some food from his mouth. Patient was bagged via NPA. En route, patient lost pulses and CPR was initiated. He was given 1 of epinephrine. ROSC was achieved. Patient was intubated. He was found to be severely hypernatremic at 179. 04/04/2025: Overnight, staff was unable to pass an OG tube. Everytime the patient was turned, food chunks would come out of his mouth. He recieved a total of 2L NS and the following sodium was 135, and recheck was 136. Suspect that initial sodium at 179 may have been a lab error. Patient had SAT and SBT today, then was re-sedated and put on ventilator support for bronchoscopy. During bronchoscopy, there was large food material and mucous that were removed from the right intermdiate and lower lung bronchi, and inflammation in the right upper lobe entry. Plan for endoscopy later today to remove suspected food obstructing the esophagus. 04/05/2025: Endoscopy yesterday showed food material throughout the entire esophagus. An NG tube was placed for decompression with 200cc output overnight. No acute problems overnight. This morning, patient passed SBT and SAT and was extubated. He is awake, agitated but redirectable. He is developmentally delayed and can talk at baseline. Antibiotics discontinued. Remains on low dose levophed, will wean off. CXR shows significant bilateral infiltrate and patient is net positive fluid balance so will give Lasix. After intubation, patient did pull out his NG tube. His abdomen is quite distended and tympanic. KUB shows air throughout the colon. NG tube as reinserted with continuous suction for decompressions. 04/06/2025: Patient remains on 3L NC saturating well without respiratory distress. Will continue antibiotics to complete course for aspiration pneumonia. Patient stomach remains distended, improved. NG tube 200. Had 1 BM. Repeat KUB this morning still shows colonic ileus. Will continue NG tube. Patient to be downgraded today. 04/07/2025: [employer]IVER was called at 17: 43 soon after which a CODE BLUE was initiated as patient was found with his eyes rolled back shaking and without a pulse. ACLS was initiated with chest compressions and patient underwent 2 rounds of epi, a dose of calcium gluconate and 2 doses of bicarb. Patient had 2 rounds of PEA and he was found to be in V-fib for which she received 200 J of unsynchronized cardioversion and ROSC was achieved. Dr. Llanos intubated the patient and he was moved to the unit. Unclear as for the reason for the arrest at this time. Will work up. 04/08/2025: Patient had witnessed shaking event last night, was given Keppra. EEG was taken. He remains off sedation. This morning, patient opens eyes, tracks, localizes to pain. Failed SBT. CXR taken last night suggests aspiration throughout the right lung. CXR this morning shows improved right upper lung. Will turn patient on his left lung, duonebs, and antibiotics. Point of contact updated. 04/09/2025: Patient doing well this morning. Able to follow commands consistently. Adequate cough and gag reflex intact. Patient underwent spontaneous breathing trial and was successfully weaned to nasal cannula. Requesting this afternoon to be able to drink. However pending formal swallow evaluation at bedside. Patient undergoing chest physiotherapy with percussion and albuterol/saline nebs. 04/10/2025: Patient passed swallow yesterday and was started on purreed diet. Around 11pm patient had episode of hypoxia in the 70s and shaking. He was started on BIPAP with precedex, and keppra. This morning, patient taken off BIPAP and precedex without issue. He is awake, answering simple questions, calm. Sodium improved. Will follow up EEG results and continue Keppra for possible seizures, and recommend BIPAP at night for suspected central sleep apnea. 04/11/2025: Was called in regards to patient having 3 seizure-like episodes and did not have any peripheral access so central line was placed emergently. During central line placement patient had 2 more seizure-like episodes. Seizure-like episodes were full body convulsions lasting close to 30 seconds each time. During the episodes patient became very tachycardic into the 140s and desatted down to the 70s. Due to the frequent episodes of seizures decision was made to reintubate the patient for status epilepticus and to initiate propofol and Versed. Postprocedure x-ray shows right-sided complete whiteout likely secondary to a mucous plug. Patient will benefit from a bronchoscopy in the a.m. ABG pending. 04/11/2025: No further witnessed seizures noted. Patient had bronchoscopy today to clear mucus secretions. There was significant mucopurulent secretions throughout the right upper, middle, and lower lobe entry and subsegmental takeoffs. A BAL was obtained. Abnormal mucosa was noted in the R intermedius superior subsegmental takeoff - biopsy was not obtained due to limited resources. Patient tolerated the procedure well. Due to recurrent aspirations, patient may benefit from tracheostomy. Regarding patient's seizures, will continue Keppra, get EEG, and reach out to neurology. 04/12/2025: Patient had witnessed seizure around 06:00 and 08:00 lasting less than 1 minute. Prolactin obtained from 04/07 was elevated at 59. Will get MRI of the brain for new onset seizures and to rule out any intracranial mass or other pathology. On physical exam, patient has significant improved R lung sounds. BAL stain 2+ WBC with occasional budding yeast and occasional GNR. Review of previous XR and CTs show a chronic R lung pleural effusion since 2019. Will repeat bronch today to clear secretions and get CT with contrast of the lungs. Reached out to conservetor Dr. Stewart in anticipation for tracheostomy once seizures are controlled. 04/13/2025: Patient remains afebrile overnight. 1 bowel movement reported overnight. Patient net positive, balance of 2022 ml and a weight of 110.9 kg versus 108 kg on 04/03/2025 upon admission. 400 cc on bladder scan, continue to straight cath. Bilateral pleural effusion on CTA chest with negative for PE and as noted on previous abdomen pelvis CT from 2021 right large pleural effusion which is now chronic. Propofol continued at 10 mcg/kg, Versed 4 mg/h, antibiotics do on board including Zosyn/Vancomycin. Given overall poor prognosis from acute encephalopathy secondary to seizures likely complicated by anoxic brain injury from aspiration pneumonia, will update patient's guardian in shared decision making in regards to goals of care versus pleural drainage. VT 400 RR 20 PEEP 5, and peak plateau 16.8. Sedated and synchronized as noted volume loop and actual respiratory rate. 04/14/2025: No seizures reported overnight. Afebrile. Total fluid intake 727, output 900, next -172.0 within the last 12 hours. Continue to titrate down on Versed, currently 2 mg/hr and Propofol 15 mcg/kg. BAL positive for MRSA pneumonia, thus continue Vancomycin and discontinue Zosyn. Decreased vesicular breath sounds on right lung field with rhonchi noted on left lung field. Updated Conservator. Exam Vital Signs Temp Pulse Resp BP Pulse Ox O2 Del Method O2 Flow Rate 97.6 F 73 8 L 109/69 99 Mechanical Ventilation 15 04/14/25 00:00 04/14/25 06:45 04/11/25 04:15 04/14/25 06:45 04/14/25 06:45 04/13/25 04:00 04/11/25 04:11 FiO2 35 04/14/25 06:45 Narrative Exam General Appearance: Alert & Oriented X0, well-nourished male who is lying in bed under sedation and mechanically ventilated HEENT: Skull symmetrical and atraumatic. Conjunctivae pale pink and moist. Decreased response to light stimuli and accommodation (PERRL). External ear without lesion or discharge. Straight, nares patient, mucosa pink, no discharge. Cardio: Normal Rate and Rhythm with S1 and S2 heart sounds. No murmurs or extra heart sounds noted, but difficult to fully appreciate given body habitus. No bruits on carotid auscultation. Peripheral edema 1+ Lungs: Symmetric expansion. Decreased vesicular breath sounds on right lung field with rhonchi noted on left lung field, no crackles or wheezing noted. Abdomen: Non-tender, Non-distended, soft, hypoactive Reactive Bowel Sounds Neuro: NO Alert (sedated), NO cooperative, NO oriented to person, NO place, and NO time. Unable to access motor strength as patient remains on propofol and versed Objective Labs 04/14/25 05:18 04/14/25 05:18 Labs: Laboratory Results - last 24 hr 04/09/25 04/14/25 23:33 05:18 WBC 4.1 RBC 2.33 L Hgb 7.3 L Hct 22.5 L MCV 97 MCH 31.3 MCHC 32.4 RDW Std Deviation 55.5 H Plt Count 89 L Neut % (Auto) 83 H Lymph % (Auto) 8 L [place] % (Auto) 4 Eos % (Auto) 5 Baso % (Auto) 0 Neut # (Auto) 3.4 Lymph # (Auto) 0.3 L [place] # (Auto) 0.2 Eos # (Auto) 0.2 Baso # (Auto) 0.0 Immature Gran # (Auto) 0.02 H Absolute Nucleated RBC 0.00 Immature Gran % 1 H Nucleated RBC % 0 Puncture Site Cancelled ABG pH Cancelled ABG pCO2 Cancelled ABG pO2 Cancelled ABG HCO3 Cancelled ABG O2 Saturation Cancelled ABG Base Excess Cancelled VBG pH 7.38 VBG pCO2 44 VBG pO2 34 VBG O2 Sat (Erendira) 59 L D VBG Base Excess 1 Oxygen Liter Flow Cancelled FiO2 Cancelled Sodium 146 H Potassium 3.9 Chloride 109 H Carbon Dioxide 25.7 Anion Gap 11 BUN 28 H Creatinine 1.6 H Estim Creat Clear Calc 51.9 L eGFR 46 L BUN/Creatinine Ratio 18 Glucose 131 H Calculated Osmolality 298 H Calcium 7.7 L Corrected Calcium 8.8 Phosphorus 3.7 Magnesium 2.3 Total Bilirubin 1.7 H D AST 14 ALT 14 Alkaline Phosphatase 70 Total Protein 6.0 Albumin 2.6 L Globulin 3.4 Albumin/Globulin Ratio 0.8 L ABG Interpretation ABG results: 04/03/25 04/04/25 04/05/25 20:45 04:55 04:00 ABG pH 7.46 H 7.42 7.35 ABG pCO2 37 42 47 ABG pO2 181 H 111 H D 37 L* D ABG HCO3 26 27 H 26 ABG O2 Saturation 99 H 98 66 L ABG Base Excess 2 3 0 VBG pH VBG pCO2 VBG pO2 VBG Base Excess 04/05/25 04/07/25 04/08/25 04:55 19:20 04:20 ABG pH 7.40 7.38 7.46 H ABG pCO2 40 47 45 ABG pO2 136 H D 141 H 108 D ABG HCO3 25 27 H 32 H ABG O2 Saturation 99 H 99 H 98 ABG Base Excess 0 2 7 H VBG pH VBG pCO2 VBG pO2 VBG Base Excess 04/09/25 04/09/25 04/10/25 04:52 23:33 00:24 ABG pH 7.48 H Cancelled 7.48 H ABG pCO2 40 Cancelled 40 ABG pO2 84 D Cancelled 197 H D ABG HCO3 30 H Cancelled 29 H ABG O2 Saturation 98 Cancelled 99 H ABG Base Excess 6 H Cancelled 6 H VBG pH VBG pCO2 VBG pO2 VBG Base Excess 04/10/25 04/11/25 04/11/25 23:42 03:15 04:57 ABG pH 7.41 7.41 ABG pCO2 38 41 ABG pO2 124 H D 91 D ABG HCO3 24 26 ABG O2 Saturation 99 H 98 ABG Base Excess -1 1 VBG pH 7.48 VBG pCO2 36 VBG pO2 105 H VBG Base Excess 3 04/11/25 04/12/25 04/13/25 12:32 08:38 04:28 ABG pH 7.43 ABG pCO2 38 ABG pO2 74 L ABG HCO3 25 ABG O2 Saturation 96 ABG Base Excess 1 VBG pH 7.39 7.41 VBG pCO2 47 D 42 VBG pO2 39 D 39 VBG Base Excess 3 2 04/14/25 05:18 ABG pH ABG pCO2 ABG pO2 ABG HCO3 ABG O2 Saturation ABG Base Excess VBG pH 7.38 VBG pCO2 44 VBG pO2 34 VBG Base Excess 1 Quality Measures Quality Measures VTE prophylaxis Advance care planning discussed with:: legal surragate Assessment & Plan Assessment Current Active Medications: Generic Name Dose Route Start Last Admin Trade Name Freq PRN Reason Stop Dose Admin Acetaminophen 650 mg 04/07/25 15:23 Acetaminophen 325 Mg Tablet PO 05/03/25 16:21 Q6H PRN Fever >99.5 Dextrose 25 ml 04/03/25 16:33 Dextrose 50%-Water Inj 50 Ml Syringe IV 05/03/25 16:32 Q15MIN PRN BG 50-70 responsive npo pt Dextrose 50 ml 04/03/25 16:33 Dextrose 50%-Water Inj 50 Ml Syringe IV 05/03/25 16:32 Q15MIN PRN BG <50 OR BG <70 & pt unresponsive Famotidine 20 mg 04/14/25 09:00 04/14/25 09:01 Famotidine Inj 10 Mg/Ml Vial 2 Ml IVP 05/14/25 08:59 20 mg QDAY MANUEL Administration Glucagon 1 mg 04/03/25 16:33 Glucagon Inj 1 Mg Vial IM Q15MIN PRN BG <70, and no IV access Heparin Sodium (Porcine) 5,000 unit 04/03/25 22:00 04/14/25 05:37 Heparin Sod Inj 5000 Unit/Ml Vial SC 04/17/25 21:59 5,000 unit Q8HR MANUEL Administration Vancomycin/Sodium Chloride 200 mls @ 120 mls/hr 04/07/25 10:00 04/13/25 10:04 Vancomycin/Ns 1 Gm Ivpb IV 04/14/25 09:59 120 mls/hr QDAY@1000 MANUEL Administration Protocol Midazolam HCl 100 mg in 100 mls @ 1 mls/hr 04/11/25 04:11 04/14/25 07:30 Versed Pf Inj In Ns Premix IV 04/16/25 04:10 2 mg/hr .Q24H PRN 2 mls/hr PER PROTOCOL Titration Protocol 1 MG/HR Propofol 1,000 mg in 100 mls @ 3.351 mls/hr 04/11/25 04:12 04/14/25 07:00 Diprivan Ivpb IV 05/11/25 04:11 15 mcg/kg/min .Q24H PRN 10.053 mls/hr PER PROTOCOL Titration Protocol 5 MCG/KG/MIN Insulin Human Regular 0 unit 04/11/25 06:00 04/14/25 05:45 Insulin Hum Regular 1 Unit/0.01 Ml (Per Unit) SC 05/11/25 05:59 Not Given Q6HR MANUEL Protocol Lacosamide 200 mg 04/12/25 21:00 04/14/25 08:50 Lacosamide Inj 200 Mg/20 Ml Vial IVP 05/12/25 20:59 200 mg BID MANUEL Administration Levetiracetam 1,000 mg 04/10/25 21:00 04/14/25 08:50 Levetiracetam Inj 100 Mg/Ml Vial 5ml IVP 05/10/25 20:59 1,000 mg Q12HR MANUEL Administration Metoclopramide HCl 5 mg 04/13/25 21:45 04/14/25 08:49 Metoclopramide Inj 5 Mg/Ml Vial 2 Ml IVP 05/13/25 21:44 5 mg BID MANUEL Administration Protocol Ondansetron HCl 4 mg 04/07/25 14:29 Ondansetron Inj 2 Mg/Ml Inj 2 Ml IV 05/07/25 14:28 Q6H PRN NAUSEA OR VOMITING Protocol Pharmacy Consult 1 each 04/03/25 14:00 Vancomycin Pharmacy To Dose 1 Each Each IV 05/03/25 13:59 QDAY PRN CONSULT Potassium Phos/Sodium Phos 1 packet 04/08/25 21:00 04/14/25 08:49 [facility] 1 Packet (1.5 Gm) PO 05/08/25 20:59 1 packet BID MANUEL Administration Sodium Chloride 3 ml 04/04/25 15:24 04/09/25 10:22 Sodium Chloride Rt Jessica 0.9% 3 Ml Nebu INH 05/04/25 15:23 3 ml PRN PRN Administration SOLN Plan Patient is a 70 year old male with PMH of developmental delay, bipolar disorder, DM2, L AKA admitted to the ICU for choking-induced pulmonary arrest s/p ROSC. [employer] Problem: Acute encephalopathy DDX: likely from acute hypoxic respiratory failure and cardiopulmonary arrest leading to anoxic brain injury and seizures. MRI noted chronic micro-vascular changes which could be secondary to anoxic brain injury vs chronic changes. DX: EEG, MRI, Prolactin 59 (H) RX: Keppra 1000mg BID, Lacosamide 200 mg IVP BID, propofol (15 mcg/kg) and versed (2 mg/hr) ggt RRX: Continues to seize on Keppra. Will increase versed ggt. Lacosamide 200 mg IVP BID as per recommendations for neurology. Neurology consulted, Dr. Wilson, appreciate recommendations CARDIOVASCULAR Cardiopulmonary arrest s/p resuscitation, resolved Cardiopulmonary arrest on 04/08/2025 secondary to acute hypoxic respiratory failure form aspiration pneumonia. RESPIRATORY Problem: Acute hypoxic respiratory failure DDX: MRSA pneumonia given positive nasal swab and MRSA BAL culture likely from aspiraiton complicated by bilateral pleural effusion & actelectasis with recurrent mucous plugs. Chest CT (04/13/2025): Moderate bilateral pleural effusion, extensive pneumonia and atelectasis in lower lung zones, and negative for pulmonary artery emboli. Previous 2021 Abdomen/Pelvis noted to have large right pleural effusion, which compared to previous imaging pleural effusion worsened.Repeat chest x-ray (04/14/2025) morning noted to have prominent vascular congestion and pneumonia in the left lung and prominent atelectasis in right lung. Overall respiratory function with some improvement. Mechanical ventilation VT 400, RR 20, PEEP 5 platue pressure 16 Fio2 30, and approximately sedated and synchronized to with ventilator. Weaning off versed. DX: bronchoscopy, VBG, CT chest RX: Chest PT on R side, IV antibiotics, continue ventilator to maintain lung protective measures, albuterol and normal saline nebulizers for airway clearance. Bronchoscopy today. RRX: Mucus plug resolved. Will get CT scan of the chest to assess R chronic pleural effusion. Anticipate patient will need tracheostomy due to recurrent aspirations. Reached out to conservator to update and consent. RENAL Mild, Hyperosmolar Hypernatremia Lactic acidosis, resolved Hypophosphatemia, resolved. - Neutraphos BID, discontinued as phosphorous levels have improved and within normal limits. -Free water flushes 250 cc Q6HR and free water with NG tube feedings at 35 cc. JOSEFINA on CKD III Patient likely has underlying CKD given past history of GFR in 40s-50s since 2021 from underlying diabetes mellitus. No renal US on file. JOSEFINA, likely pre- renal in nature on admission given BUN/Cr >20, which is improving but medication such as Vancomycin and Protonix likely contributing to JOSEFINA. -Avoid nephrotoxins -renally dose medication -Free water flushes 250 cc Q6HR GI No acute problems OG tube placed ENDO Problem: History of DM2 DDX: DX: blood sugar checks Q6H RX: ISS Q6H RRX: Patient euglycemic. If hyperglycemic, will start basal insulin. HEME Problem: Thrombocytopenia DDX: medication side effect, acute illness DX: RX: RRX: If continues to drop, will hold heparin for DVT prophylaxis and review medications for potential culprit. Problem: Normocytic, Anemia of Chronic disease Likely secondary to underlying history of diabetes mellitus, history of CKD, and acute illness, but at baseline given hgb 7-8 per chart review. NO yair blood loss noted. Consider Iron panel as outpatient. -Continue to monitor hgb/hct ID Problem: Aspiration pneumonia/pneumonitis and MRSA pneumonia, complicated by bilateral pleural effusion and atelectasiss of right lung with decreased vesicular breath sounds. DDX: GNR and Nasal MRSA DX: BAL cytology WBC, budding yeast, & GNR; Bronchial Lavage Culture MRSA RX: Day 7 Vancomycin (04/07/2025--) RRX: Follow up BAL cytology, MRSA + Goals of Care Patient is a conserved patient under the care of Dr. Stewart. Case discussed with Dr. Stewart, best worker, and resident in regards to patient overall poor prognosis as patient is unable to protect airway with anoxic brain injury. Will consider comfort measure, Dr. Stewart will reach out to neurology physician. patient continues to be full code. Health Maintenance Diet and fluids: tube feeds - Glucerna 1.2 w/ free water at rate of 35 cc DVT prophylaxis: heparin Q12 GI prophylaxis: Famotadine 40 IV daily Lines: Right IJ central line, PIV, ET, OG Medical Restrains 24 hours. CODE STATUS: FULL - patient is conserved with CRV. - The patient's plan was discussed with attending Dr. Mauricio Lim MD PGY1 Internal Medicine
[2025-04-14 10:17] LABS: Vancomycin,Trough 22.8 mcg/mL (5.0-10.0)
[2025-04-14] MEDS: PROPOFOL 1,000 MG IVPB 1,000 MG/100 ML VIAL 6.702 MG IV (11:36)
--- NOTE | 2025-04-14 15:05 | PD.RESPRO ---
Documentation for date of: 04/14/25 Subjective Subjective Interval history: Patient was seen and examined by the bedside. No seizures overnight. Continues to be mechanically ventilated, sedation is being slowly weaned down. ICU team will continue discussion regarding goals of care with Dr. Stewart. Exam Vital Signs Temp Pulse Resp BP Pulse Ox O2 Del Method O2 Flow Rate 96.7 F L 66 8 L 114/70 99 Mechanical Ventilation 15 04/14/25 11:00 04/14/25 14:43 04/11/25 04:15 04/14/25 14:43 04/14/25 14:43 04/14/25 08:00 04/11/25 04:11 FiO2 35 04/14/25 14:43 Narrative Exam Gen: Well-developed and well-nourished. Sedated. RASS -3. HEENT: NCAT, pupils equal, right eye cataract, miotic, weakly reactive to light, intact corneal reflex, intact cough reflex, MMM, anicteric conjunctivae. CVS: normal S1 and S2. RRR. No M/R/G. Resp: CTA B/L. No rhonchi, rales, crackles or wheezing. Abd: soft, non-tender, non-distended. BS+ in all 4 quadrants. MSK: Right AKA, left toe amputation. Neuro:Sedated. Pupils equal, miotic, weakly reactive to light, intact corneal reflex, intact cough reflex. Tendon reflexes 1+. Grimacing to the pain stimulation. Psych: impossible to assess. Objective Labs 04/16/25 04:35 04/16/25 04:35 Labs: Laboratory Results - last 24 hr 04/03/25 04/14/25 04/14/25 16:35 05:18 09:42 WBC 4.1 RBC 2.33 L Hgb 7.3 L Hct 22.5 L MCV 97 MCH 31.3 MCHC 32.4 RDW Std Deviation 55.5 H Plt Count 89 L Neut % (Auto) 83 H Lymph % (Auto) 8 L [place] % (Auto) 4 Eos % (Auto) 5 Baso % (Auto) 0 Neut # (Auto) 3.4 Lymph # (Auto) 0.3 L [place] # (Auto) 0.2 Eos # (Auto) 0.2 Baso # (Auto) 0.0 Immature Gran # (Auto) 0.02 H Absolute Nucleated RBC 0.00 Immature Gran % 1 H Nucleated RBC % 0 Puncture Site Cancelled ABG pH Cancelled ABG pCO2 Cancelled ABG pO2 Cancelled ABG HCO3 Cancelled ABG O2 Saturation Cancelled ABG Base Excess Cancelled VBG pH 7.38 VBG pCO2 44 VBG pO2 34 VBG O2 Sat (Erendira) 59 L D VBG Base Excess 1 Oxygen Liter Flow Cancelled FiO2 Cancelled Sodium 146 H Potassium 3.9 Chloride 109 H Carbon Dioxide 25.7 Anion Gap 11 BUN 28 H Creatinine 1.6 H Estim Creat Clear Calc 51.9 L eGFR 46 L BUN/Creatinine Ratio 18 Glucose 131 H Calculated Osmolality 298 H Calcium 7.7 L Corrected Calcium 8.8 Phosphorus 3.7 Magnesium 2.3 Total Bilirubin 1.7 H D AST 14 ALT 14 Alkaline Phosphatase 70 Total Protein 6.0 Albumin 2.6 L Globulin 3.4 Albumin/Globulin Ratio 0.8 L Vancomycin Trough 22.8 H* ABG Interpretation ABG results: 04/03/25 04/03/25 04/04/25 16:35 20:45 04:55 ABG pH Cancelled 7.46 H 7.42 ABG pCO2 Cancelled 37 42 ABG pO2 Cancelled 181 H 111 H D ABG HCO3 Cancelled 26 27 H ABG O2 Saturation Cancelled 99 H 98 ABG Base Excess Cancelled 2 3 VBG pH VBG pCO2 VBG pO2 VBG Base Excess 04/05/25 04/05/25 04/07/25 04:00 04:55 19:20 ABG pH 7.35 7.40 7.38 ABG pCO2 47 40 47 ABG pO2 37 L* D 136 H D 141 H ABG HCO3 26 25 27 H ABG O2 Saturation 66 L 99 H 99 H ABG Base Excess 0 0 2 VBG pH VBG pCO2 VBG pO2 VBG Base Excess 04/08/25 04/09/25 04/09/25 04:20 04:52 23:33 ABG pH 7.46 H 7.48 H Cancelled ABG pCO2 45 40 Cancelled ABG pO2 108 D 84 D Cancelled ABG HCO3 32 H 30 H Cancelled ABG O2 Saturation 98 98 Cancelled ABG Base Excess 7 H 6 H Cancelled VBG pH VBG pCO2 VBG pO2 VBG Base Excess 04/10/25 04/10/25 04/11/25 00:24 23:42 03:15 ABG pH 7.48 H 7.41 ABG pCO2 40 38 ABG pO2 197 H D 124 H D ABG HCO3 29 H 24 ABG O2 Saturation 99 H 99 H ABG Base Excess 6 H -1 VBG pH 7.48 VBG pCO2 36 VBG pO2 105 H VBG Base Excess 3 04/11/25 04/11/25 04/12/25 04:57 12:32 08:38 ABG pH 7.41 ABG pCO2 41 ABG pO2 91 D ABG HCO3 26 ABG O2 Saturation 98 ABG Base Excess 1 VBG pH 7.39 7.41 VBG pCO2 47 D 42 VBG pO2 39 D 39 VBG Base Excess 3 2 04/13/25 04/14/25 04:28 05:18 ABG pH 7.43 ABG pCO2 38 ABG pO2 74 L ABG HCO3 25 ABG O2 Saturation 96 ABG Base Excess 1 VBG pH 7.38 VBG pCO2 44 VBG pO2 34 VBG Base Excess 1 Quality Measures Quality Measures VTE prophylaxis Advance care planning discussed with:: other Assessment & Plan Assessment Current Active Medications: Generic Name Dose Route Start Last Admin Trade Name Freq PRN Reason Stop Dose Admin Acetaminophen 650 mg 04/07/25 15:23 Acetaminophen 325 Mg Tablet PO 05/03/25 16:21 Q6H PRN Fever >99.5 Dextrose 25 ml 04/03/25 16:33 Dextrose 50%-Water Inj 50 Ml Syringe IV 05/03/25 16:32 Q15MIN PRN BG 50-70 responsive npo pt Dextrose 50 ml 04/03/25 16:33 Dextrose 50%-Water Inj 50 Ml Syringe IV 05/03/25 16:32 Q15MIN PRN BG <50 OR BG <70 & pt unresponsive Famotidine 20 mg 04/14/25 09:00 04/14/25 09:01 Famotidine Inj 10 Mg/Ml Vial 2 Ml IVP 05/14/25 08:59 20 mg QDAY MANUEL Administration Glucagon 1 mg 04/03/25 16:33 Glucagon Inj 1 Mg Vial IM Q15MIN PRN BG <70, and no IV access Heparin Sodium (Porcine) 5,000 unit 04/03/25 22:00 04/14/25 13:44 Heparin Sod Inj 5000 Unit/Ml Vial SC 04/17/25 21:59 5,000 unit Q8HR MANUEL Administration Midazolam HCl 100 mg in 100 mls @ 1 mls/hr 04/11/25 04:11 04/14/25 10:00 Versed Pf Inj In Ns Premix IV 04/16/25 04:10 0 mg/hr .Q24H PRN 0 mls/hr PER PROTOCOL Titration Protocol 1 MG/HR Propofol 1,000 mg in 100 mls @ 3.351 mls/hr 04/11/25 04:12 04/14/25 14:00 Diprivan Ivpb IV 05/11/25 04:11 15 mcg/kg/min .Q24H PRN 10.053 mls/hr PER PROTOCOL Titration Protocol 5 MCG/KG/MIN Vancomycin/Sodium Chloride 750 mg in 150 mls @ 120 mls/hr 04/15/25 10:00 Vancomycin/Ns 750 Mg Ivpb IV 04/22/25 09:59 QDAY@1000 MANUEL Insulin Human Regular 0 unit 04/11/25 06:00 04/14/25 12:12 Insulin Hum Regular 1 Unit/0.01 Ml (Per Unit) SC 05/11/25 05:59 Not Given Q6HR MANUEL Protocol Lacosamide 200 mg 04/12/25 21:00 04/14/25 08:50 Lacosamide Inj 200 Mg/20 Ml Vial IVP 05/12/25 20:59 200 mg BID MANUEL Administration Levetiracetam 1,000 mg 04/10/25 21:00 04/14/25 08:50 Levetiracetam Inj 100 Mg/Ml Vial 5ml IVP 05/10/25 20:59 1,000 mg Q12HR MANUEL Administration Metoclopramide HCl 5 mg 04/13/25 21:45 04/14/25 08:49 Metoclopramide Inj 5 Mg/Ml Vial 2 Ml IVP 05/13/25 21:44 5 mg BID MANUEL Administration Protocol Ondansetron HCl 4 mg 04/07/25 14:29 Ondansetron Inj 2 Mg/Ml Inj 2 Ml IV 05/07/25 14:28 Q6H PRN NAUSEA OR VOMITING Protocol Pharmacy Consult 1 each 04/03/25 14:00 Vancomycin Pharmacy To Dose 1 Each Each IV 05/03/25 13:59 QDAY PRN CONSULT Sodium Chloride 3 ml 04/04/25 15:24 05/09/25 10:22 Sodium Chloride Rt Jessica 0.9% 3 Ml Nebu INH 05/04/25 15:23 3 ml PRN PRN Administration SOLN Plan Patient is a 70 year old male with PMH of developmental delay, bipolar disorder, DM2, L AKA admitted to the ICU for choking-induced pulmonary arrest s/p ROSC. #Status epilepticus requiring reintubation #History of bipolar disorder #History of developmental delay #Cardiopulmonary arrest s/p resuscitation #Hypoxic brain injury Seizures could be provoked due to brain injury in the setting of prolonged hypoxia. MRI showed multiple miscrovascular changes. EEG showed multifocal spike and wave discharges, triphasic waves and severe generalized slowing. Plan: ? Lacosamide 200 mg IV push twice daily ? Keppra 1000 mg twice daily ? Midazolam infusion as needed for breakthrough seizures ? Propofol infusion, wean down as olerated - home meds are on hold #Acute hypoxic respiratory failure and status epilepticus requiring mechanical intubation and ventilation for airway protection #Hyperosmolar Hypernatremia, resolved #Lactic acidosis, cleared #Hypophosphatemia, improving #History of DM2 #Thrombocytopenia #Aspiration pneumonia versus pneumonitis - management per primary team Plan of care discussed with attending Dr. Wilson. Sophia Fritz MD, PGY 1. Attending Provider Attestation/Addendum Personally have seen and examined the patient at the bedside and I agreed with resident's findings, assessment and plan of care. Condition remains unchanged. Consider weaning from sedation if possible.
--- NOTE | 2025-04-14 17:12 | PC.SS ---
Update: Patient remains intubated. On sedation. No pressor support. Tube feeds in place. Afebrile.
[2025-04-14] MEDS: PROPOFOL 1,000 MG IVPB 1,000 MG/100 ML VIAL 16.755 MG IV (18:09)
--- NOTE | 2025-04-14 20:27 | ESPR_ITS ---
Documentation for date of: 04/14/25 Subjective Subjective Interval history: Patient evaluated Enteral feeding is a challenge because of gastroparesis I was started on a small dose of Reglan yesterday Exam Vital Signs Temp Pulse Resp BP Pulse Ox O2 Del Method O2 Flow Rate 98.9 F 61 20 84/56 L 99 Mechanical Ventilation 15 04/14/25 16:00 04/14/25 20:00 04/14/25 18:42 04/14/25 20:00 04/14/25 20:00 04/14/25 08:00 04/11/25 04:11 FiO2 35 04/14/25 20:00 Objective Labs 04/14/25 05:18 04/14/25 05:18 Labs: Laboratory Results - last 24 hr 04/03/25 04/14/25 04/14/25 16:35 05:18 09:42 WBC 4.1 RBC 2.33 L Hgb 7.3 L Hct 22.5 L MCV 97 MCH 31.3 MCHC 32.4 RDW Std Deviation 55.5 H Plt Count 89 L Neut % (Auto) 83 H Lymph % (Auto) 8 L [place] % (Auto) 4 Eos % (Auto) 5 Baso % (Auto) 0 Neut # (Auto) 3.4 Lymph # (Auto) 0.3 L [place] # (Auto) 0.2 Eos # (Auto) 0.2 Baso # (Auto) 0.0 Immature Gran # (Auto) 0.02 H Absolute Nucleated RBC 0.00 Immature Gran % 1 H Nucleated RBC % 0 Puncture Site Cancelled ABG pH Cancelled ABG pCO2 Cancelled ABG pO2 Cancelled ABG HCO3 Cancelled ABG O2 Saturation Cancelled ABG Base Excess Cancelled VBG pH 7.38 VBG pCO2 44 VBG pO2 34 VBG O2 Sat (Erendira) 59 L D VBG Base Excess 1 Oxygen Liter Flow Cancelled FiO2 Cancelled Sodium 146 H Potassium 3.9 Chloride 109 H Carbon Dioxide 25.7 Anion Gap 11 BUN 28 H Creatinine 1.6 H Estim Creat Clear Calc 51.9 L eGFR 46 L BUN/Creatinine Ratio 18 Glucose 131 H Calculated Osmolality 298 H Calcium 7.7 L Corrected Calcium 8.8 Phosphorus 3.7 Magnesium 2.3 Total Bilirubin 1.7 H D AST 14 ALT 14 Alkaline Phosphatase 70 Total Protein 6.0 Albumin 2.6 L Globulin 3.4 Albumin/Globulin Ratio 0.8 L Vancomycin Trough 22.8 H* Impressions Impression: Gastric motility disorder Enteral feeding via the NGT Continue the rate as tolerated Continue Reglan ABG Interpretation ABG results: 04/03/25 04/03/25 04/04/25 16:35 20:45 04:55 ABG pH Cancelled 7.46 H 7.42 ABG pCO2 Cancelled 37 42 ABG pO2 Cancelled 181 H 111 H D ABG HCO3 Cancelled 26 27 H ABG O2 Saturation Cancelled 99 H 98 ABG Base Excess Cancelled 2 3 VBG pH VBG pCO2 VBG pO2 VBG Base Excess 04/05/25 04/05/25 04/07/25 04:00 04:55 19:20 ABG pH 7.35 7.40 7.38 ABG pCO2 47 40 47 ABG pO2 37 L* D 136 H D 141 H ABG HCO3 26 25 27 H ABG O2 Saturation 66 L 99 H 99 H ABG Base Excess 0 0 2 VBG pH VBG pCO2 VBG pO2 VBG Base Excess 04/08/25 04/09/25 04/09/25 04:20 04:52 23:33 ABG pH 7.46 H 7.48 H Cancelled ABG pCO2 45 40 Cancelled ABG pO2 108 D 84 D Cancelled ABG HCO3 32 H 30 H Cancelled ABG O2 Saturation 98 98 Cancelled ABG Base Excess 7 H 6 H Cancelled VBG pH VBG pCO2 VBG pO2 VBG Base Excess 04/10/25 04/10/25 04/11/25 00:24 23:42 03:15 ABG pH 7.48 H 7.41 ABG pCO2 40 38 ABG pO2 197 H D 124 H D ABG HCO3 29 H 24 ABG O2 Saturation 99 H 99 H ABG Base Excess 6 H -1 VBG pH 7.48 VBG pCO2 36 VBG pO2 105 H VBG Base Excess 3 04/11/25 04/11/25 04/12/25 04:57 12:32 08:38 ABG pH 7.41 ABG pCO2 41 ABG pO2 91 D ABG HCO3 26 ABG O2 Saturation 98 ABG Base Excess 1 VBG pH 7.39 7.41 VBG pCO2 47 D 42 VBG pO2 39 D 39 VBG Base Excess 3 2 04/13/25 04/14/25 04:28 05:18 ABG pH 7.43 ABG pCO2 38 ABG pO2 74 L ABG HCO3 25 ABG O2 Saturation 96 ABG Base Excess 1 VBG pH 7.38 VBG pCO2 44 VBG pO2 34 VBG Base Excess 1 Assessment & Plan A&P Narrative # Foreign body obstruction esophagus # Status post cardiopulmonary arrest ROSC # Developmentally delayed # Diabetes mellitus type 2 # Status post AKA left Plan Consent obtained for fiberoptic esophagogastro duodenoscopy with therapeutic intervention under intravenous moderate sedation we will proceed with the procedure thank you very much for the opportunity to participate in care of this patient Time Spent With Patient Time: Total time spent is greater than 50% in coordination of care (as documented) at patient's floor/unit and/or counseling patient:
[2025-04-15] VITALS (28 sets, daily range): BP systolic 84–137; BP diastolic 58–88; PULSE 58–79; RESP 20–36; TEMP 35.7–36.6; O2SAT 96–100; BMI 36.5
[2025-04-15] MEDS: PROPOFOL 1,000 MG IVPB 1,000 MG/100 ML VIAL 16.755 MG IV ×4 (00:26→22:57)
[2025-04-15] MEDS: HEPARIN SOD INJ 5000 UNIT/ML VIAL SC ×2 (05:13→21:32)
[2025-04-15 05:52] LABS: Basophils % (Auto) 0 % (0-2.5); Eosinophils # (Auto) 0.2 Thou/mm3 (0.0-0.5); Eosinophils % (Auto) 3 % (0-10); Immature Granulocytes % (Auto) 1 % (0-0); Immature Granulocytes Auto 0.04 Thou/mm3 (0.00-0.00); Lymphocytes # (Auto) 0.4 Thou/mm3 (1.0-4.8); Lymphocytes % (Auto) 6 % (10-50); Mean Corpuscular HGB Conc 32.3 g/dl (31.0-37.0); Mean Corpuscular Hemoglobin 31.3 pg (25.0-35.0); Mean Corpuscular Volume 97 fL (80-100); Monocytes # (Auto) 0.2 Thou/mm3 (0.0-0.8); Monocytes % (Auto) 4 % (0-12); Neutrophils # (Auto) 5.3 Thou/mm3 (1.8-7.7); Neutrophils % (Auto) 86 % (37-80); Nucleated Red Blood Cell % 0 /100 WBC (0); Platelet Count 107 Thou/mm3 (140-440); RDW Standard Deviation 56.9 fL (35.1-43.9); Red Blood Count 1.66 Miln/mm3 (4.50-5.90); White Blood Count 6.1 Thou/mm3 (3.8-10.6)
--- NOTE | 2025-04-15 06:00 | XR_ITS ---
Examination: AP chest single view Technique one AP portable semiupright chest single view Date and time: April 15, 2025 0530 hours Comparison April 14, 2025 INDICATION: Hypoxic respiratory failure postintubation, history recurrent atelectasis right lung FINDINGS: Improved aeration right lung Right internal jugular central line tip SVC No pneumothorax Large right pleural fluid mild to moderate Endotracheal tube tip 5.8 cm above [place] Prominent vascular congestion Opacity at the left base consistent with pneumonia Orogastric tube in the stomach, the tip is below level of the film IMPRESSION: Improved aeration right lung
[2025-04-15 06:04] LABS: Hematocrit 16.1 % (41.0-53.0); Hemoglobin 5.2 g/dL (13.5-16.0)
[2025-04-15 06:16] LABS: Alanine Aminotransferase 26 U/L (10-49); Albumin, Serum 2.7 gm/dL (3.4-4.8); Albumin/Globulin Ratio 0.8 (1.2-2.2); Alkaline Phosphatase 90 U/L (46-116); Anion Gap 9 (7-16); Aspartate Amino Transferase 34 U/L (0-34); BUN/Creatinine Ratio 18 Ratio (12-20); Bilirubin,Total 1.8 mg/dL (0.3-1.2); Blood Urea Nitrogen 32 mg/dL (9-23); Calcium 7.8 mg/dL (8.3-10.6); Calcium (Corrected) 8.8 mg/dL (8.5-10.1); Carbon Dioxide 25.1 mMol/L (20.0-31.0); Chloride 109 mMol/L (98-107); Creatinine (Component) 1.8 mg/dL (0.6-1.3); Estimated Creatinine Clearance 46.3 mL/min (>60); Globulin 3.6 gm/dL (2.3-3.5); Glucose 125 mg/dL (74-106); Magnesium 2.3 mg/dL (1.6-2.6); Osmolality,Calculated 292 (275-295); Phosphorous 4.2 mg/dL (2.4-5.1); Potassium 3.5 mMol/L (3.4-5.1); Sodium 143 mMol/L (136-145); Total Protein 6.3 gm/dL (5.7-8.2); Vancomycin,Random 20.3 mcg/mL; eGFR 40 See Note
[2025-04-15 06:47] LABS: Hematocrit 22.7 % (41.0-53.0)
[2025-04-15 06:51] LABS: Hemoglobin 7.2 g/dL (13.5-16.0)
[2025-04-15] MEDS: POTASSIUM CHLORIDE 10% 20 MEQ/15 ML UDC NG (08:34)
[2025-04-15] MEDS: METOCLOPRAMIDE INJ 5 MG/ML VIAL 2 ML IVP ×2 (08:34→21:32)
[2025-04-15] MEDS: levETIRAcetam INJ 100 MG/ML VIAL 5ML 1000 MG IVP ×2 (08:35→21:33)
[2025-04-15] MEDS: FAMOTIDINE INJ 10 MG/ML VIAL 2 ML 20 MG IVP (08:35)
[2025-04-15] MEDS: LACOSAMIDE INJ 200 MG/20 ML VIAL IVP ×2 (08:36→21:32)
[2025-04-15] MEDS: VANCOMYCIN/NS 750 MG IVPB 750 MG/150 ML BAG 120 MG IV (09:00)
--- NOTE | 2025-04-15 10:49 | ESPR_ITS ---
<Statement entered by Heather Martínez MD - 04/16/25 07:58> TOTAL TIME: 45MINUTES ON DIRECT MEDICAL CARE, MANAGEMENT - COORDINATION AND COUNSELING > 50% OF TOTAL TIME I saw and evaluated the patient. I reviewed the resident?s note and agree with findings and plan as documented in the resident?s note. switched vancomycin to linezolid due to progressive renal failure suspect abx are cause of JOSEFINA on CKD - fluid status is acceptable no other obvious offensive medications No recent hypotension or sudden drop in perfusion weaning propofol - increased motor movements but not following commands - is able to track unable to extubate - will at least start PSV trials Mental status prohibitive to extubate Documentation for date of: 04/15/25 Subjective Subjective Interval history: Patient is a 70 year old male with PMH of developmental delay, bipolar disorder, DM2, L AKA admitted to the ICU for choking-induced pulmonary arrest s/p ROSC. Per caregivers and EMS report, patient was eating an apple when he choked and became unresponsive. When EMS arrived, patient was noted to be agonal, hypoxic at 55% and bradycardic. They were able to clear some food from his mouth. Patient was bagged via NPA. En route, patient lost pulses and CPR was initiated. He was given 1 of epinephrine. ROSC was achieved. Patient was intubated. He was found to be severely hypernatremic at 179. 04/04/2025: Overnight, staff was unable to pass an OG tube. Everytime the patient was turned, food chunks would come out of his mouth. He recieved a total of 2L NS and the following sodium was 135, and recheck was 136. Suspect that initial sodium at 179 may have been a lab error. Patient had SAT and SBT today, then was re-sedated and put on ventilator support for bronchoscopy. During bronchoscopy, there was large food material and mucous that were removed from the right intermdiate and lower lung bronchi, and inflammation in the right upper lobe entry. Plan for endoscopy later today to remove suspected food obstructing the esophagus. 04/05/2025: Endoscopy yesterday showed food material throughout the entire esophagus. An NG tube was placed for decompression with 200cc output overnight. No acute problems overnight. This morning, patient passed SBT and SAT and was extubated. He is awake, agitated but redirectable. He is developmentally delayed and can talk at baseline. Antibiotics discontinued. Remains on low dose levophed, will wean off. CXR shows significant bilateral infiltrate and patient is net positive fluid balance so will give Lasix. After intubation, patient did pull out his NG tube. His abdomen is quite distended and tympanic. KUB shows air throughout the colon. NG tube as reinserted with continuous suction for decompressions. 04/06/2025: Patient remains on 3L NC saturating well without respiratory distress. Will continue antibiotics to complete course for aspiration pneumonia. Patient stomach remains distended, improved. NG tube 200. Had 1 BM. Repeat KUB this morning still shows colonic ileus. Will continue NG tube. Patient to be downgraded today. 04/07/2025: [employer] PIPE FINISHER was called at 17: 43 soon after which a CODE BLUE was initiated as patient was found with his eyes rolled back shaking and without a pulse. ACLS was initiated with chest compressions and patient underwent 2 rounds of epi, a dose of calcium gluconate and 2 doses of bicarb. Patient had 2 rounds of PEA and he was found to be in V-fib for which she received 200 J of unsynchronized cardioversion and ROSC was achieved. Dr. Llanos intubated the patient and he was moved to the unit. Unclear as for the reason for the arrest at this time. Will work up. 04/08/2025: Patient had witnessed shaking event last night, was given Keppra. EEG was taken. He remains off sedation. This morning, patient opens eyes, tracks, localizes to pain. Failed SBT. CXR taken last night suggests aspiration throughout the right lung. CXR this morning shows improved right upper lung. Will turn patient on his left lung, duonebs, and antibiotics. Point of contact updated. 04/09/2025: Patient doing well this morning. Able to follow commands consistently. Adequate cough and gag reflex intact. Patient underwent spontaneous breathing trial and was successfully weaned to nasal cannula. Requesting this afternoon to be able to drink. However pending formal swallow evaluation at bedside. Patient undergoing chest physiotherapy with percussion and albuterol/saline nebs. 04/10/2025: Patient passed swallow yesterday and was started on purreed diet. Around 11pm patient had episode of hypoxia in the 70s and shaking. He was started on BIPAP with precedex, and keppra. This morning, patient taken off BIPAP and precedex without issue. He is awake, answering simple questions, calm. Sodium improved. Will follow up EEG results and continue Keppra for possible seizures, and recommend BIPAP at night for suspected central sleep apnea. 04/11/2025: Was called in regards to patient having 3 seizure-like episodes and did not have any peripheral access so central line was placed emergently. During central line placement patient had 2 more seizure-like episodes. Seizure-like episodes were full body convulsions lasting close to 30 seconds each time. During the episodes patient became very tachycardic into the 140s and desatted down to the 70s. Due to the frequent episodes of seizures decision was made to reintubate the patient for status epilepticus and to initiate propofol and Versed. Postprocedure x-ray shows right-sided complete whiteout likely secondary to a mucous plug. Patient will benefit from a bronchoscopy in the a.m. ABG pending. 04/11/2025: No further witnessed seizures noted. Patient had bronchoscopy today to clear mucus secretions. There was significant mucopurulent secretions throughout the right upper, middle, and lower lobe entry and subsegmental takeoffs. A BAL was obtained. Abnormal mucosa was noted in the R intermedius superior subsegmental takeoff - biopsy was not obtained due to limited resources. Patient tolerated the procedure well. Due to recurrent aspirations, patient may benefit from tracheostomy. Regarding patient's seizures, will continue Keppra, get EEG, and reach out to neurology. 04/12/2025: Patient had witnessed seizure around 06:00 and 08:00 lasting less than 1 minute. Prolactin obtained from 04/07 was elevated at 59. Will get MRI of the brain for new onset seizures and to rule out any intracranial mass or other pathology. On physical exam, patient has significant improved R lung sounds. BAL stain 2+ WBC with occasional budding yeast and occasional GNR. Review of previous XR and CTs show a chronic R lung pleural effusion since 2019. Will repeat bronch today to clear secretions and get CT with contrast of the lungs. Reached out to conservanar Dr. Stewart in anticipation for tracheostomy once seizures are controlled. 04/13/2025: Patient remains afebrile overnight. 1 bowel movement reported overnight. Patient net positive, balance of 2023 ml and a weight of 110.9 kg versus 108 kg on 04/03/2025 upon admission. 400 cc on bladder scan, continue to straight cath. Bilateral pleural effusion on CTA chest with negative for PE and as noted on previous abdomen pelvis CT from 2021 right large pleural effusion which is now chronic. Propofol continued at 10 mcg/kg, Versed 4 mg/h, antibiotics do on board including Zosyn/Vancomycin. Given overall poor prognosis from acute encephalopathy secondary to seizures likely complicated by anoxic brain injury from aspiration pneumonia, will update patient's guardian in shared decision making in regards to goals of care versus pleural drainage. VT 400 RR 20 PEEP 5, and peak plateau 16.8. Sedated and synchronized as noted volume loop and actual respiratory rate. 04/14/2025: No seizures reported overnight. Afebrile. Total fluid intake 727, output 900, next -172.0 within the last 12 hours. Continue to titrate down on Versed, currently 2 mg/hr and Propofol 15 mcg/kg. BAL positive for MRSA pneumonia, thus continue Vancomycin and discontinue Zosyn. Decreased vesicular breath sounds on right lung field with rhonchi noted on left lung field. Updated Conservator. 04/15/2025: No overnight events. No seizures reported. Patient continues to have good urine output 800cc. Propofol 25 mcg/kg. Given worsening kidney function, Vancomycin D/C and Linezolid 600 mg BID started, Day 8 of antibiotics for MRSA Pneumonia. Versed stopped. Improved chest x-ray, no planned bronchoscopy. Exam Vital Signs Temp Pulse Resp BP Pulse Ox O2 Del Method O2 Flow Rate 96.9 F 61 20 84/58 L 100 Mechanical Ventilation 04/15/25 07:00 04/15/25 08:00 04/14/25 18:42 04/15/25 07:00 04/15/25 07:00 04/15/25 07:00 04/11/25 04:11 FiO2 30 04/15/25 08:00 Narrative Exam General Appearance: Alert & Oriented X0, well-nourished male who is lying in bed under sedation and mechanically ventilated HEENT: Skull symmetrical and atraumatic. Conjunctivae pale pink and moist. Decreased response to light stimuli and accommodation (PERRL). External ear without lesion or discharge. Straight, nares patient, mucosa pink, no discharge. Cardio: Normal Rate and Rhythm with S1 and S2 heart sounds. No murmurs or extra heart sounds noted, but difficult to fully appreciate given body habitus. No bruits on carotid auscultation. Peripheral edema 1+ Lungs: Symmetric expansion. Decreased vesicular breath sounds on right lung field with rhonchi noted on left lung field, no crackles or wheezing noted. Abdomen: Non-tender, Non-distended, soft, hypoactive Reactive Bowel Sounds Neuro: NO Alert (sedated), NO cooperative, NO oriented to person, NO place, and NO time. Unable to access motor strength as patient remains on propofol and versed Objective Labs 04/15/25 06:26 04/15/25 04:48 Labs: Laboratory Results - last 24 hr 04/03/25 04/12/25 04/15/25 16:35 05:48 04:48 WBC 6.1 D RBC 1.66 L* Hgb 5.2 L* D Hct 16.1 L* MCV 97 MCH 31.3 MCHC 32.3 RDW Std Deviation 56.9 H Plt Count 107 L D Neut % (Auto) 86 H Lymph % (Auto) 6 L Sutton % (Auto) 4 Eos % (Auto) 3 Baso % (Auto) 0 Neut # (Auto) 5.3 Lymph # (Auto) 0.4 L Sutton # (Auto) 0.2 Eos # (Auto) 0.2 Baso # (Auto) 0.0 Immature Gran # (Auto) 0.04 H Absolute Nucleated RBC 0.00 Immature Gran % 1 H Nucleated RBC % 0 Puncture Site Cancelled ABG pH Cancelled ABG pCO2 Cancelled ABG pO2 Cancelled ABG HCO3 Cancelled ABG O2 Saturation Cancelled ABG Base Excess Cancelled Oxygen Liter Flow Cancelled FiO2 Cancelled Sodium 143 Potassium 3.5 Chloride 109 H Carbon Dioxide 25.1 Anion Gap 9 BUN 32 H Creatinine 1.8 H Estim Creat Clear Calc 46.3 L eGFR 40 L BUN/Creatinine Ratio 18 Glucose 125 H Calculated Osmolality 292 Calcium 7.8 L Corrected Calcium 8.8 Phosphorus 4.2 Magnesium 2.3 Total Bilirubin 1.8 H AST 34 ALT 26 Alkaline Phosphatase 90 D Total Protein 6.3 Albumin 2.7 L Globulin 3.6 H Albumin/Globulin Ratio 0.8 L Random Vancomycin 20.3 Misc Test Result See Sep Rpt Blood Type Antibody Screen Crossmatch Blood Bank Wristband ID 04/15/25 06:26 WBC RBC Hgb 7.2 L D Hct 22.7 L MCV MCH MCHC RDW Std Deviation Plt Count Neut % (Auto) Lymph % (Auto) Sutton % (Auto) Eos % (Auto) Baso % (Auto) Neut # (Auto) Lymph # (Auto) Sutton # (Auto) Eos # (Auto) Baso # (Auto) Immature Gran # (Auto) Absolute Nucleated RBC Immature Gran % Nucleated RBC % Puncture Site ABG pH ABG pCO2 ABG pO2 ABG HCO3 ABG O2 Saturation ABG Base Excess Oxygen Liter Flow FiO2 Sodium Potassium Chloride Carbon Dioxide Anion Gap BUN Creatinine Estim Creat Clear Calc eGFR BUN/Creatinine Ratio Glucose Calculated Osmolality Calcium Corrected Calcium Phosphorus Magnesium Total Bilirubin AST ALT Alkaline Phosphatase Total Protein Albumin Globulin Albumin/Globulin Ratio Random Vancomycin Misc Test Result Blood Type AB Positive Antibody Screen NEGATIVE Crossmatch See Detail Blood Bank Wristband ID Yes ABG Interpretation ABG results: 04/03/25 04/03/25 04/04/25 16:35 20:45 04:55 ABG pH Cancelled 7.46 H 7.42 ABG pCO2 Cancelled 37 42 ABG pO2 Cancelled 181 H 111 H D ABG HCO3 Cancelled 26 27 H ABG O2 Saturation Cancelled 99 H 98 ABG Base Excess Cancelled 2 3 VBG pH VBG pCO2 VBG pO2 VBG Base Excess 04/05/25 04/05/25 04/07/25 04:00 04:55 19:20 ABG pH 7.35 7.40 7.38 ABG pCO2 47 40 47 ABG pO2 37 L* D 136 H D 141 H ABG HCO3 26 25 27 H ABG O2 Saturation 66 L 99 H 99 H ABG Base Excess 0 0 2 VBG pH VBG pCO2 VBG pO2 VBG Base Excess 04/08/25 04/09/25 04/09/25 04:20 04:52 23:33 ABG pH 7.46 H 7.48 H Cancelled ABG pCO2 45 40 Cancelled ABG pO2 108 D 84 D Cancelled ABG HCO3 32 H 30 H Cancelled ABG O2 Saturation 98 98 Cancelled ABG Base Excess 7 H 6 H Cancelled VBG pH VBG pCO2 VBG pO2 VBG Base Excess 04/10/25 04/10/25 04/11/25 00:24 23:42 03:15 ABG pH 7.48 H 7.41 ABG pCO2 40 38 ABG pO2 197 H D 124 H D ABG HCO3 29 H 24 ABG O2 Saturation 99 H 99 H ABG Base Excess 6 H -1 VBG pH 7.48 VBG pCO2 36 VBG pO2 105 H VBG Base Excess 3 04/11/25 04/11/25 04/12/25 04:57 12:32 08:38 ABG pH 7.41 ABG pCO2 41 ABG pO2 91 D ABG HCO3 26 ABG O2 Saturation 98 ABG Base Excess 1 VBG pH 7.39 7.41 VBG pCO2 47 D 42 VBG pO2 39 D 39 VBG Base Excess 3 2 04/13/25 04/14/25 04:28 05:18 ABG pH 7.43 ABG pCO2 38 ABG pO2 74 L ABG HCO3 25 ABG O2 Saturation 96 ABG Base Excess 1 VBG pH 7.38 VBG pCO2 44 VBG pO2 34 VBG Base Excess 1 Quality Measures Quality Measures VTE prophylaxis Advance care planning discussed with:: patient Assessment & Plan Assessment Current Active Medications: Generic Name Dose Route Start Last Admin Trade Name Freq PRN Reason Stop Dose Admin Acetaminophen 650 mg 04/07/25 15:23 Acetaminophen 325 Mg Tablet PO 05/03/25 16:21 Q6H PRN Fever >99.5 Dextrose 25 ml 04/03/25 16:33 Dextrose 50%-Water Inj 50 Ml Syringe IV 05/03/25 16:32 Q15MIN PRN BG 50-70 responsive npo pt Dextrose 50 ml 04/03/25 16:33 Dextrose 50%-Water Inj 50 Ml Syringe IV 05/03/25 16:32 Q15MIN PRN BG <50 OR BG <70 & pt unresponsive Famotidine 20 mg 04/14/25 09:00 04/15/25 08:35 Famotidine Inj 10 Mg/Ml Vial 2 Ml IVP 05/14/25 08:59 20 mg QDAY MANUEL Administration Glucagon 1 mg 04/03/25 16:33 Glucagon Inj 1 Mg Vial IM Q15MIN PRN BG <70, and no IV access Heparin Sodium (Porcine) 5,000 unit 04/03/25 22:00 04/15/25 05:13 Heparin Sod Inj 5000 Unit/Ml Vial SC 04/17/25 21:59 5,000 unit Q8HR MANUEL Administration Midazolam HCl 100 mg in 100 mls @ 1 mls/hr 05/11/25 04:11 04/14/25 10:00 Versed Pf Inj In Ns Premix IV 04/16/25 04:10 0 mg/hr .Q24H PRN 0 mls/hr PER PROTOCOL Titration Protocol 1 MG/HR Propofol 1,000 mg in 100 mls @ 3.351 mls/hr 04/11/25 04:12 04/15/25 07:00 Diprivan Ivpb IV 05/11/25 04:11 25 mcg/kg/min .Q24H PRN 16.755 mls/hr PER PROTOCOL Titration Protocol 5 MCG/KG/MIN Linezolid 600 mg in 300 mls @ 300 mls/hr 04/15/25 21:00 Zyvox Ivpb IV 04/22/25 20:59 BID MANUEL Insulin Human Regular 0 unit 04/11/25 06:00 04/15/25 05:14 Insulin Hum Regular 1 Unit/0.01 Ml (Per Unit) SC 05/11/25 05:59 Not Given Q6HR MANUEL Protocol Lacosamide 200 mg 04/12/25 21:00 04/15/25 08:36 Lacosamide Inj 200 Mg/20 Ml Vial IVP 05/12/25 20:59 200 mg BID MANUEL Administration Levetiracetam 1,000 mg 04/10/25 21:00 04/15/25 08:35 Levetiracetam Inj 100 Mg/Ml Vial 5ml IVP 05/10/25 20:59 1,000 mg Q12HR MANUEL Administration Metoclopramide HCl 5 mg 04/13/25 21:45 04/15/25 08:34 Metoclopramide Inj 5 Mg/Ml Vial 2 Ml IVP 05/13/25 21:44 5 mg BID MANUEL Administration Protocol Ondansetron HCl 4 mg 04/07/25 14:29 Ondansetron Inj 2 Mg/Ml Inj 2 Ml IV 05/07/25 14:28 Q6H PRN NAUSEA OR VOMITING Protocol Sodium Chloride 3 ml 04/04/25 15:24 04/09/25 10:22 Sodium Chloride Rt Jessica 0.9% 3 Ml Nebu INH 05/04/25 15:23 3 ml PRN PRN Administration SOLN Plan Patient is a 70 year old male with PMH of developmental delay, bipolar disorder, DM2, L AKA admitted to the ICU for choking-induced pulmonary arrest s/p ROSC. 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 MRI noted chronic micro-vascular changes which could be secondary to anoxic brain injury vs chronic changes. DX: EEG, MRI, Prolactin 59 (H) RX: Keppra 1000mg BID, Lacosamide 200 mg IVP BID, propofol (25 mcg/kg) ggt, Verset D/C. RRX: Continues to seize on Keppra. Lacosamide 200 mg IVP BID as per recommendations for neurology. Neurology consulted, Dr. Wilson, appreciate recommendations CARDIOVASCULAR Cardiopulmonary arrest s/p resuscitation, resolved Cardiopulmonary arrest on 04/08/2025 secondary to acute hypoxic respiratory failure form aspiration pneumonia. RESPIRATORY Problem: Acute hypoxic respiratory failure DDX: MRSA pneumonia given positive nasal swab and MRSA BAL culture likely from aspiraiton complicated by bilateral pleural effusion & actelectasis with recurrent mucous plugs. Chest CT (04/13/2025): Moderate bilateral pleural effusion, extensive pneumonia and atelectasis in lower lung zones, and negative for pulmonary artery emboli. Previous 2021 Abdomen/Pelvis noted to have large right pleural effusion, which compared to previous imaging pleural effusion worsened.Repeat chest x-ray (04/14/2025) morning noted to have prominent vascular congestion and pneumonia in the left lung and prominent atelectasis in right lung. Overall respiratory function with some improvement. Mechanical ventilation VT 400, RR 20, PEEP 5 platue pressure 16 Fio2 30, and approximately sedated and synchronized to with ventilator. Weaning off versed. DX: bronchoscopy, VBG, CT chest RX: Chest PT on R side, IV antibiotics, continue ventilator to maintain lung protective measures, albuterol and normal saline nebulizers for airway clearance. RRX: Mucus plug resolved, no plan Brnocsocpy. Anticipate patient will need tracheostomy due to recurrent aspirations. Reached out to conservator to update and consent. RENAL JOSEFINA on CKD III, worsening DDX: Patient likely has underlying CKD given past history of GFR in 40s-50s since 2021 from underlying diabetes mellitus. No renal US on file. Worsening kidney function likely secondary to nephrotoxins from Vancomycin given elevated trough. Patient making appropriate urine output less likely secondary to obstructive. Dx: BUN 32 Cr 1.8 GFR 40 RX: Avoid nephrotoxins , renally dose medication , Free water flushes 250 cc Q6HR RRX: Stopped Vancomycin and started Linezolid given worsening kidney function , consider nephrology consult Mild, Hyperosmolar Hypernatremia, Resolved. Lactic acidosis, resolved Hypophosphatemia, resolved. GI DDx: OG tube placed Dx: RX: Free water flushes 250 cc Q6HR and free water flushes with NG tube feedinga t 35 cc RRX: ENDO Problem: History of DM2 DDX: DX: blood sugar checks Q6H RX: ISS Q6H RRX: Patient euglycemic. If hyperglycemic, will start basal insulin. HEME Problem: Thrombocytopenia DDX: medication side effect, acute illness DX: RX: RRX: If continues to drop, will hold heparin for DVT prophylaxis and review medications for potential culprit. Problem: Normocytic, Anemia of Chronic disease DDx: Likely secondary to underlying history of diabetes mellitus, history of CKD, and acute illness, but at baseline given hgb 7-8 per chart review. NO yair blood loss noted. Dx: RX: RRX: Consider Iron panel as outpatient & Ferritin levels. ID Problem: Aspiration pneumonia/pneumonitis and MRSA pneumonia, complicated by bilateral pleural effusion and atelectasiss of right lung with decreased vesicular breath sounds. DDX: GNR and Nasal MRSA DX: BAL cytology WBC, budding yeast, & GNR; Bronchial Lavage Culture MRSA RX: Total Anitibiotics Day 8, Linezolid 600 mg BID RRX: BAL cytology, MRSA +, Vancomycin 04/07/2025-04/15/2025 Goals of Care Patient is a conserved patient under the care of Dr. Stewart. Case discussed with Dr. Stewart, ciso, and resident in regards to patient overall poor prognosis as patient is unable to protect airway with anoxic brain injury. Will consider comfort measure, Dr. Stewart will reach out to neurology physician. patient continues to be full code. Health Maintenance Diet and fluids: tube feeds - Glucerna 1.2 w/ free water at rate of 35 cc DVT prophylaxis: heparin Q12 GI prophylaxis: Famotadine 40 IV daily Lines: Right IJ central line, PIV, ET, OG Medical Restrains 24 hours. CODE STATUS: FULL - patient is conserved with CRV. - The patient's plan was discussed with attending Dr. Mauricio Lim MD PGY1 Internal Medicine
--- NOTE | 2025-04-15 13:38 | PD.RESPRO ---
Documentation for date of: 04/15/25 Subjective Subjective Interval history: Patient was seen and examined by the bedside. No seizures overnight. Antibiotics regimen was changed, patient was started on linezolid. Continues to be mechanically ventilated, sedation is being slowly weaned down. Will assess again and plan accordinly to the response to the decreased sedation. Exam Vital Signs Temp Pulse Resp BP Pulse Ox O2 Del Method O2 Flow Rate 96.9 F 60 20 114/74 100 Mechanical Ventilation 15 04/15/25 07:00 04/15/25 12:00 04/14/25 18:42 04/15/25 11:01 04/15/25 11:01 04/15/25 07:00 04/11/25 04:11 FiO2 30 04/15/25 12:00 Narrative Exam Gen: Well-developed and well-nourished. Sedated. RASS -3. HEENT: NCAT, pupils equal, right eye cataract, miotic, weakly reactive to light, intact corneal reflex, intact cough reflex, MMM, anicteric conjunctivae. CVS: normal S1 and S2. RRR. No M/R/G. Resp: CTA B/L. No rhonchi, rales, crackles or wheezing. Abd: soft, non-tender, non-distended. BS+ in all 4 quadrants. MSK: Right AKA, left toe amputation. Neuro:Sedated. Pupils equal, miotic, weakly reactive to light, intact corneal reflex, intact cough reflex. Tendon reflexes 1+. Grimacing to the pain stimulation. Psych: impossible to assess. Objective Labs 04/19/25 05:00 04/19/25 05:00 Labs: Laboratory Results - last 24 hr 04/12/25 04/15/25 04/15/25 05:48 04:48 06:26 WBC 6.1 D RBC 1.66 L* Hgb 5.2 L* D 7.2 L D Hct 16.1 L* 22.7 L MCV 97 MCH 31.3 MCHC 32.3 RDW Std Deviation 56.9 H Plt Count 107 L D Neut % (Auto) 86 H Lymph % (Auto) 6 L [place] % (Auto) 4 Eos % (Auto) 3 Baso % (Auto) 0 Neut # (Auto) 5.3 Lymph # (Auto) 0.4 L [place] # (Auto) 0.2 Eos # (Auto) 0.2 Baso # (Auto) 0.0 Immature Gran # (Auto) 0.04 H Absolute Nucleated RBC 0.00 Immature Gran % 1 H Nucleated RBC % 0 Sodium 143 Potassium 3.5 Chloride 109 H Carbon Dioxide 25.1 Anion Gap 9 BUN 32 H Creatinine 1.8 H Estim Creat Clear Calc 46.3 L eGFR 40 L BUN/Creatinine Ratio 18 Glucose 125 H Calculated Osmolality 292 Calcium 7.8 L Corrected Calcium 8.8 Phosphorus 4.2 Magnesium 2.3 Total Bilirubin 1.8 H AST 34 ALT 26 Alkaline Phosphatase 90 D Total Protein 6.3 Albumin 2.7 L Globulin 3.6 H Albumin/Globulin Ratio 0.8 L Random Vancomycin 20.3 Misc Test Result See Sep Rpt Blood Type AB Positive Antibody Screen NEGATIVE Crossmatch See Detail Blood Bank Wristband ID Yes ABG Interpretation ABG results: 04/03/25 04/03/25 04/04/25 16:35 20:45 04:55 ABG pH Cancelled 7.46 H 7.42 ABG pCO2 Cancelled 37 42 ABG pO2 Cancelled 181 H 111 H D ABG HCO3 Cancelled 26 27 H ABG O2 Saturation Cancelled 99 H 98 ABG Base Excess Cancelled 2 3 VBG pH VBG pCO2 VBG pO2 VBG Base Excess 04/05/25 04/05/25 04/07/25 04:00 04:55 19:20 ABG pH 7.35 7.40 7.38 ABG pCO2 47 40 47 ABG pO2 37 L* D 136 H D 141 H ABG HCO3 26 25 27 H ABG O2 Saturation 66 L 99 H 99 H ABG Base Excess 0 0 2 VBG pH VBG pCO2 VBG pO2 VBG Base Excess 04/08/25 04/09/25 04/09/25 04:20 04:52 23:33 ABG pH 7.46 H 7.48 H Cancelled ABG pCO2 45 40 Cancelled ABG pO2 108 D 84 D Cancelled ABG HCO3 32 H 30 H Cancelled ABG O2 Saturation 98 98 Cancelled ABG Base Excess 7 H 6 H Cancelled VBG pH VBG pCO2 VBG pO2 VBG Base Excess 04/10/25 04/10/25 04/11/25 00:24 23:42 03:15 ABG pH 7.48 H 7.41 ABG pCO2 40 38 ABG pO2 197 H D 124 H D ABG HCO3 29 H 24 ABG O2 Saturation 99 H 99 H ABG Base Excess 6 H -1 VBG pH 7.48 VBG pCO2 36 VBG pO2 105 H VBG Base Excess 3 04/11/25 04/11/25 04/12/25 04:57 12:32 08:38 ABG pH 7.41 ABG pCO2 41 ABG pO2 91 D ABG HCO3 26 ABG O2 Saturation 98 ABG Base Excess 1 VBG pH 7.39 7.41 VBG pCO2 47 D 42 VBG pO2 39 D 39 VBG Base Excess 3 2 04/13/25 04/14/25 04:28 05:18 ABG pH 7.43 ABG pCO2 38 ABG pO2 74 L ABG HCO3 25 ABG O2 Saturation 96 ABG Base Excess 1 VBG pH 7.38 VBG pCO2 44 VBG pO2 34 VBG Base Excess 1 Quality Measures Quality Measures VTE prophylaxis Advance care planning discussed with:: other Assessment & Plan Assessment Current Active Medications: Generic Name Dose Route Start Last Admin Trade Name Billy PRN Reason Stop Dose Admin Acetaminophen 650 mg 04/07/25 15:23 Acetaminophen 325 Mg Tablet PO 05/03/25 16:21 Q6H PRN Fever >99.5 Dextrose 25 ml 04/03/25 16:33 Dextrose 50%-Water Inj 50 Ml Syringe IV 05/03/25 16:32 Q15MIN PRN BG 50-70 responsive npo pt Dextrose 50 ml 04/03/25 16:33 Dextrose 50%-Water Inj 50 Ml Syringe IV 05/03/25 16:32 Q15MIN PRN BG <50 OR BG <70 & pt unresponsive Famotidine 20 mg 04/14/25 09:00 04/15/25 08:35 Famotidine Inj 10 Mg/Ml Vial 2 Ml IVP 05/14/25 08:59 20 mg QDAY MANUEL Administration Glucagon 1 mg 04/03/25 16:33 Glucagon Inj 1 Mg Vial IM Q15MIN PRN BG <70, and no IV access Heparin Sodium (Porcine) 5,000 unit 04/03/25 22:00 04/15/25 05:13 Heparin Sod Inj 5000 Unit/Ml Vial SC 04/17/25 21:59 5,000 unit Q8HR MANUEL Administration Midazolam HCl 100 mg in 100 mls @ 1 mls/hr 04/11/25 04:11 04/14/25 10:00 Versed Pf Inj In Ns Premix IV 04/16/25 04:10 0 mg/hr .Q24H PRN 0 mls/hr PER PROTOCOL Titration Protocol 1 MG/HR Propofol 1,000 mg in 100 mls @ 3.351 mls/hr 04/11/25 04:12 04/15/25 11:00 Diprivan Ivpb IV 05/11/25 04:11 15 mcg/kg/min .Q24H PRN 10.053 mls/hr PER PROTOCOL Titration Protocol 5 MCG/KG/MIN Linezolid 600 mg in 300 mls @ 300 mls/hr 04/15/25 21:00 Zyvox Ivpb IV 04/22/25 20:59 BID MANUEL Insulin Human Regular 0 unit 04/11/25 06:00 04/15/25 05:14 Insulin Hum Regular 1 Unit/0.01 Ml (Per Unit) SC 05/11/25 05:59 Not Given Q6HR MANUEL Protocol Lacosamide 200 mg 04/12/25 21:00 04/15/25 08:36 Lacosamide Inj 200 Mg/20 Ml Vial IVP 05/12/25 20:59 200 mg BID MANUEL Administration Levetiracetam 1,000 mg 04/10/25 21:00 04/15/25 08:35 Levetiracetam Inj 100 Mg/Ml Vial 5ml IVP 05/10/25 20:59 1,000 mg Q12HR MANUEL Administration Metoclopramide HCl 5 mg 04/13/25 21:45 04/15/25 08:34 Metoclopramide Inj 5 Mg/Ml Vial 2 Ml IVP 05/13/25 21:44 5 mg BID MANUEL Administration Protocol Ondansetron HCl 4 mg 04/07/25 14:29 Ondansetron Inj 2 Mg/Ml Inj 2 Ml IV 05/07/25 14:28 Q6H PRN NAUSEA OR VOMITING Protocol Sodium Chloride 3 ml 04/04/25 15:24 04/09/25 10:22 Sodium Chloride Rt Jessica 0.9% 3 Ml Nebu INH 05/04/25 15:23 3 ml PRN PRN Administration SOLN Plan Patient is a 70 year old male with PMH of developmental delay, bipolar disorder, DM2, L AKA admitted to the ICU for choking-induced pulmonary arrest s/p ROSC. #Status epilepticus requiring reintubation #History of bipolar disorder #History of developmental delay #Cardiopulmonary arrest s/p resuscitation #Hypoxic brain injury Seizures could be provoked due to brain injury in the setting of prolonged hypoxia. MRI showed multiple miscrovascular changes. EEG showed multifocal spike and wave discharges, triphasic waves and severe generalized slowing. Plan: ? Lacosamide 200 mg IV push twice daily ? Keppra 1000 mg twice daily ? Midazolam infusion as needed for breakthrough seizures ? Propofol infusion, wean down as olerated - home meds are on hold #Acute hypoxic respiratory failure and status epilepticus requiring mechanical intubation and ventilation for airway protection #Hyperosmolar Hypernatremia, resolved #Lactic acidosis, cleared #Hypophosphatemia, improving #History of DM2 #Thrombocytopenia #Aspiration pneumonia versus pneumonitis - management per primary team Plan of care discussed with attending Dr. Wilson. Sophia Fritz MD, PGY 1. Attending Provider Attestation/Addendum I personally have seen and examined the patient at the bedside and agree with resident's findings, assessment and plan of care. As the condition is critical and his prognosis is poor, [facility] is leaning towards comfort care.
--- NOTE | 2025-04-15 19:39 | ESPR_ITS ---
Documentation for date of: 04/15/25 Subjective Subjective Interval history: Patient evaluated intubated Exam Vital Signs Temp Pulse Resp BP Pulse Ox O2 Del Method O2 Flow Rate 96.2 F L 61 20 95/61 100 Mechanical Ventilation 15 04/15/25 16:01 04/15/25 18:00 04/14/25 18:42 04/15/25 18:00 04/15/25 18:00 04/15/25 16:01 04/11/25 04:11 FiO2 35 04/15/25 16:01 Objective Labs 04/15/25 06:26 04/15/25 04:48 Labs: Laboratory Results - last 24 hr 04/12/25 04/15/25 04/15/25 05:48 04:48 06:26 WBC 6.1 D RBC 1.66 L* Hgb 5.2 L* D 7.2 L D Hct 16.1 L* 22.7 L MCV 97 MCH 31.3 MCHC 32.3 RDW Std Deviation 56.9 H Plt Count 107 L D Neut % (Auto) 86 H Lymph % (Auto) 6 L [place] % (Auto) 4 Eos % (Auto) 3 Baso % (Auto) 0 Neut # (Auto) 5.3 Lymph # (Auto) 0.4 L [place] # (Auto) 0.2 Eos # (Auto) 0.2 Baso # (Auto) 0.0 Immature Gran # (Auto) 0.04 H Absolute Nucleated RBC 0.00 Immature Gran % 1 H Nucleated RBC % 0 Sodium 143 Potassium 3.5 Chloride 109 H Carbon Dioxide 25.1 Anion Gap 9 BUN 32 H Creatinine 1.8 H Estim Creat Clear Calc 46.3 L eGFR 40 L BUN/Creatinine Ratio 18 Glucose 125 H Calculated Osmolality 292 Calcium 7.8 L Corrected Calcium 8.8 Phosphorus 4.2 Magnesium 2.3 Total Bilirubin 1.8 H AST 34 ALT 26 Alkaline Phosphatase 90 D Total Protein 6.3 Albumin 2.7 L Globulin 3.6 H Albumin/Globulin Ratio 0.8 L Random Vancomycin 20.3 Misc Test Result See Sep Rpt Blood Type AB Positive Antibody Screen NEGATIVE Crossmatch See Detail Blood Bank Wristband ID Yes Impressions Impression: Mechanically ventilated Enteral feeding via NGT ABG Interpretation ABG results: 04/03/25 04/03/25 04/04/25 16:35 20:45 04:55 ABG pH Cancelled 7.46 H 7.42 ABG pCO2 Cancelled 37 42 ABG pO2 Cancelled 181 H 111 H D ABG HCO3 Cancelled 26 27 H ABG O2 Saturation Cancelled 99 H 98 ABG Base Excess Cancelled 2 3 VBG pH VBG pCO2 VBG pO2 VBG Base Excess 04/05/25 04/05/25 04/07/25 04:00 04:55 19:20 ABG pH 7.35 7.40 7.38 ABG pCO2 47 40 47 ABG pO2 37 L* D 136 H D 141 H ABG HCO3 26 25 27 H ABG O2 Saturation 66 L 99 H 99 H ABG Base Excess 0 0 2 VBG pH VBG pCO2 VBG pO2 VBG Base Excess 04/08/25 04/09/25 04/09/25 04:20 04:52 23:33 ABG pH 7.46 H 7.48 H Cancelled ABG pCO2 45 40 Cancelled ABG pO2 108 D 84 D Cancelled ABG HCO3 32 H 30 H Cancelled ABG O2 Saturation 98 98 Cancelled ABG Base Excess 7 H 6 H Cancelled VBG pH VBG pCO2 VBG pO2 VBG Base Excess 04/10/25 04/10/25 04/11/25 00:24 23:42 03:15 ABG pH 7.48 H 7.41 ABG pCO2 40 38 ABG pO2 197 H D 124 H D ABG HCO3 29 H 24 ABG O2 Saturation 99 H 99 H ABG Base Excess 6 H -1 VBG pH 7.48 VBG pCO2 36 VBG pO2 105 H VBG Base Excess 3 04/11/25 04/11/25 04/12/25 04:57 12:32 08:38 ABG pH 7.41 ABG pCO2 41 ABG pO2 91 D ABG HCO3 26 ABG O2 Saturation 98 ABG Base Excess 1 VBG pH 7.39 7.41 VBG pCO2 47 D 42 VBG pO2 39 D 39 VBG Base Excess 3 2 04/13/25 04/14/25 04:28 05:18 ABG pH 7.43 ABG pCO2 38 ABG pO2 74 L ABG HCO3 25 ABG O2 Saturation 96 ABG Base Excess 1 VBG pH 7.38 VBG pCO2 44 VBG pO2 34 VBG Base Excess 1 Assessment & Plan A&P Narrative # Foreign body obstruction esophagus # Status post cardiopulmonary arrest ROSC # Developmentally delayed # Diabetes mellitus type 2 # Status post AKA left Plan Consent obtained for fiberoptic esophagogastro duodenoscopy with therapeutic intervention under intravenous moderate sedation we will proceed with the procedure thank you very much for the opportunity to participate in care of this patient Time Spent With Patient Time: Total time spent is greater than 50% in coordination of care (as documented) at patient's floor/unit and/or counseling patient:
[2025-04-15] MEDS: LINEZOLID 600 MG IVPB 600 MG/300 ML BAG 300 MG IV (21:33)
[2025-04-16] VITALS (57 sets, daily range): BP systolic 88–130; BP diastolic 59–87; PULSE 48–71; RESP 0–27; TEMP 36–37.3; O2SAT 97–100; BMI 37.7
[2025-04-16 05:21] LABS: Base Excess, Venous 0 (-3-3); O2 Saturation, Venous 62 % (96-97); PCO2, Venous 40 mmHg (36-56); PO2, Venous 35 mmHg (15-58)
[2025-04-16 05:37] LABS: Basophils % (Auto) 0 % (0-2.5); Eosinophils # (Auto) 0.1 Thou/mm3 (0.0-0.5); Eosinophils % (Auto) 3 % (0-10); Hematocrit 21.8 % (41.0-53.0); Immature Granulocytes % (Auto) 1 % (0-0); Immature Granulocytes Auto 0.03 Thou/mm3 (0.00-0.00); Lymphocytes # (Auto) 0.3 Thou/mm3 (1.0-4.8); Lymphocytes % (Auto) 9 % (10-50); Mean Corpuscular HGB Conc 32.6 g/dl (31.0-37.0); Mean Corpuscular Hemoglobin 31.1 pg (25.0-35.0); Mean Corpuscular Volume 96 fL (80-100); Monocytes # (Auto) 0.2 Thou/mm3 (0.0-0.8); Monocytes % (Auto) 5 % (0-12); Neutrophils % (Auto) 82 % (37-80); Nucleated Red Blood Cell % 0 /100 WBC (0); Platelet Count 101 Thou/mm3 (140-440); RDW Standard Deviation 55.8 fL (35.1-43.9); Red Blood Count 2.28 Miln/mm3 (4.50-5.90); White Blood Count 3.7 Thou/mm3 (3.8-10.6)
[2025-04-16] MEDS: HEPARIN SOD INJ 5000 UNIT/ML VIAL SC ×3 (05:37→21:16)
[2025-04-16] MEDS: PROPOFOL 1,000 MG IVPB 1,000 MG/100 ML VIAL 16.755 MG IV (05:38)
[2025-04-16 05:57] LABS: Hemoglobin 7.1 g/dL (13.5-16.0)
--- NOTE | 2025-04-16 06:00 | XR_ITS ---
Examination: AP chest single view Technique one AP portable semiupright chest single view Date and time: April 16, 2025, 0435 hours Comparison April 15, 2025 FINDINGS: Interval significant right lung atelectasis Prominent vascular congestion in the left lung Endotracheal tube tip 5.6 cm above [place]. The orogastric tube is in the stomach in satisfactory position Stable right internal jugular central line IMPRESSION: Interval significant right lung atelectasis
[2025-04-16 06:03] LABS: Alanine Aminotransferase 62 U/L (10-49); Albumin, Serum 2.6 gm/dL (3.4-4.8); Albumin/Globulin Ratio 0.7 (1.2-2.2); Alkaline Phosphatase 100 U/L (46-116); Anion Gap 12 (7-16); Aspartate Amino Transferase 82 U/L (0-34); BUN/Creatinine Ratio 18 Ratio (12-20); Bilirubin,Total 1.6 mg/dL (0.3-1.2); Blood Urea Nitrogen 33 mg/dL (9-23); Calcium 7.7 mg/dL (8.3-10.6); Calcium (Corrected) 8.8 mg/dL (8.5-10.1); Carbon Dioxide 24.3 mMol/L (20.0-31.0); Chloride 107 mMol/L (98-107); Creatinine (Component) 1.8 mg/dL (0.6-1.3); Estimated Creatinine Clearance 46.3 mL/min (>60); Globulin 3.7 gm/dL (2.3-3.5); Glucose 131 mg/dL (74-106); Magnesium 2.4 mg/dL (1.6-2.6); Osmolality,Calculated 294 (275-295); Phosphorous 3.9 mg/dL (2.4-5.1); Potassium 3.6 mMol/L (3.4-5.1); Sodium 143 mMol/L (136-145); Total Protein 6.3 gm/dL (5.7-8.2); eGFR 40 See Note
[2025-04-16] MEDS: LACOSAMIDE INJ 200 MG/20 ML VIAL IVP ×2 (09:18→20:39)
[2025-04-16] MEDS: LINEZOLID 600 MG IVPB 600 MG/300 ML BAG 300 MG IV (09:18)
[2025-04-16] MEDS: FAMOTIDINE INJ 10 MG/ML VIAL 2 ML 20 MG IVP (09:18)
[2025-04-16] MEDS: levETIRAcetam INJ 100 MG/ML VIAL 5ML 1000 MG IVP ×2 (09:18→20:39)
--- NOTE | 2025-04-16 09:18 | ESPR_ITS ---
<Statement entered by Heather Martínez MD - 04/16/25 21:30> TOTAL TIME: 45MINUTES ON DIRECT MEDICAL CARE, MANAGEMENT - COORDINATION AND COUNSELING > 50% OF TOTAL TIME I saw and evaluated the patient. I reviewed the resident?s note and agree with findings and plan as documented in the resident?s note. remains on AC/VC after failing PSV repeated bronch due to persistent mucu plugging airways remain friable and concerning for pneumonia - despite on appropriate abx BAL obtained no fevers not a candidate to extubate monitoring neuro status - no improved chages compared to prior exam Documentation for date of: 04/16/25 Subjective Subjective Interval history: Patient is a 70 year old male with PMH of developmental delay, bipolar disorder, DM2, L AKA admitted to the ICU for choking-induced pulmonary arrest s/p ROSC. Per caregivers and EMS report, patient was eating an apple when he choked and became unresponsive. When EMS arrived, patient was noted to be agonal, hypoxic at 55% and bradycardic. They were able to clear some food from his mouth. Patient was bagged via NPA. En route, patient lost pulses and CPR was initiated. He was given 1 of epinephrine. ROSC was achieved. Patient was intubated. He was found to be severely hypernatremic at 179. 04/04/2025: Overnight, staff was unable to pass an OG tube. Everytime the patient was turned, food chunks would come out of his mouth. He recieved a total of 2L NS and the following sodium was 135, and recheck was 136. Suspect that initial sodium at 179 may have been a lab error. Patient had SAT and SBT today, then was re-sedated and put on ventilator support for bronchoscopy. During bronchoscopy, there was large food material and mucous that were removed from the right intermdiate and lower lung bronchi, and inflammation in the right upper lobe entry. Plan for endoscopy later today to remove suspected food obstructing the esophagus. 04/05/2025: Endoscopy yesterday showed food material throughout the entire esophagus. An NG tube was placed for decompression with 200cc output overnight. No acute problems overnight. This morning, patient passed SBT and SAT and was extubated. He is awake, agitated but redirectable. He is developmentally delayed and can talk at baseline. Antibiotics discontinued. Remains on low dose levophed, will wean off. CXR shows significant bilateral infiltrate and patient is net positive fluid balance so will give Lasix. After intubation, patient did pull out his NG tube. His abdomen is quite distended and tympanic. KUB shows air throughout the colon. NG tube as reinserted with continuous suction for decompressions. 04/06/2025: Patient remains on 3L NC saturating well without respiratory distress. Will continue antibiotics to complete course for aspiration pneumonia. Patient stomach remains distended, improved. NG tube 200. Had 1 BM. Repeat KUB this morning still shows colonic ileus. Will continue NG tube. Patient to be downgraded today. 04/07/2025: FRAME TRIMMER was called at 17: 43 soon after which a CODE BLUE was initiated as patient was found with his eyes rolled back shaking and without a pulse. ACLS was initiated with chest compressions and patient underwent 2 rounds of epi, a dose of calcium gluconate and 2 doses of bicarb. Patient had 2 rounds of PEA and he was found to be in V-fib for which she received 200 J of unsynchronized cardioversion and ROSC was achieved. Dr. Llanos intubated the patient and he was moved to the unit. Unclear as for the reason for the arrest at this time. Will work up. 04/08/2025: Patient had witnessed shaking event last night, was given Keppra. EEG was taken. He remains off sedation. This morning, patient opens eyes, tracks, localizes to pain. Failed SBT. CXR taken last night suggests aspiration throughout the right lung. CXR this morning shows improved right upper lung. Will turn patient on his left lung, duonebs, and antibiotics. Point of contact updated. 04/09/2025: Patient doing well this morning. Able to follow commands consistently. Adequate cough and gag reflex intact. Patient underwent spontaneous breathing trial and was successfully weaned to nasal cannula. Requesting this afternoon to be able to drink. However pending formal swallow evaluation at bedside. Patient undergoing chest physiotherapy with percussion and albuterol/saline nebs. 04/10/2025: Patient passed swallow yesterday and was started on purreed diet. Around 11pm patient had episode of hypoxia in the 70s and shaking. He was started on BIPAP with precedex, and keppra. This morning, patient taken off BIPAP and precedex without issue. He is awake, answering simple questions, calm. Sodium improved. Will follow up EEG results and continue Keppra for possible seizures, and recommend BIPAP at night for suspected central sleep apnea. 04/11/2025: Was called in regards to patient having 3 seizure-like episodes and did not have any peripheral access so central line was placed emergently. During central line placement patient had 2 more seizure-like episodes. Seizure-like episodes were full body convulsions lasting close to 30 seconds each time. During the episodes patient became very tachycardic into the 140s and desatted down to the 70s. Due to the frequent episodes of seizures decision was made to reintubate the patient for status epilepticus and to initiate propofol and Versed. Postprocedure x-ray shows right-sided complete whiteout likely secondary to a mucous plug. Patient will benefit from a bronchoscopy in the a.m. ABG pending. 04/11/2025: No further witnessed seizures noted. Patient had bronchoscopy today to clear mucus secretions. There was significant mucopurulent secretions throughout the right upper, middle, and lower lobe entry and subsegmental takeoffs. A BAL was obtained. Abnormal mucosa was noted in the R intermedius superior subsegmental takeoff - biopsy was not obtained due to limited resources. Patient tolerated the procedure well. Due to recurrent aspirations, patient may benefit from tracheostomy. Regarding patient's seizures, will continue Keppra, get EEG, and reach out to neurology. 04/12/2025: Patient had witnessed seizure around 06:00 and 08:00 lasting less than 1 minute. Prolactin obtained from 04/07 was elevated at 59. Will get MRI of the brain for new onset seizures and to rule out any intracranial mass or other pathology. On physical exam, patient has significant improved R lung sounds. BAL stain 2+ WBC with occasional budding yeast and occasional GNR. Review of previous XR and CTs show a chronic R lung pleural effusion since 2019. Will repeat bronch today to clear secretions and get CT with contrast of the lungs. Reached out to conservetor Dr. Stewart in anticipation for tracheostomy once seizures are controlled. 04/13/2025: Patient remains afebrile overnight. 1 bowel movement reported overnight. Patient net positive, balance of 2023 ml and a weight of 110.9 kg versus 108 kg on 04/03/2025 upon admission. 400 cc on bladder scan, continue to straight cath. Bilateral pleural effusion on CTA chest with negative for PE and as noted on previous abdomen pelvis CT from 2021 right large pleural effusion which is now chronic. Propofol continued at 10 mcg/kg, Versed 4 mg/h, antibiotics do on board including Zosyn/Vancomycin. Given overall poor prognosis from acute encephalopathy secondary to seizures likely complicated by anoxic brain injury from aspiration pneumonia, will update patient's guardian in shared decision making in regards to goals of care versus pleural drainage. VT 400 RR 20 PEEP 5, and peak plateau 16.8. Sedated and synchronized as noted volume loop and actual respiratory rate. 04/14/2025: No seizures reported overnight. Afebrile. Total fluid intake 727, output 900, next -172.0 within the last 12 hours. Continue to titrate down on Versed, currently 2 mg/hr and Propofol 15 mcg/kg. BAL positive for MRSA pneumonia, thus continue Vancomycin and discontinue Zosyn. Decreased vesicular breath sounds on right lung field with rhonchi noted on left lung field. Updated Conservator. 04/15/2025: No overnight events. No seizures reported. Patient continues to have good urine output 800cc. Propofol 25 mcg/kg. Given worsening kidney function, Vancomycin D/C and Linezolid 600 mg BID started, Day 8 of antibiotics for MRSA Pneumonia. Versed stopped. Improved chest x-ray, no planned bronchoscopy. 04/16/2025: No overnight seizures. Patient remains afebrile. Over the last 12 hours total urine output 400 cc with net positive +200. Mild lower pedal edema noted, +1. Patient failed pressure support and required propofol to be turned on again currently at 25 and switched back to assisted control. Bronchoscopy planned given worsening atelectasis on chest x-ray. Asymmetrical Excursion noted at bedside. Exam Vital Signs Temp Pulse Resp BP Pulse Ox O2 Del Method O2 Flow Rate 97.8 F 60 20 112/72 100 Mechanical Ventilation 04/15/25 20:00 04/16/25 07:15 04/14/25 18:42 04/16/25 07:00 04/16/25 07:15 04/15/25 16:01 04/11/25 04:11 FiO2 30 04/16/25 07:15 Narrative Exam General Appearance: Alert & Oriented X0, well-nourished male who is lying in bed under sedation and mechanically ventilated HEENT: Skull symmetrical and atraumatic. Conjunctivae pale pink and moist. Decreased response to light stimuli and accommodation (PERRL). External ear without lesion or discharge. Straight, nares patient, mucosa pink, no discharge. Cardio: Normal Rate and Rhythm with S1 and S2 heart sounds. No murmurs or extra heart sounds noted, but difficult to fully appreciate given body habitus. No bruits on carotid auscultation. Peripheral edema 1+ Lungs: Asymmetrical Excursion. Decreased vesicular breath sounds on right lung field with rhonchi noted on left lung field, no crackles or wheezing noted. Abdomen: Non-tender, Non-distended, soft, hypoactive Reactive Bowel Sounds Neuro: NO Alert (sedated), NO cooperative, NO oriented to person, NO place, and NO time. Unable to access motor strength as patient remains on propofol and versed Objective Labs 04/16/25 04:35 04/16/25 04:35 Labs: Laboratory Results - last 24 hr 04/15/25 04/16/25 06:26 04:35 WBC 3.7 L RBC 2.28 L Hgb 7.1 L Hct 21.8 L* MCV 96 MCH 31.1 MCHC 32.6 RDW Std Deviation 55.8 H Plt Count 101 L Neut % (Auto) 82 H Lymph % (Auto) 9 L [place] % (Auto) 5 Eos % (Auto) 3 Baso % (Auto) 0 Neut # (Auto) 3.0 Lymph # (Auto) 0.3 L [place] # (Auto) 0.2 Eos # (Auto) 0.1 Baso # (Auto) 0.0 Immature Gran # (Auto) 0.03 H Absolute Nucleated RBC 0.00 Immature Gran % 1 H Nucleated RBC % 0 VBG pH 7.40 VBG pCO2 40 VBG pO2 35 VBG O2 Sat (Erendira) 62 L VBG Base Excess 0 Sodium 143 Potassium 3.6 Chloride 107 Carbon Dioxide 24.3 Anion Gap 12 BUN 33 H Creatinine 1.8 H Estim Creat Clear Calc 46.3 L eGFR 40 L BUN/Creatinine Ratio 18 Glucose 131 H Calculated Osmolality 294 Calcium 7.7 L Corrected Calcium 8.8 Phosphorus 3.9 Magnesium 2.4 Total Bilirubin 1.6 H AST 82 H ALT 62 H Alkaline Phosphatase 100 Total Protein 6.3 Albumin 2.6 L Globulin 3.7 H Albumin/Globulin Ratio 0.7 L Blood Type AB Positive Antibody Screen NEGATIVE Crossmatch See Detail Blood Bank Wristband ID Yes ABG Interpretation ABG results: 04/03/25 04/03/25 04/04/25 16:35 20:45 04:55 ABG pH Cancelled 7.46 H 7.42 ABG pCO2 Cancelled 37 42 ABG pO2 Cancelled 181 H 111 H D ABG HCO3 Cancelled 26 27 H ABG O2 Saturation Cancelled 99 H 98 ABG Base Excess Cancelled 2 3 VBG pH VBG pCO2 VBG pO2 VBG Base Excess 04/05/25 04/05/25 04/07/25 04:00 04:55 19:20 ABG pH 7.35 7.40 7.38 ABG pCO2 47 40 47 ABG pO2 37 L* D 136 H D 141 H ABG HCO3 26 25 27 H ABG O2 Saturation 66 L 99 H 99 H ABG Base Excess 0 0 2 VBG pH VBG pCO2 VBG pO2 VBG Base Excess 04/08/25 04/09/25 04/09/25 04:20 04:52 23:33 ABG pH 7.46 H 7.48 H Cancelled ABG pCO2 45 40 Cancelled ABG pO2 108 D 84 D Cancelled ABG HCO3 32 H 30 H Cancelled ABG O2 Saturation 98 98 Cancelled ABG Base Excess 7 H 6 H Cancelled VBG pH VBG pCO2 VBG pO2 VBG Base Excess 04/10/25 04/10/25 04/11/25 00:24 23:42 03:15 ABG pH 7.48 H 7.41 ABG pCO2 40 38 ABG pO2 197 H D 124 H D ABG HCO3 29 H 24 ABG O2 Saturation 99 H 99 H ABG Base Excess 6 H -1 VBG pH 7.48 VBG pCO2 36 VBG pO2 105 H VBG Base Excess 3 04/11/25 04/11/25 04/12/25 04:57 12:32 08:38 ABG pH 7.41 ABG pCO2 41 ABG pO2 91 D ABG HCO3 26 ABG O2 Saturation 98 ABG Base Excess 1 VBG pH 7.39 7.41 VBG pCO2 47 D 42 VBG pO2 39 D 39 VBG Base Excess 3 2 04/13/25 04/14/25 04/16/25 04:28 05:18 04:35 ABG pH 7.43 ABG pCO2 38 ABG pO2 74 L ABG HCO3 25 ABG O2 Saturation 96 ABG Base Excess 1 VBG pH 7.38 7.40 VBG pCO2 44 40 VBG pO2 34 35 VBG Base Excess 1 0 Quality Measures Quality Measures VTE prophylaxis Advance care planning discussed with:: patient Assessment & Plan Assessment Current Active Medications: Generic Name Dose Route Start Last Admin Trade Name Freq PRN Reason Stop Dose Admin Acetaminophen 650 mg 04/07/25 15:23 Acetaminophen 325 Mg Tablet PO 05/03/25 16:21 Q6H PRN Fever >99.5 Dextrose 25 ml 04/03/25 16:33 Dextrose 50%-Water Inj 50 Ml Syringe IV 05/03/25 16:32 Q15MIN PRN BG 50-70 responsive npo pt Dextrose 50 ml 04/03/25 16:33 Dextrose 50%-Water Inj 50 Ml Syringe IV 05/03/25 16:32 Q15MIN PRN BG <50 OR BG <70 & pt unresponsive Famotidine 20 mg 04/14/25 09:00 04/15/25 08:35 Famotidine Inj 10 Mg/Ml Vial 2 Ml IVP 05/14/25 08:59 20 mg QDAY MANUEL Administration Glucagon 1 mg 04/03/25 16:33 Glucagon Inj 1 Mg Vial IM Q15MIN PRN BG <70, and no IV access Heparin Sodium (Porcine) 5,000 unit 04/03/25 22:00 04/16/25 05:37 Heparin Sod Inj 5000 Unit/Ml Vial SC 04/17/25 21:59 5,000 unit Q8HR MANUEL Administration Propofol 1,000 mg in 100 mls @ 3.351 mls/hr 04/11/25 04:12 04/16/25 06:00 Diprivan Ivpb IV 05/11/25 04:11 25 mcg/kg/min .Q24H PRN 16.755 mls/hr PER PROTOCOL Titration Protocol 5 MCG/KG/MIN Linezolid 600 mg in 300 mls @ 300 mls/hr 04/15/25 21:00 04/15/25 21:33 Zyvox Ivpb IV 04/22/25 20:59 300 mls/hr BID MANUEL Administration Insulin Human Regular 0 unit 04/11/25 06:00 04/16/25 05:38 Insulin Hum Regular 1 Unit/0.01 Ml (Per Unit) SC 05/11/25 05:59 Not Given Q6HR MANUEL Protocol Lacosamide 200 mg 04/12/25 21:00 04/15/25 21:32 Lacosamide Inj 200 Mg/20 Ml Vial IVP 05/12/25 20:59 200 mg BID MANUEL Administration Levetiracetam 1,000 mg 04/10/25 21:00 04/15/25 21:33 Levetiracetam Inj 100 Mg/Ml Vial 5ml IVP 05/10/25 20:59 1,000 mg Q12HR MANUEL Administration Ondansetron HCl 4 mg 04/07/25 14:29 Ondansetron Inj 2 Mg/Ml Inj 2 Ml IV 05/07/25 14:28 Q6H PRN NAUSEA OR VOMITING Protocol Sodium Chloride 3 ml 04/04/25 15:24 04/09/25 10:22 Sodium Chloride Rt Jessica 0.9% 3 Ml Nebu INH 05/04/25 15:23 3 ml PRN PRN Administration SOLN Plan Patient is a 70 year old male with PMH of developmental delay, bipolar disorder, DM2, L AKA admitted to the ICU for choking-induced pulmonary arrest s/p ROSC. MANAGER STARS Problem: Acute encephalopathy DDX: likely from acute hypoxic respiratory failure and cardiopulmonary arrest leading to anoxic brain injury and seizures. MRI noted chronic micro-vascular changes which could be secondary to anoxic brain injury vs chronic changes. DX: EEG, MRI, Prolactin 59 (H) RX: Keppra 1000mg BID, Lacosamide 200 mg IVP BID, propofol (25 mcg/kg) ggt, Verset D/C. RRX: Continues to seize on Keppra. Lacosamide 200 mg IVP BID as per recommendations for neurology. Neurology consulted, Dr. Wilson, appreciate recommendations CARDIOVASCULAR Cardiopulmonary arrest s/p resuscitation, resolved Cardiopulmonary arrest on 04/08/2025 secondary to acute hypoxic respiratory failure form aspiration pneumonia. RESPIRATORY Problem: Acute hypoxic respiratory failure DDX: MRSA pneumonia given positive nasal swab and MRSA BAL culture likely from aspiraiton complicated by bilateral pleural effusion & actelectasis with recurrent mucous plugs. Chest CT (04/13/2025): Moderate bilateral pleural effusion, extensive pneumonia and atelectasis in lower lung zones, and negative for pulmonary artery emboli. Previous 2021 Abdomen/Pelvis noted to have large right pleural effusion, which compared to previous imaging pleural effusion worsened.Repeat chest x-ray (04/14/2025) morning noted to have prominent vascular congestion and pneumonia in the left lung and prominent atelectasis in right lung. Overall respiratory function with some improvement. Mechanical ventilation VT 400, RR 20, PEEP 5 platue pressure 19 Fio2 30, and approximately sedated and synchronized to with ventilator. Versed, discontinued. DX: bronchoscopy, VBG, CT chest, repeat bronchoscopy on 04/16/2025 w/ repeat BAL, see procedure not for pulmonary findings. RX: Chest PT on R side, IV antibiotics, continue ventilator to maintain lung protective measures, albuterol and normal saline nebulizers for airway clearance. RRX: Mucus plug removed. Repeat chest x-ray in the morning. Anticipate patient will need tracheostomy due to recurrent aspirations. Reached out to conservator to update and consent. RENAL JOSEFINA on CKD III, worsening DDX: Patient likely has underlying CKD given past history of GFR in 40s-50s since 2021 from underlying diabetes mellitus. No renal US on file. Worsening kidney function likely secondary to nephrotoxins from Vancomycin given elevated trough. Patient making appropriate urine output less likely secondary to obstructive. Dx: BUN 32 Cr 1.8 GFR 40 RX: Avoid nephrotoxins , renally dose medication , Free water flushes 250 cc Q6HR RRX: Stopped Vancomycin and started Linezolid given worsening kidney function , consider nephrology consult Mild, Hyperosmolar Hypernatremia, Resolved. Lactic acidosis, resolved Hypophosphatemia, resolved. GI DDx: OG tube placed Dx: RX: Free water flushes 250 cc Q6HR and Advance 10 ml every 8 hrs to goal rate of 62 ml/hr x 24 hrs. Flushes at 35 ml/hr. RRX: ENDO Problem: History of DM2 DDX: DX: blood sugar checks Q6H RX: ISS Q6H RRX: Patient euglycemic. If hyperglycemic, will start basal insulin. HEME Problem: Thrombocytopenia DDX: medication side effect, acute illness DX: RX: RRX: If continues to drop, will hold heparin for DVT prophylaxis and review medications for potential culprit. Problem: Normocytic, Anemia of Chronic disease DDx: Likely secondary to underlying history of diabetes mellitus, history of CKD, and acute illness, but at baseline given hgb 7-8 per chart review. NO yair blood loss noted. Dx: RX: RRX: Consider Iron panel as outpatient & Ferritin levels. ID Problem: Aspiration pneumonia/pneumonitis and MRSA pneumonia, complicated by bilateral pleural effusion and atelectasiss of right lung with decreased vesicular breath sounds. DDX: GNR and Nasal MRSA DX: BAL cytology WBC, budding yeast, & GNR; Bronchial Lavage Culture MRSA RX: Total Anitibiotics Day 8, Linezolid 600 mg BID RRX: BAL cytology, MRSA +, Vancomycin 04/07/2025-04/15/2025 Goals of Care Patient is a conserved patient under the care of Dr. Stewart. Case discussed with Dr. Stewart, welding machine setter, and resident in regards to patient overall poor prognosis as patient is unable to protect airway with anoxic brain injury. Will consider comfort measure, Dr. Stewart will reach out to neurology physician. patient continues to be full code. Health Maintenance Diet and fluids: tube feeds - Glucerna 1.2 Advance 10 ml every 8 hrs to goal rate of 62 ml/hr x 24 hrs. Flushes at 35 ml/hr. DVT prophylaxis: heparin Q12 GI prophylaxis: Famotadine 40 IV daily Lines: Right IJ central line, PIV, ET, OG Medical Restrains 24 hours. CODE STATUS: FULL - patient is conserved with CRV. - The patient's plan was discussed with attending Dr. Mauricio Lim MD PGY1 Internal Medicine
--- NOTE | 2025-04-16 09:27 | PD.RESPROC ---
Procedures Procedure Date / Time 04/16/25 09:27 Procedure Narrative Procedure Narrative: Flexible Bronchoscopy w/ BAL Time of Procedure 9:27-9:45 AM Procedural time out called for flexible bronchscopy at 9:27 AM and confirmed correct patient, procedure and no allergies to lidocaine. Lidocaine 1% used to anesthetize oral cavity. Total lidocaine used with 6 ml. Flexible bronchoscopy was passed through the endotracheal tube to visualized right and left pulmonary lobes. Right lower lobe appeared friable consistent with inflammation from repeated aspiration. Right lower lobe superior subsegment noted to have chronic stigmata of atelectasis in appeared edematous. BAL obtained given bronoscopy findings. 60 ml of saline for flushing used out of 100 ml total. - The patient's plan was discussed with attending Dr. Mauricio Lim MD PGY1 Internal Medicine Bronchoscopy Bronscopy indication(s): removal of secretions and diagnostic BAL Informed consent obtained from: surrogate Time out done and the following verified: correct patient, side and site, procedure and patient position Oxygen delivery: 100% FIO2 Vocal cords: symmetric equally mobile Trachea: proximal appears normal Andree: sharp in angle RUL & subsegmental branches: mucus plugging, purulent secretions and inflammation RML & subsegmental branches: mucus plugging, purulent secretions and inflammation RLL & subsegmental branches: mucosa appears normal, purulent secretions and inflammation ORTEGA & subsegmental branches: mucosa appears normal LLL & subsegmental branches: purulent secretions
[2025-04-16] MEDS: PROPOFOL 1,000 MG IVPB 1,000 MG/100 ML VIAL 10.053 MG IV ×2 (11:15→21:33)
--- NOTE | 2025-04-16 11:36 | ESPR_ITS ---
Subjective Subjective Interval history: tough situation. I last saw him in 2020 and not since then. unable to interact. no caregiver present. in isolation for mrsa Exam Vital Signs Temp Pulse Resp BP Pulse Ox O2 Del Method O2 Flow Rate 97.8 F 53 L 20 112/72 100 Mechanical Ventilation 15 04/15/25 20:00 04/16/25 09:55 04/14/25 18:42 04/16/25 07:00 04/16/25 09:55 04/15/25 16:01 04/11/25 04:11 FiO2 30 04/16/25 09:55 Narrative Exam on vent at 100%. recently changed to linezolid based on cx but note that gram stain did not show mrsa but that was the predominant organism later on on cx. Objective - Internal Medicine Labs 04/16/25 04:35 04/16/25 04:35 Labs: Laboratory Results - last 24 hr 04/15/25 04/16/25 06:26 04:35 WBC 3.7 L RBC 2.28 L Hgb 7.1 L Hct 21.8 L* MCV 96 MCH 31.1 MCHC 32.6 RDW Std Deviation 55.8 H Plt Count 101 L Neut % (Auto) 82 H Lymph % (Auto) 9 L [place] % (Auto) 5 Eos % (Auto) 3 Baso % (Auto) 0 Neut # (Auto) 3.0 Lymph # (Auto) 0.3 L [place] # (Auto) 0.2 Eos # (Auto) 0.1 Baso # (Auto) 0.0 Immature Gran # (Auto) 0.03 H Absolute Nucleated RBC 0.00 Immature Gran % 1 H Nucleated RBC % 0 VBG pH 7.40 VBG pCO2 40 VBG pO2 35 VBG O2 Sat (Erendira) 62 L VBG Base Excess 0 Sodium 143 Potassium 3.6 Chloride 107 Carbon Dioxide 24.3 Anion Gap 12 BUN 33 H Creatinine 1.8 H Estim Creat Clear Calc 46.3 L eGFR 40 L BUN/Creatinine Ratio 18 Glucose 131 H Calculated Osmolality 294 Calcium 7.7 L Corrected Calcium 8.8 Phosphorus 3.9 Magnesium 2.4 Total Bilirubin 1.6 H AST 82 H ALT 62 H Alkaline Phosphatase 100 Total Protein 6.3 Albumin 2.6 L Globulin 3.7 H Albumin/Globulin Ratio 0.7 L Blood Type AB Positive Antibody Screen NEGATIVE Crossmatch See Detail Blood Bank Wristband ID Yes ABG Interpretation ABG results: 04/03/25 04/03/25 04/04/25 16:35 20:45 04:55 ABG pH Cancelled 7.46 H 7.42 ABG pCO2 Cancelled 37 42 ABG pO2 Cancelled 181 H 111 H D ABG HCO3 Cancelled 26 27 H ABG O2 Saturation Cancelled 99 H 98 ABG Base Excess Cancelled 2 3 VBG pH VBG pCO2 VBG pO2 VBG Base Excess 04/05/25 04/05/25 04/07/25 04:00 04:55 19:20 ABG pH 7.35 7.40 7.38 ABG pCO2 47 40 47 ABG pO2 37 L* D 136 H D 141 H ABG HCO3 26 25 27 H ABG O2 Saturation 66 L 99 H 99 H ABG Base Excess 0 0 2 VBG pH VBG pCO2 VBG pO2 VBG Base Excess 04/08/25 04/09/25 04/09/25 04:20 04:52 23:33 ABG pH 7.46 H 7.48 H Cancelled ABG pCO2 45 40 Cancelled ABG pO2 108 D 84 D Cancelled ABG HCO3 32 H 30 H Cancelled ABG O2 Saturation 98 98 Cancelled ABG Base Excess 7 H 6 H Cancelled VBG pH VBG pCO2 VBG pO2 VBG Base Excess 04/10/25 04/10/25 04/11/25 00:24 23:42 03:15 ABG pH 7.48 H 7.41 ABG pCO2 40 38 ABG pO2 197 H D 124 H D ABG HCO3 29 H 24 ABG O2 Saturation 99 H 99 H ABG Base Excess 6 H -1 VBG pH 7.48 VBG pCO2 36 VBG pO2 105 H VBG Base Excess 3 04/11/25 04/11/25 04/12/25 04:57 12:32 08:38 ABG pH 7.41 ABG pCO2 41 ABG pO2 91 D ABG HCO3 26 ABG O2 Saturation 98 ABG Base Excess 1 VBG pH 7.39 7.41 VBG pCO2 47 D 42 VBG pO2 39 D 39 VBG Base Excess 3 2 04/13/25 04/14/25 04/16/25 04:28 05:18 04:35 ABG pH 7.43 ABG pCO2 38 ABG pO2 74 L ABG HCO3 25 ABG O2 Saturation 96 ABG Base Excess 1 VBG pH 7.38 7.40 VBG pCO2 44 40 VBG pO2 34 35 VBG Base Excess 1 0 Assessment & Plan A&P Narrative 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 andrea on vanco Status post cardiopulmonary arrest ROSC Developmentally delayed Diabetes mellitus type 2 Status post AKA left htn gout bph changed to doxy iv from linezolid with andrea, will avoid bactrim and vanco. prognosis guarded to poor. linezolid or vanco would have worked, but did not, so either he has a refractory infection or other factors may limit his ability to come off vent. he did it before, but it is several yrs later now. and he is 70 yoa now too. Time Spent With Patient Time: Total time spent is greater than 50% in coordination of care (as documented) at patient's floor/unit and/or counseling patient:
--- NOTE | 2025-04-16 11:47 | PD.ADDPROG ---
Addendum Progress Note Addendum Date of report being addended: 04/16/25 Narrative: had zosyn thru 04/10 and vanco thru 04/13 admit was 04/03. cr with rll atelectasis and no pe mentioned. Significant rt sided effusion noted. original sputum with normal rafita on 04/03. mrsa found in sputum 04/11, pt likely deteriorated on broad rx. was strikingly hypernatremic and corrected quickly w/o obvious cpm noted. intermittently hypernatremic since then, so he may have a urinary concentrating deficit
--- NOTE | 2025-04-16 13:43 | PD.RESPRO ---
Documentation for date of: 04/16/25 Subjective Subjective Interval history: Patient was seen and examined by the bedside. No seizures overnight. Failed SBT, on imaging - worsening atelectasis. Continues to be on propofol. Was noted to have left eye lateral deviation, it seems like it comes and goes. Exam Vital Signs Temp Pulse Resp BP Pulse Ox O2 Del Method O2 Flow Rate 96.8 F 55 L 20 104/76 100 Mechanical Ventilation 15 04/16/25 12:00 04/16/25 12:30 04/14/25 18:42 04/16/25 12:30 04/16/25 12:30 04/16/25 12:00 04/11/25 04:11 FiO2 35 04/16/25 12:00 Narrative Exam Gen: Well-developed and well-nourished. Sedated. RASS -3. HEENT: NCAT, pupils equal, right eye cataract, miotic, weakly reactive to light, intact corneal reflex, intact cough reflex, MMM, anicteric conjunctivae. Left eye lateral deviation. CVS: normal S1 and S2. RRR. No M/R/G. Resp: CTA B/L. No rhonchi, rales, crackles or wheezing. Abd: soft, non-tender, non-distended. BS+ in all 4 quadrants. MSK: Right AKA, left toe amputation. Neuro:Sedated. Pupils equal, miotic, weakly reactive to light, intact corneal reflex, intact cough reflex. Tendon reflexes 1+. Grimacing to the pain stimulation. Psych: impossible to assess. Objective Labs 04/19/25 05:00 04/19/25 05:00 Labs: Laboratory Results - last 24 hr 04/16/25 04:35 WBC 3.7 L RBC 2.28 L Hgb 7.1 L Hct 21.8 L* MCV 96 MCH 31.1 MCHC 32.6 RDW Std Deviation 55.8 H Plt Count 101 L Neut % (Auto) 82 H Lymph % (Auto) 9 L [place] % (Auto) 5 Eos % (Auto) 3 Baso % (Auto) 0 Neut # (Auto) 3.0 Lymph # (Auto) 0.3 L [place] # (Auto) 0.2 Eos # (Auto) 0.1 Baso # (Auto) 0.0 Immature Gran # (Auto) 0.03 H Absolute Nucleated RBC 0.00 Immature Gran % 1 H Nucleated RBC % 0 VBG pH 7.40 VBG pCO2 40 VBG pO2 35 VBG O2 Sat (Erendira) 62 L VBG Base Excess 0 Sodium 143 Potassium 3.6 Chloride 107 Carbon Dioxide 24.3 Anion Gap 12 BUN 33 H Creatinine 1.8 H Estim Creat Clear Calc 46.3 L eGFR 40 L BUN/Creatinine Ratio 18 Glucose 131 H Calculated Osmolality 294 Calcium 7.7 L Corrected Calcium 8.8 Phosphorus 3.9 Magnesium 2.4 Total Bilirubin 1.6 H AST 82 H ALT 62 H Alkaline Phosphatase 100 Total Protein 6.3 Albumin 2.6 L Globulin 3.7 H Albumin/Globulin Ratio 0.7 L ABG Interpretation ABG results: 04/03/25 04/03/25 04/04/25 16:35 20:45 04:55 ABG pH Cancelled 7.46 H 7.42 ABG pCO2 Cancelled 37 42 ABG pO2 Cancelled 181 H 111 H D ABG HCO3 Cancelled 26 27 H ABG O2 Saturation Cancelled 99 H 98 ABG Base Excess Cancelled 2 3 VBG pH VBG pCO2 VBG pO2 VBG Base Excess 04/05/25 04/05/25 04/07/25 04:00 04:55 19:20 ABG pH 7.35 7.40 7.38 ABG pCO2 47 40 47 ABG pO2 37 L* D 136 H D 141 H ABG HCO3 26 25 27 H ABG O2 Saturation 66 L 99 H 99 H ABG Base Excess 0 0 2 VBG pH VBG pCO2 VBG pO2 VBG Base Excess 04/08/25 04/09/25 04/09/25 04:20 04:52 23:33 ABG pH 7.46 H 7.48 H Cancelled ABG pCO2 45 40 Cancelled ABG pO2 108 D 84 D Cancelled ABG HCO3 32 H 30 H Cancelled ABG O2 Saturation 98 98 Cancelled ABG Base Excess 7 H 6 H Cancelled VBG pH VBG pCO2 VBG pO2 VBG Base Excess 04/10/25 04/10/25 04/11/25 00:24 23:42 03:15 ABG pH 7.48 H 7.41 ABG pCO2 40 38 ABG pO2 197 H D 124 H D ABG HCO3 29 H 24 ABG O2 Saturation 99 H 99 H ABG Base Excess 6 H -1 VBG pH 7.48 VBG pCO2 36 VBG pO2 105 H VBG Base Excess 3 04/11/25 04/11/25 04/12/25 04:57 12:32 08:38 ABG pH 7.41 ABG pCO2 41 ABG pO2 91 D ABG HCO3 26 ABG O2 Saturation 98 ABG Base Excess 1 VBG pH 7.39 7.41 VBG pCO2 47 D 42 VBG pO2 39 D 39 VBG Base Excess 3 2 04/13/25 04/14/25 04/16/25 04:28 05:18 04:35 ABG pH 7.43 ABG pCO2 38 ABG pO2 74 L ABG HCO3 25 ABG O2 Saturation 96 ABG Base Excess 1 VBG pH 7.38 7.40 VBG pCO2 44 40 VBG pO2 34 35 VBG Base Excess 1 0 Quality Measures Quality Measures VTE prophylaxis Advance care planning discussed with:: other Assessment & Plan Assessment Current Active Medications: Generic Name Dose Route Start Last Admin Trade Name Freq PRN Reason Stop Dose Admin Acetaminophen 650 mg 04/07/25 15:23 Acetaminophen 325 Mg Tablet PO 05/03/25 16:21 Q6H PRN Fever >99.5 Dextrose 25 ml 04/03/25 16:33 Dextrose 50%-Water Inj 50 Ml Syringe IV 05/03/25 16:32 Q15MIN PRN BG 50-70 responsive npo pt Dextrose 50 ml 04/03/25 16:33 Dextrose 50%-Water Inj 50 Ml Syringe IV 05/03/25 16:32 Q15MIN PRN BG <50 OR BG <70 & pt unresponsive Famotidine 20 mg 04/14/25 09:00 04/16/25 09:18 Famotidine Inj 10 Mg/Ml Vial 2 Ml IVP 05/14/25 08:59 20 mg QDAY MANUEL Administration Glucagon 1 mg 04/03/25 16:33 Glucagon Inj 1 Mg Vial IM Q15MIN PRN BG <70, and no IV access Heparin Sodium (Porcine) 5,000 unit 04/03/25 22:00 04/16/25 05:37 Heparin Sod Inj 5000 Unit/Ml Vial SC 04/17/25 21:59 5,000 unit Q8HR MANUEL Administration Propofol 1,000 mg in 100 mls @ 3.351 mls/hr 04/11/25 04:12 04/16/25 11:15 Diprivan Ivpb IV 05/11/25 04:11 15 mcg/kg/min .Q24H PRN 10.053 mls/hr PER PROTOCOL Administration Protocol 5 MCG/KG/MIN Doxycycline Hyclate 100 mg/ 100 mls @ 100 mls/hr 04/16/25 21:00 Sodium Chloride IV 04/23/25 20:59 BID MANUEL Insulin Human Regular 0 unit 04/11/25 06:00 04/16/25 05:38 Insulin Hum Regular 1 Unit/0.01 Ml (Per Unit) SC 05/11/25 05:59 Not Given Q6HR MANUEL Protocol Lacosamide 200 mg 04/12/25 21:00 04/16/25 09:18 Lacosamide Inj 200 Mg/20 Ml Vial IVP 05/12/25 20:59 200 mg BID MANUEL Administration Levetiracetam 1,000 mg 04/10/25 21:00 04/16/25 09:18 Levetiracetam Inj 100 Mg/Ml Vial 5ml IVP 05/10/25 20:59 1,000 mg Q12HR MANUEL Administration Ondansetron HCl 4 mg 04/07/25 14:29 Ondansetron Inj 2 Mg/Ml Inj 2 Ml IV 05/07/25 14:28 Q6H PRN NAUSEA OR VOMITING Protocol Sodium Chloride 3 ml 04/04/25 15:24 04/09/25 10:22 Sodium Chloride Rt Jessica 0.9% 3 Ml Nebu INH 05/04/25 15:23 3 ml PRN PRN Administration SOLN Plan Patient is a 70 year old male with PMH of developmental delay, bipolar disorder, DM2, L AKA admitted to the ICU for choking-induced pulmonary arrest s/p ROSC. #Status epilepticus requiring reintubation #History of bipolar disorder #History of developmental delay #Cardiopulmonary arrest s/p resuscitation #Hypoxic brain injury Seizures could be provoked due to brain injury in the setting of prolonged hypoxia. MRI showed multiple miscrovascular changes. EEG showed multifocal spike and wave discharges, triphasic waves and severe generalized slowing. Plan: ? Lacosamide 200 mg IV push twice daily ? Keppra 1000 mg twice daily ? Midazolam infusion as needed for breakthrough seizures ? Propofol infusion, wean down as olerated - home meds are on hold - repeat head CT w/o contrast - EEG #Acute hypoxic respiratory failure and status epilepticus requiring mechanical intubation and ventilation for airway protection #Hyperosmolar Hypernatremia, resolved #Lactic acidosis, cleared #Hypophosphatemia, improving #History of DM2 #Thrombocytopenia #Aspiration pneumonia versus pneumonitis - management per primary team Plan of care discussed with attending Dr. Wilson. Sophia Fritz MD, PGY 1. Attending Provider Attestation/Addendum I personally have seen and examined the patient at the bedside and agree with resident's findings, assessment and plan of care. Team is planning towards comfort care on Saturday as per Dr. Stewart from [facility].
--- NOTE | 2025-04-16 13:57 | XR_ITS ---
Examination: CT brain head without contrast. 2-D sagittal coronal reconstructions Date and time of exam:April 16, 2025 1536 hours Comparison April 03, 2025 INDICATIONS: Hypoxic respiratory failure, deviation right high CTDI: vol (mGy):52.9 DLP: (mGycm):1113 Technique: Multiple CT axial sections of the brain have been obtained, 5 mm slice thickness. Contrast has not been administered. 2-D sagittal, coronal reconstructions have been obtained Low dose protocols were performed. One or more of the following dose reduction techniques were used; automated exposure control, adjustment of the mA and/or KV according to patient size, use of iterative reconstruction technique. Findings: No significant ventricular enlargement. Intra-axial or extra-axial hemorrhage density is not seen. No mass effect or midline shift Basal cisterns are not remarkable. Fourth ventricle is midline. Cranial vault intact. Again noted right frontal bony exostosis Impression: No interval acute hemorrhage, mass effect or midline shift Consider repeat brain MRI follow up stroke protocol
--- NOTE | 2025-04-16 16:38 | PC.SS ---
Update: Patient remains intubated/sedated. Patient underwent head CT today. EEG pending. Tube feedings in place. Dr. Darnell consulting.
[2025-04-16] MEDS: INSULIN HUM REGULAR 1 UNIT/0.01 ML (PER UNIT) SC (17:16)
--- NOTE | 2025-04-16 18:17 | PD.IMPROG ---
Documentation for date of: 04/16/25 Subjective Subjective Interval history: Patient being fed with the NGT Patient has failed SBT Dr. Stewart is still in the process of making a decision Enteral hyperalimentation via the NGT Exam Vital Signs Temp Pulse Resp BP Pulse Ox O2 Del Method O2 Flow Rate 96.8 F 59 L 20 104/76 100 Mechanical Ventilation 15 04/16/25 12:00 04/16/25 14:07 04/14/25 18:42 04/16/25 12:30 04/16/25 14:07 04/16/25 12:00 04/11/25 04:11 FiO2 30 04/16/25 14:07 Objective Labs 04/16/25 04:35 04/16/25 04:35 Labs: Laboratory Results - last 24 hr 04/16/25 04:35 WBC 3.7 L RBC 2.28 L Hgb 7.1 L Hct 21.8 L* MCV 96 MCH 31.1 MCHC 32.6 RDW Std Deviation 55.8 H Plt Count 101 L Neut % (Auto) 82 H Lymph % (Auto) 9 L [place] % (Auto) 5 Eos % (Auto) 3 Baso % (Auto) 0 Neut # (Auto) 3.0 Lymph # (Auto) 0.3 L [place] # (Auto) 0.2 Eos # (Auto) 0.1 Baso # (Auto) 0.0 Immature Gran # (Auto) 0.03 H Absolute Nucleated RBC 0.00 Immature Gran % 1 H Nucleated RBC % 0 VBG pH 7.40 VBG pCO2 40 VBG pO2 35 VBG O2 Sat (Erendira) 62 L VBG Base Excess 0 Sodium 143 Potassium 3.6 Chloride 107 Carbon Dioxide 24.3 Anion Gap 12 BUN 33 H Creatinine 1.8 H Estim Creat Clear Calc 46.3 L eGFR 40 L BUN/Creatinine Ratio 18 Glucose 131 H Calculated Osmolality 294 Calcium 7.7 L Corrected Calcium 8.8 Phosphorus 3.9 Magnesium 2.4 Total Bilirubin 1.6 H AST 82 H ALT 62 H Alkaline Phosphatase 100 Total Protein 6.3 Albumin 2.6 L Globulin 3.7 H Albumin/Globulin Ratio 0.7 L Impressions Impression: Enteral feeding via NGT Respiratory failure requiring mechanical ventilation and status post tracheostomy Continue supportive care ABG Interpretation ABG results: 04/03/25 04/03/25 04/04/25 16:35 20:45 04:55 ABG pH Cancelled 7.46 H 7.42 ABG pCO2 Cancelled 37 42 ABG pO2 Cancelled 181 H 111 H D ABG HCO3 Cancelled 26 27 H ABG O2 Saturation Cancelled 99 H 98 ABG Base Excess Cancelled 2 3 VBG pH VBG pCO2 VBG pO2 VBG Base Excess 04/05/25 04/05/25 04/07/25 04:00 04:55 19:20 ABG pH 7.35 7.40 7.38 ABG pCO2 47 40 47 ABG pO2 37 L* D 136 H D 141 H ABG HCO3 26 25 27 H ABG O2 Saturation 66 L 99 H 99 H ABG Base Excess 0 0 2 VBG pH VBG pCO2 VBG pO2 VBG Base Excess 04/08/25 04/09/25 04/09/25 04:20 04:52 23:33 ABG pH 7.46 H 7.48 H Cancelled ABG pCO2 45 40 Cancelled ABG pO2 108 D 84 D Cancelled ABG HCO3 32 H 30 H Cancelled ABG O2 Saturation 98 98 Cancelled ABG Base Excess 7 H 6 H Cancelled VBG pH VBG pCO2 VBG pO2 VBG Base Excess 04/10/25 04/10/25 04/11/25 00:24 23:42 03:15 ABG pH 7.48 H 7.41 ABG pCO2 40 38 ABG pO2 197 H D 124 H D ABG HCO3 29 H 24 ABG O2 Saturation 99 H 99 H ABG Base Excess 6 H -1 VBG pH 7.48 VBG pCO2 36 VBG pO2 105 H VBG Base Excess 3 04/11/25 04/11/25 04/12/25 04:57 12:32 08:38 ABG pH 7.41 ABG pCO2 41 ABG pO2 91 D ABG HCO3 26 ABG O2 Saturation 98 ABG Base Excess 1 VBG pH 7.39 7.41 VBG pCO2 47 D 42 VBG pO2 39 D 39 VBG Base Excess 3 2 04/13/25 04/14/25 04/16/25 04:28 05:18 04:35 ABG pH 7.43 ABG pCO2 38 ABG pO2 74 L ABG HCO3 25 ABG O2 Saturation 96 ABG Base Excess 1 VBG pH 7.38 7.40 VBG pCO2 44 40 VBG pO2 34 35 VBG Base Excess 1 0 Assessment & Plan A&P Narrative 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 andrea on vanco Status post cardiopulmonary arrest ROSC Developmentally delayed Diabetes mellitus type 2 Status post AKA left htn gout bph changed to doxy iv from linezolid with andrea, will avoid bactrim and vanco. prognosis guarded to poor. linezolid or vanco would have worked, but did not, so either he has a refractory infection or other factors may limit his ability to come off vent. he did it before, but it is several yrs later now. and he is 70 yoa now too. Time Spent With Patient Time: Total time spent is greater than 50% in coordination of care (as documented) at patient's floor/unit and/or counseling patient:
[2025-04-16] MEDS: DOXYCYCLINE INJ 100 MG in SODIUM CHLORIDE 0.9% (POP) 100 ML IV (20:20)
[2025-04-17] VITALS (29 sets, daily range): BP systolic 98–136; BP diastolic 65–81; PULSE 62–85; RESP 17–242; TEMP 36.2–36.7; O2SAT 95–100; BMI 37.5
[2025-04-17] MEDS: HEPARIN SOD INJ 5000 UNIT/ML VIAL SC ×2 (05:26→13:57)
[2025-04-17 06:48] LABS: Basophils % (Auto) 0 % (0-2.5); Eosinophils # (Auto) 0.1 Thou/mm3 (0.0-0.5); Eosinophils % (Auto) 2 % (0-10); Hematocrit 23.3 % (41.0-53.0); Immature Granulocytes % (Auto) 1 % (0-0); Immature Granulocytes Auto 0.04 Thou/mm3 (0.00-0.00); Lymphocytes # (Auto) 0.4 Thou/mm3 (1.0-4.8); Lymphocytes % (Auto) 8 % (10-50); Mean Corpuscular HGB Conc 32.2 g/dl (31.0-37.0); Mean Corpuscular Volume 96 fL (80-100); Monocytes # (Auto) 0.3 Thou/mm3 (0.0-0.8); Monocytes % (Auto) 5 % (0-12); Neutrophils # (Auto) 4.4 Thou/mm3 (1.8-7.7); Neutrophils % (Auto) 84 % (37-80); Nucleated Red Blood Cell % 0 /100 WBC (0); Platelet Count 124 Thou/mm3 (140-440); RDW Standard Deviation 56.6 fL (35.1-43.9); Red Blood Count 2.42 Miln/mm3 (4.50-5.90); White Blood Count 5.3 Thou/mm3 (3.8-10.6)
[2025-04-17 07:00] LABS: Hemoglobin 7.5 g/dL (13.5-16.0)
[2025-04-17 07:10] LABS: Alanine Aminotransferase 77 U/L (10-49); Albumin, Serum 2.8 gm/dL (3.4-4.8); Albumin/Globulin Ratio 0.8 (1.2-2.2); Alkaline Phosphatase 125 U/L (46-116); Anion Gap 11 (7-16); Aspartate Amino Transferase 77 U/L (0-34); BUN/Creatinine Ratio 21 Ratio (12-20); Bilirubin,Total 1.4 mg/dL (0.3-1.2); Blood Urea Nitrogen 33 mg/dL (9-23); Calcium 7.7 mg/dL (8.3-10.6); Calcium (Corrected) 8.7 mg/dL (8.5-10.1); Carbon Dioxide 23.7 mMol/L (20.0-31.0); Chloride 107 mMol/L (98-107); Creatinine (Component) 1.6 mg/dL (0.6-1.3); Estimated Creatinine Clearance 52.8 mL/min (>60); Globulin 3.7 gm/dL (2.3-3.5); Glucose 133 mg/dL (74-106); Magnesium 2.2 mg/dL (1.6-2.6); Osmolality,Calculated 292 (275-295); Phosphorous 3.3 mg/dL (2.4-5.1); Potassium 3.6 mMol/L (3.4-5.1); Sodium 142 mMol/L (136-145); Total Protein 6.5 gm/dL (5.7-8.2); eGFR 46 See Note
[2025-04-17] MEDS: PROPOFOL 1,000 MG IVPB 1,000 MG/100 ML VIAL 10.053 MG IV ×2 (07:39→15:00)
--- NOTE | 2025-04-17 08:00 | XR_ITS ---
Examination: AP chest single view Technique one AP portable semiupright chest single view Date and time: April 17, 2025 0732 hours Comparison April 16, 2025 INDICATIONS: Heart failure, history right lung atelectasis, post intubation this week. FINDINGS: There remains significant volume loss right lung Endotracheal tube tip 5.3 cm above [place]. The orogastric tube is in the stomach. Prominent left ventricle. Prominent vascular congestion Stable position right central line tip IMPRESSION: There remains significant atelectasis right lung
--- NOTE | 2025-04-17 08:35 | ESPR_ITS ---
<Statement entered by Thai Floyd MD - 04/18/25 08:49> family considering comfort measures for saturday. Hold off on bronchoscopy cumulative time spent in management of patient is 45 min Documentation for date of: 04/17/25 Subjective Subjective Interval history: Patient is a 70 year old male with PMH of developmental delay, bipolar disorder, DM2, L AKA admitted to the ICU for choking-induced pulmonary arrest s/p ROSC. Per caregivers and EMS report, patient was eating an apple when he choked and became unresponsive. When EMS arrived, patient was noted to be agonal, hypoxic at 55% and bradycardic. They were able to clear some food from his mouth. Patient was bagged via NPA. En route, patient lost pulses and CPR was initiated. He was given 1 of epinephrine. ROSC was achieved. Patient was intubated. He was found to be severely hypernatremic at 179. 04/04/2025: Overnight, staff was unable to pass an OG tube. Everytime the patient was turned, food chunks would come out of his mouth. He recieved a total of 2L NS and the following sodium was 135, and recheck was 136. Suspect that initial sodium at 179 may have been a lab error. Patient had SAT and SBT today, then was re-sedated and put on ventilator support for bronchoscopy. During bronchoscopy, there was large food material and mucous that were removed from the right intermdiate and lower lung bronchi, and inflammation in the right upper lobe entry. Plan for endoscopy later today to remove suspected food obstructing the esophagus. 04/05/2025: Endoscopy yesterday showed food material throughout the entire esophagus. An NG tube was placed for decompression with 200cc output overnight. No acute problems overnight. This morning, patient passed SBT and SAT and was extubated. He is awake, agitated but redirectable. He is developmentally delayed and can talk at baseline. Antibiotics discontinued. Remains on low dose levophed, will wean off. CXR shows significant bilateral infiltrate and patient is net positive fluid balance so will give Lasix. After intubation, patient did pull out his NG tube. His abdomen is quite distended and tympanic. KUB shows air throughout the colon. NG tube as reinserted with continuous suction for decompressions. 04/06/2025: Patient remains on 3L NC saturating well without respiratory distress. Will continue antibiotics to complete course for aspiration pneumonia. Patient stomach remains distended, improved. NG tube 200. Had 1 BM. Repeat KUB this morning still shows colonic ileus. Will continue NG tube. Patient to be downgraded today. 04/07/2025: ENCODING MACHINE OPERATOR was called at 17: 43 soon after which a CODE BLUE was initiated as patient was found with his eyes rolled back shaking and without a pulse. ACLS was initiated with chest compressions and patient underwent 2 rounds of epi, a dose of calcium gluconate and 2 doses of bicarb. Patient had 2 rounds of PEA and he was found to be in V-fib for which she received 200 J of unsynchronized cardioversion and ROSC was achieved. Dr. Llanos intubated the patient and he was moved to the unit. Unclear as for the reason for the arrest at this time. Will work up. 04/08/2025: Patient had witnessed shaking event last night, was given Keppra. EEG was taken. He remains off sedation. This morning, patient opens eyes, tracks, localizes to pain. Failed SBT. CXR taken last night suggests aspiration throughout the right lung. CXR this morning shows improved right upper lung. Will turn patient on his left lung, duonebs, and antibiotics. Point of contact updated. 04/09/2025: Patient doing well this morning. Able to follow commands consistently. Adequate cough and gag reflex intact. Patient underwent spontaneous breathing trial and was successfully weaned to nasal cannula. Requesting this afternoon to be able to drink. However pending formal swallow evaluation at bedside. Patient undergoing chest physiotherapy with percussion and albuterol/saline nebs. 04/10/2025: Patient passed swallow yesterday and was started on purreed diet. Around 11pm patient had episode of hypoxia in the 70s and shaking. He was started on BIPAP with precedex, and keppra. This morning, patient taken off BIPAP and precedex without issue. He is awake, answering simple questions, calm. Sodium improved. Will follow up EEG results and continue Keppra for possible seizures, and recommend BIPAP at night for suspected central sleep apnea. 04/11/2025: Was called in regards to patient having 3 seizure-like episodes and did not have any peripheral access so central line was placed emergently. During central line placement patient had 2 more seizure-like episodes. Seizure-like episodes were full body convulsions lasting close to 30 seconds each time. During the episodes patient became very tachycardic into the 140s and desatted down to the 70s. Due to the frequent episodes of seizures decision was made to reintubate the patient for status epilepticus and to initiate propofol and Versed. Postprocedure x-ray shows right-sided complete whiteout likely secondary to a mucous plug. Patient will benefit from a bronchoscopy in the a.m. ABG pending. 04/11/2025: No further witnessed seizures noted. Patient had bronchoscopy today to clear mucus secretions. There was significant mucopurulent secretions throughout the right upper, middle, and lower lobe entry and subsegmental takeoffs. A BAL was obtained. Abnormal mucosa was noted in the R intermedius superior subsegmental takeoff - biopsy was not obtained due to limited resources. Patient tolerated the procedure well. Due to recurrent aspirations, patient may benefit from tracheostomy. Regarding patient's seizures, will continue Keppra, get EEG, and reach out to neurology. 04/12/2025: Patient had witnessed seizure around 06:00 and 08:00 lasting less than 1 minute. Prolactin obtained from 04/07 was elevated at 59. Will get MRI of the brain for new onset seizures and to rule out any intracranial mass or other pathology. On physical exam, patient has significant improved R lung sounds. BAL stain 2+ WBC with occasional budding yeast and occasional GNR. Review of previous XR and CTs show a chronic R lung pleural effusion since 2019. Will repeat bronch today to clear secretions and get CT with contrast of the lungs. Reached out to conservetor Dr. Stewart in anticipation for tracheostomy once seizures are controlled. 04/13/2025: Patient remains afebrile overnight. 1 bowel movement reported overnight. Patient net positive, balance of 2022 ml and a weight of 110.9 kg versus 108 kg on 04/03/2025 upon admission. 400 cc on bladder scan, continue to straight cath. Bilateral pleural effusion on CTA chest with negative for PE and as noted on previous abdomen pelvis CT from 2021 right large pleural effusion which is now chronic. Propofol continued at 10 mcg/kg, Versed 4 mg/h, antibiotics do on board including Zosyn/Vancomycin. Given overall poor prognosis from acute encephalopathy secondary to seizures likely complicated by anoxic brain injury from aspiration pneumonia, will update patient's guardian in shared decision making in regards to goals of care versus pleural drainage. VT 400 RR 20 PEEP 5, and peak plateau 16.8. Sedated and synchronized as noted volume loop and actual respiratory rate. 04/14/2025: No seizures reported overnight. Afebrile. Total fluid intake 727, output 900, next -172.0 within the last 12 hours. Continue to titrate down on Versed, currently 2 mg/hr and Propofol 15 mcg/kg. BAL positive for MRSA pneumonia, thus continue Vancomycin and discontinue Zosyn. Decreased vesicular breath sounds on right lung field with rhonchi noted on left lung field. Updated Conservator. 04/15/2025: No overnight events. No seizures reported. Patient continues to have good urine output 800cc. Propofol 25 mcg/kg. Given worsening kidney function, Vancomycin D/C and Linezolid 600 mg BID started, Day 8 of antibiotics for MRSA Pneumonia. Versed stopped. Improved chest x-ray, no planned bronchoscopy. 04/16/2025: No overnight seizures. Patient remains afebrile. Over the last 12 hours total urine output 400 cc with net positive +200. Mild lower pedal edema noted, +1. Patient failed pressure support and required propofol to be turned on again currently at 25 and switched back to assisted control. Bronchoscopy planned given worsening atelectasis on chest x-ray. Asymmetrical Excursion noted at bedside. 04/17/2025: Bronchosopy yesterday with BAL obtianed. No overnight events. Remains afebrile. Asymmetrical excursion and decreased breath sounds R lung field. CXR unchanged from yesterday despite bronchoscopy, showing R pleural effusion and R atelectasis. Patient noted to have unclear deviated R eye, though this comes and goes. Repeat head CT was negative. Patient was arousable to verbal stimuli this morning on propofol of 10. He is still unable to follow commands. I spoke with Dr. Stewart, legal conservator, who discussed the patient is not a good candidate for tracheostomy, and changed code status from full code to DNR, witnessed by RN. Anticiplate plan for extubation to comfort care on Saturday. Exam Vital Signs Temp Pulse Resp BP Pulse Ox O2 Del Method O2 Flow Rate 97.8 F 79 20 134/78 H 99 Mechanical Ventilation 04/17/25 04:01 04/17/25 07:52 04/14/25 18:42 04/17/25 06:01 04/17/25 07:52 04/17/25 06:01 04/11/25 04:11 FiO2 30 04/17/25 07:52 Narrative Exam Constitutional: Intubated male, obese. HEENT: Mobile, hard lipoma? noted right temporal region. NCAT. Pupils weakly reactive. Respiratory: Asymetrical excursion on R side, R lung sounds significantly decreased compared to L Cardiac: RRR. Abdomen: Soft, non-distended, non-tender. No guarding, no rebound. MSK: L AKA. 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 Multiple scarred excorations. Objective Labs 04/18/25 05:09 04/18/25 05:09 Labs: Laboratory Results - last 24 hr 04/17/25 04:59 WBC 5.3 D RBC 2.42 L Hgb 7.5 L Hct 23.3 L MCV 96 MCH 31.0 MCHC 32.2 RDW Std Deviation 56.6 H Plt Count 124 L D Neut % (Auto) 84 H Lymph % (Auto) 8 L [place] % (Auto) 5 Eos % (Auto) 2 Baso % (Auto) 0 Neut # (Auto) 4.4 Lymph # (Auto) 0.4 L [place] # (Auto) 0.3 Eos # (Auto) 0.1 Baso # (Auto) 0.0 Immature Gran # (Auto) 0.04 H Absolute Nucleated RBC 0.00 Immature Gran % 1 H Nucleated RBC % 0 Sodium 142 Potassium 3.6 Chloride 107 Carbon Dioxide 23.7 Anion Gap 11 BUN 33 H Creatinine 1.6 H Estim Creat Clear Calc 52.8 L eGFR 46 L BUN/Creatinine Ratio 21 H Glucose 133 H Calculated Osmolality 292 Calcium 7.7 L Corrected Calcium 8.7 Phosphorus 3.3 Magnesium 2.2 Total Bilirubin 1.4 H AST 77 H ALT 77 H Alkaline Phosphatase 125 H D Total Protein 6.5 Albumin 2.8 L Globulin 3.7 H Albumin/Globulin Ratio 0.8 L ABG Interpretation ABG results: 04/03/25 04/03/25 04/04/25 16:35 20:45 04:55 ABG pH Cancelled 7.46 H 7.42 ABG pCO2 Cancelled 37 42 ABG pO2 Cancelled 181 H 111 H D ABG HCO3 Cancelled 26 27 H ABG O2 Saturation Cancelled 99 H 98 ABG Base Excess Cancelled 2 3 VBG pH VBG pCO2 VBG pO2 VBG Base Excess 04/05/25 04/05/25 04/07/25 04:00 04:55 19:20 ABG pH 7.35 7.40 7.38 ABG pCO2 47 40 47 ABG pO2 37 L* D 136 H D 141 H ABG HCO3 26 25 27 H ABG O2 Saturation 66 L 99 H 99 H ABG Base Excess 0 0 2 VBG pH VBG pCO2 VBG pO2 VBG Base Excess 04/08/25 04/09/25 04/09/25 04:20 04:52 23:33 ABG pH 7.46 H 7.48 H Cancelled ABG pCO2 45 40 Cancelled ABG pO2 108 D 84 D Cancelled ABG HCO3 32 H 30 H Cancelled ABG O2 Saturation 98 98 Cancelled ABG Base Excess 7 H 6 H Cancelled VBG pH VBG pCO2 VBG pO2 VBG Base Excess 04/10/25 04/10/25 04/11/25 00:24 23:42 03:15 ABG pH 7.48 H 7.41 ABG pCO2 40 38 ABG pO2 197 H D 124 H D ABG HCO3 29 H 24 ABG O2 Saturation 99 H 99 H ABG Base Excess 6 H -1 VBG pH 7.48 VBG pCO2 36 VBG pO2 105 H VBG Base Excess 3 04/11/25 04/11/25 04/12/25 04:57 12:32 08:38 ABG pH 7.41 ABG pCO2 41 ABG pO2 91 D ABG HCO3 26 ABG O2 Saturation 98 ABG Base Excess 1 VBG pH 7.39 7.41 VBG pCO2 47 D 42 VBG pO2 39 D 39 VBG Base Excess 3 2 04/13/25 04/14/25 04/16/25 04:28 05:18 04:35 ABG pH 7.43 ABG pCO2 38 ABG pO2 74 L ABG HCO3 25 ABG O2 Saturation 96 ABG Base Excess 1 VBG pH 7.38 7.40 VBG pCO2 44 40 VBG pO2 34 35 VBG Base Excess 1 0 Quality Measures Quality Measures VTE prophylaxis Advance care planning discussed with:: legal surragate Assessment & Plan Assessment Current Active Medications: Generic Name Dose Route Start Last Admin Trade Name Billy PRN Reason Stop Dose Admin Acetaminophen 650 mg 04/07/25 15:23 Acetaminophen 325 Mg Tablet PO 05/03/25 16:21 Q6H PRN Fever >99.5 Dextrose 25 ml 04/03/25 16:33 Dextrose 50%-Water Inj 50 Ml Syringe IV 05/03/25 16:32 Q15MIN PRN BG 50-70 responsive npo pt Dextrose 50 ml 04/03/25 16:33 Dextrose 50%-Water Inj 50 Ml Syringe IV 05/03/25 16:32 Q15MIN PRN BG <50 OR BG <70 & pt unresponsive Famotidine 20 mg 04/14/25 09:00 04/16/25 09:18 Famotidine Inj 10 Mg/Ml Vial 2 Ml IVP 05/14/25 08:59 20 mg QDAY MANUEL Administration Glucagon 1 mg 04/03/25 16:33 Glucagon Inj 1 Mg Vial IM Q15MIN PRN BG <70, and no IV access Heparin Sodium (Porcine) 5,000 unit 04/03/25 22:00 04/17/25 05:26 Heparin Sod Inj 5000 Unit/Ml Vial SC 04/17/25 21:59 5,000 unit Q8HR MANUEL Administration Propofol 1,000 mg in 100 mls @ 3.351 mls/hr 04/11/25 04:12 04/17/25 07:39 Diprivan Ivpb IV 05/11/25 04:11 15 mcg/kg/min .Q24H PRN 10.053 mls/hr PER PROTOCOL Administration Protocol 5 MCG/KG/MIN Doxycycline Hyclate 100 mg/ 100 mls @ 100 mls/hr 04/16/25 21:00 04/16/25 21:30 Sodium Chloride IV 04/23/25 20:59 Infused BID MANUEL Infusion Insulin Human Regular 0 unit 04/11/25 06:00 04/17/25 05:31 Insulin Hum Regular 1 Unit/0.01 Ml (Per Unit) SC 05/11/25 05:59 Not Given Q6HR MANUEL Protocol Lacosamide 200 mg 04/12/25 21:00 04/16/25 20:39 Lacosamide Inj 200 Mg/20 Ml Vial IVP 05/12/25 20:59 200 mg BID MANUEL Administration Levetiracetam 1,000 mg 04/10/25 21:00 04/16/25 20:39 Levetiracetam Inj 100 Mg/Ml Vial 5ml IVP 05/10/25 20:59 1,000 mg Q12HR MANUEL Administration Ondansetron HCl 4 mg 04/07/25 14:29 Ondansetron Inj 2 Mg/Ml Inj 2 Ml IV 05/07/25 14:28 Q6H PRN NAUSEA OR VOMITING Protocol Sodium Chloride 3 ml 04/04/25 15:24 04/09/25 10:22 Sodium Chloride Rt Jessica 0.9% 3 Ml Nebu INH 05/04/25 15:23 3 ml PRN PRN Administration SOLN Plan Patient is a 70 year old male with PMH of developmental delay, bipolar disorder, DM2, L AKA admitted to the ICU for choking-induced pulmonary arrest s/p ROSC. TARGET MAN Acute encephalopathy Cardiopulmonary arrest with and new onset seizures, ?anoxic brain injury. Head CT negative. MRI noted chronic micro-vascular changes. EEG also suggestive of anoxic brain injury. - Keppra 100mg BID - Lacosamide 20mg IV BID - Propofol ggt CARDIOVASCULAR Cardiopulmonary arrest s/p resuscitation, resolved Cardiopulmonary arrest on 04/08/2025 secondary to acute hypoxic respiratory failure form aspiration pneumonia. RESPIRATORY Acute hypoxic respiratory failure MRSA necrotizing pneumonia, GNR pneumonia, chronic bilateral pleural effusions CT imaging showed bilateral pleural effusion, right pleural effusion appears chronic. Initial bronchoscopy removed foreign food. PAtient had repeated bronchoscopies for clearance of airway secretions, mucus plugging, with BAL obtained. CXR 04/17 shows significant persistent R atelectasis with pleural effusion. - Chest PT BID - Mucomyst - Duoneb Per conservetor, patient not a candidate for tracheostomy and plan for terminal extubation to comfort on Saturday. RENAL JOSEFINA on CKD III, improving Due to nephrotoxins, vancomycin. Improved after vancomycin discontinued. - Bladder scan Q4H and straight cath if urine volume > 300cc Hyperosmolar Hypernatremia, Resolved. Lactic acidosis, resolved Hypophosphatemia, resolved. GI FEN: Glucerna via OG tube. Free water flushes 250 cc Q6HR and Advance 10 ml every 8 hrs to goal rate of 62 ml/hr x 24 hrs. Flushes at 35 ml/hr. ENDO History of DM2 - Euglycemic. ISS Q6H HEME Thrombocytopenia Secondary thrombocytopenia from sepsis, acute illness ID Aspiration pneumonia MRSA necrotizing pneumonia GNR pneumonia Vancomycin 04/07/2025-04/15/2025 dicontinued due to JOSEFINA, switched to Linzezolid (04/16) to doxycyline (04/17-) - Zosyn added for GNR coverage (04/17- - Follow up BAL 04/16 Health Maintenance Diet and fluids: tube feeds - Glucerna 1.2 Advance 10 ml every 8 hrs to goal rate of 62 ml/hr x 24 hrs. Flushes at 35 ml/hr. DVT prophylaxis: heparin Q12 GI prophylaxis: Famotadine 40 IV daily Lines: Right IJ central line, PIV, ET, OG Medical Restrains 24 hours. CODE STATUS: DNR I have reviewed and discussed the patient's care with my attending, Dr. Floyd, Jane Su MD PGY-3
[2025-04-17] MEDS: DOXYCYCLINE INJ 100 MG in SODIUM CHLORIDE 0.9% (POP) 100 ML IV ×2 (08:56→20:49)
[2025-04-17] MEDS: FAMOTIDINE INJ 10 MG/ML VIAL 2 ML 20 MG IVP (08:56)
[2025-04-17] MEDS: levETIRAcetam INJ 100 MG/ML VIAL 5ML 1000 MG IVP ×2 (08:56→20:49)
[2025-04-17] MEDS: LACOSAMIDE INJ 200 MG/20 ML VIAL IVP ×2 (08:57→20:49)
[2025-04-17] MEDS: PIPER/TAZO 3.375 GM PREMIX 3.375 GM/50 ML BAG IV ×2 (10:28→21:20)
--- NOTE | 2025-04-17 11:10 | PC.SS ---
Update: Discussion held with Dr. Stewart today, patient's code status is DNR. Plan is to extubate patient on Saturday, transition to comfort care.
[2025-04-17] MEDS: GLYCOPYRROLATE INJ 0.2 MG/ML VIAL 0.1 MG IV (13:53)
[2025-04-17 14:08] LABS: Cocci Serology, IgM Negative (Negative)
--- NOTE | 2025-04-17 19:25 | ESPR_ITS ---
Documentation for date of: 04/17/25 Subjective Subjective Interval history: Remains mechanically ventilated Enteral feeding via the PEG tube Exam Vital Signs Temp Pulse Resp BP Pulse Ox O2 Del Method O2 Flow Rate 97.4 F 77 20 119/69 99 Mechanical Ventilation 15 04/17/25 16:00 04/17/25 18:00 04/14/25 18:42 04/17/25 18:00 04/17/25 18:00 04/17/25 16:00 04/11/25 04:11 FiO2 30 04/17/25 16:00 Objective Labs 04/17/25 04:59 04/17/25 04:59 Labs: Laboratory Results - last 24 hr 04/16/25 04/17/25 13:08 04:59 WBC 5.3 D RBC 2.42 L Hgb 7.5 L Hct 23.3 L MCV 96 MCH 31.0 MCHC 32.2 RDW Std Deviation 56.6 H Plt Count 124 L D Neut % (Auto) 84 H Lymph % (Auto) 8 L [place] % (Auto) 5 Eos % (Auto) 2 Baso % (Auto) 0 Neut # (Auto) 4.4 Lymph # (Auto) 0.4 L [place] # (Auto) 0.3 Eos # (Auto) 0.1 Baso # (Auto) 0.0 Immature Gran # (Auto) 0.04 H Absolute Nucleated RBC 0.00 Immature Gran % 1 H Nucleated RBC % 0 Sodium 142 Potassium 3.6 Chloride 107 Carbon Dioxide 23.7 Anion Gap 11 BUN 33 H Creatinine 1.6 H Estim Creat Clear Calc 52.8 L eGFR 46 L BUN/Creatinine Ratio 21 H Glucose 133 H Calculated Osmolality 292 Calcium 7.7 L Corrected Calcium 8.7 Phosphorus 3.3 Magnesium 2.2 Total Bilirubin 1.4 H AST 77 H ALT 77 H Alkaline Phosphatase 125 H D Total Protein 6.5 Albumin 2.8 L Globulin 3.7 H Albumin/Globulin Ratio 0.8 L Coccidioides IgM Ab Negative Impressions Impression: Enteral feeding via PEG tube Mechanically ventilated awaiting decision from Dr. Stewart for further direction in the management of this patient ABG Interpretation ABG results: 04/03/25 04/03/25 04/04/25 16:35 20:45 04:55 ABG pH Cancelled 7.46 H 7.42 ABG pCO2 Cancelled 37 42 ABG pO2 Cancelled 181 H 111 H D ABG HCO3 Cancelled 26 27 H ABG O2 Saturation Cancelled 99 H 98 ABG Base Excess Cancelled 2 3 VBG pH VBG pCO2 VBG pO2 VBG Base Excess 04/05/25 04/05/25 04/07/25 04:00 04:55 19:20 ABG pH 7.35 7.40 7.38 ABG pCO2 47 40 47 ABG pO2 37 L* D 136 H D 141 H ABG HCO3 26 25 27 H ABG O2 Saturation 66 L 99 H 99 H ABG Base Excess 0 0 2 VBG pH VBG pCO2 VBG pO2 VBG Base Excess 04/08/25 04/09/25 04/09/25 04:20 04:52 23:33 ABG pH 7.46 H 7.48 H Cancelled ABG pCO2 45 40 Cancelled ABG pO2 108 D 84 D Cancelled ABG HCO3 32 H 30 H Cancelled ABG O2 Saturation 98 98 Cancelled ABG Base Excess 7 H 6 H Cancelled VBG pH VBG pCO2 VBG pO2 VBG Base Excess 04/10/25 04/10/25 04/11/25 00:24 23:42 03:15 ABG pH 7.48 H 7.41 ABG pCO2 40 38 ABG pO2 197 H D 124 H D ABG HCO3 29 H 24 ABG O2 Saturation 99 H 99 H ABG Base Excess 6 H -1 VBG pH 7.48 VBG pCO2 36 VBG pO2 105 H VBG Base Excess 3 04/11/25 04/11/25 04/12/25 04:57 12:32 08:38 ABG pH 7.41 ABG pCO2 41 ABG pO2 91 D ABG HCO3 26 ABG O2 Saturation 98 ABG Base Excess 1 VBG pH 7.39 7.41 VBG pCO2 47 D 42 VBG pO2 39 D 39 VBG Base Excess 3 2 04/13/25 04/14/25 04/16/25 04:28 05:18 04:35 ABG pH 7.43 ABG pCO2 38 ABG pO2 74 L ABG HCO3 25 ABG O2 Saturation 96 ABG Base Excess 1 VBG pH 7.38 7.40 VBG pCO2 44 40 VBG pO2 34 35 VBG Base Excess 1 0 Assessment & Plan A&P Narrative 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 andrea on vanco Status post cardiopulmonary arrest ROSC Developmentally delayed Diabetes mellitus type 2 Status post AKA left htn gout bph changed to doxy iv from linezolid with andrea, will avoid bactrim and vanco. prognosis guarded to poor. linezolid or vanco would have worked, but did not, so either he has a refractory infection or other factors may limit his ability to come off vent. he did it before, but it is several yrs later now. and he is 70 yoa now too. Time Spent With Patient Time: Total time spent is greater than 50% in coordination of care (as documented) at patient's floor/unit and/or counseling patient:
[2025-04-18] VITALS (26 sets, daily range): BP systolic 83–136; BP diastolic 55–81; PULSE 61–86; RESP 20–26; TEMP 36.1–36.9; O2SAT 95–100; BMI 37.3
[2025-04-18] MEDS: PROPOFOL 1,000 MG IVPB 1,000 MG/100 ML VIAL 16.755 MG IV ×5 (00:45→22:53)
--- NOTE | 2025-04-18 01:21 | ESPR_ITS ---
Documentation for date of: 04/17/25 Subjective Subjective Interval history: Patient is in ICU, continues to remain intubated and on mechanical ventilatory support on sedation, failed SBT again Exam - Neurology Vital Signs Temp Pulse Resp BP Pulse Ox O2 Del Method O2 Flow Rate 96.9 F 61 20 99/63 100 Mechanical Ventilation 15 04/18/25 00:00 04/18/25 00:00 04/14/25 18:42 04/18/25 00:00 04/18/25 00:00 04/18/25 00:00 04/11/25 04:11 FiO2 30 04/18/25 00:00 Narrative Exam Gen: Well-developed and well-nourished. Sedated. RASS -3. HEENT: NCAT, pupils equal, right eye cataract, miotic, weakly reactive to light, intact corneal reflex, intact cough reflex, MMM, anicteric conjunctivae. Left eye lateral deviation. CVS: normal S1 and S2. RRR. No M/R/G. Resp: CTA B/L. No rhonchi, rales, crackles or wheezing. Abd: soft, non-tender, non-distended. BS+ in all 4 quadrants. MSK: Right AKA, left toe amputation. Neuro:Sedated. Pupils equal, miotic, weakly reactive to light, intact corneal reflex, intact cough reflex. Tendon reflexes 1+. Grimacing to the pain stimulation. Psych: impossible to assess. Objective Labs 04/19/25 05:00 04/19/25 05:00 Labs: Laboratory Results - last 24 hr 04/16/25 04/17/25 13:08 04:59 WBC 5.3 D RBC 2.42 L Hgb 7.5 L Hct 23.3 L MCV 96 MCH 31.0 MCHC 32.2 RDW Std Deviation 56.6 H Plt Count 124 L D Neut % (Auto) 84 H Lymph % (Auto) 8 L [place] % (Auto) 5 Eos % (Auto) 2 Baso % (Auto) 0 Neut # (Auto) 4.4 Lymph # (Auto) 0.4 L [place] # (Auto) 0.3 Eos # (Auto) 0.1 Baso # (Auto) 0.0 Immature Gran # (Auto) 0.04 H Absolute Nucleated RBC 0.00 Immature Gran % 1 H Nucleated RBC % 0 Sodium 142 Potassium 3.6 Chloride 107 Carbon Dioxide 23.7 Anion Gap 11 BUN 33 H Creatinine 1.6 H Estim Creat Clear Calc 52.8 L eGFR 46 L BUN/Creatinine Ratio 21 H Glucose 133 H Calculated Osmolality 292 Calcium 7.7 L Corrected Calcium 8.7 Phosphorus 3.3 Magnesium 2.2 Total Bilirubin 1.4 H AST 77 H ALT 77 H Alkaline Phosphatase 125 H D Total Protein 6.5 Albumin 2.8 L Globulin 3.7 H Albumin/Globulin Ratio 0.8 L Coccidioides IgM Ab Negative ABG Interpretation ABG results: 04/03/25 04/03/25 04/04/25 16:35 20:45 04:55 ABG pH Cancelled 7.46 H 7.42 ABG pCO2 Cancelled 37 42 ABG pO2 Cancelled 181 H 111 H D ABG HCO3 Cancelled 26 27 H ABG O2 Saturation Cancelled 99 H 98 ABG Base Excess Cancelled 2 3 VBG pH VBG pCO2 VBG pO2 VBG Base Excess 04/05/25 04/05/25 04/07/25 04:00 04:55 19:20 ABG pH 7.35 7.40 7.38 ABG pCO2 47 40 47 ABG pO2 37 L* D 136 H D 141 H ABG HCO3 26 25 27 H ABG O2 Saturation 66 L 99 H 99 H ABG Base Excess 0 0 2 VBG pH VBG pCO2 VBG pO2 VBG Base Excess 04/08/25 04/09/25 04/09/25 04:20 04:52 23:33 ABG pH 7.46 H 7.48 H Cancelled ABG pCO2 45 40 Cancelled ABG pO2 108 D 84 D Cancelled ABG HCO3 32 H 30 H Cancelled ABG O2 Saturation 98 98 Cancelled ABG Base Excess 7 H 6 H Cancelled VBG pH VBG pCO2 VBG pO2 VBG Base Excess 04/10/25 04/10/25 04/11/25 00:24 23:42 03:15 ABG pH 7.48 H 7.41 ABG pCO2 40 38 ABG pO2 197 H D 124 H D ABG HCO3 29 H 24 ABG O2 Saturation 99 H 99 H ABG Base Excess 6 H -1 VBG pH 7.48 VBG pCO2 36 VBG pO2 105 H VBG Base Excess 3 04/11/25 04/11/25 04/12/25 04:57 12:32 08:38 ABG pH 7.41 ABG pCO2 41 ABG pO2 91 D ABG HCO3 26 ABG O2 Saturation 98 ABG Base Excess 1 VBG pH 7.39 7.41 VBG pCO2 47 D 42 VBG pO2 39 D 39 VBG Base Excess 3 2 04/13/25 04/14/25 04/16/25 04:28 05:18 04:35 ABG pH 7.43 ABG pCO2 38 ABG pO2 74 L ABG HCO3 25 ABG O2 Saturation 96 ABG Base Excess 1 VBG pH 7.38 7.40 VBG pCO2 44 40 VBG pO2 34 35 VBG Base Excess 1 0 Assessment & Plan Assessment and plan (1) Hypernatremia: Status: Acute (2) Acute renal failure: Qualifiers: Acute renal failure type: unspecified Qualified Code(s): N17.9 - Acute kidney failure, unspecified Status: Acute (3) Metabolic acidosis: Status: Acute Additional Assessment & Plan Additional Plan: Patient is a 70 year old male with PMH of developmental delay, bipolar disorder, DM2, L AKA admitted to the ICU for choking-induced pulmonary arrest s/p ROSC. #Status epilepticus requiring reintubation #History of bipolar disorder #History of developmental delay #Cardiopulmonary arrest s/p resuscitation #Hypoxic brain injury Seizures could be provoked due to brain injury in the setting of prolonged hypoxia. MRI showed multiple miscrovascular changes. EEG showed multifocal spike and wave discharges, triphasic waves and severe generalized slowing. Plan: ? Lacosamide 200 mg, 120 twice daily ? Keppra 1000 mg twice daily ? Midazolam infusion as needed for breakthrough seizures ? Propofol infusion, wean down as olerated - home meds are on hold #Acute hypoxic respiratory failure and status epilepticus requiring mechanical intubation and ventilation for airway protection #Hyperosmolar Hypernatremia, resolved #Lactic acidosis, cleared #Hypophosphatemia, improving #History of DM2 #Thrombocytopenia #Aspiration pneumonia versus pneumonitis - management per primary team
[2025-04-18] MEDS: PIPER/TAZO 3.375 GM PREMIX 3.375 GM/50 ML BAG IV (05:17)
[2025-04-18 05:42] LABS: Basophils % (Auto) 0 % (0-2.5); Eosinophils # (Auto) 0.1 Thou/mm3 (0.0-0.5); Eosinophils % (Auto) 4 % (0-10); Hematocrit 21.4 % (41.0-53.0); Immature Granulocytes % (Auto) 1 % (0-0); Immature Granulocytes Auto 0.04 Thou/mm3 (0.00-0.00); Lymphocytes # (Auto) 0.4 Thou/mm3 (1.0-4.8); Lymphocytes % (Auto) 12 % (10-50); Mean Corpuscular HGB Conc 32.2 g/dl (31.0-37.0); Mean Corpuscular Hemoglobin 31.4 pg (25.0-35.0); Mean Corpuscular Volume 97 fL (80-100); Monocytes # (Auto) 0.3 Thou/mm3 (0.0-0.8); Monocytes % (Auto) 8 % (0-12); Neutrophils # (Auto) 2.6 Thou/mm3 (1.8-7.7); Neutrophils % (Auto) 74 % (37-80); Nucleated Red Blood Cell # 0.02 Thou/mm3 (0.00-0.00); Nucleated Red Blood Cell % 1 /100 WBC (0); Platelet Count 106 Thou/mm3 (140-440); White Blood Count 3.5 Thou/mm3 (3.8-10.6)
[2025-04-18 05:47] LABS: Hemoglobin 6.9 g/dL (13.5-16.0)
[2025-04-18 06:17] LABS: Alanine Aminotransferase 67 U/L (10-49); Albumin, Serum 2.7 gm/dL (3.4-4.8); Albumin/Globulin Ratio 0.7 (1.2-2.2); Alkaline Phosphatase 129 U/L (46-116); Anion Gap 9 (7-16); Aspartate Amino Transferase 59 U/L (0-34); BUN/Creatinine Ratio 22 Ratio (12-20); Blood Urea Nitrogen 35 mg/dL (9-23); Calcium 7.8 mg/dL (8.3-10.6); Calcium (Corrected) 8.8 mg/dL (8.5-10.1); Carbon Dioxide 25.9 mMol/L (20.0-31.0); Chloride 107 mMol/L (98-107); Creatinine (Component) 1.6 mg/dL (0.6-1.3); Estimated Creatinine Clearance 52.8 mL/min (>60); Globulin 3.7 gm/dL (2.3-3.5); Glucose 136 mg/dL (74-106); Magnesium 2.2 mg/dL (1.6-2.6); Osmolality,Calculated 293 (275-295); Phosphorous 2.9 mg/dL (2.4-5.1); Sodium 142 mMol/L (136-145); Total Protein 6.4 gm/dL (5.7-8.2); eGFR 46 See Note
--- NOTE | 2025-04-18 06:19 | ESPR_ITS ---
<Statement entered by Thai Floyd MD - 05/14/25 11:56> agree with above. cumulative time spent in management is 45 minutes Documentation for date of: 04/18/25 Subjective Subjective Interval history: Patient is a 70 year old male with PMH of developmental delay, bipolar disorder, DM2, L AKA admitted to the ICU for choking-induced pulmonary arrest s/p ROSC. Per caregivers and EMS report, patient was eating an apple when he choked and became unresponsive. When EMS arrived, patient was noted to be agonal, hypoxic at 55% and bradycardic. They were able to clear some food from his mouth. Patient was bagged via NPA. En route, patient lost pulses and CPR was initiated. He was given 1 of epinephrine. ROSC was achieved. Patient was intubated. He was found to be severely hypernatremic at 179. 04/04/2025: Overnight, staff was unable to pass an OG tube. Everytime the patient was turned, food chunks would come out of his mouth. He recieved a total of 2L NS and the following sodium was 135, and recheck was 136. Suspect that initial sodium at 179 may have been a lab error. Patient had SAT and SBT today, then was re-sedated and put on ventilator support for bronchoscopy. During bronchoscopy, there was large food material and mucous that were removed from the right intermdiate and lower lung bronchi, and inflammation in the right upper lobe entry. Plan for endoscopy later today to remove suspected food obstructing the esophagus. 04/05/2025: Endoscopy yesterday showed food material throughout the entire esophagus. An NG tube was placed for decompression with 200cc output overnight. No acute problems overnight. This morning, patient passed SBT and SAT and was extubated. He is awake, agitated but redirectable. He is developmentally delayed and can talk at baseline. Antibiotics discontinued. Remains on low dose levophed, will wean off. CXR shows significant bilateral infiltrate and patient is net positive fluid balance so will give Lasix. After intubation, patient did pull out his NG tube. His abdomen is quite distended and tympanic. KUB shows air throughout the colon. NG tube as reinserted with continuous suction for decompressions. 04/06/2025: Patient remains on 3L NC saturating well without respiratory distress. Will continue antibiotics to complete course for aspiration pneumonia. Patient stomach remains distended, improved. NG tube 200. Had 1 BM. Repeat KUB this morning still shows colonic ileus. Will continue NG tube. Patient to be downgraded today. 04/07/2025: CATALYST OPERATOR was called at 17: 43 soon after which a CODE BLUE was initiated as patient was found with his eyes rolled back shaking and without a pulse. ACLS was initiated with chest compressions and patient underwent 2 rounds of epi, a dose of calcium gluconate and 2 doses of bicarb. Patient had 2 rounds of PEA and he was found to be in V-fib for which she received 200 J of unsynchronized cardioversion and ROSC was achieved. Dr. Llanos intubated the patient and he was moved to the unit. Unclear as for the reason for the arrest at this time. Will work up. 04/08/2025: Patient had witnessed shaking event last night, was given Keppra. EEG was taken. He remains off sedation. This morning, patient opens eyes, tracks, localizes to pain. Failed SBT. CXR taken last night suggests aspiration throughout the right lung. CXR this morning shows improved right upper lung. Will turn patient on his left lung, duonebs, and antibiotics. Point of contact updated. 04/09/2025: Patient doing well this morning. Able to follow commands consistently. Adequate cough and gag reflex intact. Patient underwent spontaneous breathing trial and was successfully weaned to nasal cannula. Requesting this afternoon to be able to drink. However pending formal swallow evaluation at bedside. Patient undergoing chest physiotherapy with percussion and albuterol/saline nebs. 04/10/2025: Patient passed swallow yesterday and was started on purreed diet. Around 11pm patient had episode of hypoxia in the 70s and shaking. He was started on BIPAP with precedex, and keppra. This morning, patient taken off BIPAP and precedex without issue. He is awake, answering simple questions, calm. Sodium improved. Will follow up EEG results and continue Keppra for possible seizures, and recommend BIPAP at night for suspected central sleep apnea. 04/11/2025: Was called in regards to patient having 3 seizure-like episodes and did not have any peripheral access so central line was placed emergently. During central line placement patient had 2 more seizure-like episodes. Seizure-like episodes were full body convulsions lasting close to 30 seconds each time. During the episodes patient became very tachycardic into the 140s and desatted down to the 70s. Due to the frequent episodes of seizures decision was made to reintubate the patient for status epilepticus and to initiate propofol and Versed. Postprocedure x-ray shows right-sided complete whiteout likely secondary to a mucous plug. Patient will benefit from a bronchoscopy in the a.m. ABG pending. 04/11/2025: No further witnessed seizures noted. Patient had bronchoscopy today to clear mucus secretions. There was significant mucopurulent secretions throughout the right upper, middle, and lower lobe entry and subsegmental takeoffs. A BAL was obtained. Abnormal mucosa was noted in the R intermedius superior subsegmental takeoff - biopsy was not obtained due to limited resources. Patient tolerated the procedure well. Due to recurrent aspirations, patient may benefit from tracheostomy. Regarding patient's seizures, will continue Keppra, get EEG, and reach out to neurology. 04/12/2025: Patient had witnessed seizure around 06:00 and 08:00 lasting less than 1 minute. Prolactin obtained from 04/07 was elevated at 59. Will get MRI of the brain for new onset seizures and to rule out any intracranial mass or other pathology. On physical exam, patient has significant improved R lung sounds. BAL stain 2+ WBC with occasional budding yeast and occasional GNR. Review of previous XR and CTs show a chronic R lung pleural effusion since 2019. Will repeat bronch today to clear secretions and get CT with contrast of the lungs. Reached out to conservetor Dr. Stewart in anticipation for tracheostomy once seizures are controlled. 04/13/2025: Patient remains afebrile overnight. 1 bowel movement reported overnight. Patient net positive, balance of 2022 ml and a weight of 110.9 kg versus 108 kg on 04/03/2025 upon admission. 400 cc on bladder scan, continue to straight cath. Bilateral pleural effusion on CTA chest with negative for PE and as noted on previous abdomen pelvis CT from 2021 right large pleural effusion which is now chronic. Propofol continued at 10 mcg/kg, Versed 4 mg/h, antibiotics do on board including Zosyn/Vancomycin. Given overall poor prognosis from acute encephalopathy secondary to seizures likely complicated by anoxic brain injury from aspiration pneumonia, will update patient's guardian in shared decision making in regards to goals of care versus pleural drainage. VT 400 RR 20 PEEP 5, and peak plateau 16.8. Sedated and synchronized as noted volume loop and actual respiratory rate. 04/14/2025: No seizures reported overnight. Afebrile. Total fluid intake 727, output 900, next -172.0 within the last 12 hours. Continue to titrate down on Versed, currently 2 mg/hr and Propofol 15 mcg/kg. BAL positive for MRSA pneumonia, thus continue Vancomycin and discontinue Zosyn. Decreased vesicular breath sounds on right lung field with rhonchi noted on left lung field. Updated Conservator. 04/15/2025: No overnight events. No seizures reported. Patient continues to have good urine output 800cc. Propofol 25 mcg/kg. Given worsening kidney function, Vancomycin D/C and Linezolid 600 mg BID started, Day 8 of antibiotics for MRSA Pneumonia. Versed stopped. Improved chest x-ray, no planned bronchoscopy. 04/16/2025: No overnight seizures. Patient remains afebrile. Over the last 12 hours total urine output 400 cc with net positive +200. Mild lower pedal edema noted, +1. Patient failed pressure support and required propofol to be turned on again currently at 25 and switched back to assisted control. Bronchoscopy planned given worsening atelectasis on chest x-ray. Asymmetrical Excursion noted at bedside. 04/17/2025: Bronchosopy yesterday with BAL obtianed. No overnight events. Remains afebrile. Asymmetrical excursion and decreased breath sounds R lung field. CXR unchanged from yesterday despite bronchoscopy. Patient noted to have unclear deviated R eye, though this comes and goes. Repeat head CT was negative. Patient was arousable to verbal stimuli this morning on propofol of 10. He is still unable to follow commands. I spoke with Dr. Stewart, legal conservator, who discussed the patient is not a good candidate for tracheostomy, and changed code status from full code to DNR, witnessed by RN. Anticipate plan for extubation to comfort care on Saturday. 04/18/2025: No acute events overnight. R lung sounds significantly improved on physical exam. Patient arousable but not following commands. Hemoglobin 6.9 this morning. No active bleed noted. Nunez placed for comfort. Anticipate plan for extubation to comfort care on Saturday. Exam Vital Signs Temp Pulse Resp BP Pulse Ox O2 Del Method O2 Flow Rate 96.9 F 71 20 111/67 99 Mechanical Ventilation 15 04/18/25 04:01 04/18/25 05:00 04/14/25 18:42 04/18/25 05:00 04/18/25 05:00 04/18/25 04:01 04/11/25 04:11 FiO2 30 04/18/25 04:01 Narrative Exam Constitutional: Intubated male, obese. HEENT: Mobile, hard lipoma? noted right temporal region. NCAT. Respiratory: Improved R lung sounds with ronchi Cardiac: RRR. Abdomen: Soft, non-distended, non-tender. No guarding, no rebound. MSK: L AKA. 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 Multiple scarred excoriations. Objective Labs 04/18/25 05:09 04/18/25 05:09 Labs: Laboratory Results - last 24 hr 04/16/25 04/17/25 04/18/25 13:08 04:59 05:09 WBC 5.3 D 3.5 L RBC 2.42 L 2.20 L Hgb 7.5 L 6.9 L* Hct 23.3 L 21.4 L* MCV 96 97 MCH 31.0 31.4 MCHC 32.2 32.2 RDW Std Deviation 56.6 H 58.0 H Plt Count 124 L D 106 L Neut % (Auto) 84 H 74 Lymph % (Auto) 8 L 12 [place] % (Auto) 5 8 Eos % (Auto) 2 4 Baso % (Auto) 0 0 Neut # (Auto) 4.4 2.6 Lymph # (Auto) 0.4 L 0.4 L Terry # (Auto) 0.3 0.3 Eos # (Auto) 0.1 0.1 Baso # (Auto) 0.0 0.0 Immature Gran # (Auto) 0.04 H 0.04 H Absolute Nucleated RBC 0.00 0.02 H Immature Gran % 1 H 1 H Nucleated RBC % 0 1 H Sodium 142 142 Potassium 3.6 4.0 Chloride 107 107 Carbon Dioxide 23.7 25.9 Anion Gap 11 9 BUN 33 H 35 H Creatinine 1.6 H 1.6 H Estim Creat Clear Calc 52.8 L 52.8 L eGFR 46 L 46 L BUN/Creatinine Ratio 21 H 22 H Glucose 133 H 136 H Calculated Osmolality 292 293 Calcium 7.7 L 7.8 L Corrected Calcium 8.7 8.8 Phosphorus 3.3 2.9 Magnesium 2.2 2.2 Total Bilirubin 1.4 H 1.0 AST 77 H 59 H ALT 77 H 67 H Alkaline Phosphatase 125 H D 129 H Total Protein 6.5 6.4 Albumin 2.8 L 2.7 L Globulin 3.7 H 3.7 H Albumin/Globulin Ratio 0.8 L 0.7 L Coccidioides IgM Ab Negative ABG Interpretation ABG results: 04/03/25 04/03/25 04/04/25 16:35 20:45 04:55 ABG pH Cancelled 7.46 H 7.42 ABG pCO2 Cancelled 37 42 ABG pO2 Cancelled 181 H 111 H D ABG HCO3 Cancelled 26 27 H ABG O2 Saturation Cancelled 99 H 98 ABG Base Excess Cancelled 2 3 VBG pH VBG pCO2 VBG pO2 VBG Base Excess 04/05/25 04/05/25 04/07/25 04:00 04:55 19:20 ABG pH 7.35 7.40 7.38 ABG pCO2 47 40 47 ABG pO2 37 L* D 136 H D 141 H ABG HCO3 26 25 27 H ABG O2 Saturation 66 L 99 H 99 H ABG Base Excess 0 0 2 VBG pH VBG pCO2 VBG pO2 VBG Base Excess 04/08/25 04/09/25 04/09/25 04:20 04:52 23:33 ABG pH 7.46 H 7.48 H Cancelled ABG pCO2 45 40 Cancelled ABG pO2 108 D 84 D Cancelled ABG HCO3 32 H 30 H Cancelled ABG O2 Saturation 98 98 Cancelled ABG Base Excess 7 H 6 H Cancelled VBG pH VBG pCO2 VBG pO2 VBG Base Excess 04/10/25 04/10/25 04/11/25 00:24 23:42 03:15 ABG pH 7.48 H 7.41 ABG pCO2 40 38 ABG pO2 197 H D 124 H D ABG HCO3 29 H 24 ABG O2 Saturation 99 H 99 H ABG Base Excess 6 H -1 VBG pH 7.48 VBG pCO2 36 VBG pO2 105 H VBG Base Excess 3 04/11/25 04/11/25 04/12/25 04:57 12:32 08:38 ABG pH 7.41 ABG pCO2 41 ABG pO2 91 D ABG HCO3 26 ABG O2 Saturation 98 ABG Base Excess 1 VBG pH 7.39 7.41 VBG pCO2 47 D 42 VBG pO2 39 D 39 VBG Base Excess 3 2 04/13/25 04/14/25 04/16/25 04:28 05:18 04:35 ABG pH 7.43 ABG pCO2 38 ABG pO2 74 L ABG HCO3 25 ABG O2 Saturation 96 ABG Base Excess 1 VBG pH 7.38 7.40 VBG pCO2 44 40 VBG pO2 34 35 VBG Base Excess 1 0 Quality Measures Quality Measures VTE prophylaxis Advance care planning discussed with:: legal surragate Assessment & Plan Assessment Current Active Medications: Generic Name Dose Route Start Last Admin Trade Name Freq PRN Reason Stop Dose Admin Acetaminophen 650 mg 04/07/25 15:23 Acetaminophen 325 Mg Tablet PO 05/03/25 16:21 Q6H PRN Fever >99.5 Dextrose 25 ml 04/03/25 16:33 Dextrose 50%-Water Inj 50 Ml Syringe IV 05/03/25 16:32 Q15MIN PRN BG 50-70 responsive npo pt Dextrose 50 ml 04/03/25 16:33 Dextrose 50%-Water Inj 50 Ml Syringe IV 05/03/25 16:32 Q15MIN PRN BG <50 OR BG <70 & pt unresponsive Famotidine 20 mg 04/14/25 09:00 04/17/25 08:56 Famotidine Inj 10 Mg/Ml Vial 2 Ml IVP 05/14/25 08:59 20 mg QDAY MANUEL Administration Glucagon 1 mg 04/03/25 16:33 Glucagon Inj 1 Mg Vial IM Q15MIN PRN BG <70, and no IV access Propofol 1,000 mg in 100 mls @ 3.351 mls/hr 04/11/25 04:12 04/18/25 06:07 Diprivan Ivpb IV 05/11/25 04:11 25 mcg/kg/min .Q24H PRN 16.755 mls/hr PER PROTOCOL Administration Protocol 5 MCG/KG/MIN Doxycycline Hyclate 100 mg/ 100 mls @ 100 mls/hr 04/16/25 21:00 04/18/25 05:19 Sodium Chloride IV 04/23/25 20:59 Infused BID MANUEL Infusion Piperacillin/Tazobactam/Dextrose 3.375 gm in 50 mls @ 100 mls/hr 04/17/25 14:00 04/18/25 05:17 Zosyn IV 04/24/25 13:59 100 mls/hr Q8HR MANUEL Administration Insulin Human Regular 0 unit 04/11/25 06:00 04/18/25 05:15 Insulin Hum Regular 1 Unit/0.01 Ml (Per Unit) SC 05/11/25 05:59 Not Given Q6HR MANUEL Protocol Lacosamide 200 mg 04/12/25 21:00 04/17/25 20:49 Lacosamide Inj 200 Mg/20 Ml Vial IVP 05/12/25 20:59 200 mg BID MANUEL Administration Levetiracetam 1,000 mg 04/10/25 21:00 04/17/25 20:49 Levetiracetam Inj 100 Mg/Ml Vial 5ml IVP 05/10/25 20:59 1,000 mg Q12HR MANUEL Administration Ondansetron HCl 4 mg 04/07/25 14:29 Ondansetron Inj 2 Mg/Ml Inj 2 Ml IV 05/07/25 14:28 Q6H PRN NAUSEA OR VOMITING Protocol Sodium Chloride 3 ml 04/04/25 15:24 04/09/25 10:22 Sodium Chloride Rt Jessica 0.9% 3 Ml Nebu INH 05/04/25 15:23 3 ml PRN PRN Administration SOLN Plan Patient is a 70 year old male with PMH of developmental delay, bipolar disorder, DM2, L AKA admitted to the ICU for choking-induced pulmonary arrest s/p ROSC. SEATING UPHOLSTERER Acute encephalopathy Cardiopulmonary arrest with and new onset seizures, ?anoxic brain injury. Head CT negative. MRI noted chronic micro-vascular changes. EEG also suggestive of anoxic brain injury. - Keppra 100mg BID - Lacosamide 20mg IV BID - Propofol ggt CARDIOVASCULAR Cardiopulmonary arrest s/p resuscitation, resolved Cardiopulmonary arrest on 04/08/2025 secondary to acute hypoxic respiratory failure form aspiration pneumonia. RESPIRATORY Acute hypoxic respiratory failure MRSA necrotizing pneumonia, GNR pneumonia, chronic bilateral pleural effusions CT imaging showed bilateral pleural effusion, right pleural effusion appears chronic. Initial bronchoscopy removed foreign food. PAtient had repeated bronchoscopies for clearance of airway secretions, mucus plugging, with BAL obtained. - Chest PT BID - Mucomyst - Duoneb Per conservator, patient not a candidate for tracheostomy and plan for terminal extubation to comfort on Saturday. RENAL JOSEFINA on CKD III, improving Due to nephrotoxins, vancomycin. Improved after vancomycin discontinued. - Nunez in place for comfort Hyperosmolar Hypernatremia, Resolved. Lactic acidosis, resolved Hypophosphatemia, resolved. GI FEN: Glucerna via OG tube. Free water flushes 250 cc Q6HR and Advance 10 ml every 8 hrs to goal rate of 62 ml/hr x 24 hrs. Flushes at 35 ml/hr. ENDO History of DM2 - Euglycemic. ISS Q6H HEME Thrombocytopenia Secondary thrombocytopenia from sepsis, acute illness ID Aspiration pneumonia MRSA necrotizing pneumonia Klebsiella pneumonia Vancomycin 04/07/2025-04/15/2025 dicontinued due to JOSEFINA, switched to Linzezolid (04/16) to doxycyline (04/17-). Zosyn added for GNR coverage (04/17-04/18) de- escalated to ceftriaxone for Klebsiella pneumonia. - Continue ceftriaxone 04/18- - Follow up BAL 04/16 Health Maintenance Diet and fluids: tube feeds - Glucerna 1.2 Advance 10 ml every 8 hrs to goal rate of 62 ml/hr x 24 hrs. Flushes at 35 ml/hr. DVT prophylaxis: heparin Q12 GI prophylaxis: Famotadine 40 IV daily Lines: Right IJ central line, PIV, ET, OG Medical Restrains 24 hours. CODE STATUS: DNR I have reviewed and discussed the patient's care with my attending, Dr. Floyd, Jane Su MD PGY-3
[2025-04-18 06:55] LABS: Path Review Blood Smear Sent to Pathologist
[2025-04-18] MEDS: DOXYCYCLINE INJ 100 MG in SODIUM CHLORIDE 0.9% (POP) 100 ML IV ×2 (07:16→20:34)
[2025-04-18] MEDS: FAMOTIDINE INJ 10 MG/ML VIAL 2 ML 20 MG IVP (07:16)
[2025-04-18] MEDS: cefTRIAXone/D5w 1gm IV premix 1 GM/50 ML BAG IV (07:48)
[2025-04-18] MEDS: LACOSAMIDE INJ 200 MG/20 ML VIAL IVP ×2 (08:00→20:34)
[2025-04-18] MEDS: levETIRAcetam INJ 100 MG/ML VIAL 5ML 1000 MG IVP ×2 (08:00→20:34)
[2025-04-18 15:54] LABS: Cocci Serology, IgG Negative (Negative)
--- NOTE | 2025-04-18 16:00 | PC.NURSE ---
[facility] downtime occurred on 04/18/2025 from 09:00 to 16:00.
--- NOTE | 2025-04-18 21:25 | PD.IMPROG ---
Documentation for date of: 04/18/25 Subjective Subjective Interval history: Patient remains intubated and mechanically ventilated Getting fed through the orogastric tube at 62 cc an hour Exam Vital Signs Temp Pulse Resp BP Pulse Ox O2 Del Method O2 Flow Rate 98.5 F 62 20 95/61 98 Mechanical Ventilation 15 04/18/25 08:00 04/18/25 19:00 04/14/25 18:42 04/18/25 19:00 04/18/25 19:00 04/18/25 04:01 04/11/25 04:11 FiO2 30 04/18/25 16:00 Objective Labs 04/18/25 05:09 04/18/25 05:09 Labs: Laboratory Results - last 24 hr 04/15/25 04/16/25 04/18/25 06:26 13:08 05:09 WBC 3.5 L RBC 2.20 L Hgb 6.9 L* Hct 21.4 L* MCV 97 MCH 31.4 MCHC 32.2 RDW Std Deviation 58.0 H Plt Count 106 L Neut % (Auto) 74 Lymph % (Auto) 12 [place] % (Auto) 8 Eos % (Auto) 4 Baso % (Auto) 0 Neut # (Auto) 2.6 Lymph # (Auto) 0.4 L [place] # (Auto) 0.3 Eos # (Auto) 0.1 Baso # (Auto) 0.0 Immature Gran # (Auto) 0.04 H Absolute Nucleated RBC 0.02 H Immature Gran % 1 H Nucleated RBC % 1 H Smear Path Review Sent to Pathologist Sodium 142 Potassium 4.0 Chloride 107 Carbon Dioxide 25.9 Anion Gap 9 BUN 35 H Creatinine 1.6 H Estim Creat Clear Calc 52.8 L eGFR 46 L BUN/Creatinine Ratio 22 H Glucose 136 H Calculated Osmolality 293 Calcium 7.8 L Corrected Calcium 8.8 Phosphorus 2.9 Magnesium 2.2 Total Bilirubin 1.0 AST 59 H ALT 67 H Alkaline Phosphatase 129 H Total Protein 6.4 Albumin 2.7 L Globulin 3.7 H Albumin/Globulin Ratio 0.7 L Coccidioides IgG Ab Negative Crossmatch See Detail Impressions Impression: Enteral feeding via OGT Mechanically ventilated Continue current management ABG Interpretation ABG results: 04/03/25 04/03/25 04/04/25 16:35 20:45 04:55 ABG pH Cancelled 7.46 H 7.42 ABG pCO2 Cancelled 37 42 ABG pO2 Cancelled 181 H 111 H D ABG HCO3 Cancelled 26 27 H ABG O2 Saturation Cancelled 99 H 98 ABG Base Excess Cancelled 2 3 VBG pH VBG pCO2 VBG pO2 VBG Base Excess 04/05/25 04/05/25 04/07/25 04:00 04:55 19:20 ABG pH 7.35 7.40 7.38 ABG pCO2 47 40 47 ABG pO2 37 L* D 136 H D 141 H ABG HCO3 26 25 27 H ABG O2 Saturation 66 L 99 H 99 H ABG Base Excess 0 0 2 VBG pH VBG pCO2 VBG pO2 VBG Base Excess 04/08/25 04/09/25 04/09/25 04:20 04:52 23:33 ABG pH 7.46 H 7.48 H Cancelled ABG pCO2 45 40 Cancelled ABG pO2 108 D 84 D Cancelled ABG HCO3 32 H 30 H Cancelled ABG O2 Saturation 98 98 Cancelled ABG Base Excess 7 H 6 H Cancelled VBG pH VBG pCO2 VBG pO2 VBG Base Excess 04/10/25 04/10/25 04/11/25 00:24 23:42 03:15 ABG pH 7.48 H 7.41 ABG pCO2 40 38 ABG pO2 197 H D 124 H D ABG HCO3 29 H 24 ABG O2 Saturation 99 H 99 H ABG Base Excess 6 H -1 VBG pH 7.48 VBG pCO2 36 VBG pO2 105 H VBG Base Excess 3 04/11/25 04/11/25 04/12/25 04:57 12:32 08:38 ABG pH 7.41 ABG pCO2 41 ABG pO2 91 D ABG HCO3 26 ABG O2 Saturation 98 ABG Base Excess 1 VBG pH 7.39 7.41 VBG pCO2 47 D 42 VBG pO2 39 D 39 VBG Base Excess 3 2 04/13/25 04/14/25 04/16/25 04:28 05:18 04:35 ABG pH 7.43 ABG pCO2 38 ABG pO2 74 L ABG HCO3 25 ABG O2 Saturation 96 ABG Base Excess 1 VBG pH 7.38 7.40 VBG pCO2 44 40 VBG pO2 34 35 VBG Base Excess 1 0 Assessment & Plan A&P Narrative 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 andrea on vanco Status post cardiopulmonary arrest ROSC Developmentally delayed Diabetes mellitus type 2 Status post AKA left htn gout bph changed to doxy iv from linezolid with andrea, will avoid bactrim and vanco. prognosis guarded to poor. linezolid or vanco would have worked, but did not, so either he has a refractory infection or other factors may limit his ability to come off vent. he did it before, but it is several yrs later now. and he is 70 yoa now too. Time Spent With Patient Time: Total time spent is greater than 50% in coordination of care (as documented) at patient's floor/unit and/or counseling patient:
--- NOTE | 2025-04-18 22:25 | PD.VPROG1 ---
Telemedicine visit statement This visit was conducted with the use of interactive audio and video telecommunications system that permits real time communication between the patient and the provider. Patient's verbal consent for virtual visit was obtained on 04/18/25 at 2225. Documentation for date of: 04/18/25 Subjective Subjective Interval history: Patient is in ICU. No changes reported. Continues to remain intubated on mechanical ventilatory support on propofol. Virtual exam Vital Signs Temp Pulse Resp BP Pulse Ox O2 Del Method O2 Flow Rate 98.5 F 62 20 95/61 98 Mechanical Ventilation 15 04/18/25 08:00 04/18/25 19:00 04/14/25 18:42 04/18/25 19:00 04/18/25 19:00 04/18/25 04:01 04/11/25 04:11 FiO2 30 04/18/25 16:00 Objective Labs 04/19/25 05:00 04/19/25 05:00 Labs: Laboratory Results - last 24 hr 04/15/25 04/16/25 04/18/25 06:26 13:08 05:09 WBC 3.5 L RBC 2.20 L Hgb 6.9 L* Hct 21.4 L* MCV 97 MCH 31.4 MCHC 32.2 RDW Std Deviation 58.0 H Plt Count 106 L Neut % (Auto) 74 Lymph % (Auto) 12 [place] % (Auto) 8 Eos % (Auto) 4 Baso % (Auto) 0 Neut # (Auto) 2.6 Lymph # (Auto) 0.4 L [place] # (Auto) 0.3 Eos # (Auto) 0.1 Baso # (Auto) 0.0 Immature Gran # (Auto) 0.04 H Absolute Nucleated RBC 0.02 H Immature Gran % 1 H Nucleated RBC % 1 H Smear Path Review Sent to Pathologist Sodium 142 Potassium 4.0 Chloride 107 Carbon Dioxide 25.9 Anion Gap 9 BUN 35 H Creatinine 1.6 H Estim Creat Clear Calc 52.8 L eGFR 46 L BUN/Creatinine Ratio 22 H Glucose 136 H Calculated Osmolality 293 Calcium 7.8 L Corrected Calcium 8.8 Phosphorus 2.9 Magnesium 2.2 Total Bilirubin 1.0 AST 59 H ALT 67 H Alkaline Phosphatase 129 H Total Protein 6.4 Albumin 2.7 L Globulin 3.7 H Albumin/Globulin Ratio 0.7 L Coccidioides IgG Ab Negative Crossmatch See Detail ABG Interpretation ABG results: 04/03/25 04/03/25 04/04/25 16:35 20:45 04:55 ABG pH Cancelled 7.46 H 7.42 ABG pCO2 Cancelled 37 42 ABG pO2 Cancelled 181 H 111 H D ABG HCO3 Cancelled 26 27 H ABG O2 Saturation Cancelled 99 H 98 ABG Base Excess Cancelled 2 3 VBG pH VBG pCO2 VBG pO2 VBG Base Excess 04/05/25 04/05/25 04/07/25 04:00 04:55 19:20 ABG pH 7.35 7.40 7.38 ABG pCO2 47 40 47 ABG pO2 37 L* D 136 H D 141 H ABG HCO3 26 25 27 H ABG O2 Saturation 66 L 99 H 99 H ABG Base Excess 0 0 2 VBG pH VBG pCO2 VBG pO2 VBG Base Excess 04/08/25 04/09/25 04/09/25 04:20 04:52 23:33 ABG pH 7.46 H 7.48 H Cancelled ABG pCO2 45 40 Cancelled ABG pO2 108 D 84 D Cancelled ABG HCO3 32 H 30 H Cancelled ABG O2 Saturation 98 98 Cancelled ABG Base Excess 7 H 6 H Cancelled VBG pH VBG pCO2 VBG pO2 VBG Base Excess 04/10/25 04/10/25 04/11/25 00:24 23:42 03:15 ABG pH 7.48 H 7.41 ABG pCO2 40 38 ABG pO2 197 H D 124 H D ABG HCO3 29 H 24 ABG O2 Saturation 99 H 99 H ABG Base Excess 6 H -1 VBG pH 7.48 VBG pCO2 36 VBG pO2 105 H VBG Base Excess 3 04/11/25 04/11/25 04/12/25 04:57 12:32 08:38 ABG pH 7.41 ABG pCO2 41 ABG pO2 91 D ABG HCO3 26 ABG O2 Saturation 98 ABG Base Excess 1 VBG pH 7.39 7.41 VBG pCO2 47 D 42 VBG pO2 39 D 39 VBG Base Excess 3 2 04/13/25 04/14/25 04/16/25 04:28 05:18 04:35 ABG pH 7.43 ABG pCO2 38 ABG pO2 74 L ABG HCO3 25 ABG O2 Saturation 96 ABG Base Excess 1 VBG pH 7.38 7.40 VBG pCO2 44 40 VBG pO2 34 35 VBG Base Excess 1 0 Assessment & Plan Assessment Patient is a 70 year old male with PMH of developmental delay, bipolar disorder, DM2, L AKA admitted to the ICU for choking-induced pulmonary arrest s/p ROSC. #Status epilepticus requiring reintubation #History of bipolar disorder #History of developmental delay #Cardiopulmonary arrest s/p resuscitation #Hypoxic brain injury Seizures could be provoked due to brain injury in the setting of prolonged hypoxia. MRI showed multiple miscrovascular changes. EEG showed multifocal spike and wave discharges, triphasic waves and severe generalized slowing. Plan: ? Lacosamide 200 mg IV push twice daily ? Keppra 1000 mg twice daily ? Midazolam infusion as needed for breakthrough seizures ? Propofol infusion, wean down as tolerated - home meds are on hold - #Acute hypoxic respiratory failure and status epilepticus requiring mechanical intubation and ventilation for airway protection #Hyperosmolar Hypernatremia, resolved #Lactic acidosis, cleared #Hypophosphatemia, improving #History of DM2 #Thrombocytopenia #Aspiration pneumonia versus pneumonitis - management per primary team patient will be switched to comfort care, extubate tomorrow as his condition is critical and his prognosis is poor for meaningful neurological recovery.
[2025-04-19] VITALS (15 sets, daily range): BP systolic 100–144; BP diastolic 60–83; PULSE 64–98; RESP 14–28; TEMP 36.1–36.2; O2SAT 89–100; BMI 37.2
[2025-04-19] MEDS: SCOPOLAMINE 1 MG TDSY TOP (03:07)
[2025-04-19] MEDS: PROPOFOL 1,000 MG IVPB 1,000 MG/100 ML VIAL 16.755 MG IV (05:14)
[2025-04-19 05:57] LABS: Basophils % (Auto) 0 % (0-2.5); Eosinophils # (Auto) 0.2 Thou/mm3 (0.0-0.5); Eosinophils % (Auto) 4 % (0-10); Hematocrit 22.8 % (41.0-53.0); Immature Granulocytes % (Auto) 3 % (0-0); Lymphocytes # (Auto) 0.4 Thou/mm3 (1.0-4.8); Lymphocytes % (Auto) 13 % (10-50); Mean Corpuscular HGB Conc 31.6 g/dl (31.0-37.0); Mean Corpuscular Hemoglobin 30.9 pg (25.0-35.0); Mean Corpuscular Volume 98 fL (80-100); Monocytes # (Auto) 0.3 Thou/mm3 (0.0-0.8); Monocytes % (Auto) 8 % (0-12); Neutrophils # (Auto) 2.5 Thou/mm3 (1.8-7.7); Neutrophils % (Auto) 72 % (37-80); Nucleated Red Blood Cell # 0.02 Thou/mm3 (0.00-0.00); Nucleated Red Blood Cell % 1 /100 WBC (0); Platelet Count 116 Thou/mm3 (140-440); RDW Standard Deviation 59.3 fL (35.1-43.9); Red Blood Count 2.33 Miln/mm3 (4.50-5.90); White Blood Count 3.5 Thou/mm3 (3.8-10.6)
--- NOTE | 2025-04-19 06:19 | PC.NURSE ---
PER DR. NGO TO PUT PATIENT ON SPONTANEOUS, RT TATA NOTIFIED
[2025-04-19 06:28] LABS: Hemoglobin 7.2 g/dL (13.5-16.0)
[2025-04-19 06:33] LABS: Alanine Aminotransferase 62 U/L (10-49); Albumin, Serum 2.7 gm/dL (3.4-4.8); Albumin/Globulin Ratio 0.7 (1.2-2.2); Alkaline Phosphatase 131 U/L (46-116); Anion Gap 9 (7-16); Aspartate Amino Transferase 47 U/L (0-34); BUN/Creatinine Ratio 26 Ratio (12-20); Bilirubin,Total 0.8 mg/dL (0.3-1.2); Blood Urea Nitrogen 39 mg/dL (9-23); Calcium 7.8 mg/dL (8.3-10.6); Calcium (Corrected) 8.8 mg/dL (8.5-10.1); Carbon Dioxide 25.8 mMol/L (20.0-31.0); Chloride 106 mMol/L (98-107); Creatinine (Component) 1.5 mg/dL (0.6-1.3); Estimated Creatinine Clearance 56.2 mL/min (>60); Globulin 3.7 gm/dL (2.3-3.5); Glucose 132 mg/dL (74-106); Magnesium 2.2 mg/dL (1.6-2.6); Osmolality,Calculated 292 (275-295); Potassium 4.2 mMol/L (3.4-5.1); Sodium 141 mMol/L (136-145); Total Protein 6.4 gm/dL (5.7-8.2); eGFR 50 See Note
--- NOTE | 2025-04-19 09:29 | ESPR_ITS ---
<Statement entered by Heather Martínez MD - 04/19/25 16:44> TOTAL TIME: 45MINUTES ON DIRECT MEDICAL CARE, MANAGEMENT - COORDINATION AND COUNSELING > 50% OF TOTAL TIME I saw and evaluated the patient. I reviewed the resident?s note and agree with findings and plan as documented in the resident?s note. Mr. Douglass was attempted on PSV again today but failed immediately with severe resp distress No improvement in neurological exam - not able to follow any commands despite minimal sedation (needed to prevent distress) Residents discussed case again w/ Dr. Stewart and decision to transition to comfort care was confirmed Patient was placed on comfort care orders and passed Documentation for date of: 04/19/25 Subjective Subjective Interval history: Patient is a 70 year old male with PMH of developmental delay, bipolar disorder, DM2, L AKA admitted to the ICU for choking-induced pulmonary arrest s/p ROSC. Per caregivers and EMS report, patient was eating an apple when he choked and became unresponsive. When EMS arrived, patient was noted to be agonal, hypoxic at 55% and bradycardic. They were able to clear some food from his mouth. Patient was bagged via NPA. En route, patient lost pulses and CPR was initiated. He was given 1 of epinephrine. ROSC was achieved. Patient was intubated. He was found to be severely hypernatremic at 179. 04/04/2025: Overnight, staff was unable to pass an OG tube. Everytime the patient was turned, food chunks would come out of his mouth. He recieved a total of 2L NS and the following sodium was 135, and recheck was 136. Suspect that initial sodium at 179 may have been a lab error. Patient had SAT and SBT today, then was re-sedated and put on ventilator support for bronchoscopy. During bronchoscopy, there was large food material and mucous that were removed from the right intermdiate and lower lung bronchi, and inflammation in the right upper lobe entry. Plan for endoscopy later today to remove suspected food obstructing the esophagus. 04/05/2025: Endoscopy yesterday showed food material throughout the entire esophagus. An NG tube was placed for decompression with 200cc output overnight. No acute problems overnight. This morning, patient passed SBT and SAT and was extubated. He is awake, agitated but redirectable. He is developmentally delayed and can talk at baseline. Antibiotics discontinued. Remains on low dose levophed, will wean off. CXR shows significant bilateral infiltrate and patient is net positive fluid balance so will give Lasix. After intubation, patient did pull out his NG tube. His abdomen is quite distended and tympanic. KUB shows air throughout the colon. NG tube as reinserted with continuous suction for decompressions. 04/06/2025: Patient remains on 3L NC saturating well without respiratory distress. Will continue antibiotics to complete course for aspiration pneumonia. Patient stomach remains distended, improved. NG tube 200. Had 1 BM. Repeat KUB this morning still shows colonic ileus. Will continue NG tube. Patient to be downgraded today. 04/07/2025: TIME CLOCK MECHANIC was called at 17: 43 soon after which a CODE BLUE was initiated as patient was found with his eyes rolled back shaking and without a pulse. ACLS was initiated with chest compressions and patient underwent 2 rounds of epi, a dose of calcium gluconate and 2 doses of bicarb. Patient had 2 rounds of PEA and he was found to be in V-fib for which she received 200 J of unsynchronized cardioversion and ROSC was achieved. Dr. Llanos intubated the patient and he was moved to the unit. Unclear as for the reason for the arrest at this time. Will work up. 04/08/2025: Patient had witnessed shaking event last night, was given Keppra. EEG was taken. He remains off sedation. This morning, patient opens eyes, tracks, localizes to pain. Failed SBT. CXR taken last night suggests aspiration throughout the right lung. CXR this morning shows improved right upper lung. Will turn patient on his left lung, duonebs, and antibiotics. Point of contact updated. 04/09/2025: Patient doing well this morning. Able to follow commands consistently. Adequate cough and gag reflex intact. Patient underwent spontaneous breathing trial and was successfully weaned to nasal cannula. Requesting this afternoon to be able to drink. However pending formal swallow evaluation at bedside. Patient undergoing chest physiotherapy with percussion and albuterol/saline nebs. 04/10/2025: Patient passed swallow yesterday and was started on purreed diet. Around 11pm patient had episode of hypoxia in the 70s and shaking. He was started on BIPAP with precedex, and keppra. This morning, patient taken off BIPAP and precedex without issue. He is awake, answering simple questions, calm. Sodium improved. Will follow up EEG results and continue Keppra for possible seizures, and recommend BIPAP at night for suspected central sleep apnea. 04/11/2025: Was called in regards to patient having 3 seizure-like episodes and did not have any peripheral access so central line was placed emergently. During central line placement patient had 2 more seizure-like episodes. Seizure-like episodes were full body convulsions lasting close to 30 seconds each time. During the episodes patient became very tachycardic into the 140s and desatted down to the 70s. Due to the frequent episodes of seizures decision was made to reintubate the patient for status epilepticus and to initiate propofol and Versed. Postprocedure x-ray shows right-sided complete whiteout likely secondary to a mucous plug. Patient will benefit from a bronchoscopy in the a.m. ABG pending. 04/11/2025: No further witnessed seizures noted. Patient had bronchoscopy today to clear mucus secretions. There was significant mucopurulent secretions throughout the right upper, middle, and lower lobe entry and subsegmental takeoffs. A BAL was obtained. Abnormal mucosa was noted in the R intermedius superior subsegmental takeoff - biopsy was not obtained due to limited resources. Patient tolerated the procedure well. Due to recurrent aspirations, patient may benefit from tracheostomy. Regarding patient's seizures, will continue Keppra, get EEG, and reach out to neurology. 04/12/2025: Patient had witnessed seizure around 06:00 and 08:00 lasting less than 1 minute. Prolactin obtained from 04/07 was elevated at 59. Will get MRI of the brain for new onset seizures and to rule out any intracranial mass or other pathology. On physical exam, patient has significant improved R lung sounds. BAL stain 2+ WBC with occasional budding yeast and occasional GNR. Review of previous XR and CTs show a chronic R lung pleural effusion since 2019. Will repeat bronch today to clear secretions and get CT with contrast of the lungs. Reached out to conservetor Dr. Stewart in anticipation for tracheostomy once seizures are controlled. 04/13/2025: Patient remains afebrile overnight. 1 bowel movement reported overnight. Patient net positive, balance of 2022 ml and a weight of 110.9 kg versus 108 kg on 04/03/2025 upon admission. 400 cc on bladder scan, continue to straight cath. Bilateral pleural effusion on CTA chest with negative for PE and as noted on previous abdomen pelvis CT from 2021 right large pleural effusion which is now chronic. Propofol continued at 10 mcg/kg, Versed 4 mg/h, antibiotics do on board including Zosyn/Vancomycin. Given overall poor prognosis from acute encephalopathy secondary to seizures likely complicated by anoxic brain injury from aspiration pneumonia, will update patient's guardian in shared decision making in regards to goals of care versus pleural drainage. VT 400 RR 20 PEEP 5, and peak plateau 16.8. Sedated and synchronized as noted volume loop and actual respiratory rate. 04/14/2025: No seizures reported overnight. Afebrile. Total fluid intake 727, output 900, next -172.0 within the last 12 hours. Continue to titrate down on Versed, currently 2 mg/hr and Propofol 15 mcg/kg. BAL positive for MRSA pneumonia, thus continue Vancomycin and discontinue Zosyn. Decreased vesicular breath sounds on right lung field with rhonchi noted on left lung field. Updated Conservator. 04/15/2025: No overnight events. No seizures reported. Patient continues to have good urine output 800cc. Propofol 25 mcg/kg. Given worsening kidney function, Vancomycin D/C and Linezolid 600 mg BID started, Day 8 of antibiotics for MRSA Pneumonia. Versed stopped. Improved chest x-ray, no planned bronchoscopy. 04/16/2025: No overnight seizures. Patient remains afebrile. Over the last 12 hours total urine output 400 cc with net positive +200. Mild lower pedal edema noted, +1. Patient failed pressure support and required propofol to be turned on again currently at 25 and switched back to assisted control. Bronchoscopy planned given worsening atelectasis on chest x-ray. Asymmetrical Excursion noted at bedside. 04/17/2025: Bronchosopy yesterday with BAL obtianed. No overnight events. Remains afebrile. Asymmetrical excursion and decreased breath sounds R lung field. CXR unchanged from yesterday despite bronchoscopy. Patient noted to have unclear deviated R eye, though this comes and goes. Repeat head CT was negative. Patient was arousable to verbal stimuli this morning on propofol of 10. He is still unable to follow commands. I spoke with Dr. Stweart, legal conservator, who discussed the patient is not a good candidate for tracheostomy, and changed code status from full code to DNR, witnessed by RN. Anticipate plan for extubation to comfort care on Saturday. 04/18/2025: No acute events overnight. R lung sounds significantly improved on physical exam. Patient arousable but not following commands. Hemoglobin 6.9 this morning. No active bleed noted. Nunez placed for comfort. Anticipate plan for extubation to comfort care on Saturday. 04/19/25: Patient was seen and examined in the ICU today. There were no major overnight events aside from patient having more secretions overnight. This morning patient was placed on SBT but she did not tolerate as he immediately became tachypneic and only pulling about 100 cc of volume each breath. After further conversation with Dr Stewart who is the patient's guardian and decision maker the decision was made to place the patient on comfort and perform comfort extubation as patient would not be a candidate for Tracheostomy and given his anoxic brain injury his quality of life would be poor and weaning off of ventilator would not be feasable. Dr Stewart made the retirement aware of the plan. Exam Vital Signs Temp Pulse Resp BP Pulse Ox O2 Del Method O2 Flow Rate 97.2 F 79 20 119/70 99 Mechanical Ventilation 15 04/19/25 04:00 04/19/25 07:00 04/14/25 18:42 04/19/25 07:00 04/19/25 07:00 04/19/25 04:00 04/11/25 04:11 FiO2 30 04/19/25 06:31 Narrative Exam Constitutional: Obese male intubated and sedated CVS: RRR, S1 and S2 present, no murmurs, rubs or gallops . RESP: CTAB, no SOB, no rales, rhonchi or wheezing. No respiratory Distress GI: Normal BS, Nontender/Nondistended. MSK: L BKA. 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 Full range of motion, No trauma or deformities or masses. Skin: Warm to touch, Dry. multiple excoriations throughout body. Neuro/psych: Deferred Objective Labs 04/19/25 05:00 04/19/25 05:00 Labs: Laboratory Results - last 24 hr 04/16/25 04/19/25 13:08 05:00 WBC 3.5 L RBC 2.33 L Hgb 7.2 L Hct 22.8 L MCV 98 MCH 30.9 MCHC 31.6 RDW Std Deviation 59.3 H Plt Count 116 L Neut % (Auto) 72 Lymph % (Auto) 13 Mccone % (Auto) 8 Eos % (Auto) 4 Baso % (Auto) 0 Neut # (Auto) 2.5 Lymph # (Auto) 0.4 L Mccone # (Auto) 0.3 Eos # (Auto) 0.2 Baso # (Auto) 0.0 Immature Gran # (Auto) 0.10 H Absolute Nucleated RBC 0.02 H Immature Gran % 3 H Nucleated RBC % 1 H Sodium 141 Potassium 4.2 Chloride 106 Carbon Dioxide 25.8 Anion Gap 9 BUN 39 H Creatinine 1.5 H Estim Creat Clear Calc 56.2 L eGFR 50 L BUN/Creatinine Ratio 26 H Glucose 132 H Calculated Osmolality 292 Calcium 7.8 L Corrected Calcium 8.8 Phosphorus 3.0 Magnesium 2.2 Total Bilirubin 0.8 AST 47 H ALT 62 H Alkaline Phosphatase 131 H Total Protein 6.4 Albumin 2.7 L Globulin 3.7 H Albumin/Globulin Ratio 0.7 L Coccidioides IgG Ab Negative ABG Interpretation ABG results: 04/03/25 04/03/25 04/04/25 16:35 20:45 04:55 ABG pH Cancelled 7.46 H 7.42 ABG pCO2 Cancelled 37 42 ABG pO2 Cancelled 181 H 111 H D ABG HCO3 Cancelled 26 27 H ABG O2 Saturation Cancelled 99 H 98 ABG Base Excess Cancelled 2 3 VBG pH VBG pCO2 VBG pO2 VBG Base Excess 04/05/25 04/05/25 04/07/25 04:00 04:55 19:20 ABG pH 7.35 7.40 7.38 ABG pCO2 47 40 47 ABG pO2 37 L* D 136 H D 141 H ABG HCO3 26 25 27 H ABG O2 Saturation 66 L 99 H 99 H ABG Base Excess 0 0 2 VBG pH VBG pCO2 VBG pO2 VBG Base Excess 04/08/25 04/09/25 04/09/25 04:20 04:52 23:33 ABG pH 7.46 H 7.48 H Cancelled ABG pCO2 45 40 Cancelled ABG pO2 108 D 84 D Cancelled ABG HCO3 32 H 30 H Cancelled ABG O2 Saturation 98 98 Cancelled ABG Base Excess 7 H 6 H Cancelled VBG pH VBG pCO2 VBG pO2 VBG Base Excess 04/10/25 04/10/25 04/11/25 00:24 23:42 03:15 ABG pH 7.48 H 7.41 ABG pCO2 40 38 ABG pO2 197 H D 124 H D ABG HCO3 29 H 24 ABG O2 Saturation 99 H 99 H ABG Base Excess 6 H -1 VBG pH 7.48 VBG pCO2 36 VBG pO2 105 H VBG Base Excess 3 04/11/25 04/11/25 04/12/25 04:57 12:32 08:38 ABG pH 7.41 ABG pCO2 41 ABG pO2 91 D ABG HCO3 26 ABG O2 Saturation 98 ABG Base Excess 1 VBG pH 7.39 7.41 VBG pCO2 47 D 42 VBG pO2 39 D 39 VBG Base Excess 3 2 04/13/25 04/14/25 04/16/25 04:28 05:18 04:35 ABG pH 7.43 ABG pCO2 38 ABG pO2 74 L ABG HCO3 25 ABG O2 Saturation 96 ABG Base Excess 1 VBG pH 7.38 7.40 VBG pCO2 44 40 VBG pO2 34 35 VBG Base Excess 1 0 Quality Measures Quality Measures VTE prophylaxis Advance care planning discussed with:: other (Dr Stewart) Assessment & Plan Assessment Current Active Medications: Generic Name Dose Route Start Last Admin Trade Name Freq PRN Reason Stop Dose Admin Acetaminophen 650 mg 04/07/25 15:23 Acetaminophen 325 Mg Tablet PO 05/03/25 16:21 Q6H PRN Fever >99.5 Dextrose 25 ml 04/03/25 16:33 Dextrose 50%-Water Inj 50 Ml Syringe IV 05/03/25 16:32 Q15MIN PRN BG 50-70 responsive npo pt Dextrose 50 ml 04/03/25 16:33 Dextrose 50%-Water Inj 50 Ml Syringe IV 05/03/25 16:32 Q15MIN PRN BG <50 OR BG <70 & pt unresponsive Famotidine 20 mg 04/14/25 09:00 04/18/25 07:16 Famotidine Inj 10 Mg/Ml Vial 2 Ml IVP 05/14/25 08:59 20 mg QDAY MANUEL Administration Glucagon 1 mg 04/03/25 16:33 Glucagon Inj 1 Mg Vial IM Q15MIN PRN BG <70, and no IV access Propofol 1,000 mg in 100 mls @ 3.351 mls/hr 04/11/25 04:12 04/19/25 07:30 Diprivan Ivpb IV 05/11/25 04:11 35 mcg/kg/min .Q24H PRN 23.457 mls/hr PER PROTOCOL Titration Protocol 5 MCG/KG/MIN Doxycycline Hyclate 100 mg/ 100 mls @ 100 mls/hr 04/16/25 21:00 04/18/25 20:34 Sodium Chloride IV 04/23/25 20:59 100 mls/hr BID MANUEL Administration Ceftriaxone Sodium/Dextrose 1 gm in 50 mls @ 100 mls/hr 04/18/25 07:34 04/18/25 07:48 Rocephin/D5w 1gm Iv Premix IV 04/25/25 07:33 100 mls/hr QDAY MANUEL Administration Insulin Human Regular 0 unit 04/11/25 06:00 04/19/25 05:15 Insulin Hum Regular 1 Unit/0.01 Ml (Per Unit) SC 05/11/25 05:59 Not Given Q6HR MANUEL Protocol Lacosamide 200 mg 04/12/25 21:00 04/18/25 20:34 Lacosamide Inj 200 Mg/20 Ml Vial IVP 05/12/25 20:59 200 mg BID MANUEL Administration Levetiracetam 1,000 mg 04/10/25 21:00 04/18/25 20:34 Levetiracetam Inj 100 Mg/Ml Vial 5ml IVP 05/10/25 20:59 1,000 mg Q12HR MANUEL Administration Ondansetron HCl 4 mg 04/07/25 14:29 Ondansetron Inj 2 Mg/Ml Inj 2 Ml IV 05/07/25 14:28 Q6H PRN NAUSEA OR VOMITING Protocol Scopolamine 1 mg 04/19/25 03:00 04/19/25 03:07 Scopolamine 1 Mg Tdsy TOP 05/19/25 02:59 1 mg Q3D MANUEL Administration Sodium Chloride 3 ml 04/04/25 15:24 04/09/25 10:22 Sodium Chloride Rt Jessica 0.9% 3 Ml Nebu INH 05/04/25 15:23 3 ml PRN PRN Administration SOLN Plan Patient is a 70 year old male with PMH of developmental delay, bipolar disorder, DM2, L AKA admitted to the ICU for choking-induced pulmonary arrest s/p ROSC. TRAINING INTERN Acute encephalopathy Cardiopulmonary arrest with and new onset seizures, ?anoxic brain injury. Head CT negative. MRI noted chronic micro-vascular changes. EEG also suggestive of anoxic brain injury. - Keppra 100mg BID - Lacosamide 20mg IV BID - Propofol ggt CARDIOVASCULAR Cardiopulmonary arrest s/p resuscitation, resolved Cardiopulmonary arrest on 04/08/2025 secondary to acute hypoxic respiratory failure form aspiration pneumonia. RESPIRATORY Acute hypoxic respiratory failure MRSA necrotizing pneumonia, GNR pneumonia, chronic bilateral pleural effusions CT imaging showed bilateral pleural effusion, right pleural effusion appears chronic. Initial bronchoscopy removed foreign food. PAtient had repeated bronchoscopies for clearance of airway secretions, mucus plugging, with BAL obtained. - Chest PT BID - Mucomyst - Duoneb Per conservator, patient not a candidate for tracheostomy and plan for terminal extubation to comfort on Saturday. RENAL JOSEFINA on CKD III, improving Due to nephrotoxins, vancomycin. Improved after vancomycin discontinued. - Nunez in place for comfort Hyperosmolar Hypernatremia, Resolved. Lactic acidosis, resolved Hypophosphatemia, resolved. GI FEN: Glucerna via OG tube. Free water flushes 250 cc Q6HR and Advance 10 ml every 8 hrs to goal rate of 62 ml/hr x 24 hrs. Flushes at 35 ml/hr. ENDO History of DM2 - Euglycemic. ISS Q6H HEME Thrombocytopenia Secondary thrombocytopenia from sepsis, acute illness ID Aspiration pneumonia MRSA necrotizing pneumonia Klebsiella pneumonia Vancomycin 04/07/2025-04/15/2025 dicontinued due to JOSEFINA, switched to Linzezolid (04/16) to doxycyline (04/17-). Zosyn added for GNR coverage (04/17-04/18) de- escalated to ceftriaxone for Klebsiella pneumonia. - Continue ceftriaxone 04/18- - Follow up BAL 04/16 Health Maintenance Diet and fluids: tube feeds - Glucerna 1.2 Advance 10 ml every 8 hrs to goal rate of 62 ml/hr x 24 hrs. Flushes at 35 ml/hr. DVT prophylaxis: heparin Q12 GI prophylaxis: Famotadine 40 IV daily Lines: Right IJ central line, PIV, ET, OG Medical Restrains 24 hours. CODE STATUS: DNR I discussed patient's care with attending physician, Dr Mauricio Bender PGY3
[2025-04-19] MEDS: fentaNYL 2,500 MCG/250 ML BAG 2,500 MCG/250 ML BAG IV (10:40)
[2025-04-19] MEDS: fentaNYL CIT INJ 50 mCg/ML AMP 2ML 25 MCG IVP ×3 (10:50→11:13)
[2025-04-19] MEDS: fentaNYL CIT INJ 50 mCg/ML AMP 2ML IVP ×8 (11:30→13:00)
--- NOTE | 2025-04-19 12:38 | PC.SS ---
Update: Comfort measures have begun on behalf of the patient. [facility] has been notified.
--- NOTE | 2025-04-19 13:45 | PD.RESPRO ---
Documentation for date of: 04/19/25 Subjective Subjective Interval history: Patient was seen and examined by the bedside. No acute overnight events. ICU team had a conversation regarding goals of care, patient was made DNR and transitioned to comfort care. Patient was started Exam Vital Signs Temp Pulse Resp BP Pulse Ox O2 Del Method O2 Flow Rate 97.2 F 98 20 144/83 H 92 L Mechanical Ventilation 15 04/19/25 04:00 04/19/25 12:00 04/14/25 18:42 04/19/25 12:00 04/19/25 12:00 04/19/25 04:00 04/11/25 04:11 FiO2 30 04/19/25 12:00 Narrative Exam Gen: Well-developed and well-nourished. Sedated. RASS -3. HEENT: NCAT, pupils equal, right eye cataract, miotic, weakly reactive to light, intact corneal reflex, intact cough reflex, MMM, anicteric conjunctivae. CVS: normal S1 and S2. RRR. No M/R/G. Resp: CTA B/L. No rhonchi, rales, crackles or wheezing. Abd: soft, non-tender, non-distended. BS+ in all 4 quadrants. MSK: Right AKA, left toe amputation. Neuro:Sedated. Pupils equal, miotic, weakly reactive to light, intact corneal reflex, intact cough reflex. Tendon reflexes 1+. Grimacing to the pain stimulation. Psych: impossible to assess. Objective Labs 04/19/25 05:00 04/19/25 05:00 Labs: Laboratory Results - last 24 hr 04/16/25 04/19/25 13:08 05:00 WBC 3.5 L RBC 2.33 L Hgb 7.2 L Hct 22.8 L MCV 98 MCH 30.9 MCHC 31.6 RDW Std Deviation 59.3 H Plt Count 116 L Neut % (Auto) 72 Lymph % (Auto) 13 Kingfisher % (Auto) 8 Eos % (Auto) 4 Baso % (Auto) 0 Neut # (Auto) 2.5 Lymph # (Auto) 0.4 L Kingfisher # (Auto) 0.3 Eos # (Auto) 0.2 Baso # (Auto) 0.0 Immature Gran # (Auto) 0.10 H Absolute Nucleated RBC 0.02 H Immature Gran % 3 H Nucleated RBC % 1 H Sodium 141 Potassium 4.2 Chloride 106 Carbon Dioxide 25.8 Anion Gap 9 BUN 39 H Creatinine 1.5 H Estim Creat Clear Calc 56.2 L eGFR 50 L BUN/Creatinine Ratio 26 H Glucose 132 H Calculated Osmolality 292 Calcium 7.8 L Corrected Calcium 8.8 Phosphorus 3.0 Magnesium 2.2 Total Bilirubin 0.8 AST 47 H ALT 62 H Alkaline Phosphatase 131 H Total Protein 6.4 Albumin 2.7 L Globulin 3.7 H Albumin/Globulin Ratio 0.7 L Coccidioides IgG Ab Negative ABG Interpretation ABG results: 04/03/25 04/03/25 04/04/25 16:35 20:45 04:55 ABG pH Cancelled 7.46 H 7.42 ABG pCO2 Cancelled 37 42 ABG pO2 Cancelled 181 H 111 H D ABG HCO3 Cancelled 26 27 H ABG O2 Saturation Cancelled 99 H 98 ABG Base Excess Cancelled 2 3 VBG pH VBG pCO2 VBG pO2 VBG Base Excess 04/05/25 04/05/25 04/07/25 04:00 04:55 19:20 ABG pH 7.35 7.40 7.38 ABG pCO2 47 40 47 ABG pO2 37 L* D 136 H D 141 H ABG HCO3 26 25 27 H ABG O2 Saturation 66 L 99 H 99 H ABG Base Excess 0 0 2 VBG pH VBG pCO2 VBG pO2 VBG Base Excess 04/08/25 04/09/25 04/09/25 04:20 04:52 23:33 ABG pH 7.46 H 7.48 H Cancelled ABG pCO2 45 40 Cancelled ABG pO2 108 D 84 D Cancelled ABG HCO3 32 H 30 H Cancelled ABG O2 Saturation 98 98 Cancelled ABG Base Excess 7 H 6 H Cancelled VBG pH VBG pCO2 VBG pO2 VBG Base Excess 04/10/25 04/10/25 04/11/25 00:24 23:42 03:15 ABG pH 7.48 H 7.41 ABG pCO2 40 38 ABG pO2 197 H D 124 H D ABG HCO3 29 H 24 ABG O2 Saturation 99 H 99 H ABG Base Excess 6 H -1 VBG pH 7.48 VBG pCO2 36 VBG pO2 105 H VBG Base Excess 3 04/11/25 04/11/25 04/12/25 04:57 12:32 08:38 ABG pH 7.41 ABG pCO2 41 ABG pO2 91 D ABG HCO3 26 ABG O2 Saturation 98 ABG Base Excess 1 VBG pH 7.39 7.41 VBG pCO2 47 D 42 VBG pO2 39 D 39 VBG Base Excess 3 2 04/13/25 04/14/25 04/16/25 04:28 05:18 04:35 ABG pH 7.43 ABG pCO2 38 ABG pO2 74 L ABG HCO3 25 ABG O2 Saturation 96 ABG Base Excess 1 VBG pH 7.38 7.40 VBG pCO2 44 40 VBG pO2 34 35 VBG Base Excess 1 0 Quality Measures Quality Measures comfort care/end of life Advance care planning discussed with:: other Assessment & Plan Assessment Current Active Medications: Generic Name Dose Route Start Last Admin Trade Name Freq PRN Reason Stop Dose Admin Acetaminophen 650 mg 04/07/25 15:23 Acetaminophen 325 Mg Tablet PO 05/03/25 16:21 Q6H PRN Fever >99.5 Fentanyl Citrate 50 mcg 04/19/25 11:13 04/19/25 13:00 Fentanyl Cit Inj 50 Mcg/Ml Amp 2ml IVP 04/24/25 10:29 50 mcg Q10MIN PRN Administration UD Propofol 1,000 mg in 100 mls @ 3.351 mls/hr 04/11/25 04:12 04/19/25 07:30 Diprivan Ivpb IV 05/11/25 04:11 35 mcg/kg/min .Q24H PRN 23.457 mls/hr PER PROTOCOL Titration Protocol 5 MCG/KG/MIN Ceftriaxone Sodium/Dextrose 1 gm in 50 mls @ 100 mls/hr 04/18/25 07:34 04/19/25 10:36 Rocephin/D5w 1gm Iv Premix IV 04/25/25 07:33 Not Given QDAY MANUEL Fentanyl Citrate 2,500 mcg in 250 mls @ 2.5 mls/hr 04/19/25 10:20 04/19/25 12:15 Sublimaze Inj 2,500 Mcg/250 Ml Bag IV 04/24/25 10:19 175 mcg/hr .Q24H PRN 17.5 mls/hr PER PROTOCOL Titration Protocol 25 MCG/HR Lacosamide 200 mg 04/12/25 21:00 04/19/25 10:37 Lacosamide Inj 200 Mg/20 Ml Vial IVP 05/12/25 20:59 Not Given BID MANUEL Levetiracetam 1,000 mg 04/10/25 21:00 04/19/25 10:37 Levetiracetam Inj 100 Mg/Ml Vial 5ml IVP 05/10/25 20:59 Not Given Q12HR MANUEL Scopolamine 1 mg 04/19/25 03:00 04/19/25 03:07 Scopolamine 1 Mg Tdsy TOP 05/19/25 02:59 1 mg Q3D MANUEL Administration Plan Patient is a 70 year old male with PMH of developmental delay, bipolar disorder, DM2, L AKA admitted to the ICU for choking-induced pulmonary arrest s/p ROSC. #Status epilepticus requiring reintubation #History of bipolar disorder #History of developmental delay #Cardiopulmonary arrest s/p resuscitation #Hypoxic brain injury Seizures could be provoked due to brain injury in the setting of prolonged hypoxia. MRI showed multiple miscrovascular changes. EEG showed multifocal spike and wave discharges, triphasic waves and severe generalized slowing. Plan: ? comfort care #Acute hypoxic respiratory failure and status epilepticus requiring mechanical intubation and ventilation for airway protection #Hyperosmolar Hypernatremia, resolved #Lactic acidosis, cleared #Hypophosphatemia, improving #History of DM2 #Thrombocytopenia #Aspiration pneumonia versus pneumonitis - comfort care Plan of care discussed with attending Dr. Wilson. Sophia Fritz MD, PGY 1. Attending Provider Attestation/Addendum I independently reviewed the patient's chart and agreed with the resident's findings, assessment and plan of care. Discussed with Dr. Stewart. Patient got switched to comfort care, got extubated and patient after a short period of time.
--- NOTE | 2025-04-19 14:01 | DES_ITS ---
<Statement entered by Heather Martínez MD - 04/19/25 16:48> TOTAL TIME: 45MINUTES ON DIRECT MEDICAL CARE, MANAGEMENT - COORDINATION AND COUNSELING > 50% OF TOTAL TIME I saw and evaluated the patient. I reviewed the resident?s note and agree with findings and plan as documented in the resident?s note. Mr. Douglass was attempted on PSV again today but failed immediately with severe resp distress No improvement in neurological exam - not able to follow any commands despite minimal sedation (needed to prevent distress) Residents discussed case again w/ Dr. Stewart and decision to transition to comfort care was confirmed Patient was placed on comfort care orders and passed Documentation for date of: 04/19/25 Summary Date and Time Date of admission: 04/03/25 16:22 Date of : 04/19/25 Time of : 14:00 Summary Hospital Course: Patient is a 70-year-old male with past medical history of developmental delay, bipolar disorder, type 2 diabetes, left above-knee amputation that was initially admitted to the ICU on 04/06/2025 for choking induced pulmonary arrest status post ROSC. Patient was eating an apple when he had an episode of choking leading to him becoming unresponsive and when EMS arrived he was found to have agonal breathing with hypoxia at 55% and bradycardia for an undetermined period of time. Patient was bagged with NPA after which she lost pulses and CPR was initiated. Patient was given 1 round of epinephrine and ROSC was achieved. Patient was subsequently intubated and brought over to the ICU. Throughout his stay patient was found to have several problems including renal failure, aspiration pneumonia electrolyte normalities, thrombocytopenia and the develo pment of new onset seizures. Patient was extubated and reintubated twice during his stay. He had another cardiopulmonary arrest on 04/08/2025 following a hypoxic episode following aspiration pneumonia. Patient was also found to have MRSA necrotizing pneumonia with Klebsiella pneumonia superimposed. Patient was worked up for new onset seizures and neurology was consulted. Given the patient's initial presentation it is likely he underwent the anoxic brain injury on initial presentation. Given his attempted extubation times and his prolonged ICU stay consideration was made for putting a trach tube. After speaking with the decision maker and conservatorship guardian Dr. Stewart, goals of care discussions were held. Given the extent of the patient's anoxic brain injury and dramatically decreasing quality of life with the patient the decision was made to extubate the patient on comfort. The nursing facility that took care of the patient was informed about the plan and will caregivers were at bedside at the time that the patient comfortably on 04/19/25 at 14:00. Problems addressed during this stay Acute encephalopathy Cardiopulmonary arrest New onset seizures Anoxic brain injury Acute hypoxic respiratory failure MRSA necrotizing pneumonia Klebsiella pneumonia Chronic bilateral pleural effusions JOSEFINA on CKD III Hyperosmolar Hypernatremia Lactic acidosis Hypophosphatemia History of DM2 Thrombocytopenia Thank you for allowing us to care for the patient during his time with us here at [facility] I discussed patient's care with attending physician, Dr Mauricio Bender PGY3 Additional Data Attending physician: Thai Floyd MD Visit Providers Provider Primary care physician: Physician Radha Primary/Family Consults: 04/03/25 16:39 Consult to Nephrology Stat Comment: hypernatremia 179 Consulting Provider: Long Cantrell 04/03/25 17:14 Referral Wound Care Routine Comment: 04/04/25 11:27 Consult to Gastroenterology Urgent Comment: endoesophageal obstruction,chicken Consulting Provider: Patricia Rodriguez 04/07/25 10:54 Referral Speech Therapy Stat Comment: 04/11/25 04:28 Consult to Neurology / Tele-Neurology Routine Comment: status epilepticus Consulting Provider: Stephen Wilson Diagnosis Contributing Factors (1) Hypernatremia: (2) Acute renal failure: (3) Metabolic acidosis: Discharge Plan Problem List Was Problem List Reviewed/Reconciled?: Yes Plan Patient Disposition: Prescriptions/Referrals Prescriptions/Med Rec: No Action finasteride 5 mg tablet 5 mg PO QDAY tamsulosin 0.4 mg capsule 0.8 mg PO QHS quetiapine 100 mg Tablet 200 mg PO HS lorazepam 0.5 mg Tablet 0.5 mg PO TID PRN (Reason: Anxiety) paroxetine HCl 20 mg Tablet 20 mg PO QDAY melatonin 5 mg Tablet 5 mg PO HS lurasidone 40 mg Tablet 40 mg PO QDAY docusate sodium 50 mg/5 mL Liquid 25 ml PO BID polyethylene glycol 3350 [Miralax] 17 gram Powder In Packet 17 g PO QDAY cyanocobalamin (vitamin B-12) [Vitamin B-12] 1,000 mcg Tablet 1,000 mcg PO QDAY folic acid 1 mg Tablet 1 mg PO QDAY insulin glargine [Basaglar KwikPen U-100 Insulin] 100 unit/mL (3 mL) Insulin Pen 26 unit SUBCUT HS allopurinol 100 mg Tablet 100 mg PO BID Qty: 1 0RF carvedilol 3.125 mg Tablet 3.125 mg PO BID Qty: 1 0RF quetiapine 100 mg Tablet 100 mg PO QDAY omeprazole 20 mg Tablet,Delayed Release (Dr/Ec) 20 mg PO BID trazodone 50 mg tablet 200 mg PO QDAY insulin lispro [Humalog U-100 Insulin] 100 unit/mL Solution See Protocol subcut USEASDIRECTD PRN (Reason: Hyperglycemia) Protocol: Insulin Corrective High-Dose Regimen Condition: Fingerstick Blood Glucose Dose/Route: Insulin Units Condition: 141-180 mg/dl Dose/Route: 6 units/SQ Condition: 181-220 mg/dl Dose/Route: 8 units/SQ Condition: 221-260 mg/dl Dose/Route: 10 units/SQ Condition: 261-300 mg/dl Dose/Route: 12 units/SQ Condition: 301-350 mg/dl Dose/Route: 14 units/SQ Condition: 351-400 mg/dl Dose/Route: 16 units/SQ Condition: greater than 400 mg/dl Dose/Route: 18 units/SQ ferrous sulfate 325 mg (65 mg iron) tablet 325 mg PO QDAY diphenhydramine HCl [Banophen] 25 mg tablet 25 mg PO HS Referrals: No Primary/Family,Physician [Primary Care Provider] - Patient/Caregiver Discharge Instructions Print Language: Divehi
--- NOTE | 2025-04-20 14:39 | ESCONSULT_ITS ---
RE: SHELBY MORATAYA : 1955 DATE OF CONSULTATION: 04/16/2026 REFERRING PHYSICIAN: Dr. Merritt and Dr. Rodriguez REASON FOR CONSULTATION: Worsening respiratory status despite appropriate antibiotics, based on cultures. HISTORY OF PRESENT ILLNESS: The patient has had a gram stain that showed 2+ white cells, but gram negative rods and occasional yeast. His cultures grew MRSA, so rx is targetted at the MRSA. He initially received more broad treatment, but did not overtly improve he worsened on vancomycin, so he was switched to linezolid. He has a prior left above-knee amputation, history of developmental delay, hypertension, and diabetes. He has a prior right bundle branch block noted as well. Cause of his bundle branch block is not clear. ALLERGIES: NONE NOTED. IMMUNIZATIONS: Unavailable. FAMILY HISTORY: Unknown. SOCIAL HISTORY: He lives at a snf. There is no known tobacco, alcohol or drug use. His blood sugars were negative. Available micro is unrevealing other than the sputum. I was passing otherwise, but he seems to be doing worse. His hepatitis C test was negative previously and in 2020 when I saw him before, other tests were also negative at that time as well. I assume he does not get outside much. We can do another coccci as a precaution, but he missed the run today, so he will probably get one to run to him on Saturday. It is unusual to grow in those who never get outside. The presence of MRSA is of concern and so we should still cover it, but I am going to change him to doxycycline from the linezolid, which should have worked and the vancomycin should have worked as well. I note that it appears his renal function may have deteriorated before the vancomycin was started. I will try to review his data moving forward. cc: MD DR Pat Javed, [facility] DT: 11:45:37 TT: 12:17:00 Ref: [id number] - TID: [id number] [facility]
== END 2025-04-19 14:00 | disposition expired | DRG 130 ==
LOC: SERX 15:41 → SERHOLD 16:37 → S2SX 17:23 → S3SX 04-06 21:03 → S2SX 04-07 18:02
PROVIDERS: Internal Medicine; Internal Medicine Infectious Disease; Specialist; Student in an Organized Health Care Education/Training Program; Admitting Provider Internal Medicine Critical Care Medicine; Emergency Provider Emergency Medicine; Visit Provider Internal Medicine
PROC: (CPT 43239; principal; 2025-04-04 18:00)
DX: J96.01 Acute respiratory failure with hypoxia (principal); J69.0 Pneumonitis due to inhalation of food and vomit; E87.0 Hyperosmolality and hypernatremia; I95.9 Hypotension, unspecified; E11.9 Type 2 diabetes mellitus without complications; F31.9 Bipolar disorder, unspecified; G93.49 Other encephalopathy; I46.8 Cardiac arrest due to other underlying condition; E83.51 Hypocalcemia; D69.6 Thrombocytopenia, unspecified; Z99.3 Dependence on wheelchair; D63.1 Anemia in chronic kidney disease; D69.59 Other secondary thrombocytopenia; E11.22 Type 2 diabetes mellitus with diabetic chronic kidney disease; E11.43 Type 2 diabetes mellitus with diabetic autonomic (poly)neuropathy; E11.65 Type 2 diabetes mellitus with hyperglycemia; F17.200 Nicotine dependence, unspecified, uncomplicated; G40.901 Epilepsy, unspecified, not intractable, with status epilepticus; I12.9 Hypertensive chronic kidney disease with stage 1 through stage 4 chronic kidney disease, or unspecified chronic kidney disease; I48.91 Unspecified atrial fibrillation; I49.01 Ventricular fibrillation; J15.0 Pneumonia due to Klebsiella pneumoniae; Z51.5 Encounter for palliative care; J15.212 Pneumonia due to Methicillin resistant Staphylococcus aureus; E87.1 Hypo-osmolality and hyponatremia; E87.20 Acidosis, unspecified; G93.1 Anoxic brain damage, not elsewhere classified; J90 Pleural effusion, not elsewhere classified; N18.30 Chronic kidney disease, stage 3 unspecified; N40.0 Benign prostatic hyperplasia without lower urinary tract symptoms; T18.128A Food in esophagus causing other injury, initial encounter; W44.F3XA Food entering into or through a natural orifice, initial encounter; Y95 Nosocomial condition; Z66 Do not resuscitate; Z78.1 Physical restraint status; N17.9 Acute kidney failure, unspecified; M10.9 Gout, unspecified; K56.7 Ileus, unspecified; K31.84 Gastroparesis; K22.2 Esophageal obstruction; E86.0 Dehydration; Z79.899 Other long term (current) drug therapy; Z89.612 Acquired absence of left leg above knee; E83.39 Other disorders of phosphorus metabolism; J98.11 Atelectasis; T17.928A Food in respiratory tract, part unspecified causing other injury, initial encounter; Z93.1 Gastrostomy status; J85.0 Gangrene and necrosis of lung; Z79.4 Long term (current) use of insulin; R62.50 Unspecified lack of expected normal physiological development in childhood; J40 Bronchitis, not specified as acute or chronic
CPT/HCPCS: 36415; 36600; 70450; 70553; 71045; 71260; 74018; 80053; 80069; 80202; 80307; 80320; 80329; 81001; 82436; 82550; 82570; 82803; 83036; 83605; 83735; 83935; 84100; 84133; 84146; 84295; 84300; 84484; 85014; 85018; 85025; 85610; 86331; 86635; 86850; 86900; 86901; 86923; 87070; 87077; 87081; 87102; 87186; 87205; 92526; 92610; 92950; 93005; 93225; 94002; 94003; 94640; 94660; 94664; 94667; 95813; 95816; 99291; A4216; A4217; A4314; A4649; A9270; A9579; C9254; J0171; J0360; J0613; J0696; J1200; J1644; J1815; J1938; J1953; J2021; J2250; J2251; J2358; J2470; J2543; J2704; J2765; J3010; J3370; J3475; J3480; J3490; J7030; J7040; J7042; J7070; J7120; Q9967; G0480; J1596; J2359